=== PATIENT | male | born 1960 | race Caucasian/White ===

== ENCOUNTER 2019-06-05 07:09 | Outpatient (CLI) | payer OTHER, SELFPAY ==
--- NOTE | ~2019-06-05 | CT_ITS ---
EXAMINATION: CTA chest PE protocol DATE: 06/05/2019 21:39 MORNING NEWS ANCHOR INDICATION: Dyspnea TECHNIQUE: Computed tomographic angiography (CTA) of the chest was performed with 100 mL Omnipaque-35 0 intravenous contrast. The dose-length product was 1017.83 mGy-cm. Maximum intensity projection 3D-r econstructions of the aorta and other arteries were constructed by the technologist on a separate wor kstation. Automated exposure control and iterative reconstruction technique were employed. COMPARISON: CT dated 08/03/2016 FINDINGS: The study is technically adequate without evidence for pulmonary embolism. No significant p leural or pericardial effusion. Heart size is normal. There is mediastinal lipomatosis. No thoracic l ymphadenopathy. Right middle lobe airspace consolidation without significant change. There is atheros clerosis of the coronary arteries. There is emphysema. No pulmonary nodules. Mild thoracic spondylosis. IMPRESSION: 1. No evidence for pulmonary embolism. 2: Chronic right middle lobe airspace consolidation, most likely atelectasis/scarring. Pneumonia les s favored. 3: Emphysema. Reviewed, dictated and finalized at location A. ING NEWS ANCHOR IMPRESSION: 1. No evidence for pulmonary embolism. 2: Chronic right middle lobe airspace consolidation, most likely atelectasis/s carring. Pneumonia less favored. 3: Emphysema.
--- NOTE | ~2019-06-05 | CT_ITS ---
EXAMINATION: CT abdomen pelvis wo con DATE: 06/05/2019 20:59 INDICATION: Abdominal pain TECHNIQUE: Computed tomography (CT) of the abdomen and pelvis was performed with 100 cc Omnipaque 350 intravenous contrast. The dose-length product was 1595.25 mGy-cm. Automated exposure control and ite rative reconstruction technique were employed. COMPARISON: No prior studies for comparison. FINDINGS: There is right middle lobe airspace consolidation. No significant pleural or pericardial ef fusion. Heart size normal. Gallbladder is distended, although no secondary findings to suggest cholecystitis. The liver, spleen, pancreas, adrenal glands and left kidney are unremarkable. There is a calcification located medial t o the right kidney which may represent renal arterial calcification or ureteral stone. No hydronephro sis. Bladder is unremarkable. Nonobstructive bowel gas pattern. No abnormal pelvic masses or fluid co llections. Mild-moderate lumbar spondylosis. Oral fat-containing umbilical hernia. No evidence for di verticulitis or appendicitis. There is mild lymphadenopathy in the left periaortic in left common and external iliac chains. There is also left inguinal lymphadenopathy. IMPRESSION: 1. Possible nonobstructing right renal stone measuring 2-3 mm versus renal arterial calcification. No hydronephrosis. 2: Right middle lobe airspace consolidation, atelectasis versus pneumonia. 3: Left pelvic lymphadenopathy involving the left common and external iliac chains and left inguinal region, largest measuring 3 cm, image 167. These may be reactive, although other considerations such as lymphoma should be considered. Reviewed, dictated and finalized at location A. PUNCHER IMPRESSION: 1. Possible nonobstructing right renal stone measuring 2-3 mm versus renal michael rial calcification. No hydronephrosis. 2: Right middle lobe airspace consolidation, atelectasis versus pneumonia. 3: Left pelvic lymphadenopathy involving the left common and external iliac ch ains and left inguinal region, largest measuring 3 cm, image 167. These may be reactive, although other considerations such as lymphoma should be considered.
[2019-06-05 20:39] LABS: Blood Urea Nitrogen 17 mg/dL (8-26); Estimated Glomerular Filt Rate > 60
== END 2019-06-05 08:00 | disposition home or self-care (01) ==
LOC: ANHOUTPT 20:41 → ANHIMG 04-01 15:56
PROVIDERS: Emergency Medicine; PCP Internal Medicine
DX: R10.9 Unspecified abdominal pain (principal); J44.9 Chronic obstructive pulmonary disease, unspecified; R59.0 Localized enlarged lymph nodes; R91.8 Other nonspecific abnormal finding of lung field; R93.41 Abnormal radiologic findings on diagnostic imaging of renal pelvis, ureter, or bladder
CPT/HCPCS: 71275; 74176; Q9967

== ENCOUNTER 2020-10-08 08:46 | Outpatient (CLI) | payer OTHER, SELFPAY ==
[2020-10-08 09:17] LABS: Alveolar/Arterial O2 Gradient 121.7 mmHg; Base Excess ABG 5.5 mEq/l (+/-2.0); Carboxyhemoglobin 0.6 % THb (0-2.0); Fractional Inspired Oxygen 36 %; HCO3 ABG 32.1 mEq/l (22.0-26.0); Methemoglobin ABG 0.5 %THb (0-1.5); Oxygen Saturation ABG 93.8 % (95.0-100.0); Oxyhemoglobin 92.9 % THb (90.0-100.0); PO2 ABG 71.2 mmHg (80.0-100.0); PO2 FiO2 Ratio Arterial Blood 1.98 %; Total Hemoglobin 13.8 g/dL (12.0-18.0); pH ABG 7.384 (7.350-7.450)
[2020-10-08 09:19] LABS: Device NASAL CANNULA; Modified Allen's Test Pass; Site Drawn LEFT RADIAL
--- NOTE | 2020-10-08 09:43 | PCRCNOTE ---
PT UNABLE TO DO 6MWT DUE TO SEVERE INFLAMMATION OF SCROTUM. ABG DONE ON 4L O2, THIS IS HIS HOME SETTING. FAXED ABG RESULTS TO [facility] OFFICE STAFF. WHEELED PT DOWN TO ER ADMITTING.
== END 2020-10-08 08:47 | disposition home or self-care (01) ==
PROVIDERS: PCP Internal Medicine; Visit Provider Nurse Practitioner
DX: J44.9 Chronic obstructive pulmonary disease, unspecified (principal)
CPT/HCPCS: 36600; 82375; 82805; 83050

== ENCOUNTER 2020-10-08 09:30 | Inpatient (IN) | payer OTHER, SELFPAY ==
[2020-10-08] VITALS (30 sets, daily range): BP systolic 124–170; BP diastolic 76–102; PULSE 64–96; RESP 14–25; TEMP 36.3–37.2; O2SAT 91–100
--- NOTE | ~2020-10-08 | XR_ITS ---
XR esophogram water soluble DATE: 10/20/2020 14:53 INDICATION: Food sticking in distal esophagus TECHNIQUE: Rapid sequence spot images and overhead radiographs during oral ingestion of water soluble contrast material COMPARISON: None FINDINGS: There is normal deglutition and esophageal peristalsis. There is a small sliding hiatal hernia. There is a persistent irregular filling defect bridging the esophagogastric junction, extending from the distal esophagus into the hiatal hernia, suggesting distal esophageal malignancy invading the pro ximal stomach versus adenocarcinoma of the stomach at the hiatal hernia invading the distal esophagus . Direct visualization and biopsy via upper endoscopy is recommended. Right upper extremity PIC catheter overlies the superior vena cava. IMPRESSION: Irregular persistent filling defect bridging the esophagogastric junction, involving the distal esophagus and proximal stomach at the hiatal hernia, highly suspicious for malignancy in eithe r the distal esophagus or proximal stomach Endoscopic direct visualization and biopsy is recommended Reviewed, dictated and finalized at Location A. Reviewed, dictated and finalized at location A. IMPRESSION: Irregular persistent filling defect bridging the esophagogastric ju nction, involving the distal esophagus and proximal stomach at the hiatal herni a, highly suspicious for malignancy in either the distal esophagus or proximal stomach Endoscopic direct visualization and biopsy is recommended
--- NOTE | ~2020-10-08 | XR_ITS ---
EXAMINATION: XR chest 1V portable DATE: 10/12/2020 15:21 INDICATION: Hypoxia. TECHNIQUE: A single frontal view of the chest was obtained on 2 radiographs. COMPARISON: Chest single view 10/11/2020, CT abdomen and pelvis 10/11/2020, chest CT 06/05/2019 FINDINGS: There are airspace opacities in the mid and lower lung zones. No pleural effusion or pneumo thorax. The heart size is normal. The nasogastric tube tip is beyond the inferior margin of the radio graph, but at least to the stomach. A right upper extremity peripherally inserted central venous cath eter (PICC) is seen with tip in the superior vena cava. Mediastinal lipomatosis is noted. There are o ld left rib fractures. IMPRESSION: 1. Airspace opacities in the mid and lower lung zones with worsening on the left, consistent with ate lectasis/scarring or less likely pneumonia. Reviewed, dictated and finalized at location A. IMPRESSION: 1. Airspace opacities in the mid and lower lung zones with worsening on the lef t, consistent with atelectasis/scarring or less likely pneumonia.
--- NOTE | ~2020-10-08 | XR_ITS ---
EXAMINATION: XR abdomen/kub 1V DATE: 10/12/2020 12:08 INDICATION: Nasogastric tube placement. Stomach distention. TECHNIQUE: A supine view of the abdomen on 4 radiographs was obtained. COMPARISON: 10/11/2020 FINDINGS: Nasogastric tube tip in proximal side port in the body of the gas distended stomach. Moderate amount of gas and stool scattered throughout the colon. No dilated loops of gas-filled small bowel to sugges t obstruction. A Lieberman catheter projects over the central pelvis. Streaky bibasilar opacities which c ould represent atelectasis and/or pneumonia. IMPRESSION: 1. Nasogastric tube in the stomach. 2. Streaky bibasilar opacities which could represent atelectasis and/or pneumonia. Reviewed, dictated and finalized at location A. IMPRESSION: 1. Nasogastric tube in the stomach. 2. Streaky bibasilar opacities which could represent atelectasis and/or pneumon ia.
--- NOTE | ~2020-10-08 | XR_ITS ---
EXAMINATION: XR chest 1V portable DATE: 10/11/2020 23:03 INDICATION: Increasing oxygen requirements TECHNIQUE: frontal view of the chest was obtained. COMPARISON: Chest radiograph dated 10/10/[address] dated 06/05/2019 FINDINGS: Right upper extremity peripherally inserted central venous catheter (PICC) tip at the mid superior v donovan cava. Nasogastric tube is seen extending to at least the mid esophagus which is unable to be visu alized more distally due to underpenetration. Persistent airspace opacities in the bilateral lower lung zones. Chronic increased subpleural fat. No pleural effusion or pneumothorax. The cardiomediastinal silhouette is normal. Old left-sided rib fra ctures. IMPRESSION: 1. Persistent opacities in bilateral lower lung zones which could represent atelectasis/scarring or p neumonia. Reviewed, dictated and finalized at location A. IMPRESSION: 1. Persistent opacities in bilateral lower lung zones which could represent ate lectasis/scarring or pneumonia.
--- NOTE | ~2020-10-08 | CT_ITS ---
EXAMINATION: CT pelvis w con DATE: 10/08/2020 12:45 INDICATION: Rule out Nathanael's gangrene. Testicle swelling. TECHNIQUE: Computed tomography (CT) of the pelvis was performed with 100 cc Omnipaque 350 intravenous contrast. The dose-length product was 1940.25 mGy-cm. Automated exposure control and iterative recon struction technique were employed. COMPARISON: CT dated 06/05/2019 FINDINGS: Nonobstructive bowel gas pattern. Small fat-containing umbilical hernia. No abnormal pelvic masses or fluid collections. There is scrotal wall thickening as well as edema and fluid in the scro patrick. No scrotal gas or significant inflammatory changes of the perineum are identified to suggest Fou rnier's gangrene. There is a small amount of focal gas likely in the urethra, image [id number], possibly fr om recent instrumentation. Clinically correlate. There is mild subcutaneous fatty infiltration and sk in thickening overlying the lower abdomen, likely cellulitis. No significant lymphadenopathy. No vasc ular abnormalities are identified. Nonobstructive bowel gas pattern. IMPRESSION: 1. Small amount of gas most likely in the urethra. Correlate for recent instrumentation. 2: Scrotal wall thickening and fluid, suspicious for infection/cellulitis. No associated subcutaneou s gas to suggest Nathanael's gangrene. 3: Lower anterior abdominal wall subcutaneous fatty infiltration and skin thickening, consistent with cellulitis. Reviewed, dictated and finalized at location B. IMPRESSION: 1. Small amount of gas most likely in the urethra. Correlate for recent instrum entation. 2: Scrotal wall thickening and fluid, suspicious for infection/cellulitis. No associated subcutaneous gas to suggest Nathanael's gangrene. 3: Lower anterior abdominal wall subcutaneous fatty infiltration and skin thick ening, consistent with cellulitis.
--- NOTE | ~2020-10-08 | US_ITS ---
EXAMINATION: US venous doppler [facility] DATE: 10/19/2020 11:59 INDICATION: Chest pain TECHNIQUE: Mcclellan scale images without and with compression and Doppler images of the bilateral lower e xtremity veins were obtained. COMPARISON: None FINDINGS: The peroneal veins are not evaluated due to body habitus. The right common femoral vein, profunda femoral vein, femoral vein, popliteal vein, posterior tibial veins, and greater saphenous vein are patent. The left common femoral vein, profunda femoral vein, femoral vein, popliteal vein, posterior tibial v eins, and greater saphenous vein are patent. IMPRESSION: 1. Visualized lower extremity veins are patent. No evidence of deep venous thrombosis. Reviewed, dictated and finalized at location A. IMPRESSION: 1. Visualized lower extremity veins are patent. No evidence of deep venous thro mbosis.
--- NOTE | ~2020-10-08 | XR_ITS ---
XR chest PICC line 10/10/2020 10:22 Indication: PICC line placement Procedure: Limited AP portable view of the chest Comparison: Comparison to multiple prior studies sequentially, with oldest reviewed study dated 08/06. Findings: Right subclavian PICC line tip in the SVC. Right pleural effusion. Right basilar airspace d isease partially visualized. No pneumothorax. Impression: 1: Right basilar airspace disease partially visualized which may represent atelectasis or pneumonia. 2: PICC line tip in the SVC. Reviewed, dictated and finalized at location A. Impression: 1: Right basilar airspace disease partially visualized which may represent atel ectasis or pneumonia. 2: PICC line tip in the SVC.
--- NOTE | ~2020-10-08 | XR_ITS ---
EXAMINATION: XR chest 1V portable DATE: 10/14/2020 05:57 INDICATION: Respiratory failure TECHNIQUE: frontal view of the chest was obtained. COMPARISON: Chest radiograph dated 10/12/2020 FINDINGS: Right upper extremity peripherally inserted central venous catheter (PICC) tip at the superior vena cava. Airspace opacities in the bilateral mid and lower lung zones with interval increase in the right lowe r lung zone. No pneumothorax or pleural effusion. Heart size is within normal limits for AP technique . Mediastinal lipomatosis. IMPRESSION: 1. Opacities in the bilateral mid and lower lung zones with worsening in the left lower lung zone whi ch could represent atelectasis and/or pneumonia. Reviewed, dictated and finalized at location A. IMPRESSION: 1. Opacities in the bilateral mid and lower lung zones with worsening in the le ft lower lung zone which could represent atelectasis and/or pneumonia.
--- NOTE | ~2020-10-08 | CT_ITS ---
EXAMINATION: CTA chest PE protocol DATE: 10/18/2020 12:32 INDICATION: Chest pain with inspiration, elevated d-dimer TECHNIQUE: Computed tomography angiography (CTA) of the chest was performed with 200 mL Omnipaque-350 intravenous contrast timed to evaluate the pulmonary arteries. Coronal maximum intensity projection 3D-reconstructions were created by the technologist. The dose-length product (DLP) was 2179.75 mGy-cm . Automated exposure control and iterative reconstruction technique were employed. COMPARISON: 06/05/2019 FINDINGS: There is moderate opacification of the pulmonary arteries. No pulmonary embolism is identif ied. There are small pleural effusions. Dependent airspace opacities are present. There is mild emphy sema. A right upper extremity PICC ends with its tip in the distal superior vena cava. No pathologica lly enlarged thoracic lymph nodes are identified. The heart size is normal. Old left-sided rib fractu res are noted. There is mild thoracic spondylosis. IMPRESSION: 1. No pulmonary embolism identified. 2. Small pleural effusions. 3. Bilateral dependent airspace opacities of the lungs, likely, initial atelectasis and pneumonia. Reviewed, dictated and finalized at location A. IMPRESSION: 1. No pulmonary embolism identified. 2. Small pleural effusions. 3. Bilateral dependent airspace opacities of the lungs, likely, initial atelect asis and pneumonia.
--- NOTE | ~2020-10-08 | CT_ITS ---
EXAMINATION: CT abdomen pelvis wo con DATE: 10/11/2020 10:08 INDICATION: Vomiting. Abdominal distention. TECHNIQUE: Computed tomography (CT) of the abdomen and pelvis was performed without intravenous contr ast. The dose-length product was 2060.03 mGy-cm. Automated exposure control and iterative reconstruct ion technique were employed. COMPARISON: CT dated 10/08/2020. FINDINGS: Bibasilar airspace disease which may represent atelectasis and/or pneumonia. There is mild gastric distention, nonspecific. No obstruction identified. Nonobstructive bowel gas pattern. There i s a Lieberman catheter present in the bladder. There is soft tissue edema in the flanks, nonspecific. Mild scrotal edema partially visualized. The liver, spleen, pancreas, adrenal glands and kidneys are unremarkable. Gallbladder is present. No free air or free fluid. Mild lumbar spondylosis. IMPRESSION: 1. Bibasilar airspace disease may represent atelectasis and/or pneumonia. 2: Nonspecific gastric distention. No obstruction identified. Reviewed, dictated and finalized at location A.
--- NOTE | ~2020-10-08 | XR_ITS ---
EXAMINATION: XR abdomen NG/feed tube insert INDICATION: Nasogastric tube placement TECHNIQUE: Portable AP KUB-NG at 2209 hours COMPARISON: 10/11/2020 FINDINGS: The nasogastric tube is in the stomach. The stomach remains moderately distended. There is atelectasis of the visualized lung bases. IMPRESSION: 1. Nasogastric tube in the stomach with moderate persistent distention of the stomach. Reviewed, dictated and finalized at location B. IMPRESSION: 1. Nasogastric tube in the stomach with moderate persistent distention of the s tomach.
--- NOTE | ~2020-10-08 | XR_ITS ---
XR abdomen/kub 1V 10/11/2020 03:53 Indication: Vomiting Procedure: KUB Comparison: No prior studies for comparison. Findings: There is gastric distention, nonspecific. There is moderate gas in the right colon. No sign ificant small bowel dilation. There is a catheter overlying the pelvis possibly in the rectum. No acu te osseous abnormality. Impression: 1: Nonspecific gastric distention. Reviewed, dictated and finalized at location A. Impression: 1: Nonspecific gastric distention.
--- NOTE | ~2020-10-08 | XR_ITS ---
EXAMINATION: XR chest 1V portable 10/08/2020 11:47 INDICATION: Pulmonary edema PROCEDURE: AP portable chest COMPARISON: 08/04/2016 FINDINGS: The lungs are clear. The cardiomediastinal silhouette is within normal limits. There are no pleural effusions. There is no pneumothorax suspected. IMPRESSION: 1: NO ACUTE CARDIOPULMONARY DISEASE. Reviewed, dictated and finalized at location B.
--- NOTE | 2020-10-08 11:20 | ED.FEMALEGU ---
HPI - Female Genitourinary General Chief complaint: Urogenital-Male Stated complaint: Scrotal Swelling Time Seen by Provider: 10/08/20 11:06 Source: patient and RN notes reviewed Mode of arrival: ambulatory Limitations: no limitations History of Present Illness HPI Narrative: Patient 60 years old white male presents to the ED with his daughter from home complaining of pain and swelling of the scrotum for the last 3 days. Patient denies fever, chills, nausea, vomiting. Had similar history in the past without specific diagnosis. He denies any history of diabetes, currently on 4 L of oxygen because of COPD. Patient is morbidly obese 211 kg. Related Data Allergies Allergy/AdvReac Type Severity Reaction Status Date / Time No Known Allergies Allergy Unverified 06/07/19 13:51 Review of Systems Review of Systems: Narrative: CONSTITUTIONAL: Denies fever, chills, or sweats. EYES: Denies visual changes, redness, or discharge. ENT: Denies rhinorrhea, congestion, sore throat, or otalgia. CARDIOVASCULAR: Denies chest pain, palpitations, or edema. RESPIRATORY: Denies cough or dyspnea. GASTROINTESTINAL: Denies abdominal pain, nausea, vomiting, or diarrhea. GENITOURINARY: Denies dysuria or hematuria. SKIN: Denies rash or itching. MUSCULOSKELETAL: Denies back pain, joint pain, or myalgia. NEUROLOGIC: Denies headache, numbness, or weakness. PSYCHIATRIC: Denies anxiety or depression. PMFSH Social History Social History Gender identity (if verbalized by the patient): Male Exam Narrative: Exam Narrative: General appearance: Well-developed, well-nourished, morbidly obese, sitting on the edge of the bed, poor hygienic condition Skin: Normal color Head: Normocephalic, nontraumatic Eyes: Clear conjunctiva ENT: Oropharynx normal, ears normal, nose normal Neck: Supple, nontender Chest and respiratory: Airway patent, no respiratory distress, no accessory muscle use Heart: Regular rate/rhythm Abdomen: Soft, nontender, no organomegaly, quiet bowel sounds, genital exam showed extensive erythematous changes of the scrotum bilaterally, thick skin, no discharge large scrotum invaginated penis Vascular: Normal peripheral pulses, normal capillary refill. Musculoskeletal: Normal range of motion, nontender back Neurologic: Alert and oriented ?3, STRINGED INSTRUMENT TUNER is normal as tested, no gross motor deficit Course Course Emergency Course: Stable Consultations Consultation #1: dr méndez Date: 10/08/20 Time: 14:25 Vital Signs Vital signs: Vital Signs Temperature 37.2 C 10/08/20 09:45 Pulse Rate 64 10/08/20 09:45 Respiratory Rate 16 10/08/20 09:45 Blood Pressure 170/91 H 10/08/20 09:45 Pulse Oximetry 94 10/08/20 09:45 Temperature 37.2 C 10/08/20 09:45 Pulse Rate 88 10/08/20 13:15 Respiratory Rate 15 10/08/20 13:15 Blood Pressure 134/85 10/08/20 13:15 Pulse Oximetry 91 10/08/20 13:15 MDM - Female Genitourinary Lab Data Result diagrams: 10/08/20 11:31 10/08/20 11:31 Labs: Lab Results 10/08/20 10/08/20 10/08/20 Range/Units 11:31 11:31 11:31 WBC 11.9 H (4.5-10.0) K/mm3 RBC 4.67 (4.6-6.20) M/mm3 Hgb 13.2 L (14.0-18.0) g/dL Hct 43.8 (42.0-52.0) % MCV 93.8 (80-100) fl MCH 28.3 (26-34) pg MCHC 30.1 L (32-36) g/dl RDW 15.8 H (11.5-14.5) % Plt Count 255 (150-375) k/mm3 MPV 8.9 (7.4-10.4) fl Immature Gran % (Auto) 0.6 H (0-0.5) % Neut % (Auto) 78.6 H (45.5-73.1) % Lymph % (Auto) 10.2 L (18.3-44.2) % Dickey % (Auto) 7.8 (2.6-8.5) % Eos % (Auto) 2.5 (0-4.4) % Baso % (Auto) 0.3 (0.2-1.2) %
--- NOTE | 2020-10-08 11:30 | PC.NURSE ---
aTTEMPTED TO STRAIGHT CATH PT, PT NOTED TO HAVE RETRACTED PENIS, EDP AWARE, UNABLE TO SUCCESSFULLY CATH PT FOR URINE, EDP INFORMED, VERBAL ORDER TO NOT WORRY ABOUT IT.
[2020-10-08] MEDS: SODIUM CHLORIDE 0.9% IV 1,000 ML 999 ML IV CONT (11:45)
[2020-10-08 11:49] LABS: Basophils Percent Auto 0.3 % (0.2-1.2); Eosinophils Absolute Auto 0.3 K/mm3 (0-0.3); Eosinophils Percent Auto 2.5 % (0-4.4); Hematocrit 43.8 % (42.0-52.0); Hemoglobin 13.2 g/dL (14.0-18.0); Immature Granulocyte Absolute 0.07 K/mm3 (0.00-0.031); Immature Granulocyte Percent A 0.6 % (0-0.5); Lymphocytes Absolute Auto 1.22 K/mm3 (0.9-3.2); Lymphocytes Percent Auto 10.2 % (18.3-44.2); Mean Corpuscular HGB Conc 30.1 g/dl (32-36); Mean Corpuscular Hemoglobin 28.3 pg (26-34); Mean Corpuscular Volume 93.8 fl (80-100); Mean Platelet Volume 8.9 fl (7.4-10.4); Monocytes Absolute Auto 0.9 K/mm3 (0.1-0.6); Monocytes Percent Auto 7.8 % (2.6-8.5); Neutrophils Absolute Auto 9.4 K/mm3 (1.3-6.7); Neutrophils Percent Auto 78.6 % (45.5-73.1); Platelet Count Result 255 k/mm3 (150-375); Red Blood Count 4.67 M/mm3 (4.6-6.20); Red Cell Distribution Width 15.8 % (11.5-14.5); White Blood Count 11.9 K/mm3 (4.5-10.0)
[2020-10-08 11:59] LABS: Lactic Acid Reflex 1.7 mmol/L (0.7-2.1)
[2020-10-08 12:01] LABS: Alanine Aminotransferase 14 U/L (4-50); Albumin Level 3.9 g/dL (3.5-5.1); Alkaline Phosphatase 106 U/L (38-126); Anion Gap 6 mmol/L (8-16); Aspartate Amino Transferase 21 U/L (17-59); Bilirubin,Total 0.6 mg/dL (0.2-1.3); Blood Urea Nitrogen 17 mg/dL (9-20); CRP 6.1 mg/dL (<1.0); Calcium 8.8 mg/dL (8.4-10.2); Carbon Dioxide 32 mmol/L (22-30); Chloride 102 mmol/L (98-107); Estimated CRCL calculation 143 ml/min; Estimated Glomerular Filt Rate > 60; Glucose 119 mg/dL (75-110); Potassium 3.8 mmol/L (3.4-5.0); Sodium 140 mmol/L (137-145)
[2020-10-08 12:07] LABS: NT Pro B Type Natriuretic Pept 70 pg/mL (5-100)
--- NOTE | 2020-10-08 12:11 | PC.NURSE ---
pT C/O PAIN, ASKING FOR MED PRIOR TO LEAVING FOR CT. EDP INFORMED, VERBAL ORDER GIVEN FOR 4MG MORPHINE AND 4MG ZOFRAN IVP STAT.
[2020-10-08] MEDS: MORPHINE SULFATE (*CRX) 4 MG/ML INJ IV PUSH (12:15)
[2020-10-08] MEDS: ONDANSETRON INJ 4 MG/2 ML VIAL IV PUSH (12:15)
--- NOTE | 2020-10-08 12:19 | PC.NURSE ---
pT TO CT AT THIS TIME, TO COLLECT 2ND BLOOD CULTURE SET UPON RETURN.
--- NOTE | 2020-10-08 12:50 | PC.NURSE ---
pT BACK FROM CT AT THIS TIME.
--- NOTE | 2020-10-08 14:00 | PC.NURSE ---
UROLOGY AT BEDSIDE ATTEMPTING TO CATH PT FOR SAMPLE.
--- NOTE | 2020-10-08 14:15 | PM.IMHP ---
H&P: HPI History of Present Illness Date/Time: 10/08/20 14:15 Chief Complaint: Scrotal pain and swelling Narrative: This is a pleasant 60-year-old male with morbid obesity, chronic respiratory failure on home oxygen, obstructive sleep apnea, and COPD who presented to the emergency department earlier today via private vehicle from home for evaluation of scrotal pain and swelling. About 4 days ago he scratched his scrotal region due to pruritus and since that time he has had increasing scrotal edema with redness and pain. He has a difficult time ambulating and even sitting down due to the size of his testicles, which he estimates are ?the size of coconuts.? CT showed evidence of cellulitis in the scrotal wall and lower anterior abdominal wall without evidence of necrosis or gas and he is being admitted in this setting. A Lieberman catheter has since been inserted as he reported difficulties urinating due to the edema. He denies fever, chills, sweats, nausea, and vomiting. No dysuria, hematuria, or penile discharge. No known history of multidrug resistant organisms. Review of Systems Review of Systems: Narrative: Twelve systems were reviewed with pertinent positives and negatives as per HPI. No recent cold or flu symptoms. He denies chest pain shortness of breath. No cough. No nausea, vomiting, or diarrhea. Except as documented, all other systems were reviewed+ and are negative. [facility] Past Medical History Medical History Chronic obstructive pulmonary disease Chronic respiratory failure with hypoxia, on home oxygen therapy Morbid obesity Obesity hypoventilation syndrome Obstructive sleep apnea on CPAP Tobacco use Surgical History Surgical History (Updated 10/08/20 @ 19:29 by Chrissy Mo PA-C) History of appendectomy History of mandibular surgery Bilateral jaw surgery due to fracture. Family History Family History (Updated 10/08/20 @ 19:29 by Chrissy Mo PA-C) Other Hypertension Social History Social History (Updated 10/08/20 @ 19:30 by Chrissy Mo PA-C) Social History: Surrogate decision maker: Fernanda Yao, [id number]. Code status: Full code however he would not want to be on long-term life support. Smoking packs per day: 3 Smoking cigarettes per day: 60.0 Years smoked: 40 Smoking pack-years: 120.00 Smoking status: Former smoker Tobacco type: cigarettes Additional smoking assessment comments: Patient tells me he still smokes about 5 cigarettes a month. Alcohol intake: never Substance use type: marijuana Last use: Occasional marijuana use. Additional living arrangements comments: The patient lives with his son and [id number] in [place]. 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 Meds Home Medications and Allergies Home Medications Medication Instructions Recorded Confirmed Type albuterol mcg INHALATION 10/08/20 10/08/20 History budesonide-formoterol [Symbicort] INHALATION 10/08/20 History Allergies Allergy/AdvReac Type Severity Reaction Status Date / Time No Known Allergies Allergy Unverified 06/07/19 13:51 Vital Signs Vital Signs - 24 hr 10/08/20 09:45 10/08/20 09:49 10/08/20 09:50 Temperature 98.9 F Pulse Rate 64 94 96 Respiratory Rate 16 20 19 Blood Pressure 170/91 H 170/91 H Pulse Oximetry 94 96 96 10/08/20 10:00 10/08/20 10:51 10/08/20 11:00 Temperature Pulse Rate 87 93 90 Respiratory Rate 14 22 H 19 Blood Pressure Pulse Oximetry 10/08/20 11:15 10/08/20 11:30 10/08/20 12:56 Temperature Pulse Rate 87 88 Respiratory Rate 18 Blood Pressure Pulse Oximetry 96 93 10/08/20 13:00 10/08/20 13:15 10/08/20 13:30 Temperature Pulse Rate 88 86 Respiratory Rate 15 18 Blood Pressure 134/85 Pulse Oximetry 92 91 93 10/08/20 13:31 10/08/20 13:49 10/08/20 14:00 Temperature Pulse Rate 87 87 88 Respiratory Rate 25 H 21 H 25 H Bloo
--- NOTE | 2020-10-08 14:58 | PC.NURSE ---
COUDE PLACED BY UROLOGY, PER EDP COUDE TO STAY IN PLACE AND TOLENTINO BAG TO BE ATTATCHED, ORDERS COMPLETE.
[2020-10-08 15:04] LABS: Add Urine Microscopic? YES; Appearance Urine Clear (Clear); Bilirubin Urine Negative (Negative); Blood Urine Negative (Negative); Color Urine Yellow (Yellow); Glucose Urine UA Negative (Negative); Ketones Urine Negative (Negative); Leukocyte Esterase Ur Negative LEU/UL (Negative); Mucus Urine Few /lpf; Nitrate Urine Negative (Negative); Protein Urine 1+ mg/dL (Negative)
--- NOTE | 2020-10-08 15:53 | PC.NURSE ---
PT REPORTS INCREASING SOB, STATES HE WOULD'VE NORMALLY TAKEN HIS INHALERS BY NOW, EDP INFORMED VERBAL ORDER GIVEN FOR 2.5 MG ALBUTEROL AND 0.5 MG ATROVENT NEBULIZED. ED RESPIRATORY INFORMED.
--- NOTE | 2020-10-08 15:54 | PC.NURSE ---
MENDEZ TRUJILLO AT BEDSIDE.
[2020-10-08] MEDS: ALBUTEROL SULFATE NEB 2.5 MG/0.5 ML INH INHALATION (16:01)
[2020-10-08] MEDS: IPRATROPIUM BR 0.02% INH SOLN 0.5 MG/2.5 ML VIAL INHALATION (16:01)
--- NOTE | 2020-10-08 16:13 | WPDURCON ---
Assessment and Plan Assessment and plan (1) Cellulitis of scrotum: Code(s): N49.2 - Inflammatory disorders of scrotum Status: Acute Assessment and Plan: Admit to medicine and treat with IV antibiotics. Urine sent for culture. (2) Acute retention of urine: Code(s): R33.8 - Other retention of urine Status: Acute Assessment and Plan: Keep bowers catheter in place, will plan to do a voiding trial prior to discharge. Start Tamsulosin. 14fr coude catheter placed with difficulty, betadine swabs used prior to insertion, >400cc of dark lily urine noted on return. Urology Consult Note HPI Date Seen: 10/08/20 Requesting Physician: Sixto López MD Primary Care Provider: Vijay Bueno, Consult Narrative Narrative: Catarino Yao Sr. is a 60 year old male who presented to the ER today for painful, swollen scrotum that started one week ago. He states he hasn't urinated since last night. He denies hematuria, dysuria, frequency or urgency. He also denies fever, chills, nausea or vomiting. He states this hasn't happened before. He has BLE edema and is significantly overweight with abdominal fluid present as well. His WBC is slightly elevated at 11.9, creatinine normal at 0.[address] of the pelvis shows Scrotal wall thickening and fluid, suspicious for infection/cellulitis. No associated subcutaneous gas to suggest Nathanael's gangrene, Lower anterior abdominal wall subcutaneous fatty infiltration and skin thickening, consistent with cellulitis. The ER staff was unable to place a bowers catheter d/t his hidden penis and grossly edematous scrotum. However, with much difficulty, I was able to place a 14fr coude catheter and he did have retention noted. I was able to drain >400cc of dark lily colored, malodorous urine from his bladder. Review of Systems Cardiovascular: Cardiovascular: Denies chest pain Respiratory: Respiratory: Reports dyspnea Gastrointestinal: Gastrointestinal: Denies abdominal pain, Denies nausea and Denies vomiting Genitourinary: Genitourinary: Reports genital pain, Denies dysuria, Denies flank pain, Reports scrotal swelling, Denies urinary frequency, Reports urinary hesitancy and Denies urinary urgency [facility] Social History Social History Gender identity (if verbalized by the patient): Male Meds Home Medications and Allergies Home Medications Medication Instructions Recorded Confirmed Type albuterol mcg INHALATION 10/08/20 10/08/20 History budesonide-formoterol [Symbicort] INHALATION 10/08/20 History Allergies Allergy/AdvReac Type Severity Reaction Status Date / Time No Known Allergies Allergy Unverified 06/07/19 13:51 Vital Signs Vital Signs - 24 hr 10/08/20 09:45 10/08/20 09:49 10/08/20 09:50 Temperature 98.9 F Pulse Rate 64 94 96 Respiratory Rate 16 20 19 Blood Pressure 170/91 H 170/91 H Pulse Oximetry 94 96 96 10/08/20 10:00 10/08/20 10:51 10/08/20 11:00 Temperature Pulse Rate 87 93 90 Respiratory Rate 14 22 H 19 Blood Pressure Pulse Oximetry 10/08/20 11:15 10/08/20 11:30 10/08/20 12:56 Temperature Pulse Rate 87 88 Respiratory Rate 18 Blood Pressure Pulse Oximetry 96 93 10/08/20 13:00 10/08/20 13:15 10/08/20 13:30 Temperature Pulse Rate 88 86 Respiratory Rate 15 18 Blood Pressure 134/85 Pulse Oximetry 92 91 93 10/08/20 13:31 10/08/20 13:49 10/08/20 14:00 Temperature Pulse Rate 87 87 88 Respiratory Rate 25 H 21 H 25 H Blood Pressure 124/87 Pulse Oximetry 93 93 96 10/08/20 14:01 10/08/20 14:15 10/08/20 14:49 Temperature Pulse Rate 88 88 84 Respiratory Rate 20 19 Blood Pressure 140/102 H Pulse Oximetry 100 91 95 10/08/20 15:00 10/08/20 15:01 10/08/20 15:20 Temperature Pulse Rate 86 84 Respiratory Rate 20 20 Blood Pressure 131/84 Pulse Oximetry 92 92 92 10/08/20 15:30 10/08/20 15:31 06
--- NOTE | 2020-10-08 17:19 | ADMGEN ---
This patient, Catarino Yao Sr., was admitted to Medical Room 248-01. Patient/family oriented to hospital policies and general routines including ID bracelet, bed and alarms, visiting hours, pain management, procedures, bathroom and other care routines, personal items, smoking policy, room service/diet, and visiting hours. Information on how to activate the Rapid Response Team has been discussed. Patient/Family are encouraged to report perceived risks to care and to ask questions if they do not understand what they are told or what they should do.
[2020-10-08] MEDS: HYDROmorphone HCL INJ (*CRX) 1 MG/ML SYR 0.5 MG IV PUSH (22:11)
[2020-10-09] VITALS (19 sets, daily range): BP systolic 123–132; BP diastolic 63–76; PULSE 78–100; RESP 20–24; TEMP 36.1–36.4; O2SAT 90–96
[2020-10-09] MEDS: ALBUTEROL SULFATE NEB 2.5 MG/0.5 ML INH INHALATION ×5 (02:00→21:32)
[2020-10-09] MEDS: IPRATROPIUM BR 0.02% INH SOLN 0.5 MG/2.5 ML VIAL INHALATION ×5 (02:00→21:33)
[2020-10-09] MEDS: HYDROmorphone HCL INJ (*CRX) 1 MG/ML SYR 0.5 MG IV PUSH ×4 (02:56→21:42)
[2020-10-09 06:00] LABS: Hematocrit 45.4 % (42.0-52.0); Hemoglobin 13.3 g/dL (14.0-18.0); Mean Corpuscular HGB Conc 29.3 g/dl (32-36); Mean Corpuscular Hemoglobin 28.6 pg (26-34); Mean Corpuscular Volume 97.6 fl (80-100); Platelet Count Result 242 k/mm3 (150-375); Red Blood Count 4.65 M/mm3 (4.6-6.20); Red Cell Distribution Width 16.2 % (11.5-14.5)
[2020-10-09 06:37] LABS: Alanine Aminotransferase 14 U/L (4-50); Albumin Level 3.9 g/dL (3.5-5.1); Alkaline Phosphatase 93 U/L (38-126); Anion Gap 5 mmol/L (8-16); Aspartate Amino Transferase 22 U/L (17-59); Bilirubin,Total 0.6 mg/dL (0.2-1.3); Blood Urea Nitrogen 14 mg/dL (9-20); Calcium 8.5 mg/dL (8.4-10.2); Carbon Dioxide 37 mmol/L (22-30); Chloride 97 mmol/L (98-107); Estimated CRCL calculation 143 ml/min; Estimated Glomerular Filt Rate > 60; Glucose 101 mg/dL (75-110); Magnesium 2.2 mg/dL (1.6-2.3); Potassium 3.7 mmol/L (3.4-5.0); Sodium 139 mmol/L (137-145)
--- NOTE | 2020-10-09 06:44 | WPDUROPN2 ---
Progress Note: A&P Assessment and Plan (1) Morbid obesity: Code(s): E66.01 - Morbid (severe) obesity due to excess calories Status: Acute (2) Cellulitis of scrotum: Code(s): N49.2 - Inflammatory disorders of scrotum Status: Acute Assessment and Plan: Scrotal exam largely unchanged -> still markedly swollen and inflamed but without signs of skin necrosis. Serum WBC slightly improved. Will add moisturizing cream to scrotum at pt. request. Continue Vanc./Pip-Tazo. Subjective Subjective Date/Time Seen: 10/09/20 06:44 Pt. remains uncomfortable with marked scrotal edema Review of Systems Cardiovascular: Cardiovascular: Denies chest pain, Denies lightheadedness, Denies palpitations and Denies dyspnea Respiratory: Respiratory: Denies dyspnea Gastrointestinal: Gastrointestinal: Denies diarrhea, Denies nausea and Denies vomiting Genitourinary: Genitourinary: Denies hematuria, Reports genital pain and Denies dysuria Endocrine: Endocrine: Denies palpitations Exam Const: General: no acute distress Resp: Effort & Inspection: normal respiratory effort GI: Inspection: non-distended GI Palp: No abdominal tenderness and No Guarding due to palpation present (GI) Auscultation: normal bowel sounds : Male General Exam: Yes other (Marked scrotal swelling and erythema w/o necrosis, fluctuance or crepitus) Objective Data Vital Signs Vital Signs: Vital Signs - 24 hr 10/08/20 09:45 10/08/20 09:49 10/08/20 09:50 Temperature 98.9 F Pulse Rate 64 94 96 Respiratory Rate 16 20 19 Blood Pressure 170/91 H 170/91 H Pulse Oximetry 94 96 96 10/08/20 10:00 10/08/20 10:51 10/08/20 11:00 Temperature Pulse Rate 87 93 90 Respiratory Rate 14 22 H 19 Blood Pressure Pulse Oximetry 10/08/20 11:15 10/08/20 11:30 10/08/20 12:56 Temperature Pulse Rate 87 88 Respiratory Rate 18 Blood Pressure Pulse Oximetry 96 93 10/08/20 13:00 10/08/20 13:15 10/08/20 13:30 Temperature Pulse Rate 88 86 Respiratory Rate 15 18 Blood Pressure 134/85 Pulse Oximetry 92 91 93 10/08/20 13:31 10/08/20 13:49 10/08/20 14:00 Temperature Pulse Rate 87 87 88 Respiratory Rate 25 H 21 H 25 H Blood Pressure 124/87 Pulse Oximetry 93 93 96 10/08/20 14:01 10/08/20 14:15 10/08/20 14:49 Temperature Pulse Rate 88 88 84 Respiratory Rate 20 19 Blood Pressure 140/102 H Pulse Oximetry 100 91 95 10/08/20 15:00 10/08/20 15:01 10/08/20 15:20 Temperature Pulse Rate 86 84 Respiratory Rate 20 20 Blood Pressure 131/84 Pulse Oximetry 92 92 92 10/08/20 15:30 10/08/20 15:31 10/08/20 15:45 Temperature Pulse Rate 87 Respiratory Rate 22 H Blood Pressure 151/96 H Pulse Oximetry 93 92 91 10/08/20 16:02 10/08/20 16:11 10/08/20 16:28 Temperature Pulse Rate 95 95 90 Respiratory Rate 24 H 20 18 Blood Pressure 156/100 H Pulse Oximetry 95 10/08/20 21:40 10/08/20 22:00 10/08/20 22:20 Temperature 97.4 F L Pulse Rate 81 81 Respiratory Rate 22 H Blood Pressure 149/76 H Pulse Oximetry 92 92 92 10/09/20 02:01 10/09/20 02:12 10/09/20 03:16 Temperature Pulse Rate 88 91 88 Respiratory Rate 22 H 20 Blood Pressure Pulse Oximetry 93 10/09/20 06:00 Temperature 97.6 F Pulse Rate 80 Respiratory Rate 22 H Blood Pressure 131/76 Pulse Oximetry 96 Intake/Output Intake/Output: Intake & Output 10/06/20 10/07/20 10/08/20 10/09/20 23:59 23:59 23:59 23:59 Intake Total 1490 480 Output Total 950 Balance 1490 -470 Meds/Results Medications: Active Medications Generic Name Dose Route Start Last Admin Trade Name Freq PRN Reason Stop Dose Admin Acetaminophen 650 mg 10/08/20 19:40 Acetaminophen 325 Mg Tablet PO Q6H PRN Mild Pain (1-3) or Fever Albuterol 2 puff 10/08/20 20:16 Albuterol Sulfate (*Sp) Aerosol 1 Puff INHALATION QID PRN Wheezing Albuterol 2.5 mg 10/09/20
[2020-10-09] MEDS: ENOXAPARIN 40 MG/0.4 ML SYRINGE SUB-Q (08:30)
[2020-10-09] MEDS: TAMSULOSIN HCL 0.4 MG CAPSULE PO (08:31)
--- NOTE | 2020-10-09 13:17 | PM.IMPN ---
Progress Note: A&P Assessment and Plan (1) Cellulitis of scrotum: Code(s): N49.2 - Inflammatory disorders of scrotum Status: Acute Assessment and Plan: The patient was started on broad-spectrum antibiotics in the emergency department which will be continued. Urology evaluated the patient and recommends continuing Lieberman catheter, broad-spectrum antibiotics and monitoring of improvement Pain control p.r.n. Continue monitoring. Appreciate urology is recommendations. (2) Acute retention of urine: Code(s): R33.8 - Other retention of urine Status: Acute Assessment and Plan: Lieberman catheter placed per Urology. Continue Lieberman catheter and try voiding trial prior to discharge (3) Obstructive sleep apnea on CPAP: Code(s): G47.33 - Obstructive sleep apnea (adult) (pediatric); Z99.89 - Dependence on other enabling machines and devices Status: Acute Assessment and Plan: Patient may use machine from home. (4) Chronic obstructive pulmonary disease: Code(s): J44.9 - Chronic obstructive pulmonary disease, unspecified Status: Acute Assessment and Plan: No acute issues. Continue home respiratory regimen. (5) Tobacco use: Code(s): Z72.0 - Tobacco use Status: Acute Assessment and Plan: Patient tells me he still smokes about 5 cigarettes a month. Previously smoked up to 3 packs a day! Smoking cessation encouraged. (6) Chronic respiratory failure with hypoxia, on home oxygen therapy: Code(s): J96.11 - Chronic respiratory failure with hypoxia; Z99.81 - Dependence on supplemental oxygen Status: Acute Assessment and Plan: He is at his baseline oxygen requirement. No worsening breathing or change to his cough. Time Spent With Patient Time with patient: 25 - 35 minutes Subjective Date/time seen: 10/09/20 13:17 Interval history: 60-year-old morbidly obese male with a history of COPD, chronic respiratory failure on 4 L via nasal cannula constantly, SILVANA on CPAP, who presented to the emergency room with gradually worsening pain, redness and swelling to his scrotum which began about 4 days ago. Initial vitals showed he was afebrile, non tachycardic elevated blood pressure to 170/91, baseline oxygenation of 94% on 4 L. initial labs showed leukocytosis at 11,900, with elevated neutrophils. ABG shows normal pH, elevated pCO2 which is most likely chronic due to his morbid obesity and chronic respiratory failure, but normal oxygen saturation 93% on 4 L. CRP elevated at 6.1. Otherwise normal CMP. Urinalysis showed no acute signs of an infection with only 4-6 WBCs, uro bilirubin 4.0. Chest x-ray showed no acute cardiopulmonary disease. CT pelvis shows scrotal wall thickening and fluid, suspicious for infection/cellulitis. No associated subcutaneous gas to suggest Nathanael's gangrene. Lower anterior abdominal wall subcutaneous fatty infiltration and skin thickening, consistent with cellulitis. The patient was admitted to the hospital for cellulitis of his scrotum and lower abdomen. Started on IV vancomycin and Primaxin with a consult to Urology. Date of service 10/09/2020: Patient denies much improvement of his scrotal pain, swelling and redness today. He states his breathing and a cough or at his baseline and unchanged. He also has a pretty bad headache which is not uncommon for him. He denies any fevers, chills, nausea, vomiting, abdominal pain, chest pain, leg swelling, calf pain or any other symptoms at this time. Review of Systems Review of Systems: All systems reviewed & are unremarkable except as noted in HPI and below Exam Narrative: Exam Narrative: General: 60-year-old morbidly obese man sitting up in bed watching TV. Appears comfortable, other than some conversational dyspnea. On 4L via NC. In no acute respiratory distress. Skin: No jaundice or cyanosis. Good skin turgor. Neck: Full range of motion.
[2020-10-09] MEDS: HYDROcodone/acetaminophen (*CRX) 5-325 MG TABLET 1 TAB PO ×3 (14:46→23:42)
--- NOTE | 2020-10-09 19:35 | PC.NURSE ---
I attempted two sticks and Nursing cost control supervisor attempted to get IV access, unable attempts, call to [facility] to inquire about getting a PICC line
[2020-10-10] VITALS (20 sets, daily range): BP systolic 125–153; BP diastolic 61–86; PULSE 57–95; RESP 18–26; TEMP 36.1–36.6; O2SAT 88–100
[2020-10-10] MEDS: IPRATROPIUM BR 0.02% INH SOLN 0.5 MG/2.5 ML VIAL INHALATION ×6 (01:15→20:40)
[2020-10-10] MEDS: ALBUTEROL SULFATE NEB 2.5 MG/0.5 ML INH INHALATION ×6 (01:15→20:40)
[2020-10-10] MEDS: HYDROmorphone HCL INJ (*CRX) 1 MG/ML SYR 0.5 MG IV PUSH ×5 (04:08→23:40)
[2020-10-10 05:48] LABS: Hematocrit 47.1 % (42.0-52.0); Hemoglobin 13.9 g/dL (14.0-18.0); Mean Corpuscular HGB Conc 29.5 g/dl (32-36); Mean Corpuscular Hemoglobin 28.8 pg (26-34); Mean Corpuscular Volume 97.5 fl (80-100); Mean Platelet Volume 9.1 fl (7.4-10.4); Platelet Count Result 258 k/mm3 (150-375); Red Blood Count 4.83 M/mm3 (4.6-6.20); Red Cell Distribution Width 15.9 % (11.5-14.5); White Blood Count 10.5 K/mm3 (4.5-10.0)
[2020-10-10 05:56] LABS: Anion Gap 7 mmol/L (8-16); Blood Urea Nitrogen 11 mg/dL (9-20); CRP 5.2 mg/dL (<1.0); Calcium 8.8 mg/dL (8.4-10.2); Carbon Dioxide 35 mmol/L (22-30); Chloride 96 mmol/L (98-107); Estimated CRCL calculation 160 ml/min; Estimated Glomerular Filt Rate > 60; Glucose 141 mg/dL (75-110); Potassium 3.7 mmol/L (3.4-5.0); Sodium 138 mmol/L (137-145)
[2020-10-10] MEDS: ENOXAPARIN 40 MG/0.4 ML SYRINGE SUB-Q (07:53)
[2020-10-10] MEDS: TAMSULOSIN HCL 0.4 MG CAPSULE PO (07:53)
[2020-10-10] MEDS: HYDROcodone/acetaminophen (*CRX) 5-325 MG TABLET 1 TAB PO ×3 (10:16→21:47)
--- NOTE | 2020-10-10 11:18 | WPDUROPN2 ---
Progress Note: A&P Assessment and Plan (1) Cellulitis of scrotum: Code(s): N49.2 - Inflammatory disorders of scrotum Status: Acute Assessment and Plan: Continue broad-spectrum abx for scrotal cellulitis. No crepitus or necrosis to suggest Nathanael's gangrene. Wbc ct stable. I elevated his scrotum today; it needs to remain elevated to help with edema. Will likely need prolonged course of IV abx. Continue bowers catheter for now. Subjective Subjective Date/Time Seen: 10/10/20 11:18 Scrotum feels a little better than at time of admission. Still noting scrotal swelling and some pain. No fevers. Review of Systems Review of Systems: All systems reviewed & are unremarkable except as noted in HPI and below Exam Const: General: cooperative, comfortable and no acute distress Nutritional Appearance: obese Orientation/consciousness: patient oriented x3 GI: Inspection: normal to inspection GI Palp: No abdominal tenderness and Yes Soft to palpation : Penis: Yes other (unable to visualize penis due to body habitus) Scrotum: edematous, erythematous and other (scrotum is edematous and erythematous. There is no crepitus or necrosis) Urinary Catheter: Urinary Catheter: patent and draining and urine clear Objective Data Vital Signs Vital Signs: Vital Signs - 24 hr 10/09/20 12:06 10/09/20 12:13 10/09/20 14:00 Temperature 36.1 C L Pulse Rate 90 89 93 Respiratory Rate 21 H 20 24 H Blood Pressure 132/63 Pulse Oximetry 94 10/09/20 16:34 10/09/20 16:44 10/09/20 20:26 Temperature Pulse Rate 78 100 Respiratory Rate 22 H 20 Blood Pressure Pulse Oximetry 94 10/09/20 21:35 10/09/20 21:36 10/09/20 21:46 Temperature Pulse Rate 80 82 Respiratory Rate 20 20 Blood Pressure Pulse Oximetry 90 10/09/20 22:06 10/09/20 23:33 10/10/20 01:19 Temperature 36.4 C L Pulse Rate 78 82 87 Respiratory Rate 24 H 20 Blood Pressure 123/70 Pulse Oximetry 90 93 10/10/20 01:26 10/10/20 01:29 10/10/20 05:10 Temperature Pulse Rate 87 85 93 Respiratory Rate 20 20 Blood Pressure Pulse Oximetry 92 10/10/20 05:21 10/10/20 05:42 10/10/20 09:04 Temperature 36.1 C L Pulse Rate 89 94 90 Respiratory Rate 20 20 26 H Blood Pressure 149/86 H Pulse Oximetry 95 100 88 L 10/10/20 09:18 Temperature Pulse Rate 91 Respiratory Rate 24 H Blood Pressure Pulse Oximetry Intake/Output Intake/Output: Intake & Output 10/07/20 10/08/20 10/09/20 10/10/20 23:59 23:59 23:59 23:59 Intake Total 1490 3380 1220 Output Total 2650 1200 Balance 1490 730 20 Meds/Results Medications: Active Medications Generic Name Dose Route Start Last Admin Trade Name Freq PRN Reason Stop Dose Admin Acetaminophen 650 mg 10/08/20 19:40 Acetaminophen 325 Mg Tablet PO Q6H PRN Mild Pain (1-3) or Fever Hydrocodone Bitart/Acetaminophen 1 tab 10/09/20 13:56 10/10/20 10:16 Hydrocodone/Acetaminophen (*Crx) 5-325 Mg Tablet PO 1 tab Q4H PRN Administration Pain Rated 4-6 Albuterol 2 puff 10/08/20 20:16 Albuterol Sulfate (*Sp) Aerosol 1 Puff INHALATION QID PRN Wheezing Albuterol 2.5 mg 10/09/20 12:00 10/10/20 08:59 Albuterol Sulfate Neb 2.5 Mg/0.5 Ml Inh INHALATION 2.5 mg Q4HRT LUIS Administration Budesonide/Formoterol Fumarate 2 puff 10/09/20 09:00 10/10/20 08:02 Budesonide/Form 160-4.5 Mcg (*Sp) INHALATION 2 puff BID LUIS Administration Enoxaparin Sodium 40 mg 10/09/20 09:00 10/10/20 07:53 Enoxaparin 40 Mg/0.4 Ml Syringe SUB-Q 40 mg DAILY LUIS Administration Hydromorphone HCl 0.5 mg 10/08/20 22:00 10/10/20 08:15 Hydromorphone Hcl Inj (*Crx) 1 Mg/Ml Syr IV PUSH 0.5 mg Q4HR PRN Administration Pain Rated 7-10 Imipenem/Cilastatin Sodium 500 mg in 100 mls @ 300 mls/hr 10/09/20 06:00 10/10/20 06:05 Primaxin 500 Mg/D5w 100 Ml IVPB Infused Q6H LUIS Infusion Vancomycin HCl 2,000 mg in 5
--- NOTE | 2020-10-10 11:40 | PM.IMPN ---
Progress Note: A&P Assessment and Plan (1) Cellulitis of scrotum: Code(s): N49.2 - Inflammatory disorders of scrotum Status: Acute Assessment and Plan: The patient was started on broad-spectrum antibiotics in the emergency department 10/08/20 which will be continued. Urology evaluated the patient and recommends continuing Lieberman catheter, broad-spectrum antibiotics and monitoring of improvement and believes he may need halfway IV antibiotics. Elevate the patients scrotum to help with edema ordered by Urology. Blood cultures negative to date Pain control p.r.n. Consider infectious disease consultation for specifications antibiotics and duration of antibiotics that are recommended. Continue monitoring. Appreciate urology is recommendations. (2) Acute retention of urine: Code(s): R33.8 - Other retention of urine Status: Acute Assessment and Plan: Lieberman catheter placed per Urology. Continue Lieberman catheter and try voiding trial prior to discharge Urine culture negative for UTI. (3) Chronic respiratory failure with hypoxia, on home oxygen therapy: Code(s): J96.11 - Chronic respiratory failure with hypoxia; Z99.81 - Dependence on supplemental oxygen Status: Acute Assessment and Plan: He is at his baseline oxygen requirement. The patient has 2 hypoxic readings at 88%. The patient's nurse states that this is whenever he is talking for long periods of time. After he stops talking he is able to bring his oxygen back up above 90%. The patient denies any changes or worsening to his breathing. He still has his chronic cough in states it may be improving with the antibiotics he is currently on. He denies any fevers, chills or any other concerning symptoms at this time. He is still on his chronic 4 L of oxygen at this time. No worsening breathing or change to his cough. (4) Obstructive sleep apnea on CPAP: Code(s): G47.33 - Obstructive sleep apnea (adult) (pediatric); Z99.89 - Dependence on other enabling machines and devices Status: Acute Assessment and Plan: Patient may use machine from home. (5) Chronic obstructive pulmonary disease: Code(s): J44.9 - Chronic obstructive pulmonary disease, unspecified Status: Acute Assessment and Plan: No acute issues. Continue home respiratory regimen- Duoneb treatments Q4hrs . (6) Tobacco use: Code(s): Z72.0 - Tobacco use Status: Acute Assessment and Plan: Patient tells me he still smokes about 5 cigarettes a month. Previously smoked up to 3 packs a day! Smoking cessation encouraged. Time Spent With Patient Time with patient: 25 - 35 minutes Subjective Date/time seen: 10/10/20 11:40 Interval history: 60-year-old morbidly obese male with a history of COPD, chronic respiratory failure on 4 L via nasal cannula constantly, SILVANA on CPAP, who presented to the emergency room with gradually worsening pain, redness and swelling to his scrotum which began about 4 days ago. Initial vitals showed he was afebrile, non tachycardic elevated blood pressure to 170/91, baseline oxygenation of 94% on 4 L. initial labs showed leukocytosis at 11,900, with elevated neutrophils. ABG shows normal pH, elevated pCO2 which is most likely chronic due to his morbid obesity and chronic respiratory failure, but normal oxygen saturation 93% on 4 L. CRP elevated at 6.1. Otherwise normal CMP. Urinalysis showed no acute signs of an infection with only 4-6 WBCs, uro bilirubin 4.0. Chest x-ray showed no acute cardiopulmonary disease. CT pelvis shows scrotal wall thickening and fluid, suspicious for infection/cellulitis. No associated subcutaneous gas to suggest Nathanael's gangrene. Lower anterior abdominal wall subcutaneous fatty infiltration and skin thickening, consistent with cellulitis. The patient was admitted to the hospital for cellulitis of his scrotum and lower abdomen. Started on IV
--- NOTE | 2020-10-10 14:51 | PCPTNOTE ---
Patient refuses therapy due to severe swelling and pain at scrotal area. Plan to attempt eval tomorrow.
[2020-10-10 21:05] LABS: Vancomycin Trough 11.6 ug/mL (10.0-20.0)
[2020-10-10] MEDS: CENTRAL LINE FLUSH 10 ML IV PUSH (21:47)
[2020-10-10] MEDS: diphenhydrAMINE HCl CAP 25 MG CAPSULE PO (23:40)
[2020-10-11] VITALS (15 sets, daily range): BP systolic 134–150; BP diastolic 76–78; PULSE 84–96; RESP 18–28; TEMP 36–36.9; O2SAT 90–94
[2020-10-11] MEDS: ALBUTEROL SULFATE NEB 2.5 MG/0.5 ML INH INHALATION ×4 (01:26→16:14)
[2020-10-11] MEDS: IPRATROPIUM BR 0.02% INH SOLN 0.5 MG/2.5 ML VIAL INHALATION ×4 (01:26→16:15)
[2020-10-11] MEDS: ONDANSETRON INJ 4 MG/2 ML VIAL IV PUSH ×3 (03:07→20:08)
[2020-10-11] MEDS: ALBUTEROL SULFATE (*SP) AEROSOL 1 PUFF 2 PUFF INHALATION (03:30)
[2020-10-11] MEDS: CENTRAL LINE FLUSH 10 ML IV PUSH ×3 (05:38→20:14)
[2020-10-11] MEDS: HYDROmorphone HCL INJ (*CRX) 1 MG/ML SYR 0.5 MG IV PUSH (05:38)
[2020-10-11 06:02] LABS: Hematocrit 41.7 % (42.0-52.0); Hemoglobin 12.8 g/dL (14.0-18.0); Mean Corpuscular HGB Conc 30.7 g/dl (32-36); Mean Corpuscular Hemoglobin 28.9 pg (26-34); Mean Corpuscular Volume 94.1 fl (80-100); Mean Platelet Volume 8.9 fl (7.4-10.4); Platelet Count Result 255 k/mm3 (150-375); Red Blood Count 4.43 M/mm3 (4.6-6.20); Red Cell Distribution Width 15.6 % (11.5-14.5); White Blood Count 19.3 K/mm3 (4.5-10.0)
[2020-10-11 06:17] LABS: Anion Gap 3 mmol/L (8-16); Blood Urea Nitrogen 11 mg/dL (9-20); CRP 5.1 mg/dL (<1.0); Calcium 8.7 mg/dL (8.4-10.2); Carbon Dioxide 39 mmol/L (22-30); Chloride 96 mmol/L (98-107); Estimated CRCL calculation 160 ml/min; Estimated Glomerular Filt Rate > 60; Glucose 144 mg/dL (75-110); Sodium 138 mmol/L (137-145)
[2020-10-11] MEDS: ENOXAPARIN 40 MG/0.4 ML SYRINGE SUB-Q (08:07)
--- NOTE | 2020-10-11 09:07 | PCPTNOTE ---
Attempted PT eval this am and last pm. Patient was in too much pain yesterday and today is very nauseated and nursing working on correcting. Refused am eval-nursing aware.
--- NOTE | 2020-10-11 09:10 | WPDUROPN2 ---
Progress Note: A&P Assessment and Plan (1) Acute retention of urine: Code(s): R33.8 - Other retention of urine Status: Acute (2) Cellulitis of scrotum: Code(s): N49.2 - Inflammatory disorders of scrotum Status: Acute Assessment and Plan: His scrotal exam is improving. Erythema is better today with no necrosis or crepitus. Scrotal edema is still present. Continue to elevate. Agree with ID consult for abx management/adjustment- wbc ct rising today. Pt is also having issues with burning abdominal pain, nausea and vomiting. KUB shows gastric distention. This may be the source of the rising wbc ct considering his scrotal exam is improving. I have spoken with the hospitalist and she will further evaluate the nausea/vomiting/abdominal pain. will continue to follow. Continue bowers catheter for now. Subjective Subjective Date/Time Seen: 10/11/20 09:10 Issues with nausea and emesis overnight. Notes burning in his abdomen. KUB shows gastric distention. He states scrotum is feeling better. Review of Systems Review of Systems: All systems reviewed & are unremarkable except as noted in HPI and below Gastrointestinal: Gastrointestinal: Reports nausea and Reports vomiting Exam Const: General: acute distress (mild distress due to nausea) and poor hygiene Nutritional Appearance: obese Orientation/consciousness: patient oriented x3 Resp: Effort & Inspection: normal respiratory effort (on O2) : Penis: Yes other (unable to visualize penis due to obesity; bowers in place draining well) Scrotum: edematous and erythematous (edema is unchanged but erythema has improved; no necrosis and no crepitus) Testes: other (unable to palpate due to scrotal edema) Urinary Catheter: Urinary Catheter: patent and draining and urine clear (mildly cloudy) Objective Data Vital Signs Vital Signs: Vital Signs - 24 hr 10/10/20 09:18 10/10/20 11:50 10/10/20 12:12 Temperature Pulse Rate 91 57 L Respiratory Rate 24 H 20 20 Blood Pressure Pulse Oximetry 93 10/10/20 12:20 10/10/20 14:00 10/10/20 16:50 Temperature 36.2 C L Pulse Rate 89 93 90 Respiratory Rate 20 18 20 Blood Pressure 125/61 Pulse Oximetry 93 10/10/20 16:58 10/10/20 20:41 10/10/20 20:42 Temperature Pulse Rate 88 90 Respiratory Rate 20 20 Blood Pressure Pulse Oximetry 90 10/10/20 20:50 10/10/20 22:00 10/11/20 00:00 Temperature 36.6 C Pulse Rate 92 95 Respiratory Rate 20 18 Blood Pressure 153/75 H Pulse Oximetry 92 92 10/11/20 01:18 10/11/20 01:26 10/11/20 04:53 Temperature Pulse Rate 84 84 96 Respiratory Rate 18 20 Blood Pressure Pulse Oximetry 91 10/11/20 05:02 10/11/20 05:46 10/11/20 08:03 Temperature 36.3 C L 36.9 C Pulse Rate 92 92 Respiratory Rate 20 22 H Blood Pressure 134/76 Pulse Oximetry 93 10/11/20 08:17 10/11/20 08:24 Temperature Pulse Rate 87 88 Respiratory Rate 20 20 Blood Pressure Pulse Oximetry 94 Intake/Output Intake/Output: Intake & Output 10/08/20 10/09/20 10/10/20 10/11/20 23:59 23:59 23:59 23:59 Intake Total 1490 3380 3300 1440 Output Total 2650 3400 2950 Balance 1490 730 -100 -1510 Meds/Results Medications: Active Medications Generic Name Dose Route Start Last Admin Trade Name Freq PRN Reason Stop Dose Admin Acetaminophen 650 mg 10/08/20 19:40 Acetaminophen 325 Mg Tablet PO Q6H PRN Mild Pain (1-3) or Fever Hydrocodone Bitart/Acetaminophen 1 tab 10/09/20 13:56 10/10/20 21:47 Hydrocodone/Acetaminophen (*Crx) 5-325 Mg Tablet PO 1 tab Q4H PRN Administration Pain Rated 4-6 Albuterol 2 puff 10/08/20 20:16 10/11/20 03:30 Albuterol Sulfate (*Sp) Aerosol 1 Puff INHALATION 2 puff QID PRN Administration Wheezing Albuterol 2.5 mg 10/09/20 12:00 10/11/20 08:17 Albuterol Sulfate Neb 2.5 Mg/0.5 Ml Inh INHALATION 2.5 mg Q4HRT LUIS Administration Budesonide/Formoter
--- NOTE | 2020-10-11 09:55 | PC.NURSE ---
pt to CT via stretcher
--- NOTE | 2020-10-11 10:34 | PC.NURSE ---
pt back from CT
--- NOTE | 2020-10-11 10:54 | ECG_ITS ---
Measurements Intervals [place] Rate: 89 P: 49 WV: 171 QRS: 60 QRSD: 106 T: 35 QT: 366 QTc: 446 Interpretive Statements SINUS RHYTHM INCOMPLETE RIGHT BUNDLE BRANCH BLOCK DELAYED PRECORDIAL R/S TRANSITION BASELINE WANDER- V1, V4, V6 BORDERLINE ECG Electronically Signed On 10-11-2020 14:57:15 CDT by John Pelletier D.O.
--- NOTE | 2020-10-11 10:57 | PM.IMPN ---
Progress Note: A&P Assessment and Plan (1) Gastric distention: Code(s): K31.89 - Other diseases of stomach and duodenum Status: Acute Assessment and Plan: patient woke up this morning at 4:00 a.m. with sudden nausea and vomiting. KUB was obtained which showed nonspecific gastric distention. Ice S the patient and he was still having nausea and vomiting. Denied any abdominal pain. CT abdomen pelvis was obtained which showed nonspecific gastric distension. No obstruction identified. I evaluated the patient 2nd time and he still was not feeling well. I called the GI specialist, Dr. Perez, in told him about the patient and CT scan findings. He recommended starting IV Reglan 10 mg q.6 hours for treatment of possible ileus versus gastroparesis. I discussed the plan with the patient and if he continues to have symptoms and vomiting then we will need to put an NG tube in. at this time the patient does not want an NG tube and would like to wait to see if the medications will work. Continue monitoring. As needed antiemetics, scheduled Reglan. (2) Cellulitis of scrotum: Code(s): N49.2 - Inflammatory disorders of scrotum Status: Acute Assessment and Plan: The patient was started on broad-spectrum antibiotics in the emergency department 10/08/20 which will be continued. Urology evaluated the patient and recommends continuing Lieberman catheter, broad-spectrum antibiotics and monitoring of improvement and believes he may need long term care phlebotomist IV antibiotics. Elevate the patients scrotum to help with edema ordered by Urology. Blood cultures negative to date Pain control p.r.n. I talked to the urologist today who recommends continuing with current therapy, states his scrotum is slightly better today and does recommend Infectious Disease consultation for further recommendations of antibiotics as well as duration of therapy. Continue monitoring. Appreciate urology is recommendations. (3) Leukocytosis: Code(s): D72.829 - Elevated white blood cell count, unspecified Status: Acute Assessment and Plan: The patient had worsening leukocytosis morning at 19,300. after talking with the urologist she does not believe this is pertaining to his scrotal cellulitis. I believe his white count increased due to his nausea and vomiting this morning. CT abdomen pelvis showed no acute abnormality. At this time, the patient denies any worsening respiratory symptoms of shortness of breath or cough, states his cough is improved. We obtained a CT abdomen pelvis which did show Bibasilar airspace disease may represent atelectasis and/or pneumonia. vitals have otherwise been stable, afebrile, non tachycardic, normal respiratory rate, blood pressure and he is 94% on 5 L of oxygen via nasal cannula. Will recheck labs in the morning and continue monitoring vitals. At this time we will continue with his IV Primaxin and vancomycin for cellulitis if he develops any fevers, worsening respiratory issues then we will consider broadening his antibiotics. (4) Acute retention of urine: Code(s): R33.8 - Other retention of urine Status: Acute Assessment and Plan: Lieberman catheter placed per Urology. Continue Lieberman catheter and try voiding trial prior to discharge Urine culture negative for UTI. (5) Chronic respiratory failure with hypoxia, on home oxygen therapy: Code(s): J96.11 - Chronic respiratory failure with hypoxia; Z99.81 - Dependence on supplemental oxygen Status: Acute Assessment and Plan: The patient is usually on 4 L of oxygen at home. The patient is on 5 L of oxygen today with saturations at 94%. He continued to have some episodes where he would drop to 88-89%. will continue to wean a
[2020-10-11] MEDS: METOCLOPRAMIDE HCL INJ 10 MG/2 ML VIAL 5 MG IV PUSH ×2 (11:54→17:33)
[2020-10-11] MEDS: SODIUM CHLORIDE 0.9% IV 1,000 ML 125 ML IV CONT (15:26)
--- NOTE | 2020-10-11 17:55 | WPDCN ---
Assessment and Plan Additional Plan assessment implant 1. scrotal cellulitis with recent history of exfoliative dermatitis. On presentation patient had leukocytosis associated with increased soft tissue edema. Patient has been empirically started on vancomycin and imipenem. Blood cultures have been so far negative. White count is currently elevated at 19,000. patient is afebrile. Blood and urine cultures are pending. Continue current care for no. May consider deescalating antibiotic therapy once WBC count started to trend down. 2. Acute emesis in the past [address] scan of the abdomen and pelvis showed gastritis with no signs of obstruction. Previous CT scan of the pelvis showed scrotal edema without abscess. If nausea and vomiting does not improve may consider nasogastric tube. 3. Morbidly obese will [employer] weight loss. 4. Leukocytosis most likely secondary to ongoing scrotal cellulitis. WBC count has increased from 11,[address] scan of the abdomen and pelvis showed gastritis. No change in scrotal cellulitis. Lower lung field was also seen with bibasilar atelectasis versus infiltrate. Due to the nausea and vomiting possible aspiration syndrome in the differential diagnosis. Patient is adequately covered on current antibiotics regimen. Repeat CBC with differential in a.m.. 5. Date of service 10/11/2020 HPI Data of Consult Date/Time: 10/11/20 17:55 Requesting Physician: Natty Holden PA-C Primary Care Provider: Vijay Bueno, Consult Narrative Narrative: Catarino Yao Sr. is a 60 year old male with significant past medical history for chronic respiratory failure. Morbidly obese present to the emergency room with with 4 day history of scrotal edema which started initially with pruritus. Patient stated that he scratched the area and subsequently within a day developed induration and erythema associated with pain. Patient denied any penile discharge. No dysuria or hematuria. This is associated with chills but no documented fever. No diarrhea or dysuria. In the past 12 hours patient also started having nausea and vomiting. On admission patient required an indwelling catheter placement. I was requested to see him due to an elevated white count. Review of Systems Constitutional: Constitutional: Reports chills ( chills prior to admission) Eyes: Eyes: Reports no additional eye complaints ENT: Reports system reviewed and no additional complaints, except as documented Cardiovascular: Cardiovascular: Reports no additional cardiovascular complaints Respiratory: Respiratory: Reports no additional respiratory complaints Gastrointestinal: Gastrointestinal: Reports vomiting ( nausea and vomiting in the past 12 hours) Genitourinary: Genitourinary: Reports other ( scrotal edema associated with induration x4 days) Integumentary/Breasts: Skin/Breast: Reports system reviewed and no additional complaints, except as docu Neurologic: Reports system reviewed and no additional complaints, except as documented Psychiatric: Psychiatric: Reports no additional psychiatric complaints Endocrine: Endocrine: Reports no additional endocrine complaints Hematologic/Lymphatic: Hematologic/Lymphatic: Reports no additional hematologic/lymphatic complaints Allergic/Immunologic: Allergic/Immunologic: Reports no additional allergic/immunologic complaints [facility] Past Medical History Medical History Chronic obstructive pulmonary disease Chronic respiratory failure with hypoxia, on home oxygen therapy Morbid obesity Obesity hypoventilation syndrome Obstructive sleep apnea on CPAP Tobacco use Surgical History Surgical History (Updated 10/08/20 @ 19:29 by Chrissy Mo PA-C) History of appendectomy History of mandibular surgery Bilateral jaw surgery due to fracture. Family History Family History (Updated 10/08/20 @ 19:29 by Chrissy Mo PA-C) Other Hypertension Social History Socia
[2020-10-11 18:48] LABS: Lipase 18 U/L (23-300)
[2020-10-11 21:02] LABS: Alveolar/Arterial O2 Gradient 159.1 mmHg; Base Excess ABG 8.4 mEq/l (+/-2.0); Carboxyhemoglobin 1.3 % THb (0-2.0); Fractional Inspired Oxygen 40 %; HCO3 ABG 36.9 mEq/l (22.0-26.0); Methemoglobin ABG 0.4 %THb (0-1.5); Oxygen Content ABG 18.4 %vol (16.0-22.0); Oxyhemoglobin 82.1 % THb (90.0-100.0); PO2 FiO2 Ratio Arterial Blood 1.22 %; Reduced Hemoglobin 16.2 %THb (0-5.0); pH ABG 7.358 (7.350-7.450)
[2020-10-11 21:06] LABS: Modified Allen's Test Pass; Oxygen Saturation ABG 81.5 % (95.0-100.0); PCO2 ABG 67.2 mmHg (35.0-45.0); PO2 ABG 48.8 mmHg (80.0-100.0); Site Drawn LEFT RADIAL
[2020-10-11 21:07] LABS: Device NASAL CANNULA
--- NOTE | 2020-10-11 22:00 | PM.EVENT ---
Event Note Event Note Event Note: S: I received a call from the patient's nurse that he continues to have nausea and quite a bit of vomiting. She has also had to increase his oxygen. Noted to have gastric distension on recent CT of the abdomen and pelvis for which he was started on Reglan. Stat ABG ordered which showed hypercarbia, bit worse than what it was on admission, though compensated , as well as hypoxia though the specimen is obviously mixed venous as his ABG O2 an SpO2 do not correlate and he has a pretty significant elevated reduce hemoglobin. NG tube was inserted in yielded at least 800 cc of gastric contents. At the time my evaluation the patient is feeling somewhat better after the NG tube has been inserted and hooked to suction. He had no specific complaints and denies confusion, chest pain, shortness of breath, and abdominal pain. O: Chronically ill-appearing male in the semi-Plaza position in bed. He was asleep when I entered the room but woke easily. Patient is alert. Mildly diaphoretic. NG tube in the right naris with about 800 cc opaque brown contents in the container. Abdomen is not tender to palpation. A: Gastric distension status post NG insertion. Increasing oxygen requirements. P: Continue NG to suction. Now that the NG is in place and he is no longer nauseated or vomiting he should be able to wear his CPAP. I suspect his breathing will improve since his gastric contents have been drained. Obtain portable chest x-ray. No indication for BiPAP as he is alert and oriented. Discussed with nurse and Dr. Pelaez, will continue to monitor closely overnight.
[2020-10-11] MEDS: PANTOPRAZOLE SODIUM IV 40 MG VIAL IV PUSH (22:02)
[2020-10-12] VITALS (24 sets, daily range): BP systolic 122–136; BP diastolic 70–75; PULSE 85–101; RESP 16–26; TEMP 36.8–37.4; O2SAT 90–100
[2020-10-12] MEDS: METOCLOPRAMIDE HCL INJ 10 MG/2 ML VIAL 5 MG IV PUSH ×2 (00:05→06:08)
[2020-10-12] MEDS: SODIUM CHLORIDE 0.9% IV 1,000 ML 125 ML IV CONT ×3 (00:10→17:29)
[2020-10-12] MEDS: IPRATROPIUM BR 0.02% INH SOLN 0.5 MG/2.5 ML VIAL INHALATION ×7 (00:21→23:38)
[2020-10-12] MEDS: ALBUTEROL SULFATE NEB 2.5 MG/0.5 ML INH INHALATION ×7 (00:21→23:38)
[2020-10-12] MEDS: CENTRAL LINE FLUSH 10 ML IV PUSH ×5 (06:08→20:26)
[2020-10-12 06:29] LABS: Basophils Percent Auto 0.1 % (0.2-1.2); Eosinophils Absolute Auto 0.1 K/mm3 (0-0.3); Eosinophils Percent Auto 0.7 % (0-4.4); Hematocrit 39.3 % (42.0-52.0); Hemoglobin 12.1 g/dL (14.0-18.0); Immature Granulocyte Absolute 0.16 K/mm3 (0.00-0.031); Immature Granulocyte Percent A 0.8 % (0-0.5); Lymphocytes Absolute Auto 0.69 K/mm3 (0.9-3.2); Lymphocytes Percent Auto 3.4 % (18.3-44.2); Mean Corpuscular HGB Conc 30.8 g/dl (32-36); Mean Corpuscular Hemoglobin 29.2 pg (26-34); Mean Corpuscular Volume 94.9 fl (80-100); Mean Platelet Volume 8.8 fl (7.4-10.4); Monocytes Percent Auto 5.1 % (2.6-8.5); Neutrophils Absolute Auto 18.4 K/mm3 (1.3-6.7); Neutrophils Percent Auto 89.9 % (45.5-73.1); Platelet Count Result 232 k/mm3 (150-375); Red Blood Count 4.14 M/mm3 (4.6-6.20); Red Cell Distribution Width 15.7 % (11.5-14.5); White Blood Count 20.5 K/mm3 (4.5-10.0)
--- NOTE | 2020-10-12 06:49 | WPDUROPN2 ---
Progress Note: A&P Assessment and Plan (1) Acute retention of urine: Code(s): R33.8 - Other retention of urine Status: Acute (2) Cellulitis of scrotum: Code(s): N49.2 - Inflammatory disorders of scrotum Status: Acute Assessment and Plan: Overall examination of his scrotum shows very slight improvement. Seems to be less swollen with unchanged erythema. There continues to be no crepitus or necrotic tissue. Appreciate input from Infectious Disease service. Subjective Subjective Date/Time Seen: 10/12/20 06:49 No specific complaints, tolerating catehter Exam Const: General: cooperative, comfortable, no acute distress, acute distress (mild distress due to nausea) and poor hygiene Nutritional Appearance: obese Orientation/consciousness: patient oriented x3 Resp: Effort & Inspection: normal respiratory effort (on O2) Cardio: Rate: regular rate GI: Inspection: normal to inspection and non-distended Auscultation: normal bowel sounds : Male General Exam: Yes other (Marked scrotal swelling and erythema w/o necrosis, fluctuance or crepitus) Penis: Yes other (unable to visualize penis due to obesity; bowers in place draining well) Meatus: other (unable to visualize) Scrotum: no ecchymosis, edematous, erythematous (edema is unchanged but erythema has improved; no necrosis and no crepitus) and other (scrotum is edematous and erythematous. There is no crepitus or necrosis) Testes: other (unable to palpate due to scrotal edema) Urinary Catheter: Urinary Catheter: patent and draining and urine clear (mildly cloudy) Neuro: General: patient oriented x3 Extrem: General: edema bilateral Objective Data Vital Signs Vital Signs: Vital Signs - 24 hr 10/11/20 08:00 10/11/20 08:03 10/11/20 08:17 Temperature 98.5 F Pulse Rate 88 87 Respiratory Rate 20 20 Blood Pressure Pulse Oximetry 94 94 10/11/20 08:24 10/11/20 14:00 10/11/20 16:17 Temperature 97.9 F Pulse Rate 88 95 93 Respiratory Rate 20 28 H 20 Blood Pressure 142/78 H Pulse Oximetry 90 10/11/20 16:30 10/11/20 21:10 10/11/20 22:20 Temperature 96.8 F L Pulse Rate 90 92 92 Respiratory Rate 20 20 20 Blood Pressure 150/77 H Pulse Oximetry 94 94 10/12/20 00:24 10/12/20 00:27 10/12/20 00:33 Temperature Pulse Rate 98 87 Respiratory Rate 20 20 Blood Pressure Pulse Oximetry 90 10/12/20 04:15 10/12/20 04:24 10/12/20 05:22 Temperature 98.2 F Pulse Rate 98 101 H 95 Respiratory Rate 22 H 22 H 24 H Blood Pressure 136/70 Pulse Oximetry 96 Intake/Output Intake/Output: Intake & Output 10/09/20 10/10/20 10/11/20 10/12/20 23:59 23:59 23:59 23:59 Intake Total 3380 3300 3640 100 Output Total 2650 3400 3675 1800 Balance 608 -558 -40 -2746 Meds/Results Medications: Active Medications Generic Name Dose Route Start Last Admin Trade Name Freq PRN Reason Stop Dose Admin Acetaminophen 650 mg 10/08/20 19:40 Acetaminophen 325 Mg Tablet PO Q6H PRN Mild Pain (1-3) or Fever Hydrocodone Bitart/Acetaminophen 1 tab 10/09/20 13:56 10/10/20 21:47 Hydrocodone/Acetaminophen (*Crx) 5-325 Mg Tablet PO 1 tab Q4H PRN Administration Pain Rated 4-6 Albuterol 2 puff 10/08/20 20:16 10/11/20 03:30 Albuterol Sulfate (*Sp) Aerosol 1 Puff INHALATION 2 puff QID PRN Administration Wheezing Albuterol 2.5 mg 10/09/20 12:00 10/12/20 04:09 Albuterol Sulfate Neb 2.5 Mg/0.5 Ml Inh INHALATION 2.5 mg Q4HRT LUIS Administration Budesonide/Formoterol Fumarate 2 puff 10/09/20 09:00 10/11/20 17:32 Budesonide/Form 160-4.5 Mcg (*Sp) INHALATION Not Given BID LUIS Enoxaparin Sodium 40 mg 10/09/20 09:00 10/11/20 08:07 Enoxaparin 40 Mg/0.4 Ml Syringe SUB-Q 40 mg DAILY LUIS Administration Hydromorphone HCl 0.5 mg 10/08/20 22:00 10/11/20 05:38 Hydromorphone Hcl Inj (*Crx) 1 Mg/Ml Syr IV PUSH 0.5 mg Q4HR PRN Administration Pain Rated
[2020-10-12 06:52] LABS: Alanine Aminotransferase 12 U/L (4-50); Albumin Level 3.4 g/dL (3.5-5.1); Alkaline Phosphatase 86 U/L (38-126); Aspartate Amino Transferase 18 U/L (17-59); Bilirubin,Total 0.8 mg/dL (0.2-1.3); Blood Urea Nitrogen 11 mg/dL (9-20); Calcium 8.2 mg/dL (8.4-10.2); Carbon Dioxide > 40 mmol/L (22-30); Chloride 94 mmol/L (98-107); Estimated CRCL calculation 160 ml/min; Estimated Glomerular Filt Rate > 60; Glucose 121 mg/dL (75-110); Potassium 3.8 mmol/L (3.4-5.0); Sodium 135 mmol/L (137-145)
--- NOTE | 2020-10-12 08:16 | ECG_ITS ---
Measurements Intervals [place] Rate: 97 P: 42 PA: 146 QRS: 71 QRSD: 96 T: 37 QT: 349 QTc: 445 Interpretive Statements SINUS RHYTHM INCOMPLETE RIGHT BUNDLE BRANCH BLOCK DELAYED PRECORDIAL R/S TRANSITION BASELINE ARTIFACT- I, II, III, AVF BORDERLINE ECG Electronically Signed On 10-12-2020 9:47:26 CDT by John Pelletier D.O.
[2020-10-12] MEDS: ENOXAPARIN 40 MG/0.4 ML SYRINGE SUB-Q (08:57)
[2020-10-12] MEDS: PANTOPRAZOLE SODIUM IV 40 MG VIAL IV PUSH ×2 (09:00→20:26)
[2020-10-12] MEDS: HYDROmorphone HCL INJ (*CRX) 1 MG/ML SYR 0.5 MG IV PUSH ×2 (09:05→13:27)
[2020-10-12 09:59] LABS: Alanine Aminotransferase 12 U/L (4-50); Albumin Level 3.4 g/dL (3.5-5.1); Alkaline Phosphatase 87 U/L (38-126); Aspartate Amino Transferase 21 U/L (17-59); Bilirubin,Total 0.8 mg/dL (0.2-1.3); Blood Urea Nitrogen 12 mg/dL (9-20); CRP 7.4 mg/dL (<1.0); Calcium 8.3 mg/dL (8.4-10.2); Carbon Dioxide > 40 mmol/L (22-30); Chloride 93 mmol/L (98-107); Estimated CRCL calculation 160 ml/min; Estimated Glomerular Filt Rate > 60; Glucose 134 mg/dL (75-110); Potassium 3.9 mmol/L (3.4-5.0); Sodium 136 mmol/L (137-145)
--- NOTE | 2020-10-12 12:51 | PM.IMPN ---
Progress Note: A&P Assessment and Plan (1) Gastric distention: Code(s): K31.89 - Other diseases of stomach and duodenum Status: Acute Assessment and Plan: Patient woke up 10/11/20 at 4:00 a.m. with sudden nausea and vomiting. KUB was obtained which showed nonspecific gastric distention. Ice S the patient and he was still having nausea and vomiting. Denied any abdominal pain. CT abdomen pelvis was obtained which showed nonspecific gastric distension. No obstruction identified. I evaluated the patient 2nd time and he still was not feeling well. I called the GI specialist, Dr. Perez, in told him about the patient and CT scan findings. He recommended starting IV Reglan 10 mg q.6 hours for treatment of possible ileus versus gastroparesis. The patient continued having symptoms of nausea and vomiting overnight. He had NG tube placed at 10:00 p.m. with 800 cc removed from his stomach. He is feeling much better at this time. no more nausea or vomiting. Repeat abdominal x-ray Continue monitoring. As needed antiemetics, scheduled Reglan. (2) Cellulitis of scrotum: Code(s): N49.2 - Inflammatory disorders of scrotum Status: Acute Assessment and Plan: The patient was started on broad-spectrum antibiotics in the emergency department 10/08/20 which will be continued. 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 Elevate the patients scrotum to help with edema ordered by Urology. Blood cultures negative to date Pain control p.r.n. I talked to the urologist today who recommends continuing with current therapy, states his scrotum is slightly better today and does recommend Infectious Disease consultation for further recommendations of antibiotics as well as duration of therapy. Continue monitoring. Appreciate urology is recommendations. (3) Leukocytosis: Code(s): D72.829 - Elevated white blood cell count, unspecified Status: Acute Assessment and Plan: The patient had worsening leukocytosis morning at 19,300. after talking with the urologist she does not believe this is pertaining to his scrotal cellulitis. I believe his white count increased due to his nausea and vomiting this morning. CT abdomen pelvis showed no acute abnormality. At this time, the patient denies any worsening respiratory symptoms of shortness of breath or cough, states his cough is improved. We obtained a CT abdomen pelvis which did show Bibasilar airspace disease may represent atelectasis and/or pneumonia. vitals have otherwise been stable, afebrile, non tachycardic, normal respiratory rate, blood pressure and he is 94% on 5 L of oxygen via nasal cannula. Will recheck labs in the morning and continue monitoring vitals. At this time we will continue with his IV Primaxin and vancomycin for cellulitis if he develops any fevers, worsening respiratory issues then we will consider broadening his antibiotics. (4) Acute retention of urine: Code(s): R33.8 - Other retention of urine Status: Acute Assessment and Plan: Lieberman catheter placed per Urology. Continue Lieberman catheter and try voiding trial prior to discharge Urine culture negative for UTI. (5) Chronic respiratory failure with hypoxia, on home oxygen therapy: Code(s): J96.11 - Chronic respiratory failure with hypoxia; Z99.81 - Dependence on supplemental oxygen Status: Acute Assessment and Plan: The patient is usually on 4 L of oxygen at home. The patient is on 5 L of oxygen today with saturations at 94%. He continued to have some episodes where he would drop to 88-89%. will continue to wean
[2020-10-12] MEDS: METOCLOPRAMIDE HCL INJ 10 MG/2 ML VIAL IV PUSH ×2 (13:22→17:30)
--- NOTE | 2020-10-12 15:20 | PC.NURSE ---
Vital signs checked by BUYER LIAISON, oxygen saturation in the 60's when BUYER LIAISON called for assistance from nurse. Upon entering the room, patient oxygen saturation in the 70's on 5L NC. Increased oxygen to 6L NC with slight improvement. Patient then placed on 8L high flow NC, oxygen saturation consistently around 90%-91%. Called to hospitalistNellie, and received orders for stat ABG and stat CXR. Respiratory called and aware of orders.
[2020-10-12 15:27] LABS: Alveolar/Arterial O2 Gradient 145.7 mmHg; Base Excess ABG 9.1 mEq/l (+/-2.0); Carboxyhemoglobin 1.1 % THb (0-2.0); Fractional Inspired Oxygen 40 %; HCO3 ABG 37.7 mEq/l (22.0-26.0); Methemoglobin ABG 0.4 %THb (0-1.5); Oxygen Content ABG 16.2 %vol (16.0-22.0); Oxyhemoglobin 86.6 % THb (90.0-100.0); PO2 ABG 56.8 mmHg (80.0-100.0); PO2 FiO2 Ratio Arterial Blood 1.42 %; Reduced Hemoglobin 11.9 %THb (0-5.0); Total Hemoglobin 13.3 g/dL (12.0-18.0); pH ABG 7.337 (7.350-7.450)
[2020-10-12 15:28] LABS: Device HIGH FLOW NASAL CANN; Modified Allen's Test Pass; Oxygen Saturation ABG 86.6 % (95.0-100.0); PCO2 ABG 71.9 mmHg (35.0-45.0); Site Drawn RIGHT RADIAL
--- NOTE | 2020-10-12 16:29 | PC.NURSE ---
This patient, Catarino Gerald Yao Sr., was received from [facility] as IMU overflow on 10/12/20 at 1629. Report received from CRUZ Lorenzo. Patient oriented to unit policies and routines
[2020-10-12 17:54] LABS: Alveolar/Arterial O2 Gradient 327.8 mmHg; Base Excess ABG 9.6 mEq/l (+/-2.0); Fractional Inspired Oxygen 75 %; HCO3 ABG 37.7 mEq/l (22.0-26.0); Oxygen Content ABG 18.3 %vol (16.0-22.0); Oxygen Saturation ABG 98.5 % (95.0-100.0); Oxyhemoglobin 96.6 % THb (90.0-100.0); PCO2 ABG 68.4 mmHg (35.0-45.0); PO2 ABG 134.3 mmHg (80.0-100.0); PO2 FiO2 Ratio Arterial Blood 1.79 %; Total Hemoglobin 13.3 g/dL (12.0-18.0); pH ABG 7.359 (7.350-7.450)
[2020-10-12 17:55] LABS: Device NON-INVASIVE VENT; Modified Allen's Test Pass; Site Drawn LEFT RADIAL
[2020-10-12 17:56] LABS: Non-Invasive Expiratory Pressure 6 CMH2O; Non-Invasive Inspiratory Pressure 14 CMH2O; Non-Invasive Vent Rate 16 /MIN
[2020-10-13] VITALS (27 sets, daily range): BP systolic 101–121; BP diastolic 59–82; PULSE 77–101; RESP 17–25; TEMP 36.6–37.2; O2SAT 91–100
[2020-10-13] MEDS: SODIUM CHLORIDE 0.9% IV 1,000 ML 125 ML IV CONT ×3 (00:36→20:24)
[2020-10-13] MEDS: METOCLOPRAMIDE HCL INJ 10 MG/2 ML VIAL IV PUSH ×5 (00:39→23:48)
[2020-10-13] MEDS: ALBUTEROL SULFATE NEB 2.5 MG/0.5 ML INH INHALATION ×5 (03:23→20:08)
[2020-10-13] MEDS: IPRATROPIUM BR 0.02% INH SOLN 0.5 MG/2.5 ML VIAL INHALATION ×2 (03:23→08:02)
[2020-10-13 03:44] LABS: Alveolar/Arterial O2 Gradient 207.7 mmHg; Fractional Inspired Oxygen 50 %; HCO3 ABG 41.7 mEq/l (22.0-26.0); Oxygen Saturation ABG 90.8 % (95.0-100.0); Oxyhemoglobin 90.9 % THb (90.0-100.0); PO2 ABG 64.4 mmHg (80.0-100.0); PO2 FiO2 Ratio Arterial Blood 1.29 %; Total Hemoglobin 13.3 g/dL (12.0-18.0); pH ABG 7.363 (7.350-7.450)
[2020-10-13 03:46] LABS: Device NON-INVASIVE VENT; Modified Allen's Test Unable to perform; Non-Invasive Expiratory Pressure 6 CMH2O; Non-Invasive Inspiratory Pressure 14 CMH2O; Non-Invasive Vent Rate 16 /MIN; Site Drawn LEFT RADIAL
[2020-10-13] MEDS: CENTRAL LINE FLUSH 10 ML IV PUSH ×5 (05:35→20:21)
[2020-10-13 05:36] LABS: Basophils Percent Auto 0.2 % (0.2-1.2); Eosinophils Absolute Auto 0.4 K/mm3 (0-0.3); Eosinophils Percent Auto 2.1 % (0-4.4); Hemoglobin 11.6 g/dL (14.0-18.0); Immature Granulocyte Absolute 0.19 K/mm3 (0.00-0.031); Immature Granulocyte Percent A 1.1 % (0-0.5); Lymphocytes Absolute Auto 0.65 K/mm3 (0.9-3.2); Lymphocytes Percent Auto 3.8 % (18.3-44.2); Mean Corpuscular HGB Conc 29.7 g/dl (32-36); Mean Corpuscular Hemoglobin 28.7 pg (26-34); Mean Corpuscular Volume 96.5 fl (80-100); Monocytes Absolute Auto 1.1 K/mm3 (0.1-0.6); Monocytes Percent Auto 6.3 % (2.6-8.5); Neutrophils Absolute Auto 14.8 K/mm3 (1.3-6.7); Neutrophils Percent Auto 86.5 % (45.5-73.1); Platelet Count Result 212 k/mm3 (150-375); Red Blood Count 4.04 M/mm3 (4.6-6.20); Red Cell Distribution Width 15.9 % (11.5-14.5); White Blood Count 17.1 K/mm3 (4.5-10.0)
[2020-10-13 06:19] LABS: Blood Urea Nitrogen 11 mg/dL (9-20); Calcium 8.2 mg/dL (8.4-10.2); Carbon Dioxide > 40 mmol/L (22-30); Chloride 97 mmol/L (98-107); Estimated CRCL calculation 166 ml/min; Estimated Glomerular Filt Rate > 60; Glucose 116 mg/dL (75-110); Potassium 3.8 mmol/L (3.4-5.0); Sodium 139 mmol/L (137-145)
--- NOTE | 2020-10-13 06:50 | WPDUROPN2 ---
Progress Note: A&P Assessment and Plan (1) Cellulitis of scrotum: Code(s): N49.2 - Inflammatory disorders of scrotum Status: Acute Assessment and Plan: First time, since his admission, that I can see signs of significant improvement in scrotal swelling/erythema. No necrosis, fluctuance or crepitus. Continue current abx. and scrotal elevation. Subjective Subjective Date/Time Seen: 10/13/20 06:50 Resting, comfortable Review of Systems Review of Systems: ROS unobtainable: Yes unobtainable due to medical condition (on bipap) Exam : Male General Exam: Yes edema and Yes erythema (improving edema and erythema) Objective Data Vital Signs Vital Signs: Vital Signs - 24 hr 10/12/20 08:16 10/12/20 08:32 10/12/20 09:15 Temperature Pulse Rate 97 96 Respiratory Rate 24 H 20 Blood Pressure Pulse Oximetry 91 94 10/12/20 12:33 10/12/20 12:44 10/12/20 14:00 Temperature 98.5 F Pulse Rate 100 98 98 Respiratory Rate 20 20 18 Blood Pressure 130/73 Pulse Oximetry 92 10/12/20 16:00 10/12/20 16:30 10/12/20 16:42 Temperature 98.5 F Pulse Rate 97 97 94 Respiratory Rate 24 H 18 Blood Pressure 122/75 Pulse Oximetry 95 100 10/12/20 18:00 10/12/20 20:00 10/12/20 20:31 Temperature 99.4 F Pulse Rate 85 89 89 Respiratory Rate 26 H 23 H Blood Pressure 133/73 Pulse Oximetry 98 10/12/20 20:32 10/12/20 20:39 10/12/20 22:00 Temperature Pulse Rate 89 91 92 Respiratory Rate 18 17 Blood Pressure Pulse Oximetry 100 10/12/20 23:30 10/12/20 23:38 10/12/20 23:44 Temperature Pulse Rate 88 90 88 Respiratory Rate 23 H 16 16 Blood Pressure Pulse Oximetry 98 10/13/20 00:00 10/13/20 02:00 10/13/20 03:24 Temperature 99.0 F Pulse Rate 87 97 92 Respiratory Rate 22 H 21 H Blood Pressure 116/72 Pulse Oximetry 91 10/13/20 03:30 10/13/20 03:31 10/13/20 03:46 Temperature Pulse Rate 101 H 96 Respiratory Rate 22 H 25 H Blood Pressure Pulse Oximetry 95 93 10/13/20 04:00 10/13/20 06:00 Temperature 98.7 F Pulse Rate 95 92 Respiratory Rate 22 H Blood Pressure 121/73 Pulse Oximetry 95 Intake/Output Intake/Output: Intake & Output 10/10/20 10/11/20 10/12/20 10/13/20 23:59 23:59 23:59 23:59 Intake Total 3300 3640 2900 1200 Output Total 3400 3675 2200 2900 Balance -100 -35 700 -1700 Meds/Results Medications: Active Medications Generic Name Dose Route Start Last Admin Trade Name Freq PRN Reason Stop Dose Admin Acetaminophen 650 mg 10/08/20 19:40 Acetaminophen 325 Mg Tablet PO Q6H PRN Mild Pain (1-3) or Fever Hydrocodone Bitart/Acetaminophen 1 tab 10/09/20 13:56 10/10/20 21:47 Hydrocodone/Acetaminophen (*Crx) 5-325 Mg Tablet PO 1 tab Q4H PRN Administration Pain Rated 4-6 Albuterol 2 puff 10/08/20 20:16 10/11/20 03:30 Albuterol Sulfate (*Sp) Aerosol 1 Puff INHALATION 2 puff QID PRN Administration Wheezing Albuterol 2.5 mg 10/09/20 12:00 10/13/20 03:23 Albuterol Sulfate Neb 2.5 Mg/0.5 Ml Inh INHALATION 2.5 mg Q4HRT LUIS Administration Budesonide/Formoterol Fumarate 2 puff 10/09/20 09:00 10/12/20 20:31 Budesonide/Form 160-4.5 Mcg (*Sp) INHALATION 2 puff BID LUIS Administration Enoxaparin Sodium 40 mg 10/09/20 09:00 10/12/20 08:57 Enoxaparin 40 Mg/0.4 Ml Syringe SUB-Q 40 mg DAILY LUIS Administration Hydromorphone HCl 0.5 mg 10/08/20 22:00 10/12/20 13:27 Hydromorphone Hcl Inj (*Crx) 1 Mg/Ml Syr IV PUSH 0.5 mg Q4HR PRN Administration Pain Rated 7-10 Imipenem/Cilastatin Sodium 500 mg in 100 mls @ 300 mls/hr 10/09/20 06:00 10/13/20 05:34 Primaxin 500 Mg/D5w 100 Ml IVPB 300 mls/hr Q6H LUIS Administration Vancomycin HCl 2,000 mg in 500 mls @ 250 mls/hr 10/10/20 09:00 10/12/20 20:25 Vancomycin 2,000 Mg/D5w 500 Ml IVPB 250 mls/hr Q12H LUIS Administration Sodium Chloride 1,000 mls @ 125 mls/hr 10/11/20
[2020-10-13] MEDS: TAMSULOSIN HCL 0.4 MG CAPSULE PO (07:58)
[2020-10-13] MEDS: PANTOPRAZOLE SODIUM IV 40 MG VIAL IV PUSH ×2 (07:58→20:19)
[2020-10-13] MEDS: ENOXAPARIN 40 MG/0.4 ML SYRINGE SUB-Q (07:58)
[2020-10-13] MEDS: TOLNAFTATE 1% POWDER 45 GM BTL 1 APPLIC TOPICAL ×2 (07:59→20:18)
--- NOTE | 2020-10-13 08:03 | PM.IMPN ---
Progress Note: A&P Assessment and Plan (1) Acute respiratory failure: Code(s): J96.00 - Acute respiratory failure, unspecified whether with hypoxia or hypercapnia Status: Acute Assessment and Plan: Deepa developed respiratory failure yesterday. COPD exacerbation? Aspiration pneumonitis? ABG showing 7.34/72/57on 5L. He was moved to the IMU and continuous BiPAP started. He remained AOx4. Repeat ABG improved. This morning however, his ABG 7.36/75/64 on BiPAP. Related to poor seal? Will remove NGT. Have patietn off BiPAP for now since his pH is normal to suggest a chronic component. Serum bicarb >40. Will add diamox. Continue BiPAP at night and with naps. (2) Gastric distention: Code(s): K31.89 - Other diseases of stomach and duodenum Status: Acute Assessment and Plan: Patient woke up 10/11/20 at 4:00 a.m. with sudden nausea and vomiting. KUB was obtained which showed nonspecific gastric distention. CT abdomen pelvis was obtained which showed nonspecific gastric distension. No obstruction identified. Patient started on IV Reglan and ultimately a NGT placed. Symptoms improved. Tolerating NGT being clamped. Will remove and start diet. Advance as toelrated. Wean off Reglan if he is eating well. (3) Cellulitis of scrotum: Code(s): N49.2 - Inflammatory disorders of scrotum Status: Acute Assessment and Plan: The patient was started on broad-spectrum antibiotics in the emergency department 10/08/20 with Primaxin and Vanco. Urology evaluated the patient and recommends continuing Lieberman catheter, broad-spectrum antibiotics, scrotal elevation and monitoring of improvement and believes he may need prison IV antibiotics. Blood cultures 10/08 negative to date. Repeat BCx 10/11 pending. ID consult obtained as well. Appreciate Urology and ID input (4) Leukocytosis: Code(s): D72.829 - Elevated white blood cell count, unspecified Status: Acute Assessment and Plan: The patient has developed a leukocytosis to 20K without clear etiology. He is currently on broad spectrum abx. WBC was 12K on admission and improved initially before climbing to 20K. No fevers. Pertaining to his scrotal cellulitis? CDiff (but no diarrhea)? Fungal? Leukemoid rxn due to nausea and vomiting? Aspiration? CT abdomen pelvis 10/11 showed no acute abnormality except gastric distention and bibasilar disease felt to be atelectasis. WBC better today at 17K. Continue to follow (5) Acute retention of urine: Code(s): R33.8 - Other retention of urine Status: Acute Assessment and Plan: Lieberman catheter placed per Urology. Urine culture negative for UTI. Continue Lieberman catheter and try voiding trial prior to discharge. Stop Ditropan? (6) Chronic respiratory failure with hypoxia, on home oxygen therapy: Code(s): J96.11 - Chronic respiratory failure with hypoxia; Z99.81 - Dependence on supplemental oxygen Status: Acute Assessment and Plan: The patient usually is on 4-5 L of oxygen at home. Up to 8L now this morning. Wean O2 as toelrated. As above (7) SILVANA (obstructive sleep apnea): Code(s): G47.33 - Obstructive sleep apnea (adult) (pediatric) Status: Acute Assessment and Plan: Patient actually wears BiPAP at home. Will continue the same here as mentioned above. (8) Chronic obstructive pulmonary disease: Code(s): J44.9 - Chronic obstructive pulmonary disease, unspecified Status: Acute Assessment and Plan: No acute issues. Continue home respiratory regimen nebulizer treatments, Spiriva and Symbicort. Will hold the Atrovent since he is on Spiriva. (9) Tobacco use: Code(s): Z72.0 - Tobacco use Status: Acute Assessment and Plan: Patient states he still smokes about 5 cigarettes a month. Patient was educated about the benefits of smoking cessation (10) QT prolongation:
--- NOTE | 2020-10-13 08:38 | PCOTNOTE ---
OT re-assess attempted. Hold this date per RN due to respiratory distress. Will attempt at later date as medically appropriate.
--- NOTE | 2020-10-13 08:40 | PCPTNOTE ---
PT on hold due to respiratory distress and transfer to ICU. Will follow.
[2020-10-13] MEDS: acetaZOLAMIDE SODIUM FOR INJ 500 MG VIAL 250 MG IV PUSH (10:44)
[2020-10-13] MEDS: HYDROcodone/acetaminophen (*CRX) 5-325 MG TABLET 1 TAB PO (12:21)
--- NOTE | 2020-10-13 13:42 | WPDGICN ---
Assessment and Plan Assessment and plan (1) Nausea and vomiting in adult: Code(s): R11.2 - Nausea with vomiting, unspecified Status: Acute Assessment and Plan: could be multifactorial from ongoing infection/cellulitis of scrotum, respiratory status, etc on reglan, also iv protonix wonder if also could have gastritis, no evidence of gib given current respiratory status he is not a good candidate now to undergo endoscopy ok to advance to clear liquid diet as tolerated (2) Gastric distention: Code(s): K31.89 - Other diseases of stomach and duodenum Status: Acute Assessment and Plan: CT scan reviewed medical treatment (3) Cellulitis of scrotum: Code(s): N49.2 - Inflammatory disorders of scrotum Status: Acute Assessment and Plan: on iv antibiotics (4) Acute and chronic respiratory failure: Code(s): J96.20 - Acute and chronic respiratory failure, unspecified whether with hypoxia or hypercapnia Status: Acute Assessment and Plan: on bipap now by primary team (5) Obesity hypoventilation syndrome: Code(s): E66.2 - Morbid (severe) obesity with alveolar hypoventilation Status: Acute (6) Morbid obesity: Code(s): E66.01 - Morbid (severe) obesity due to excess calories Status: Acute (7) Abnormal findings-gastrointestinal tract: Code(s): R19.8 - Other specified symptoms and signs involving the digestive system and abdomen Status: Acute GI Consult Note Consult date/time: 10/13/20 13:42 Reason for consult: n/v, gastric distension HPI: Catarino Yao Sr. is a 60 year old male with history of morbid obesity with BMI 61, chronic respiratory failure on home oxygen, obstructive sleep apnea, and COPD who was admitted to the hospital 5 days ago with worsening scrotal pain and swelling after scratched that area associated with pruritus. CT scan reviewed and showed cellulitis in the scrotal wall and lower anterior abdominal wall without evidence of necrosis or gas, started on iv antibiotics. ID and urology service on board. 10/11 developed nausea and abdominal discomfort after eating, repeat CT scan showed nonspecific gastric distension but no obstruction, started on reglan and iv protonix. Last night also had more respiratory distress, ABG showed respiratory acidosis with hypoxia and hypercapnia, patient was moved to ICU and placed on continuous bipap. NGT was removed, no more nausea. Started on iv protonix. Never had EGD. He is passing gas. Review of Systems Constitutional: Constitutional: Denies chills Eyes: Eyes: Denies blurry vision ENT: Reports Normal hearing present Cardiovascular: Cardiovascular: Denies chest pain Respiratory: Respiratory: Reports dyspnea on exertion Gastrointestinal: Gastrointestinal: Reports nausea Genitourinary: Genitourinary: Reports dysuria Comments: cellulitis scrotom Musculoskeletal: Musculoskeletal: Denies neck pain Integumentary/Breasts: Skin/Breast: Denies dry skin Neurologic: Denies headache(s) Psychiatric: Psychiatric: Denies behavioral changes [facility] Past Medical History Medical History Abnormal findings-gastrointestinal tract Acute and chronic respiratory failure Chronic obstructive pulmonary disease Chronic respiratory failure with hypoxia, on home oxygen therapy Morbid obesity Nausea and vomiting in adult Obesity hypoventilation syndrome SILVANA (obstructive sleep apnea) Tobacco use Surgical History Surgical History (Updated 10/08/20 @ 19:29 by Chrissy Mo PA-C) History of appendectomy History of mandibular surgery Bilateral jaw surgery due to fracture. Family History Family History (Updated 10/08/20 @ 19:29 by Chrissy Mo PA-C) Other Hypertension Social History Social History (Updated 10/08/20 @ 19:30 by Chrissy Mo PA-C) Social History: Surrogate decision maker: Fernanda Yao, [id number]. Code status: Full code however he woul
[2020-10-14] VITALS (31 sets, daily range): BP systolic 117–134; BP diastolic 58–87; PULSE 76–95; RESP 14–27; TEMP 36.4–36.9; O2SAT 92–99
[2020-10-14] MEDS: ALBUTEROL SULFATE NEB 2.5 MG/0.5 ML INH INHALATION ×6 (01:05→20:33)
[2020-10-14] MEDS: METOCLOPRAMIDE HCL INJ 10 MG/2 ML VIAL IV PUSH ×4 (04:47→23:08)
[2020-10-14] MEDS: CENTRAL LINE FLUSH 10 ML IV PUSH ×4 (04:47→20:52)
[2020-10-14] MEDS: SODIUM CHLORIDE 0.9% IV 1,000 ML 125 ML IV CONT ×2 (05:07→13:07)
[2020-10-14 05:44] LABS: Basophils Percent Auto 0.3 % (0.2-1.2); Eosinophils Absolute Auto 0.3 K/mm3 (0-0.3); Eosinophils Percent Auto 2.3 % (0-4.4); Hematocrit 38.9 % (42.0-52.0); Hemoglobin 11.6 g/dL (14.0-18.0); Immature Granulocyte Absolute 0.14 K/mm3 (0.00-0.031); Immature Granulocyte Percent A 0.9 % (0-0.5); Immature Platelet Fraction Pct 3.7 % (0.9-11.2); Lymphocytes Absolute Auto 0.68 K/mm3 (0.9-3.2); Lymphocytes Percent Auto 4.6 % (18.3-44.2); Mean Corpuscular HGB Conc 29.8 g/dl (32-36); Mean Corpuscular Hemoglobin 28.6 pg (26-34); Mean Corpuscular Volume 95.8 fl (80-100); Mean Platelet Volume 10.1 fl (7.4-10.4); Neutrophils Absolute Auto 12.7 K/mm3 (1.3-6.7); Neutrophils Percent Auto 84.9 % (45.5-73.1); Platelet Count Result 174 k/mm3 (150-375); Red Blood Count 4.06 M/mm3 (4.6-6.20); Red Cell Distribution Width 15.8 % (11.5-14.5); White Blood Count 14.9 K/mm3 (4.5-10.0)
[2020-10-14 05:50] LABS: Alveolar/Arterial O2 Gradient 214.9 mmHg; Base Excess ABG 4.5 mEq/l (+/-2.0); Fractional Inspired Oxygen 50 %; HCO3 ABG 32.4 mEq/l (22.0-26.0); Oxygen Content ABG 16.5 %vol (16.0-22.0); Oxygen Saturation ABG 91.8 % (95.0-100.0); Oxyhemoglobin 91.7 % THb (90.0-100.0); PO2 ABG 68.9 mmHg (80.0-100.0); PO2 FiO2 Ratio Arterial Blood 1.38 %; Total Hemoglobin 12.8 g/dL (12.0-18.0); pH ABG 7.318 (7.350-7.450)
[2020-10-14 05:52] LABS: PCO2 ABG 64.6 mmHg (35.0-45.0)
[2020-10-14 05:53] LABS: Device NON-INVASIVE VENT; Modified Allen's Test Pass; Non-Invasive Expiratory Pressure 6 CMH2O; Non-Invasive Inspiratory Pressure 14 CMH2O; Non-Invasive Vent Rate 16 /MIN; Site Drawn LEFT RADIAL
[2020-10-14 06:07] LABS: Albumin Level 3.2 g/dL (3.5-5.1); Anion Gap 2 mmol/L (8-16); Blood Urea Nitrogen 10 mg/dL (9-20); Calcium 8.3 mg/dL (8.4-10.2); Carbon Dioxide 38 mmol/L (22-30); Chloride 100 mmol/L (98-107); Estimated CRCL calculation 148 ml/min; Estimated Glomerular Filt Rate > 60; Glucose 101 mg/dL (75-110); Magnesium 2.3 mg/dL (1.6-2.3); Phosphorus 3.8 mg/dL (2.5-4.5); Potassium 3.7 mmol/L (3.4-5.0); Sodium 140 mmol/L (137-145)
[2020-10-14] MEDS: ENOXAPARIN 40 MG/0.4 ML SYRINGE SUB-Q (07:51)
[2020-10-14] MEDS: TOLNAFTATE 1% POWDER 45 GM BTL 1 APPLIC TOPICAL ×2 (07:51→20:29)
[2020-10-14] MEDS: acetaZOLAMIDE SODIUM FOR INJ 500 MG VIAL 250 MG IV PUSH (07:52)
[2020-10-14] MEDS: PANTOPRAZOLE SODIUM IV 40 MG VIAL IV PUSH ×2 (07:52→20:30)
[2020-10-14] MEDS: TAMSULOSIN HCL 0.4 MG CAPSULE PO (07:53)
--- NOTE | 2020-10-14 08:54 | PCSTNOTE ---
Speech Pathologist checked in and conferenced with CRUZ Ray, today for this patient who reported patient has been tolerating water well but refusing more solid foods such as his oatmeal at breakfast today. Reports he has not had a bowel movement which has most likely contributed to his refusal to eat solids. Nurse states patient does randomly cough, such as seen in the Bedside Swallow Evaluation, but not while drinking supporting the thought that although patient does cough due to his other diagnoses, he most likely is not aspirating. Therapist will continue to follow.
--- NOTE | 2020-10-14 11:03 | PM.IMPN ---
Progress Note: A&P Assessment and Plan (1) Acute respiratory failure: Code(s): J96.00 - Acute respiratory failure, unspecified whether with hypoxia or hypercapnia Status: Acute Assessment and Plan: Patietn developed respiratory failure 10/12. COPD exacerbation? Aspiration pneumonitis? ABG showing 7.34/72/57on 5L. He was moved to the IMU and continuous BiPAP started. He remained AOx4. Repeat ABG improved. ABG worsened but felt related to poor BiPAP seal; NGT removed. Serum bicarb >40 and Diamox added. ABG this morning 7.32/65/69. BiPAP off during the day and continue at night and with naps. (2) Gastric distention: Code(s): K31.89 - Other diseases of stomach and duodenum Status: Acute Assessment and Plan: Patient woke up 10/11/20 at 4:00 a.m. with sudden nausea and vomiting. KUB was obtained which showed nonspecific gastric distention. CT abdomen pelvis was obtained which showed nonspecific gastric distension. No obstruction identified. GI consulted. Patient started on IV Reglan and ultimately a NGT placed. Symptoms improved. Tolerated NGT clamping and this was ultimately removed. Started on full liquid diet but speech did not recommend advancing due to food sticking sensation in the epigastric region. Will plan to wean off Reglan if he is eating well. Will advance his diet as a trial. (3) Cellulitis of scrotum: Code(s): N49.2 - Inflammatory disorders of scrotum Status: Acute Assessment and Plan: The patient was started on broad-spectrum antibiotics in the emergency department 10/08/20 with Primaxin and Vanco. Urology evaluated the patient and recommends continuing Lieberman catheter, broad-spectrum antibiotics, scrotal elevation and monitoring of improvement. He may need correction IV antibiotics. Blood cultures 10/08 negative. Repeat BCx 10/11 NGTD. ID consulted and following - appreciate their input. Appreciate Urology input. (4) Leukocytosis: Code(s): D72.829 - Elevated white blood cell count, unspecified Status: Acute Assessment and Plan: WBC was 12K on admission and improved initially before climbing to 20K without clear etiology. He is currently on broad spectrum abx. No fevers. Pertaining to his scrotal cellulitis? CDiff (but no diarrhea)? Fungal? Leukemoid rxn due to nausea and vomiting? Aspiration? CT abdomen pelvis 10/11 showed no acute abnormality except gastric distention and bibasilar disease felt to be atelectasis. WBC better today at 15K. Continue to follow (5) Acute retention of urine: Code(s): R33.8 - Other retention of urine Status: Acute Assessment and Plan: Lieberman catheter placed per Urology. Urine culture negative for UTI. Continue Lieberman catheter and try voiding trial prior to discharge depending on the edema. Stop Ditropan? (6) Chronic respiratory failure with hypoxia, on home oxygen therapy: Code(s): J96.11 - Chronic respiratory failure with hypoxia; Z99.81 - Dependence on supplemental oxygen Status: Acute Assessment and Plan: The patient usually is on 4-5 L of oxygen at home. Wean O2 as tolerated. As above (7) SILVANA (obstructive sleep apnea): Code(s): G47.33 - Obstructive sleep apnea (adult) (pediatric) Status: Acute Assessment and Plan: Patient actually wears BiPAP at home. Will continue the same here as mentioned above. (8) Chronic obstructive pulmonary disease: Code(s): J44.9 - Chronic obstructive pulmonary disease, unspecified Status: Acute Assessment and Plan: No acute issues. Continue home respiratory regimen, nebulizer treatments, Spiriva and Symbicort. Will hold the Atrovent since he is on Spiriva. (9) Tobacco use: Code(s): Z72.0 - Tobacco use Status: Acute Assessment and Plan: Patient states he still smokes about 5 cigarettes a month. Patient was educated about the benefits of smoking cess
--- NOTE | 2020-10-14 12:02 | WPDUROPN2 ---
Progress Note: A&P Assessment and Plan (1) Cellulitis of scrotum: Code(s): N49.2 - Inflammatory disorders of scrotum Status: Acute Assessment and Plan: Improving slowly, not much change in edema. No crepitus or necrotic tissue noted, tender on exam. Keep elevated, apply ice PRN for pain. (2) Acute retention of urine: Code(s): R33.8 - Other retention of urine Status: Acute Assessment and Plan: Continue Flomax, ok to do a voiding trial when bowers is no longer needed for I&O purposes. Subjective Subjective Date/Time Seen: 10/14/20 12:02 Patient is resting and comfortable, denies scrotal pain unless he is active. Review of Systems Cardiovascular: Cardiovascular: Denies chest pain Respiratory: Respiratory: Reports dyspnea Gastrointestinal: Gastrointestinal: Denies abdominal pain, Denies nausea and Denies vomiting Genitourinary: Genitourinary: Denies hematuria and Denies flank pain Exam Resp: Effort & Inspection: tachypneic Cardio: Rate: regular rate GI: GI Palp: Yes Soft to palpation and No Tenderness to palpation present (GI) : Scrotum: edematous (no crepitus or necrotic tissue present) bilateral Urinary Catheter: Urinary Catheter: patent and draining and urine clear Extrem: General: no edema Objective Data Vital Signs Vital Signs: Vital Signs - 24 hr 10/13/20 13:04 10/13/20 14:00 10/13/20 15:30 Temperature Pulse Rate 88 81 81 Respiratory Rate 17 21 H Blood Pressure Pulse Oximetry 94 98 10/13/20 15:31 10/13/20 16:00 10/13/20 18:00 Temperature 98.2 F Pulse Rate 81 78 90 Respiratory Rate 21 H 20 Blood Pressure 112/70 Pulse Oximetry 100 10/13/20 20:00 10/13/20 20:08 10/13/20 20:15 Temperature 98.1 F Pulse Rate 82 83 90 Respiratory Rate 22 H 22 H 22 H Blood Pressure 114/69 Pulse Oximetry 97 96 10/13/20 22:00 10/13/20 23:25 10/14/20 00:00 Temperature 98.4 F Pulse Rate 77 78 76 Respiratory Rate 20 20 Blood Pressure 134/65 Pulse Oximetry 97 96 10/14/20 01:05 10/14/20 02:00 10/14/20 04:00 Temperature 98.5 F Pulse Rate 81 83 81 Respiratory Rate 18 18 Blood Pressure 129/58 L Pulse Oximetry 95 96 10/14/20 05:00 10/14/20 05:29 10/14/20 05:35 Temperature Pulse Rate 88 88 85 Respiratory Rate 23 H 24 H 27 H Blood Pressure Pulse Oximetry 93 10/14/20 06:00 10/14/20 08:00 10/14/20 08:04 Temperature 97.9 F Pulse Rate 89 87 88 Respiratory Rate 18 23 H Blood Pressure 117/69 Pulse Oximetry 97 10/14/20 08:08 10/14/20 08:15 10/14/20 08:21 Temperature Pulse Rate 87 90 80 Respiratory Rate 26 H 23 H 25 H Blood Pressure Pulse Oximetry 92 95 10/14/20 10:00 10/14/20 11:12 10/14/20 11:18 Temperature Pulse Rate 86 88 85 Respiratory Rate 23 H 22 H Blood Pressure Pulse Oximetry Intake/Output Intake/Output: Intake & Output 10/11/20 10/12/20 10/13/20 10/14/20 23:59 23:59 23:59 23:59 Intake Total 3640 3400 5380 2100 Output Total 3675 2200 5975 4000 Balance -35 2732 -851 -7454 Meds/Results Medications: Active Medications Generic Name Dose Route Start Last Admin Trade Name Freq PRN Reason Stop Dose Admin Acetaminophen 650 mg 10/08/20 19:40 Acetaminophen 325 Mg Tablet PO Q6H PRN Mild Pain (1-3) or Fever Hydrocodone Bitart/Acetaminophen 1 tab 10/09/20 13:56 10/13/20 12:21 Hydrocodone/Acetaminophen (*Crx) 5-325 Mg Tablet PO 1 tab Q4H PRN Administration Pain Rated 4-6 Acetazolamide Sodium 250 mg 10/13/20 09:00 10/14/20 07:52 Acetazolamide Sodium For Inj 500 Mg Vial IV PUSH 250 mg DAILY LUIS Administration Albuterol 2 puff 10/08/20 20:16 10/11/20 03:30 Albuterol Sulfate (*Sp) Aerosol 1 Puff INHALATION 2 puff QID PRN Administration Wheezing Albuterol 2.5 mg 10/09/20 12:00 10/14/20 11:12 Albuterol Sulfate Neb 2.5 Mg/0.5 Ml Inh INHALATION 2.5 mg Q4HRT LUIS Administration Budesonide/F
--- NOTE | 2020-10-14 12:14 | PCDIET ---
Weekly nutritional screen. Patient is tolerating current diet with adequate intake. No weight loss reported. No nutritional needs at this time.
--- NOTE | 2020-10-14 14:26 | WPDGIPROGNO ---
Progress Note: A&P Assessment and Plan (1) Nausea and vomiting in adult: Code(s): R11.2 - Nausea with vomiting, unspecified Status: Acute Assessment and Plan: resolved, now he is eating more ngt removed yesterday and tolerating more diet (2) Dysphagia: Code(s): R13.10 - Dysphagia, unspecified Status: Acute Assessment and Plan: after eating solid food but ok as long as eating smaller pieces continue with ppi at some point may need egd evaluation but after more stable respiratory status, we can do it either while he is in the hospital or as outpatient (3) Acute and chronic respiratory failure: Code(s): J96.20 - Acute and chronic respiratory failure, unspecified whether with hypoxia or hypercapnia Status: Acute Assessment and Plan: on bipap, stable (4) Gastric distention: Code(s): K31.89 - Other diseases of stomach and duodenum Status: Acute (5) Cellulitis of scrotum: Code(s): N49.2 - Inflammatory disorders of scrotum Status: Acute Assessment and Plan: on iv antibiotics (6) Morbid obesity: Code(s): E66.01 - Morbid (severe) obesity due to excess calories Status: Acute Subjective Date/time seen: 10/14/20 14:26 Interval history: he is feeling better, still wearing bipap but had burger for lunch but small pieces at time otherwise will feel that food taking longer to go down in epigastric area. Review of Systems Review of Systems: All systems reviewed & are unremarkable except as noted in HPI and below Exam Const: Other: morbidly obese wearing bipap, feels better HENMT: General nose exam: Normal nares present Eyes: Sclera: sclerae normal Neck: Neck: supple Resp: Auscultation: clear to auscultation bilaterally Cardio: Rate: regular rate GI: GI Palp: Yes Soft to palpation, No Firmness to palpation present (GI) and No Tenderness to palpation present (GI) Auscultation: normal bowel sounds : Male General Exam: Yes erythema (scrotum) and Yes tenderness (scrotum) Urinary Catheter: Urinary Catheter: patent and draining Skin: Lesions: lesion noted (scrotum) Neuro: Speech: normal speech Motor exam (neuro): Normal motor muscle tone present throughout Extrem: General: pedal edema (trace) Psych: Affect: normal affect Objective Data Vital Signs Vital Signs: Vital Signs - 24 hr 10/13/20 15:30 10/13/20 15:31 10/13/20 16:00 Temperature 98.2 F Pulse Rate 81 81 78 Respiratory Rate 21 H 21 H 20 Blood Pressure 112/70 Pulse Oximetry 98 100 10/13/20 18:00 10/13/20 20:00 10/13/20 20:08 Temperature 98.1 F Pulse Rate 90 82 83 Respiratory Rate 22 H 22 H Blood Pressure 114/69 Pulse Oximetry 97 96 10/13/20 20:15 10/13/20 22:00 10/13/20 23:25 Temperature Pulse Rate 90 77 78 Respiratory Rate 22 H 20 Blood Pressure Pulse Oximetry 97 10/14/20 00:00 10/14/20 01:05 10/14/20 02:00 Temperature 98.4 F Pulse Rate 76 81 83 Respiratory Rate 20 18 Blood Pressure 134/65 Pulse Oximetry 96 95 10/14/20 04:00 10/14/20 05:00 10/14/20 05:29 Temperature 98.5 F Pulse Rate 81 88 88 Respiratory Rate 18 23 H 24 H Blood Pressure 129/58 L Pulse Oximetry 96 93 10/14/20 05:35 10/14/20 06:00 10/14/20 08:00 Temperature 97.9 F Pulse Rate 85 89 87 Respiratory Rate 27 H 18 Blood Pressure 117/69 Pulse Oximetry 97 10/14/20 08:04 10/14/20 08:08 10/14/20 08:15 Temperature Pulse Rate 88 87 90 Respiratory Rate 23 H 26 H 23 H Blood Pressure Pulse Oximetry 92 10/14/20 08:21 10/14/20 10:00 10/14/20 10:30 Temperature Pulse Rate 80 86 Respiratory Rate 25 H Blood Pressure Pulse Oximetry 95 99 10/14/20 11:12 10/14/20 11:18 10/14/20 12:00 Temperature Pulse Rate 88 85 86 Respiratory Rate 23 H 22 H 24 H Blood Pressure 121/68 Pulse Oximetry 95 10/14/20 14:00 10/14/20 14:08 Temperature Pulse Rate 83 90 Respiratory Rate 23 H Bloo
[2020-10-14 20:23] LABS: Vancomycin Trough 13.7 ug/mL (10.0-20.0)
[2020-10-15] VITALS (26 sets, daily range): BP systolic 119–147; BP diastolic 74–85; PULSE 84–94; RESP 16–28; TEMP 36.6–36.8; O2SAT 94–99
[2020-10-15] MEDS: ALBUTEROL SULFATE NEB 2.5 MG/0.5 ML INH INHALATION ×7 (00:48→23:59)
[2020-10-15] MEDS: SODIUM CHLORIDE 0.9% IV 1,000 ML 125 ML IV CONT ×2 (01:07→11:55)
[2020-10-15 03:59] LABS: Basophils Percent Auto 0.3 % (0.2-1.2); Eosinophils Absolute Auto 0.3 K/mm3 (0-0.3); Eosinophils Percent Auto 2.2 % (0-4.4); Hematocrit 39.6 % (42.0-52.0); Hemoglobin 11.7 g/dL (14.0-18.0); Immature Granulocyte Absolute 0.12 K/mm3 (0.00-0.031); Immature Granulocyte Percent A 0.8 % (0-0.5); Lymphocytes Absolute Auto 0.76 K/mm3 (0.9-3.2); Lymphocytes Percent Auto 5.2 % (18.3-44.2); Mean Corpuscular HGB Conc 29.5 g/dl (32-36); Mean Corpuscular Hemoglobin 28.8 pg (26-34); Mean Corpuscular Volume 97.5 fl (80-100); Mean Platelet Volume 9.1 fl (7.4-10.4); Monocytes Absolute Auto 1.1 K/mm3 (0.1-0.6); Monocytes Percent Auto 7.2 % (2.6-8.5); Neutrophils Absolute Auto 12.3 K/mm3 (1.3-6.7); Neutrophils Percent Auto 84.3 % (45.5-73.1); Platelet Count Result 189 k/mm3 (150-375); Red Blood Count 4.06 M/mm3 (4.6-6.20); Red Cell Distribution Width 15.9 % (11.5-14.5); White Blood Count 14.6 K/mm3 (4.5-10.0)
[2020-10-15 04:09] LABS: Alanine Aminotransferase 11 U/L (4-50); Albumin Level 3.2 g/dL (3.5-5.1); Alkaline Phosphatase 82 U/L (38-126); Anion Gap 4 mmol/L (8-16); Aspartate Amino Transferase 18 U/L (17-59); Bilirubin,Total 0.6 mg/dL (0.2-1.3); Blood Urea Nitrogen 10 mg/dL (9-20); Calcium 8.5 mg/dL (8.4-10.2); Carbon Dioxide 33 mmol/L (22-30); Chloride 103 mmol/L (98-107); Estimated CRCL calculation 148 ml/min; Estimated Glomerular Filt Rate > 60; Glucose 104 mg/dL (75-110); Potassium 3.7 mmol/L (3.4-5.0); Sodium 140 mmol/L (137-145)
[2020-10-15] MEDS: CENTRAL LINE FLUSH 10 ML IV PUSH ×4 (05:33→20:15)
[2020-10-15] MEDS: METOCLOPRAMIDE HCL INJ 10 MG/2 ML VIAL IV PUSH ×2 (05:33→11:56)
[2020-10-15] MEDS: TAMSULOSIN HCL 0.4 MG CAPSULE PO (08:03)
[2020-10-15] MEDS: ENOXAPARIN 40 MG/0.4 ML SYRINGE SUB-Q (08:07)
[2020-10-15] MEDS: acetaZOLAMIDE SODIUM FOR INJ 500 MG VIAL 250 MG IV PUSH (08:07)
[2020-10-15] MEDS: PANTOPRAZOLE SODIUM IV 40 MG VIAL IV PUSH ×2 (08:08→20:07)
[2020-10-15] MEDS: TOLNAFTATE 1% POWDER 45 GM BTL 1 APPLIC TOPICAL ×2 (08:08→20:07)
[2020-10-15] MEDS: HYDROcodone/acetaminophen (*CRX) 5-325 MG TABLET 1 TAB PO (11:55)
--- NOTE | 2020-10-15 13:59 | PM.IMPN ---
Progress Note: A&P Assessment and Plan (1) Acute respiratory failure: Code(s): J96.00 - Acute respiratory failure, unspecified whether with hypoxia or hypercapnia Status: Acute Assessment and Plan: Patietn developed respiratory failure 10/12. COPD exacerbation? Aspiration pneumonitis? ABG showing 7.34/72/57on 5L. He has been mostly compliant with BiPAP here. He was moved to the IMU and continuous BiPAP started. He remained AOx4. Repeat ABG improved. ABG worsened but felt related to poor BiPAP seal; NGT removed. Serum bicarb >40 and Diamox added. ABG yesterday morning 7.32/65/69. Serum Bicarb 33 today. BiPAP off during the day and continue at night and with naps. Continue Diamox one more day. (2) Gastric distention: Code(s): K31.89 - Other diseases of stomach and duodenum Status: Acute Assessment and Plan: Patient woke up 10/11/20 at 4:00 a.m. with sudden nausea and vomiting. KUB was obtained which showed nonspecific gastric distention. CT abdomen pelvis was obtained which showed nonspecific gastric distension. No obstruction identified. GI consulted. Patient started on IV Reglan and ultimately a NGT placed. Symptoms improved. Tolerated NGT clamping and this was ultimately removed. Started on full liquid diet but speech did not recommend advancing due to food sticking sensation in the epigastric region. He is able to tolerate soft and bite sized diet. Stop IVF now that he is eating. Will plan to wean off Reglan. GI following with plans for EGD tomorrow. (3) Cellulitis of scrotum: Code(s): N49.2 - Inflammatory disorders of scrotum Status: Acute Assessment and Plan: The patient was started on broad-spectrum antibiotics in the emergency department 10/08/20 with Primaxin and Vanco. CUrology evaluated the patient and recommended continuing Lieberman catheter, broad-spectrum antibiotics, scrotal elevation and monitoring of improvement. Clinically much improved. He may need half-way IV antibiotics. Blood cultures 10/08 negative. Repeat BCx 10/11 NGTD. ID consulted and following - appreciate their input. Appreciate Urology input. (4) Leukocytosis: Code(s): D72.829 - Elevated white blood cell count, unspecified Status: Acute Assessment and Plan: WBC was 12K on admission and improved initially before climbing to 20K without clear etiology. He is currently on broad spectrum abx. No fevers. Pertaining to his scrotal cellulitis? CDiff (but no diarrhea)? Fungal? Leukemoid rxn due to nausea and vomiting? Aspiration? CT abdomen pelvis 10/11 showed no acute abnormality except gastric distention and bibasilar disease felt to be atelectasis. WBC better today at 14.6K. Continue to follow (5) Acute retention of urine: Code(s): R33.8 - Other retention of urine Status: Acute Assessment and Plan: Lieberman catheter placed per Urology. Urine culture negative for UTI. Continue Lieberman catheter and try voiding trial prior to discharge depending on the scrotal edema. Stop Ditropan? (6) Chronic respiratory failure with hypoxia, on home oxygen therapy: Code(s): J96.11 - Chronic respiratory failure with hypoxia; Z99.81 - Dependence on supplemental oxygen Status: Acute Assessment and Plan: The patient usually is on 4-5 L of oxygen at home. Wean O2 as tolerated to keep SpO2>92%. As above (7) SILVANA (obstructive sleep apnea): Code(s): G47.33 - Obstructive sleep apnea (adult) (pediatric) Status: Acute Assessment and Plan: Patient actually wears BiPAP at home. Will continue the same here as mentioned above. (8) Chronic obstructive pulmonary disease: Code(s): J44.9 - Chronic obstructive pulmonary disease, unspecified Status: Acute Assessment and Plan: No acute issues. Continue home respiratory regimen with Albuterol nebulizer, Spiriva and Symbicort. Wean O2 as toelrated to keep SpO2
--- NOTE | 2020-10-15 16:21 | WPDGIPROGNO ---
Progress Note: A&P Assessment and Plan (1) Dysphagia: Code(s): R13.10 - Dysphagia, unspecified Status: Acute Assessment and Plan: after eating solid food but ok as long as eating smaller pieces, still similar sensation at epigastric area respiratory status better and he would rather have EGD evaluation before going home- worry that could have similar presentation with swallowing plan to do egd tomorrow to assess if esophagitis, ring, etc continue with ppi (2) Nausea and vomiting in adult: Code(s): R11.2 - Nausea with vomiting, unspecified Status: Acute Assessment and Plan: resolved, now he is eating more (3) Acute and chronic respiratory failure: Code(s): J96.20 - Acute and chronic respiratory failure, unspecified whether with hypoxia or hypercapnia Status: Acute Assessment and Plan: stable, by primary team (4) Gastric distention: Code(s): K31.89 - Other diseases of stomach and duodenum Status: Acute Assessment and Plan: resolved egd tomorrow (5) Cellulitis of scrotum: Code(s): N49.2 - Inflammatory disorders of scrotum Status: Acute Assessment and Plan: on iv antibiotics (6) Morbid obesity: Code(s): E66.01 - Morbid (severe) obesity due to excess calories Status: Acute Subjective Date/time seen: 10/15/20 16:21 Interval history: breathing better, only using bipap is taking a nap or sleeping at night. He has been eating but still dysphagia in epigastric area Review of Systems Review of Systems: All systems reviewed & are unremarkable except as noted in HPI and below Exam Const: Other: morbidly obese, feels better HENMT: General nose exam: Normal nares present Eyes: Sclera: sclerae normal Neck: Neck: supple Resp: Auscultation: clear to auscultation bilaterally Cardio: Rate: regular rate GI: GI Palp: Yes Soft to palpation, No Firmness to palpation present (GI) and No Tenderness to palpation present (GI) Auscultation: normal bowel sounds Other: obese : Male General Exam: Yes erythema (scrotum) and Yes tenderness (scrotum) Urinary Catheter: Urinary Catheter: patent and draining Skin: Lesions: lesion noted (scrotum) Neuro: Speech: normal speech Motor exam (neuro): Normal motor muscle tone present throughout Extrem: General: pedal edema (trace) Psych: Affect: normal affect Objective Data Vital Signs Vital Signs: Vital Signs - 24 hr 10/14/20 16:40 10/14/20 16:42 10/14/20 16:49 Temperature Pulse Rate 91 87 88 Respiratory Rate 22 H 17 17 Blood Pressure Pulse Oximetry 99 10/14/20 18:00 10/14/20 20:00 10/14/20 20:34 Temperature 97.6 F Pulse Rate 95 90 92 Respiratory Rate 20 23 H Blood Pressure 133/87 Pulse Oximetry 97 10/14/20 20:38 10/14/20 20:45 10/14/20 21:29 Temperature Pulse Rate 93 91 Respiratory Rate 21 H 14 Blood Pressure Pulse Oximetry 94 95 10/14/20 22:00 10/15/20 00:00 10/15/20 00:39 Temperature 98.3 F Pulse Rate 92 91 88 Respiratory Rate 17 16 Blood Pressure 141/85 H Pulse Oximetry 98 97 10/15/20 00:48 10/15/20 00:53 10/15/20 02:00 Temperature Pulse Rate 89 86 86 Respiratory Rate 25 H 20 Blood Pressure Pulse Oximetry 10/15/20 04:00 10/15/20 05:10 10/15/20 05:14 Temperature 98 F Pulse Rate 91 89 91 Respiratory Rate 25 H 17 17 Blood Pressure 147/77 H Pulse Oximetry 96 96 10/15/20 05:17 10/15/20 06:00 10/15/20 08:00 Temperature 97.9 F Pulse Rate 91 90 90 Respiratory Rate 17 23 H Blood Pressure 132/74 Pulse Oximetry 98 10/15/20 08:07 10/15/20 08:08 10/15/20 10:00 Temperature Pulse Rate 91 91 89 Respiratory Rate 16 16 Blood Pressure Pulse Oximetry 96 10/15/20 11:00 10/15/20 12:00 10/15/20 14:00 Temperature Pulse Rate 92 90 94 Respiratory Rate 16 21 H Blood Pressure 119/75 Pulse Oximetry 98 10/15/20 15:22 10/15/20 15:23 Temperature Pul
[2020-10-15] MEDS: METOCLOPRAMIDE HCL INJ 10 MG/2 ML VIAL 5 MG IV PUSH ×2 (17:08→23:54)
[2020-10-16] VITALS (34 sets, daily range): BP systolic 115–146; BP diastolic 69–85; PULSE 81–97; RESP 15–26; TEMP 36.5–36.9; O2SAT 92–100
--- NOTE | 2020-10-16 | ECHO_ITS ---
Patient Info Name: Catarino Yao Age: 60 years : 1960 Gender: Male Ht: 75 in Wt: 488 lbs BSA: 3.55 m2 HR: 85 bpm BP: 139 / 78 mmHg Heart Rhythm: Sinus Rhythm Technical Quality: Good Exam Date: 10/16/2020 9:55 AM Exam Location: [facility] Patient Status: Inpatient Admit Date: 10/08/2020 Staff Ordering Physician: Missael Randolph MD Parts Person: Vamshi Mcduffie, VISHALCS, RT Attending Provider: Missael Randolph MD Exam Type: CA echo dop color flow w con Study Info Indications I27.0 - Primary pulmonary hypertension Complete two-dimensional, color flow and Doppler transthoracic echocardiogram is performed with contrast to opacify the left ventricle and to improve the deliniation of the left ventricle endocardial borders. Summary 1. Massive obesity results an extremely difficult exam almost node helpful diagnostic imaging more data was obtained. 2. Grossly left ventricular size and contractility appears to be preserved following definity injection. 3. None of the cardiac valves could be visualized. 4. No obvious pericardial fluid. Left Ventricle Left ventricular chamber dimension is not well visualized. Right Ventricle Right ventricular chamber dimension is not well visualized. Left Atria Left atrial chamber dimension is not well visualized. Right Atria Right atrial chamber dimension is not well visualized. Aortic Valve The aortic valve is not well visualized. Pulmonic Valve The pulmonic valve is not well visualized. Mitral Valve The mitral valve has not well visualized. Tricuspid Valve The tricuspid valve leaflets are not well visualized. Pericardium/Pleural The pericardium appears not well visualized. Aorta The aortic root size at the sinus of Valsalva is not well visualized. Left Ventricular Outflow Tract Name Value Normal LVOT 2D LVOT Diameter 2.09 cm Tricuspid Valve Name Value Normal TV Regurgitation Doppler TR Peak Velocity 283.98 cm/s TR Peak Gradient 32 mmHg Estimated PAP/RSVP RA Pressure 10 mmHg <=5 PA Systolic Pressure 42 mmHg <36 RV Systolic Pressure 42 mmHg <36 Aortic Valve Name Value Normal AV Doppler AV Peak Velocity 153.23 cm/s AV Peak Gradient 9 mmHg AV Mean Gradient 4 mmHg AV VTI 28.29 cm AV Regurgitation 2D LVOT Area 3.42 c
[2020-10-16] MEDS: HYDROcodone/acetaminophen (*CRX) 5-325 MG TABLET 1 TAB PO ×4 (00:22→20:36)
--- NOTE | 2020-10-16 00:40 | PC.NURSE ---
Significant period of apnea noted. Patient was on the BiPAP and not assisting the BiPAP for one full minute. Patient saturations dropped to 50% during apneic episode. Dr. Cleary notified and BiPAP settings increased to 16/8 45% FiO2 with backup rate of 16. Patient tolerating well and saturations maintaining in the high 90's. Will titrate FiO2 down as tolerated.
[2020-10-16 04:26] LABS: Hematocrit 39.9 % (42.0-52.0); Hemoglobin 11.9 g/dL (14.0-18.0); Mean Corpuscular HGB Conc 29.8 g/dl (32-36); Mean Corpuscular Hemoglobin 29.1 pg (26-34); Mean Corpuscular Volume 97.6 fl (80-100); Mean Platelet Volume 9.4 fl (7.4-10.4); Platelet Count Result 209 k/mm3 (150-375); Red Blood Count 4.09 M/mm3 (4.6-6.20); Red Cell Distribution Width 15.9 % (11.5-14.5); White Blood Count 13.6 K/mm3 (4.5-10.0)
[2020-10-16] MEDS: ALBUTEROL SULFATE NEB 2.5 MG/0.5 ML INH INHALATION ×6 (04:31→23:08)
[2020-10-16 04:37] LABS: Anion Gap 3 mmol/L (8-16); Blood Urea Nitrogen 10 mg/dL (9-20); Calcium 8.8 mg/dL (8.4-10.2); Carbon Dioxide 35 mmol/L (22-30); Chloride 102 mmol/L (98-107); Estimated CRCL calculation 148 ml/min; Estimated Glomerular Filt Rate > 60; Glucose 98 mg/dL (75-110); Potassium 3.6 mmol/L (3.4-5.0); Sodium 140 mmol/L (137-145)
[2020-10-16] MEDS: CENTRAL LINE FLUSH 10 ML IV PUSH ×6 (05:11→20:39)
[2020-10-16] MEDS: METOCLOPRAMIDE HCL INJ 10 MG/2 ML VIAL 5 MG IV PUSH ×4 (05:12→23:41)
--- NOTE | 2020-10-16 07:34 | P.PNIM_ITS ---
Progress Note: A&P Assessment and Plan (1) Acute respiratory failure: Qualifiers: Respiratory failure complication: hypoxia and hypercapnia Qualified Code(s): J96.01 - Acute respiratory failure with hypoxia; J96.02 - Acute respiratory failure with hypercapnia Code(s): J96.00 - Acute respiratory failure, unspecified whether with hypoxia or hypercapnia Status: Acute Assessment and Plan: Patient developed respiratory failure 10/12. COPD exacerbation? Aspiration pneumonitis? ABG showing 7.34/72/57on 5L. He has been mostly compliant with BiPAP here. He was moved to the IMU and continuous BiPAP started. He remained AOx4. RABG worsened but felt related to poor BiPAP seal; NGT removed. Serum bicarb >40 and Diamox added. PCO2 better at 65. Serum Bicarb 35 today. BiPAP off during the day and continue at night and with naps with changes as mentioned below. Continue Diamox one more day. ABG showing 7.34/62/54 on 5L. Back up to 8L now. Spoke with Respiratory: patient has an [employer] machine but he no longer uses [employer] and they have been trying to retrieve the machine from him. He is not yet set up with another company to get a new BiPAP. Thus no way to have his old machine's settings reset. (2) Gastric distention: Code(s): K31.89 - Other diseases of stomach and duodenum Status: Acute Assessment and Plan: Patient woke up 10/11/20 at 4:00 a.m. with sudden nausea and vomiting. KUB was obtained which showed nonspecific gastric distention. CT abdomen pelvis was obtained which showed nonspecific gastric distension. No obvious obstruction identified. GI consulted. Patient started on IV Reglan and ultimately a NGT placed. Symptoms improved. Tolerated NGT clamping and this was ultimately removed. Started on full liquid diet but speech did not recommend advancing due to food sticking sensation in the epigastric region. He was able to tolerate soft and bite sized diet. IVF stopped and he is diuresing well. Reglan dose decreased and appears to be tolerating this. GI following with plans for EGD today. Stop Reglan if continues to eat well without symptoms. EGD postponed for now. Continue current treatment plan otherwise (3) Cellulitis of scrotum: Code(s): N49.2 - Inflammatory disorders of scrotum Status: Acute Assessment and Plan: The patient was started on broad-spectrum antibiotics in the emergency department 10/08/20 with Primaxin and Vanco (Day 9). Urology evaluated the patient and recommended continuing Lieberman catheter, broad-spectrum antibiotics, scrotal elevation and monitoring of improvement. Clinically much improved. Blood cultures 10/08 negative. Repeat BCx 10/11 NGTD. ID consulted and following - appreciate their input. Appreciate Urology input. (4) Leukocytosis: Code(s): D72.829 - Elevated white blood cell count, unspecified Status: Acute Assessment and Plan: WBC was 12K on admission and improved initially before climbing to 20K without clear etiology. He is currently on broad spectrum abx. No fevers. CT abdomen pelvis 10/11 showed no acute abnormality except gastric distention and bibasilar disease felt to be atelectasis. Pertaining to his scrotal cellulitis? Leukemoid rxn due to nausea and vomiting? Aspiration? WBC better today at 13.6K. Continue to follow. Continue abx. (5) Acute retention of urine: Code(s): R33.8 - Other retention of urine Status: Acute Assessment and Plan: Lieberman catheter placed per Urology. Urine culture negative for UTI. Continue Lieberman catheter and try voiding trial prior to discharge depending on the s
[2020-10-16] MEDS: ENOXAPARIN 40 MG/0.4 ML SYRINGE SUB-Q (08:55)
[2020-10-16] MEDS: TAMSULOSIN HCL 0.4 MG CAPSULE PO (08:56)
[2020-10-16] MEDS: PANTOPRAZOLE SODIUM IV 40 MG VIAL IV PUSH ×2 (08:58→20:37)
[2020-10-16] MEDS: TOLNAFTATE 1% POWDER 45 GM BTL 1 APPLIC TOPICAL ×2 (08:59→20:28)
[2020-10-16] MEDS: acetaZOLAMIDE SODIUM FOR INJ 500 MG VIAL 250 MG IV PUSH (08:59)
[2020-10-16] MEDS: WATER, STERILE FOR INJECTION 10 ML VIAL XX (09:03)
[2020-10-16 09:41] LABS: Alveolar/Arterial O2 Gradient 159.9 mmHg; Base Excess ABG 4.8 mEq/l (+/-2.0); Fractional Inspired Oxygen 40 %; HCO3 ABG 32.4 mEq/l (22.0-26.0); Oxygen Content ABG 16.2 %vol (16.0-22.0); Oxyhemoglobin 86.6 % THb (90.0-100.0); PO2 FiO2 Ratio Arterial Blood 1.35 %; Total Hemoglobin 13.3 g/dL (12.0-18.0); pH ABG 7.336 (7.350-7.450)
[2020-10-16 09:42] LABS: Device NASAL CANNULA; Modified Allen's Test Fail; Site Drawn RIGHT RADIAL
[2020-10-16 09:43] LABS: Oxygen Saturation ABG 85.1 % (95.0-100.0)
[2020-10-16] MEDS: PERFLUTREN LIPID MICROSPHERES 1.5 ML VIAL DILUTED TO 10 ML TOTAL VOLUME IV PUSH (10:40)
[2020-10-16] MEDS: LACTATED RINGERS 1,000 ML 150 ML IV CONT (10:53)
--- NOTE | 2020-10-16 11:24 | WPDGIPROGNO ---
Progress Note: A&P Assessment and Plan (1) Dysphagia: Code(s): R13.10 - Dysphagia, unspecified Status: Acute Assessment and Plan: dysphagia after eating solid food but ok as long as eating smaller pieces, still similar sensation at epigastric area Noted that he was still tachypneic and did not even tolerate to get in his left side. He did not receive any anesthesia and after discussing case with patient and anesthesia team, decided to cancel procedure given respiratory status and massive obesity. He will be extremely high risk for complications if he goes under anesthesia even if we do it later as outpatient continue with ppi, small portions after eating and medical care (2) Nausea and vomiting in adult: Code(s): R11.2 - Nausea with vomiting, unspecified Status: Acute Assessment and Plan: resolved, now he is eating more (3) Acute and chronic respiratory failure: Code(s): J96.20 - Acute and chronic respiratory failure, unspecified whether with hypoxia or hypercapnia Status: Acute Assessment and Plan: will put patient back on bipap, continue with oxygen and transfer back to medical floor, by primary team (4) Gastric distention: Code(s): K31.89 - Other diseases of stomach and duodenum Status: Acute Assessment and Plan: resolved we can not do EGD because he is high risk (5) Cellulitis of scrotum: Code(s): N49.2 - Inflammatory disorders of scrotum Status: Acute Assessment and Plan: on iv antibiotics (6) Morbid obesity: Code(s): E66.01 - Morbid (severe) obesity due to excess calories Status: Acute Subjective Date/time seen: 10/16/20 11:24 Interval history: we were going to do EGD but decided to cancel as his breathing was labored when he came down to the GI lab and became short of breath just after turning on his left side. We did not even give him anesthesia. Review of Systems Review of Systems: All systems reviewed & are unremarkable except as noted in HPI and below Exam Const: Other: morbidly obese, wearing oxygen mask HENMT: General nose exam: Normal nares present Eyes: Sclera: sclerae normal Neck: Neck: supple Resp: Auscultation: diminished lung sounds Other: tachypneic after changing position Cardio: Rate: regular rate GI: GI Palp: Yes Soft to palpation, No Firmness to palpation present (GI) and No Tenderness to palpation present (GI) Auscultation: normal bowel sounds Other: obese : Male General Exam: Yes erythema (scrotum) and Yes tenderness (scrotum) Urinary Catheter: Urinary Catheter: patent and draining Skin: Lesions: lesion noted (scrotum) Neuro: Speech: normal speech Motor exam (neuro): Normal motor muscle tone present throughout Extrem: General: pedal edema (trace) Psych: Affect: normal affect Objective Data Vital Signs Vital Signs: Vital Signs - 24 hr 10/15/20 12:00 10/15/20 14:00 10/15/20 15:22 Temperature Pulse Rate 90 94 84 Respiratory Rate 21 H 18 Blood Pressure 119/75 Pulse Oximetry 98 10/15/20 15:23 10/15/20 16:00 10/15/20 18:00 Temperature Pulse Rate 85 88 87 Respiratory Rate 20 24 H Blood Pressure 121/74 Pulse Oximetry 99 98 10/15/20 20:00 10/15/20 20:28 10/15/20 20:33 Temperature 98.2 F Pulse Rate 92 89 86 Respiratory Rate 28 H 25 H 23 H Blood Pressure 141/77 H Pulse Oximetry 94 94 10/15/20 20:36 10/15/20 22:00 10/16/20 00:00 Temperature 98.4 F Pulse Rate 88 91 81 Respiratory Rate 24 H 20 Blood Pressure 127/85 Pulse Oximetry 97 10/16/20 00:04 10/16/20 00:07 10/16/20 02:00 Temperature Pulse Rate 82 83 81 Respiratory Rate 21 H 20 Blood Pressure Pulse Oximetry 97 10/16/20 02:29 10/16/20 04:00 10/16/20 04:31 Temperature 98.3 F Pulse Rate 88 82 92 Respiratory Rate 16 15 20 Blood Pressure 139/78 Pulse Oximetry 96 97 10/16/20 04:40 10/16/20 04:49 10/16/20 04:50 Temperature Pu
--- NOTE | 2020-10-16 11:28 | SUR.PHASEII ---
Pt to recovery area. Procedure canceled. Pt placed on Bipap (see charting for settings). Tolerating well. RT called. Will see pt before returning back to ICU.
--- NOTE | 2020-10-16 11:40 | SUR.PHASEII ---
RT at bedside. Pt placed on NC
--- NOTE | 2020-10-16 12:43 | SUR.PHASEII ---
1141 Pt d/c from recovery to ICU per anesthesia order.
--- NOTE | 2020-10-16 13:43 | SUR.OPER ---
Procedure was canceled by anesthesia due to respiratory difficulties.
--- NOTE | 2020-10-16 14:48 | PM.DS ---
DS: Admitting Diagnosis Admitting Diagnosis Admitting Diagnosis: Gross hematuria DS: Discharge Diagnosis Discharge Diagnosis (1) Gross hematuria: Code(s): R31.0 - Gross hematuria Status: Acute DS: Summary Hospital Course Hospital Course: Patient was recently referred from an outside facility with gross hematuria. An outside urologist done cystoscopy that showed a probable urothelial neoplasm. At the time our operative procedure it appeared to be a sessile, probable pro poorly differentiated urothelial carcinoma. Frozen section suggest urothelial cancer. After resection opted against instillation of intravesical chemotherapy because of the extent of the resection. He was kept overnight for CBI. The following morning his urine was cleared his catheter was removed. After demonstrating him void effectively with discharge. Follow-up arrangements will be made based on the pathology report. Time Spent with Patient Time attestation: Total time spent providing and/or coordinating discharge services: 15min Exam Const: General: no acute distress Resp: Effort & Inspection: normal respiratory effort GI: Inspection: non-distended GI Palp: No abdominal tenderness and No Guarding due to palpation present (GI) Auscultation: normal bowel sounds DS: Data Data Completed and Pending Labs on day of discharge: Labs from last 24 hours 10/16/20 10/16/20 10/16/20 09:34 04:09 04:09 WBC 13.6 H RBC 4.09 L Hgb 11.9 L Hct 39.9 L MCV 97.6 MCH 29.1 MCHC 29.8 L RDW 15.9 H Plt Count 209 MPV 9.4 Puncture Site Right radial ABG pH 7.336 L ABG pCO2 62.0 H* ABG pO2 54.0 L ABG PO2/FiO2 Ratio 1.35 ABG HCO3 32.4 H ABG O2 Saturation 85.1 L* ABG O2 Content 16.2 ABG Base Excess 4.8 A-a Gradient 159.9 Oxyhemoglobin 86.6 L Total Hemoglobin 13.3 O2 Delivery Device Nasal cannula O2 Liters/Min 5.0 FiO2 40 Sodium 140 Potassium 3.6 Chloride 102 Carbon Dioxide 35 H Anion Gap 3 L BUN 10 Creatinine 0.90 Estim Creat Clear Calc 148 Estimated GFR > 60 Glucose 98 Calcium 8.8 Preliminary micro results at discharge 10/11/20 18:26 Blood Culture - Preliminary Blood 10/11/20 18:26 Blood Culture - Preliminary Blood Discharge Plan Discharge Attending physician on discharge: Isaiah Schwarz Consulting providers: Isaiah Schwarz ; Donald Downey ; Michi Lui Discharging Clinician: Isaiah Schwarz Patient Disposition: Home, Self-Care Activity: no straining Diet: as tolerated Discharge Instructions: 1) Activity: No driving or important decisions [id number]. No lifting/straining >15 lbs. [id number]. 2) Diet: Resume normal pre-admission diet. 3) Follow-up: I will contact with pathology report and follow-up instructions. Patient Instructions: Antibiotic Form, How to Stop Smoking (DC) Stand Alone Forms: General Discharge Information Follow-up/Referrals: Isaiah Schwarz MD [Physician] - (I'll contact him with f/u instructions when I get final pathology report ) Discharge Medications: New hydrocodone-acetaminophen 5-325 mg tablet 1 - 2 tablet PO Q6H PRN (Reason: pain) Qty: 20 RF: 0 cephalexin 500 mg capsule 500 mg PO Q8H Qty: 9 RF: 0 Continued ipratropium-albuterol 0.5 mg-3 mg(2.5 mg base)/3 mL solution for nebulization 3 ml INHALATION Q8H RF: 0 albuterol sulfate 90 mcg/actuation HFA aerosol inhaler 2 puff INHALATION QID PRN (Reason: Wheezing) RF: 0 Spiriva with HandiHaler 18 mcg capsule, w/inhalation device 1 cap INHALATION DAILY RF: 0 budesonide-formoterol [Symbicort] 160-4.5 mcg/actuation HFA aerosol inhaler 2 puff INHALATION BID RF: 0 Date of admission: 10/08/20 14:27 Primary Care Provider: Alana,Vijay Rosario Admitting Provider: Sixto López Attending physician on admission: Missael Randolph Condition: S
--- NOTE | 2020-10-16 15:48 | WPDUROPN2 ---
Progress Note: A&P Assessment and Plan (1) Cellulitis of scrotum: Code(s): N49.2 - Inflammatory disorders of scrotum Status: Acute Additional Plan Painfully slow resolution of scrotal cellulitis. Stop Oxybutynin in preoperation for voiding trial someday [id number]. Subjective Subjective Date/Time Seen: 10/16/20 15:48 no complaints, continues to tolerate catheter well Review of Systems Cardiovascular: Cardiovascular: Denies chest pain, Denies lightheadedness, Denies palpitations and Denies dyspnea Respiratory: Respiratory: Denies dyspnea Gastrointestinal: Gastrointestinal: Denies diarrhea, Denies nausea and Denies vomiting Genitourinary: Genitourinary: Denies hematuria and Denies dysuria Endocrine: Endocrine: Denies palpitations Exam Const: General: cooperative, comfortable, no acute distress, acute distress (mild distress due to nausea) and poor hygiene Nutritional Appearance: obese Orientation/consciousness: patient oriented x3 Resp: Effort & Inspection: normal respiratory effort and tachypneic Cardio: Rate: regular rate GI: Inspection: normal to inspection and non-distended GI Palp: No abdominal tenderness and No Guarding due to palpation present (GI) Auscultation: normal bowel sounds : Male General Exam: Yes edema, Yes erythema (improving edema and erythema) and Yes other (Marked scrotal swelling and erythema w/o necrosis, fluctuance or crepitus) Penis: Yes erythematous and Yes other (unable to visualize penis due to obesity; bowers in place draining well) Meatus: other (unable to visualize) Scrotum: no ecchymosis, edematous (no crepitus or necrotic tissue present) bilateral, erythematous (edema is unchanged but erythema has improved; no necrosis and no crepitus) and other (scrotum is edematous and erythematous. There is no crepitus or necrosis) Testes: other (unable to palpate due to scrotal edema) Urinary Catheter: Urinary Catheter: patent and draining and urine clear Neuro: General: patient oriented x3 Extrem: General: no edema Objective Data Vital Signs Vital Signs: Vital Signs - 24 hr 10/15/20 16:00 10/15/20 18:00 10/15/20 20:00 Temperature 98.2 F Pulse Rate 88 87 92 Respiratory Rate 24 H 28 H Blood Pressure 121/74 141/77 H Pulse Oximetry 98 94 10/15/20 20:28 10/15/20 20:33 10/15/20 20:36 Temperature Pulse Rate 89 86 88 Respiratory Rate 25 H 23 H 24 H Blood Pressure Pulse Oximetry 94 10/15/20 22:00 10/16/20 00:00 10/16/20 00:04 Temperature 98.4 F Pulse Rate 91 81 82 Respiratory Rate 20 21 H Blood Pressure 127/85 Pulse Oximetry 97 97 10/16/20 00:07 10/16/20 02:00 10/16/20 02:29 Temperature Pulse Rate 83 81 88 Respiratory Rate 20 16 Blood Pressure Pulse Oximetry 96 10/16/20 04:00 10/16/20 04:31 10/16/20 04:40 Temperature 98.3 F Pulse Rate 82 92 85 Respiratory Rate 15 20 23 H Blood Pressure 139/78 Pulse Oximetry 97 10/16/20 04:49 10/16/20 04:50 10/16/20 06:00 Temperature Pulse Rate 83 93 85 Respiratory Rate 17 18 Blood Pressure Pulse Oximetry 97 95 10/16/20 07:52 10/16/20 08:00 10/16/20 08:03 Temperature Pulse Rate 87 88 81 Respiratory Rate 19 18 Blood Pressure Pulse Oximetry 100 92 10/16/20 10:00 10/16/20 10:49 10/16/20 11:24 Temperature 97.7 F Pulse Rate 87 93 85 Respiratory Rate 22 H 22 H Blood Pressure 115/85 146/84 H Pulse Oximetry 92 97 10/16/20 11:34 10/16/20 12:00 10/16/20 12:09 Temperature Pulse Rate 86 82 94 Respiratory Rate 23 H 26 H 24 H Blood Pressure 116/79 Pulse Oximetry 92 96 96 Intake/Output Intake/Output: Intake & Output 10/13/20 10/14/20 10/15/20 10/16/20 23:59 23:59 23:59 23:59 Intake Total 5380 4290 3710 1000 Output Total 6263 3335 7476 3231 [facility] -595 -1410 -1190 -8335 Meds/Results Medications: Active Medications Generic Name Dose Route Start Last Admin Trade Name Freq PRN Reason Stop Dose Admin Aceta
[2020-10-16] MEDS: HYDROmorphone HCL INJ (*CRX) 1 MG/ML SYR 0.5 MG IV PUSH (17:29)
[2020-10-17] VITALS (26 sets, daily range): BP systolic 106–136; BP diastolic 68–86; PULSE 80–93; RESP 15–29; TEMP 36.3–36.9; O2SAT 91–99
[2020-10-17] MEDS: ALBUTEROL SULFATE NEB 2.5 MG/0.5 ML INH INHALATION ×5 (04:52→21:45)
[2020-10-17] MEDS: METOCLOPRAMIDE HCL INJ 10 MG/2 ML VIAL 5 MG IV PUSH ×4 (05:20→23:52)
[2020-10-17] MEDS: CENTRAL LINE FLUSH 10 ML IV PUSH ×6 (05:20→21:03)
[2020-10-17 05:30] LABS: Basophils Percent Auto 0.3 % (0.2-1.2); Eosinophils Absolute Auto 0.3 K/mm3 (0-0.3); Eosinophils Percent Auto 2.7 % (0-4.4); Hematocrit 40.1 % (42.0-52.0); Hemoglobin 12.2 g/dL (14.0-18.0); Immature Granulocyte Absolute 0.11 K/mm3 (0.00-0.031); Immature Granulocyte Percent A 0.9 % (0-0.5); Lymphocytes Absolute Auto 0.88 K/mm3 (0.9-3.2); Lymphocytes Percent Auto 7.2 % (18.3-44.2); Mean Corpuscular HGB Conc 30.4 g/dl (32-36); Mean Corpuscular Hemoglobin 29.3 pg (26-34); Mean Corpuscular Volume 96.2 fl (80-100); Mean Platelet Volume 9.2 fl (7.4-10.4); Monocytes Absolute Auto 0.9 K/mm3 (0.1-0.6); Monocytes Percent Auto 7.2 % (2.6-8.5); Neutrophils Percent Auto 81.7 % (45.5-73.1); Platelet Count Result 218 k/mm3 (150-375); Red Blood Count 4.17 M/mm3 (4.6-6.20); Red Cell Distribution Width 15.7 % (11.5-14.5); White Blood Count 12.3 K/mm3 (4.5-10.0)
[2020-10-17 05:50] LABS: Albumin Level 3.3 g/dL (3.5-5.1); Anion Gap 3 mmol/L (8-16); Blood Urea Nitrogen 10 mg/dL (9-20); Calcium 8.7 mg/dL (8.4-10.2); Carbon Dioxide 37 mmol/L (22-30); Chloride 102 mmol/L (98-107); Estimated CRCL calculation 146 ml/min; Estimated Glomerular Filt Rate > 60; Glucose 107 mg/dL (75-110); Magnesium 2.2 mg/dL (1.6-2.3); Potassium 3.4 mmol/L (3.4-5.0); Sodium 142 mmol/L (137-145)
[2020-10-17] MEDS: PANTOPRAZOLE SODIUM IV 40 MG VIAL IV PUSH ×2 (09:29→20:59)
[2020-10-17] MEDS: ENOXAPARIN 40 MG/0.4 ML SYRINGE SUB-Q (09:30)
[2020-10-17] MEDS: TAMSULOSIN HCL 0.4 MG CAPSULE PO (09:30)
[2020-10-17] MEDS: acetaZOLAMIDE SODIUM FOR INJ 500 MG VIAL 250 MG IV PUSH (09:30)
[2020-10-17] MEDS: TOLNAFTATE 1% POWDER 45 GM BTL 1 APPLIC TOPICAL ×2 (09:31→20:59)
[2020-10-17] MEDS: WATER, STERILE FOR INJECTION 10 ML VIAL XX (12:49)
--- NOTE | 2020-10-17 16:25 | ECG_ITS ---
Measurements Intervals Morse Rate: 87 P: 56 UT: 186 QRS: 62 QRSD: 97 T: 38 QT: 355 QTc: 427 Interpretive Statements SINUS RHYTHM DELAYED PRECORDIAL R/S TRANSITION BASELINE ARTIFACT- I, II, III, AVR, AVL, AVF, V1 BORDERLINE ECG Electronically Signed On 10-17-2020 20:57:07 CDT by John Pelletier D.O.
[2020-10-17] MEDS: HYDROmorphone HCL INJ (*CRX) 1 MG/ML SYR 0.5 MG IV PUSH (16:47)
--- NOTE | 2020-10-17 17:51 | PM.IMPN ---
Progress Note: A&P Assessment and Plan (1) Acute respiratory failure: Qualifiers: Respiratory failure complication: hypoxia and hypercapnia Qualified Code(s): J96.01 - Acute respiratory failure with hypoxia; J96.02 - Acute respiratory failure with hypercapnia Code(s): J96.00 - Acute respiratory failure, unspecified whether with hypoxia or hypercapnia Status: Acute Assessment and Plan: Patient developed respiratory failure 10/12. COPD exacerbation? Aspiration pneumonitis? ABG showing 7.34/72/57on 5L. He has been mostly compliant with BiPAP here. He was moved to the IMU and continuous BiPAP started. He remained AOx4. RABG worsened but felt related to poor BiPAP seal; NGT removed. Serum bicarb >40 and Diamox added. PCO2 better at 65. Serum Bicarb 35 today. BiPAP off during the day and continue at night and with naps with changes as mentioned below. Continue Diamox ABG showing 7.34/62/54 on 5L. Back up to 8L now. Spoke with Respiratory: patient has an [employer] machine but he no longer uses [employer] and they have been trying to retrieve the machine from him. He is not yet set up with another company to get a new BiPAP. Thus no way to have his old machine's settings reset. (2) Gastric distention: Code(s): K31.89 - Other diseases of stomach and duodenum Status: Acute Assessment and Plan: Patient woke up 10/11/20 at 4:00 a.m. with sudden nausea and vomiting. KUB was obtained which showed nonspecific gastric distention. CT abdomen pelvis was obtained which showed nonspecific gastric distension. No obvious obstruction identified. GI consulted. Patient started on IV Reglan and ultimately a NGT placed. Symptoms improved. Tolerated NGT clamping and this was ultimately removed. Started on full liquid diet but speech did not recommend advancing due to food sticking sensation in the epigastric region. He was able to tolerate soft and bite sized diet. IVF stopped and he is diuresing well. Reglan dose decreased and appears to be tolerating this. GI following with plans for EGD today. Stop Reglan if continues to eat well without symptoms. EGD postponed for now. Continue current treatment plan otherwise (3) Cellulitis of scrotum: Code(s): N49.2 - Inflammatory disorders of scrotum Status: Acute Assessment and Plan: The patient was started on broad-spectrum antibiotics in the emergency department 10/08/20 with Primaxin and Vanco (Day 9). Urology evaluated the patient and recommended continuing Lieberman catheter, broad-spectrum antibiotics, scrotal elevation and monitoring of improvement. Clinically much improved. Blood cultures 10/08 negative. Repeat BCx 10/11 NGTD. ID consulted and following - appreciate their input. Appreciate Urology input. (4) Leukocytosis: Code(s): D72.829 - Elevated white blood cell count, unspecified Status: Acute Assessment and Plan: WBC was 12K on admission and improved initially before climbing to 20K without clear etiology. He is currently on broad spectrum abx. No fevers. CT abdomen pelvis 10/11 showed no acute abnormality except gastric distention and bibasilar disease felt to be atelectasis. Pertaining to his scrotal cellulitis? Leukemoid rxn due to nausea and vomiting? Aspiration? WBC better today at 13.6K. Continue to follow. Continue abx. (5) Acute retention of urine: Code(s): R33.8 - Other retention of urine Status: Acute Assessment and Plan: Lieberman catheter placed per Urology. Urine culture negative for UTI. Continue Lieberamn catheter and try voiding trial prior to discharge depending on the scrotal edema. Appreciate urology input. Discussed with urology who agreed that the ditropan should be stopped. This was discontinued (6) SILVANA (obstructive sleep apnea): Code(s): G47.33 - Obstructive sleep apnea (adult) (pediatric) Status: Acute Assessment and Plan: Aleida
--- NOTE | 2020-10-17 18:09 | WPDINFPN2 ---
Progress Note: A&P Assessment and Plan (1) Cellulitis of scrotum: Code(s): N49.2 - Inflammatory disorders of scrotum Status: Acute Assessment and Plan: 1. Scrotal celluliutis, WBC slowly improving. No + micro 2. Obesity REC Continue present Imipenem and Vanc until WBC normalizes, then Augmentin for 7 additional days. Call if other Qs concerns Subjective Date/time seen: 10/17/20 18:09 Interval history: no diarrhea, no fever nor chills, pain under control, Lieberman remains Exam Narrative: Exam Narrative: afebrile Const: General: no acute distress Other: morbid obese Eyes: General: appearance normal, both eyes and all related structures Resp: Effort & Inspection: normal respiratory effort Auscultation: clear to auscultation bilaterally Cardio: Rate: regular rate Rhythm: regular rhythm Heart sounds: no murmurs GI: Inspection: non-distended GI Palp: Yes Soft to palpation and No Tenderness to palpation present (GI) : General: Yes bladder normal to palpation Other: carheter clear yellow. Scrotum edema and erythema, no skin breakdown below epidermis Objective Data Vital Signs Vital Signs: Vital Signs - 24 hr 10/16/20 20:00 10/16/20 20:59 10/16/20 21:06 Temperature 36.7 C Pulse Rate 94 91 Respiratory Rate 20 17 Blood Pressure 125/74 Pulse Oximetry 96 93 10/16/20 21:12 10/16/20 21:52 10/16/20 22:00 Temperature Pulse Rate 88 88 90 Respiratory Rate 24 H 20 Blood Pressure Pulse Oximetry 95 10/16/20 23:09 10/16/20 23:19 10/16/20 23:48 Temperature 36.9 C Pulse Rate 97 85 88 Respiratory Rate 21 H 21 H 20 Blood Pressure 116/69 Pulse Oximetry 93 92 10/17/20 00:00 10/17/20 02:00 10/17/20 02:38 Temperature Pulse Rate 81 80 84 Respiratory Rate 18 Blood Pressure Pulse Oximetry 92 96 10/17/20 04:00 10/17/20 04:52 10/17/20 06:00 Temperature 36.3 C L Pulse Rate 80 81 92 Respiratory Rate 21 H 17 Blood Pressure 136/79 Pulse Oximetry 99 97 10/17/20 08:00 10/17/20 08:12 10/17/20 08:13 Temperature 36.9 C Pulse Rate 89 90 Respiratory Rate 25 H 20 Blood Pressure 106/68 Pulse Oximetry 94 91 10/17/20 08:25 10/17/20 10:00 10/17/20 12:00 Temperature Pulse Rate 90 82 88 Respiratory Rate 18 15 Blood Pressure 121/71 Pulse Oximetry 97 10/17/20 12:31 10/17/20 12:32 10/17/20 13:44 Temperature Pulse Rate 86 86 92 Respiratory Rate 17 17 18 Blood Pressure Pulse Oximetry 95 93 10/17/20 14:00 10/17/20 16:33 10/17/20 16:42 Temperature Pulse Rate 93 86 90 Respiratory Rate 24 H 29 H Blood Pressure Pulse Oximetry Intake/Output Intake/Output: Intake & Output 10/14/20 10/15/20 10/16/20 10/17/20 23:59 23:59 23:59 23:59 Intake Total 5590 3710 2780 1710 Output Total 7000 4900 4950 4050 Balance -1410 -1190 -2170 -0130 Meds/Results Medications: Active Medications Generic Name Dose Route Start Last Admin Trade Name Freq PRN Reason Stop Dose Admin Acetaminophen 650 mg 10/08/20 19:40 Acetaminophen 325 Mg Tablet PO Q6H PRN Mild Pain (1-3) or Fever Hydrocodone Bitart/Acetaminophen 1 tab 10/09/20 13:56 10/16/20 20:36 Hydrocodone/Acetaminophen (*Crx) 5-325 Mg Tablet PO 1 tab Q4H PRN Administration Pain Rated 4-6 Acetazolamide Sodium 250 mg 10/13/20 09:00 10/17/20 09:30 Acetazolamide Sodium For Inj 500 Mg Vial IV PUSH 250 mg DAILY LUIS Administration Albuterol 2 puff 10/08/20 20:16 10/11/20 03:30 Albuterol Sulfate (*Sp) Aerosol 1 Puff INHALATION 2 puff QID PRN Administration Wheezing Albuterol 2.5 mg 10/09/20 12:00 10/17/20 16:31 Albuterol Sulfate Neb 2.5 Mg/0.5 Ml Inh INHALATION 2.5 mg Q4HRT LUIS Administration Budesonide/Formoterol Fumarate 2 puff 10/09/20 09:00 10/17/20 08:09 Budesonide/Form 160-4.5 Mcg (*Sp) INHALATION 2 puff BID LUIS Administration Enoxaparin Sodium 40 mg 10/09/20 09:00 10/17/20 09:30 Enox
[2020-10-17] MEDS: HYDROcodone/acetaminophen (*CRX) 5-325 MG TABLET 1 TAB PO (20:58)
[2020-10-18] VITALS (29 sets, daily range): BP systolic 122–137; BP diastolic 62–78; PULSE 76–92; RESP 17–32; TEMP 36–36.6; O2SAT 92–100
[2020-10-18] MEDS: ALBUTEROL SULFATE NEB 2.5 MG/0.5 ML INH INHALATION ×7 (01:01→23:35)
[2020-10-18] MEDS: HYDROmorphone HCL INJ (*CRX) 1 MG/ML SYR 0.5 MG IV PUSH (03:12)
[2020-10-18 04:51] LABS: Basophils Absolute Auto 0.1 K/mm3 (0.0-0.1); Basophils Percent Auto 0.4 % (0.2-1.2); Eosinophils Absolute Auto 0.4 K/mm3 (0-0.3); Eosinophils Percent Auto 3.3 % (0-4.4); Hematocrit 39.2 % (42.0-52.0); Immature Granulocyte Absolute 0.07 K/mm3 (0.00-0.031); Immature Granulocyte Percent A 0.6 % (0-0.5); Lymphocytes Absolute Auto 1.03 K/mm3 (0.9-3.2); Lymphocytes Percent Auto 8.4 % (18.3-44.2); Mean Corpuscular HGB Conc 30.6 g/dl (32-36); Mean Corpuscular Hemoglobin 29.1 pg (26-34); Mean Corpuscular Volume 95.1 fl (80-100); Mean Platelet Volume 9.3 fl (7.4-10.4); Monocytes Absolute Auto 0.9 K/mm3 (0.1-0.6); Monocytes Percent Auto 7.4 % (2.6-8.5); Neutrophils Absolute Auto 9.8 K/mm3 (1.3-6.7); Neutrophils Percent Auto 79.9 % (45.5-73.1); Platelet Count Result 240 k/mm3 (150-375); Red Blood Count 4.12 M/mm3 (4.6-6.20); Red Cell Distribution Width 15.5 % (11.5-14.5); White Blood Count 12.2 K/mm3 (4.5-10.0)
[2020-10-18 05:04] LABS: Anion Gap 6 mmol/L (8-16); Blood Urea Nitrogen 11 mg/dL (9-20); Calcium 8.5 mg/dL (8.4-10.2); Carbon Dioxide 36 mmol/L (22-30); Chloride 99 mmol/L (98-107); Estimated CRCL calculation 132 ml/min; Estimated Glomerular Filt Rate > 60; Glucose 100 mg/dL (75-110); Potassium 3.3 mmol/L (3.4-5.0); Sodium 141 mmol/L (137-145)
[2020-10-18] MEDS: METOCLOPRAMIDE HCL INJ 10 MG/2 ML VIAL 5 MG IV PUSH ×3 (06:39→23:54)
[2020-10-18] MEDS: CENTRAL LINE FLUSH 10 ML IV PUSH ×5 (06:39→22:09)
[2020-10-18] MEDS: acetaZOLAMIDE SODIUM FOR INJ 500 MG VIAL 250 MG IV PUSH (09:24)
[2020-10-18] MEDS: TAMSULOSIN HCL 0.4 MG CAPSULE PO (09:33)
[2020-10-18] MEDS: ENOXAPARIN 40 MG/0.4 ML SYRINGE SUB-Q (09:33)
[2020-10-18] MEDS: PANTOPRAZOLE SODIUM IV 40 MG VIAL IV PUSH ×2 (09:33→21:42)
[2020-10-18] MEDS: TOLNAFTATE 1% POWDER 45 GM BTL 1 APPLIC TOPICAL ×2 (09:34→21:42)
[2020-10-18 11:36] LABS: D Dimer 1.56 ug/mL (<0.48)
[2020-10-18 11:42] LABS: Troponin I < 0.012 ng/mL (0.000-0.034)
[2020-10-18] MEDS: HYDROcodone/acetaminophen (*CRX) 5-325 MG TABLET 1 TAB PO ×2 (14:03→20:03)
[2020-10-18] MEDS: POTASSIUM CHLORIDE 20 MEQ PACKET (FOR LIQUID) PO (14:04)
[2020-10-18] MEDS: ALBUTEROL SULFATE NEB 2.5 MG/0.5 ML INH (16:57)
--- NOTE | 2020-10-18 18:29 | PC.NURSE ---
This patient, Catarino Yao Sr., was transferred to [facility] on 10/18/20 at 1829. Personal belongings sent with patient. Report given to CRUZ Garces. Appropriate documentation sent with patient.
[2020-10-18] MEDS: ALTEPLASE 2 MG VIAL (CATHFLO) IV PUSH ×2 (19:31→19:32)
[2020-10-18 21:32] LABS: Vancomycin Trough 18.3 ug/mL (10.0-20.0)
[2020-10-19] VITALS (20 sets, daily range): BP systolic 116–119; BP diastolic 57–66; PULSE 70–97; RESP 16–30; TEMP 35.6–36.6; O2SAT 88–97
[2020-10-19] MEDS: HYDROcodone/acetaminophen (*CRX) 5-325 MG TABLET 1 TAB PO ×4 (02:37→20:20)
[2020-10-19] MEDS: ALBUTEROL SULFATE NEB 2.5 MG/0.5 ML INH INHALATION ×5 (03:41→20:40)
[2020-10-19] MEDS: METOCLOPRAMIDE HCL INJ 10 MG/2 ML VIAL 5 MG IV PUSH ×2 (06:07→11:30)
[2020-10-19] MEDS: CENTRAL LINE FLUSH 10 ML IV PUSH ×6 (06:08→20:22)
[2020-10-19 07:39] LABS: Hematocrit 41.2 % (42.0-52.0); Hemoglobin 12.6 g/dL (14.0-18.0); Mean Corpuscular HGB Conc 30.6 g/dl (32-36); Mean Corpuscular Hemoglobin 28.9 pg (26-34); Mean Corpuscular Volume 94.5 fl (80-100); Platelet Count Result 250 k/mm3 (150-375); Red Blood Count 4.36 M/mm3 (4.6-6.20); Red Cell Distribution Width 15.5 % (11.5-14.5); White Blood Count 11.7 K/mm3 (4.5-10.0)
[2020-10-19 07:51] LABS: Anion Gap 7 mmol/L (8-16); Blood Urea Nitrogen 13 mg/dL (9-20); Calcium 8.8 mg/dL (8.4-10.2); Carbon Dioxide 35 mmol/L (22-30); Chloride 97 mmol/L (98-107); Estimated CRCL calculation 132 ml/min; Estimated Glomerular Filt Rate > 60; Glucose 110 mg/dL (75-110); Potassium 3.6 mmol/L (3.4-5.0); Sodium 139 mmol/L (137-145)
[2020-10-19] MEDS: TAMSULOSIN HCL 0.4 MG CAPSULE PO (08:30)
[2020-10-19] MEDS: ENOXAPARIN 40 MG/0.4 ML SYRINGE SUB-Q (08:31)
[2020-10-19] MEDS: PANTOPRAZOLE SODIUM IV 40 MG VIAL IV PUSH (08:32)
[2020-10-19] MEDS: acetaZOLAMIDE SODIUM FOR INJ 500 MG VIAL 250 MG IV PUSH (08:32)
[2020-10-19] MEDS: TOLNAFTATE 1% POWDER 45 GM BTL 1 APPLIC TOPICAL ×2 (08:32→20:21)
--- NOTE | 2020-10-19 08:51 | PCPTNOTE ---
Attempted to see patient for PT, patient declined due to patient wanting to take a nap at this time.
--- NOTE | 2020-10-19 13:25 | PM.IMPN ---
Progress Note: A&P Assessment and Plan (1) Acute respiratory failure: Qualifiers: Respiratory failure complication: hypoxia and hypercapnia Qualified Code(s): J96.01 - Acute respiratory failure with hypoxia; J96.02 - Acute respiratory failure with hypercapnia Code(s): J96.00 - Acute respiratory failure, unspecified whether with hypoxia or hypercapnia Status: Acute Assessment and Plan: Patient developed respiratory failure 10/12. COPD exacerbation? Aspiration pneumonitis? He has been mostly compliant with BiPAP here. He was moved to the IMU and continuous BiPAP started. He remained AOx4. ABG worsened but felt related to poor BiPAP seal; NGT removed. Serum bicarb >40 and Diamox added. Last ABG showing 7.34/62/54 on 5L on 10/16/20. Serum Bicarb 35 today. BiPAP off during the day and continue at night and with naps. Stop Diamox . (2) Gastric distention: Code(s): K31.89 - Other diseases of stomach and duodenum Status: Acute Assessment and Plan: Patient woke up 10/11/20 at 4:00 a.m. with sudden nausea and vomiting. Concern he may have aspirated. KUB was obtained which showed nonspecific gastric distention. CT abdomen pelvis was obtained which showed nonspecific gastric distension. No obvious obstruction identified. GI consulted. Patient started on IV Reglan and ultimately a NGT placed. Symptoms improved. Tolerated NGT clamping and this was ultimately removed. Started on full liquid diet but speech did not recommend advancing due to food sticking sensation in the epigastric region. He was able to tolerate soft and bite sized diet. IVF stopped and he is diuresing well. Reglan dose decreased and tolerated. EGD was placed on hold. Will stop Reglan since he is eating better. Have ST evaluate due to the coughing episode. Consider UGI if MBS not recommended. (3) Cellulitis of scrotum: Code(s): N49.2 - Inflammatory disorders of scrotum Status: Acute Assessment and Plan: The patient was started on broad-spectrum antibiotics in the emergency department 10/08/20 with Primaxin and Vanco. Urology evaluated the patient and recommended continuing Lieberman catheter, broad-spectrum antibiotics, scrotal elevation and monitoring of improvement. Clinically much improved. Blood cultures 10/08 negative. Repeat BCx 10/11 Negative. ID consulted and following - appreciate their input. Appreciate Urology input. Change to oral abx once WBC normalizes. (4) Leukocytosis: Code(s): D72.829 - Elevated white blood cell count, unspecified Status: Acute Assessment and Plan: WBC was 12K on admission and improved initially before climbing to 20K without clear etiology. He is currently on broad spectrum abx. No fevers. CT abdomen pelvis 10/11 showed no acute abnormality except gastric distention and bibasilar disease felt to be atelectasis. WBC slowly improving to 11.7K. Continue to follow. Continue abx. (5) Acute retention of urine: Code(s): R33.8 - Other retention of urine Status: Acute Assessment and Plan: Lieberman catheter placed per Urology. Urine culture negative for UTI. Continue Lieberman catheter and try voiding trial prior to discharge depending on the scrotal edema. Appreciate urology input. Ditropan stopped. (6) SILVANA (obstructive sleep apnea): Code(s): G47.33 - Obstructive sleep apnea (adult) (pediatric) Status: Acute Assessment and Plan: Patient actually wears BiPAP at home. Echo results extremely limited due to massive obesity with grossly normal LV size and contractility. None of the cardiac valves could be visualized. No obvious pericardial fluid. Continue BiPAP at current settings. Spoke with Respiratory: patient has an [employer] machine but he no longer uses [employer] and they have been trying to retrieve the machine from him. He is not yet set up with another company to get a new BiPAP. Thus no way to have his old machine
[2020-10-19] MEDS: PHARMACIST COMMUNICATION ORDER 1 EACH XX (15:31)
[2020-10-19] MEDS: PANTOPRAZOLE 40 MG TABLET PO (20:20)
[2020-10-20] VITALS (24 sets, daily range): BP systolic 109–113; BP diastolic 52–79; PULSE 71–98; RESP 18–24; TEMP 35.8–36.6; O2SAT 85–99
[2020-10-20] MEDS: ALBUTEROL SULFATE NEB 2.5 MG/0.5 ML INH INHALATION ×6 (00:35→20:35)
[2020-10-20] MEDS: CENTRAL LINE FLUSH 10 ML IV PUSH ×6 (05:23→21:02)
[2020-10-20 05:43] LABS: Hematocrit 38.9 % (42.0-52.0); Hemoglobin 11.8 g/dL (14.0-18.0); Mean Corpuscular HGB Conc 30.3 g/dl (32-36); Mean Corpuscular Hemoglobin 29.3 pg (26-34); Mean Corpuscular Volume 96.5 fl (80-100); Mean Platelet Volume 9.6 fl (7.4-10.4); Platelet Count Result 222 k/mm3 (150-375); Red Blood Count 4.03 M/mm3 (4.6-6.20); Red Cell Distribution Width 15.5 % (11.5-14.5); White Blood Count 10.2 K/mm3 (4.5-10.0)
[2020-10-20 05:51] LABS: Albumin Level 3.3 g/dL (3.5-5.1); Anion Gap 5 mmol/L (8-16); Blood Urea Nitrogen 11 mg/dL (9-20); Calcium 8.4 mg/dL (8.4-10.2); Carbon Dioxide 34 mmol/L (22-30); Chloride 100 mmol/L (98-107); Estimated CRCL calculation 145 ml/min; Estimated Glomerular Filt Rate > 60; Glucose 108 mg/dL (75-110); Magnesium 2.2 mg/dL (1.6-2.3); Phosphorus 3.8 mg/dL (2.5-4.5); Potassium 3.2 mmol/L (3.4-5.0); Sodium 139 mmol/L (137-145)
[2020-10-20] MEDS: POTASSIUM CHLORIDE 20 MEQ TABLET 40 MEQ PO (07:54)
[2020-10-20] MEDS: ENOXAPARIN 40 MG/0.4 ML SYRINGE SUB-Q (08:22)
[2020-10-20] MEDS: TAMSULOSIN HCL 0.4 MG CAPSULE PO (08:22)
[2020-10-20] MEDS: PANTOPRAZOLE 40 MG TABLET PO ×2 (08:22→21:01)
[2020-10-20] MEDS: TOLNAFTATE 1% POWDER 45 GM BTL 1 APPLIC TOPICAL ×2 (08:24→21:02)
--- NOTE | 2020-10-20 11:46 | PCSTNOTE ---
Please refer to the Bedside Swallow Evaluation in the EMR. Please note, silent aspiration cannot be ruled out at bedside.
--- NOTE | 2020-10-20 13:51 | PM.IMPN ---
Progress Note: A&P Assessment and Plan (1) Acute respiratory failure: Qualifiers: Respiratory failure complication: hypoxia and hypercapnia Qualified Code(s): J96.01 - Acute respiratory failure with hypoxia; J96.02 - Acute respiratory failure with hypercapnia Code(s): J96.00 - Acute respiratory failure, unspecified whether with hypoxia or hypercapnia Status: Acute Assessment and Plan: Patient developed respiratory failure 10/12. COPD exacerbation? Aspiration pneumonitis? He has been mostly compliant with BiPAP here. He was moved to the IMU and continuous BiPAP started. He remained AOx4. ABG worsened but felt related to poor BiPAP seal; NGT removed. Serum bicarb >40 and Diamox added. Last ABG showing 7.34/62/54 on 5L on 10/16/20. Serum Bicarb improved so Diamox stopped. BiPAP off during the day and continue at night and with naps. (2) Gastric distention: Code(s): K31.89 - Other diseases of stomach and duodenum Status: Acute Assessment and Plan: Patient woke up 10/11/20 at 4:00 a.m. with sudden nausea and vomiting. Concern he may have aspirated. KUB was obtained which showed nonspecific gastric distention. CT abdomen pelvis was obtained which showed nonspecific gastric distension. No obvious obstruction identified. GI consulted. Patient started on IV Reglan and ultimately a NGT placed. Symptoms improved. Tolerated NGT clamping and this was ultimately removed. Started on full liquid diet but speech did not recommend advancing due to food sticking sensation in the epigastric region. He was able to be advanced to a soft and bite sized diet. IVF stopped and he is diuresing well. Reglan dose decreased and ultimately stopped. EGD was placed on hold. ST evaluated the patient and felt he could continue current diet. Discussed with GI today. Plan for UGI since patient too high of risk for EGD unless there is an overwhelming compelling reason UGI results noted. Discussed with GI. NPO after midnight with evaluation in the morning for possible EGD if felt safe to do so. (3) Cellulitis of scrotum: Code(s): N49.2 - Inflammatory disorders of scrotum Status: Acute Assessment and Plan: The patient was started on broad-spectrum antibiotics in the emergency department 10/08/20 with Primaxin and Vanco. Urology evaluated the patient and recommended continuing Lieberman catheter, broad-spectrum antibiotics, scrotal elevation and monitoring of improvement. Clinically much improved. Blood cultures 10/08 negative. Repeat BCx 10/11 Negative. ID consulted and following - appreciate their input. Appreciate Urology input. Change to oral abx once WBC normalizes. (4) Leukocytosis: Code(s): D72.829 - Elevated white blood cell count, unspecified Status: Acute Assessment and Plan: WBC was 12K on admission and improved initially before climbing to 20K without clear etiology (aspiration?). He is currently on broad spectrum abx. No fevers. CT abdomen pelvis 10/11 showed no acute abnormality except gastric distention and bibasilar disease felt to be atelectasis. WBC slowly improving to 10.2K. Continue to follow. Continue IV abx. (5) Acute retention of urine: Code(s): R33.8 - Other retention of urine Status: Acute Assessment and Plan: Lieberman catheter placed per Urology. Urine culture negative for UTI. Continue Lieberman catheter and try voiding trial prior to discharge depending on the scrotal edema. Appreciate urology input. Ditropan stopped. (6) SILVANA (obstructive sleep apnea): Code(s): G47.33 - Obstructive sleep apnea (adult) (pediatric) Status: Acute Assessment and Plan: Patient actually wears BiPAP at home. Echo results extremely limited due to massive obesity but showing grossly normal LV size and contractility. None of the cardiac valves could be visualized. No obvious pericardial fluid. Continue BiPAP at current setting
[2020-10-20 14:40] LABS: Vancomycin Trough 10.4 ug/mL (10.0-20.0)
--- NOTE | 2020-10-20 15:30 | HOMEO2EVAL ---
Evaluation was performed at [facility] Home Oxygen Evaluation RC: Home Oxygen (O2) Evaluation Start: 10/20/20 13:57 Freq: ONCE Status: Active Protocol: RPE Activity Type Activity Date Activity User E-Sign Co-Sign Detail Recorded Client Recorded Date Recorded By Document 10/20/20 15:19 [email or web address] [email or web address] 10/20/20 15:30 KRM Document 10/20/20 15:19 [email or web address] [email or web address] 10/20/20 15:30 KRM Document 10/20/20 15:20 [email or web address] [email or web address] 10/20/20 15:30 KRM Document 10/20/20 15:21 [email or web address] [email or web address] 10/20/20 15:30 KRM Document 10/20/20 15:22 [email or web address] [email or web address] 10/20/20 15:30 KRM Document 10/20/20 15:24 [email or web address] [email or web address] 10/20/20 15:30 KRM 10/20/20 10/20/20 10/20/20 15:19 15:19 15:20 Home O2 Evaluation Test Phase Resting Resting Resting Oxygen Delivery Room Air Nasal Cannula Nasal Cannula Oxygen Flow Rate (L/min) 1 2 Pulse Oximetry (90-100 %) 87 L 85 L 87 L Pulse Rate (60-100 beats/min) 85 97 98 Home Oxygen Evaluation Comments Treatment Charges O2 Evaluation - Inpatient 10/20/20 10/20/20 10/20/20 15:21 15:22 15:24 Home O2 Evaluation Test Phase Resting Resting Resting Oxygen Delivery Nasal Cannula Nasal Cannula Nasal Cannula Oxygen Flow Rate (L/min) 3 4 5 Pulse Oximetry (90-100 %) 87 L 89 L 90 Pulse Rate (60-100 beats/min) 91 84 84 Home Oxygen Evaluation Comments PT. IS UNABLE TO AMBULATE AT THIS TIME. Treatment Charges
--- NOTE | 2020-10-20 15:41 | PCRCNOTE ---
Home oxygen evaluation completed. Patient's home need of 5 liters per minute remains unchanged. New oxygen equipment and Astral non-invasive ventilator being arranged through [facility] ([phone]).
[2020-10-20] MEDS: HYDROcodone/acetaminophen (*CRX) 5-325 MG TABLET 1 TAB PO (21:04)
[2020-10-21] VITALS (25 sets, daily range): BP systolic 108–140; BP diastolic 54–82; PULSE 66–93; RESP 18–24; TEMP 36.4–36.9; O2SAT 91–99
[2020-10-21] MEDS: ALBUTEROL SULFATE NEB 2.5 MG/0.5 ML INH INHALATION ×5 (00:38→19:54)
[2020-10-21] MEDS: CENTRAL LINE FLUSH 10 ML IV PUSH ×6 (05:45→21:48)
[2020-10-21 06:07] LABS: Hematocrit 38.5 % (42.0-52.0); Hemoglobin 11.4 g/dL (14.0-18.0); Mean Corpuscular HGB Conc 29.6 g/dl (32-36); Mean Corpuscular Hemoglobin 28.8 pg (26-34); Mean Corpuscular Volume 97.2 fl (80-100); Mean Platelet Volume 9.6 fl (7.4-10.4); Platelet Count Result 223 k/mm3 (150-375); Red Blood Count 3.96 M/mm3 (4.6-6.20); Red Cell Distribution Width 15.5 % (11.5-14.5); White Blood Count 10.3 K/mm3 (4.5-10.0)
[2020-10-21 06:27] LABS: Anion Gap 4 mmol/L (8-16); Blood Urea Nitrogen 13 mg/dL (9-20); Calcium 8.5 mg/dL (8.4-10.2); Carbon Dioxide 36 mmol/L (22-30); Chloride 101 mmol/L (98-107); Estimated CRCL calculation 144 ml/min; Estimated Glomerular Filt Rate > 60; Glucose 108 mg/dL (75-110); Potassium 3.4 mmol/L (3.4-5.0); Sodium 141 mmol/L (137-145)
[2020-10-21] MEDS: TOLNAFTATE 1% POWDER 45 GM BTL 1 APPLIC TOPICAL ×2 (08:19→21:45)
[2020-10-21] MEDS: PANTOPRAZOLE 40 MG TABLET PO ×2 (08:25→21:45)
--- NOTE | 2020-10-21 09:10 | PC.NURSE ---
Report called to [facility].
--- NOTE | 2020-10-21 10:35 | PCPTNOTE ---
Patient working with OT this A.M. and awaiting test. Patient declines out of bed activity at this time. PT will follow up this afternoon.
--- NOTE | 2020-10-21 10:42 | PCNWS ---
Weekly nutritional screen. Patient is tolerating current diet with adequate intake. Weight loss of 9 pounds reported since admission. No nutritional needs at this time.
--- NOTE | 2020-10-21 10:50 | PC.NURSE ---
To GI Lab via [employer].
--- NOTE | 2020-10-21 11:05 | PCNSR ---
On 10/21/20, the student,Frances Prater, provided care and completed [facility] documentation on this patient. I have reviewed the student's documentation and agree with the findings.
[2020-10-21] MEDS: LACTATED RINGERS 1,000 ML 150 ML IV CONT (11:11)
--- NOTE | 2020-10-21 11:18 | WPDANESEPPF ---
Anes - Initial Pre Proc Eval Procedure: Operation Date: 10/16/20 14:15 Proposed Procedures p Esophagogastroduodenoscopy - Michi Lui MD Operation Date: 10/21/20 12:00 Proposed Procedures p Esophagogastroduodenoscopy - Ernesto Alva MD Date/Time: 10/21/20 11:18 Surgeon: Gureo Randolph MD Pre Op Diagnosis: scrotal cellulitis,urinary retention,morbid obesit Patient Data Age: 60 Gender: M Height: 1.91 m Weight: 214.5 kg Last Vital Signs Temp 97.9 F 10/21/20 11:03 Pulse 78 10/21/20 11:03 Resp 22 H 10/21/20 11:03 BP 140/82 10/21/20 11:03 Pulse Ox 95 10/21/20 11:05 Allergies Allergy/AdvReac Type Severity Reaction Status Date / Time No Known Allergies Allergy Verified 10/21/20 10:53 Home Medications Medication Instructions Recorded Confirmed Type albuterol sulfate 2 puff INHALATION QID PRN 10/08/20 10/08/20 History budesonide-formoterol [Symbicort] 2 puff INHALATION BID 10/08/20 10/08/20 History ipratropium-albuterol 3 ml INHALATION Q8H 10/08/20 10/08/20 History tiotropium bromide [Spiriva with 1 cap INHALATION DAILY 10/08/20 10/08/20 History HandiHaler] hydrocodone-acetaminophen 1 - 2 tablet PO Q6H PRN #20 tablet 10/16/20 Rx Laboratory Tests 10/20/20 10/21/20 10/21/20 13:38 05:36 05:36 WBC 10.3 K/mm3 H K/mm3 (4.5-10.0) RBC 3.96 M/mm3 L M/mm3 (4.6-6.20) Hgb 11.4 g/dL L g/dL (14.0-18.0) Hct 38.5 % L % (42.0-52.0) MCV 97.2 fl fl (80-100) MCH 28.8 pg pg (26-34) MCHC 29.6 g/dl L g/dl (32-36) RDW 15.5 % H % (11.5-14.5) Plt Count 223 k/mm3 k/mm3 (150-375) MPV 9.6 fl fl (7.4-10.4) Sodium 141 mmol/L mmol/L (137-145) Potassium 3.4 mmol/L mmol/L (3.4-5.0) Chloride 101 mmol/L mmol/L (98-107) Carbon Dioxide 36 mmol/L H mmol/L (22-30) Anion Gap 4 mmol/L L mmol/L (8-16) BUN 13 mg/dL mg/dL (9-20) Creatinine 0.90 mg/dL mg/dL (0.7-1.3) Estim Creat Clear Calc 144 ml/min ml/min Estimated GFR > 60 (59 - ) Glucose 108 mg/dL mg/dL (75-110) Calcium 8.5 mg/dL mg/dL (8.4-10.2) Vancomycin Trough 10.4 ug/mL ug/mL (10.0-20.0) Patient hx anesthesia problems: none Family hx anesthesia problems: none [facility] Past Medical History Medical History Abnormal findings-gastrointestinal tract Acute and chronic respiratory failure Chronic obstructive pulmonary disease Chronic respiratory failure with hypoxia, on home oxygen therapy Dysphagia Morbid obesity Nausea and vomiting in adult Obesity hypoventilation syndrome SILVANA (obstructive sleep apnea) Tobacco use Surgical History Surgical History (Updated 10/08/20 @ 19:29 by Chrissy Mo PA-C) History of appendectomy History of mandibular surgery Bilateral jaw surgery due to fracture. Family History Family History (Updated 10/08/20 @ 19:29 by Chrissy Mo PA-C) Other Hypertension Social History Social History (Updated 10/08/20 @ 19:30 by Chrissy Mo PA-C) Social History: Surrogate decision maker: Fernanda Yao, [id number]. Code status: Full code however he would not want to be on long-term life support. Smoking packs per day: 3 Smoking cigarettes per day: 60.0 Years smoked: 40 Smoking pack-years: 120.00 Smoking status: Former smoker Tobacco type: cigarettes Additional smoking assessment comments: Patient tells me he still smokes about 5 cigarettes a month. Alcohol intake: never Substance use type: marijuana Last use: Occasional marijuana use. Additional living arrangements comments: The patient lives with his son and [id number] in [place]. 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 Anes - Evreid Final PreProcedure Day of Procedure 10/21/20 11:18
--- NOTE | 2020-10-21 12:45 | PC.NURSE ---
Returned from GI Lab via stretcher.
[2020-10-21] MEDS: TAMSULOSIN HCL 0.4 MG CAPSULE PO (12:50)
[2020-10-21] MEDS: ENOXAPARIN 40 MG/0.4 ML SYRINGE SUB-Q (12:50)
[2020-10-21] MEDS: ALBUTEROL SULFATE (*SP) AEROSOL 1 PUFF 2 PUFF INHALATION (14:39)
--- NOTE | 2020-10-21 16:28 | PM.IMPN ---
Progress Note: A&P Assessment and Plan (1) Acute respiratory failure: Qualifiers: Respiratory failure complication: hypoxia and hypercapnia Qualified Code(s): J96.01 - Acute respiratory failure with hypoxia; J96.02 - Acute respiratory failure with hypercapnia Code(s): J96.00 - Acute respiratory failure, unspecified whether with hypoxia or hypercapnia Status: Acute Assessment and Plan: Patient developed respiratory failure 10/12. COPD exacerbation? Aspiration pneumonitis? He was moved to the IMU and continuous BiPAP started. He remained AOx4. ABG worsened but felt related to poor BiPAP seal; NGT removed. He has been mostly compliant with BiPAP here. Serum bicarb >40 and Diamox added. Last ABG showing 7.34/62/54 on 5L on 10/16/20. Serum Bicarb improved so Diamox stopped. Continue BiPAP with sleep. (2) Gastric distention: Code(s): K31.89 - Other diseases of stomach and duodenum Status: Acute Assessment and Plan: Patient woke up 10/11/20 at 4:00 a.m. with sudden nausea and vomiting. Concern he may have aspirated. KUB was obtained which showed nonspecific gastric distention. CT abdomen pelvis was obtained which showed nonspecific gastric distension. No obvious obstruction identified. GI consulted. Patient started on IV Reglan and ultimately a NGT placed. Symptoms improved. Tolerated NGT clamping and this was ultimately removed. Started on full liquid diet but speech did not recommend advancing due to food sticking sensation in the epigastric region. He was able to be advanced to a soft and bite sized diet. IVF stopped and he is diuresing well. Reglan dose decreased and ultimately stopped. UGI showing possible mass. EGD was performed today showing severe esophageal eroisions. Continue Protonix. Appreciate GI input (3) Cellulitis of scrotum: Code(s): N49.2 - Inflammatory disorders of scrotum Status: Acute Assessment and Plan: The patient was started on broad-spectrum antibiotics in the emergency department 10/08/20 with Primaxin and Vanco. Urology evaluated the patient and recommended continuing Lieberman catheter, broad-spectrum antibiotics, scrotal elevation and monitoring of improvement. Clinically much improved. Blood cultures 10/08 negative. Repeat BCx 10/11 Negative. ID consulted and following - appreciate their input. Appreciate Urology input. Change to oral abx once WBC normalizes. (4) Leukocytosis: Code(s): D72.829 - Elevated white blood cell count, unspecified Status: Acute Assessment and Plan: WBC was 12K on admission and improved initially before climbing to 20K without clear etiology (aspiration?). He is currently on broad spectrum abx. No fevers. CT abdomen pelvis 10/11 showed no acute abnormality except gastric distention and bibasilar disease felt to be atelectasis. WBC unchanged at 10.3K today. Change to oral abx tomorrow. (5) Acute retention of urine: Code(s): R33.8 - Other retention of urine Status: Acute Assessment and Plan: Lieberman catheter placed per Urology. Urine culture negative for UTI. Continue Lieberman catheter and try voiding trial prior to discharge but will defer to urology; appreciate their input. Ditropan stopped. (6) SILVANA (obstructive sleep apnea): Code(s): G47.33 - Obstructive sleep apnea (adult) (pediatric) Status: Acute Assessment and Plan: Patient actually wears BiPAP at home. Echo results extremely limited due to massive obesity but showing grossly normal LV size and contractility. None of the cardiac valves could be visualized. No obvious pericardial fluid. Continue BiPAP at current settings. Spoke with Respiratory: patient has an [employer] machine but he no longer uses [employer] and they have been trying to retrieve the machine from him. He is not yet set up with another company to get a new BiPAP. Respiratory is setting up a new DME company fpor the patient after dis
[2020-10-21] MEDS: HYDROcodone/acetaminophen (*CRX) 5-325 MG TABLET 1 TAB PO (21:43)
[2020-10-22] VITALS (11 sets, daily range): BP systolic 109–137; BP diastolic 57–66; PULSE 65–86; RESP 16–22; TEMP 36.1–36.3; O2SAT 92–97
[2020-10-22] MEDS: ALBUTEROL SULFATE NEB 2.5 MG/0.5 ML INH INHALATION ×4 (01:30→16:23)
[2020-10-22] MEDS: CENTRAL LINE FLUSH 10 ML IV PUSH ×4 (05:42→12:51)
[2020-10-22 05:57] LABS: Hematocrit 36.7 % (42.0-52.0); Hemoglobin 11.2 g/dL (14.0-18.0); Mean Corpuscular HGB Conc 30.5 g/dl (32-36); Mean Corpuscular Hemoglobin 28.6 pg (26-34); Mean Corpuscular Volume 93.9 fl (80-100); Mean Platelet Volume 9.5 fl (7.4-10.4); Platelet Count Result 231 k/mm3 (150-375); Red Blood Count 3.91 M/mm3 (4.6-6.20); Red Cell Distribution Width 15.6 % (11.5-14.5); White Blood Count 9.6 K/mm3 (4.5-10.0)
[2020-10-22 06:12] LABS: Estimated CRCL calculation 145 ml/min; Estimated Glomerular Filt Rate > 60
[2020-10-22] MEDS: TAMSULOSIN HCL 0.4 MG CAPSULE PO (08:25)
[2020-10-22] MEDS: PANTOPRAZOLE 40 MG TABLET PO (08:25)
[2020-10-22] MEDS: TOLNAFTATE 1% POWDER 45 GM BTL 1 APPLIC TOPICAL (08:25)
[2020-10-22] MEDS: ENOXAPARIN 40 MG/0.4 ML SYRINGE SUB-Q (08:25)
--- NOTE | 2020-10-22 09:37 | WPDANESPN ---
Anes - Prog Note Post-Op Date/Time: 10/22/20 09:37 Cardiovascular status: normal Respiratory status: other (on 5L NC) Airway patency: baseline Mental status: baseline Post-Op hydration status: normal Vital Signs: Last Vital Signs Temp 36.3 C L 10/22/20 05:50 Pulse 75 10/22/20 08:04 Resp 20 10/22/20 08:04 BP 110/63 10/22/20 05:50 Pulse Ox 92 10/22/20 08:05 Pain Score (VAS): 0 I/O: Intake & Output 10/21/20 10/22/20 10/22/20 23:59 07:59 15:59 Intake Total 440 970 Output Total 450 1600 Balance -10 -630 Laboratory Tests 10/22/20 05:30 10/22/20 05:30 10/22/20 10/22/20 05:30 05:30 WBC 9.6 RBC 3.91 L Hgb 11.2 L Hct 36.7 L MCV 93.9 MCH 28.6 MCHC 30.5 L RDW 15.6 H Plt Count 231 MPV 9.5 Creatinine 0.90 Estim Creat Clear Calc 145 Estimated GFR > 60 Post-procedural complaints: none Patient Feedback: Patient satisfied with anesthetic care.
[2020-10-22] MEDS: AMOXICILLIN/CLAVULANATE K 500-125 MG TAB 1 TABLET PO (12:50)
--- NOTE | 2020-10-22 13:57 | PM.DS ---
DS: Admitting Diagnosis Admitting Diagnosis Admitting Diagnosis: Pain and swelling of the scrotum DS: Discharge Diagnosis Discharge Diagnosis (1) Acute respiratory failure: Qualifiers: Respiratory failure complication: hypoxia and hypercapnia Qualified Code(s): J96.01 - Acute respiratory failure with hypoxia; J96.02 - Acute respiratory failure with hypercapnia Code(s): J96.00 - Acute respiratory failure, unspecified whether with hypoxia or hypercapnia Status: Acute Assessment and Plan: Patient developed respiratory failure 10/12 after admission. He was moved to the IMU and continuous BiPAP started. He remained AOx4. ABG worsened but felt related to poor BiPAP seal so NGT removed. He did well with improvement. He was weaned to using BiPAP with slepe and has been mostly compliant with BiPAP here. Serum bicarb >40 and Diamox added. Last ABG showing 7.34/62/54 on 5L. Serum Bicarb improved so Diamox stopped. Continue BiPAP with sleep. Home O2 evaluation was done and he remains on 5L which is what he takes at home. (2) Gastric distention: Code(s): K31.89 - Other diseases of stomach and duodenum Status: Acute Assessment and Plan: Patient woke up 10/11/20 at 4:00 a.m. with sudden nausea and vomiting. Concern he may have aspirated causing the above mentioned respiratory distress. KUB was obtained which showed nonspecific gastric distention. CT abdomen pelvis was obtained which showed nonspecific gastric distension. No obvious obstruction identified. GI consulted. Patient started on IV Reglan and ultimately a NGT placed. Symptoms improved. Tolerated NGT clamping and this was ultimately removed. Started on full liquid diet but speech did not recommend advancing due to food sticking sensation in the epigastric region. He was able to be advanced to a soft and bite sized diet. IVF stopped and he is diuresing well. Reglan dose decreased and ultimately stopped. UGI showing possible mass. EGD was performed showing severe esophageal erosions. We continued the Protonix. Follow up with GI (3) Cellulitis of scrotum: Code(s): N49.2 - Inflammatory disorders of scrotum Status: Acute Assessment and Plan: The patient was started on broad-spectrum antibiotics in the emergency department 10/08/20 with Primaxin and Vanco. Urology evaluated the patient and recommended continuing Lieberman catheter, broad-spectrum antibiotics, scrotal elevation and monitoring of improvement. Clinically much improved. Blood cultures 10/08 negative. Repeat BCx 10/11 Negative. ID consulted and recommended Augmentin x 7 days at discharge. (4) Leukocytosis: Code(s): D72.829 - Elevated white blood cell count, unspecified Status: Acute Assessment and Plan: WBC was 12K on admission and improved initially before climbing to 20K without clear etiology (aspiration?). He was treated with broad spectrum abx. No fevers. CT abdomen pelvis 10/11 showed no acute abnormality except gastric distention and bibasilar disease felt to be atelectasis. WBC normallized. (5) Acute retention of urine: Code(s): R33.8 - Other retention of urine Status: Acute Assessment and Plan: Lieberman catheter placed per Urology. On Flomax. Urine culture negative for UTI. Lieberman catheter removed. Follow up with urology after discharge. (6) SILVANA (obstructive sleep apnea): Code(s): G47.33 - Obstructive sleep apnea (adult) (pediatric) Status: Acute Assessment and Plan: Patient actually wears BiPAP at home. Echo results extremely limited due to massive obesity but showing grossly normal LV size and contractility. None of the cardiac valves could be visualized. No obvious pericardial fluid. As above but we continued BiPAP at current settings. Spoke with Respiratory: patient has an [employer] machine but he no longer uses [employer]. Respiratory is setting up a new [employer] company for the russ
== END 2020-10-22 19:16 | disposition home health service (06) | DRG 501 ==
LOC: ANHED 14:22 → ANH2MED 20:51 → ANHICU 10-15 13:40 → ANH2MED 10-20 11:42 → ANHICU 10-23 12:18 → ANHIMU 10-23 12:18
PROVIDERS: Internal Medicine; Internal Medicine Gastroenterology; Internal Medicine Infectious Disease; Physician Assistant; Admitting Provider Emergency Medicine; Emergency Provider Emergency Medicine; PCP Internal Medicine; Visit Provider Internal Medicine
PROC: 0DJ08ZZ Inspection of Upper Intestinal Tract, Via Natural or Artificial Opening Endoscopic (ICD-10-PCS; CPT 43235; principal; 2020-10-16 14:15)
DX: N49.2 Inflammatory disorders of scrotum (principal); J96.02 Acute respiratory failure with hypercapnia; J96.21 Acute and chronic respiratory failure with hypoxia; R33.8 Other retention of urine; J43.9 Emphysema, unspecified; K21.00 Gastro-esophageal reflux disease with esophagitis, without bleeding; K22.10 Ulcer of esophagus without bleeding; R93.3 Abnormal findings on diagnostic imaging of other parts of digestive tract; R13.19 Other dysphagia; K31.89 Other diseases of stomach and duodenum; R19.8 Other specified symptoms and signs involving the digestive system and abdomen; R94.31 Abnormal electrocardiogram [ECG] [EKG]; R07.89 Other chest pain; D72.829 Elevated white blood cell count, unspecified; F17.210 Nicotine dependence, cigarettes, uncomplicated; E66.2 Morbid (severe) obesity with alveolar hypoventilation; Z68.43 Body mass index [BMI] 50.0-59.9, adult; Z99.81 Dependence on supplemental oxygen; Z99.89 Dependence on other enabling machines and devices
CPT/HCPCS: 36415; 36569; 36600; 51702; 71045; 71275; 72193; 74018; 74176; 74220; 80048; 80053; 80069; 80202; 81001; 82375; 82565; 82805; 83050; 83605; 83690; 83735; 83880; 84484; 85025; 85027; 85055; 85380; 86140; 87040; 87086; 92526; 92610; 93005; 93306; 93970; 94002; 94003; 94618; 94640; 94667; 94668; 96361; 96374; 96375; 97110; 97161; 97166; 97530; 97535; 99285; A9270; C1751; C8929; C9113; J0131; J0743; J1120; J1170; J1650; J2250; J2270; J2405; J2543; J2765; J2997; J3370; J7030; J7120; Q9957; Q9967

== ENCOUNTER 2021-03-09 20:35 | Inpatient (IN) | payer OTHER, SELFPAY ==
--- NOTE | ~2021-03-09 | XR_ITS ---
EXAMINATION: XR chest 1V portable INDICATION: Shortness of breath TECHNIQUE: Portable AP chest at 1338 hours COMPARISON: 03/10/2021 FINDINGS: There are minimal airspace opacities of the lung bases. No pleural effusion or pneumothorax is identified. The cardiomediastinal silhouette is normal. IMPRESSION: 1. Minimal bibasilar airspace opacity, consistent with atelectasis versus pneumonia. Reviewed, dictated and finalized at location A. D CARE EDUCATION COORDINATOR IMPRESSION: 1. Minimal bibasilar airspace opacity, consistent with atelectasis versus pneum onia.
--- NOTE | ~2021-03-09 | US_ITS ---
EXAMINATION: US venous doppler [facility] DATE: 03/10/2021 10:04 INDICATION: Bilateral lower limb swelling and pain and left-sided erythema. TECHNIQUE: Grayscale ultrasound images without and with compression and Doppler ultrasound images of the bilateral lower extremity veins were obtained. COMPARISON: 10/19/2020 FINDINGS: The visualized portions of right common femoral vein, profunda (deep) femoral vein, femoral vein, pop liteal vein, posterior tibial veins, peroneal veins, gastrocnemius vein and greater saphenous vein ou tflow are patent. The visualized portions of left common femoral vein, profunda femoral vein, femoral vein, popliteal v ein, posterior tibial veins, gastrocnemius vein and greater saphenous vein outflow are patent. Left p eroneal veins were unable to be visualized. IMPRESSION: 1. No evident deep venous thrombosis in either lower limb. Reviewed, dictated and finalized at location A. DIABETES EDUCATOR
--- NOTE | ~2021-03-09 | CT_ITS ---
EXAMINATION: CTA chest PE protocol DATE: 03/10/2021 00:25 INDICATION: Dyspnea. TECHNIQUE: Computed tomography angiography (CTA) of the chest was performed with 100 mL Omnipaque-350 intravenous contrast timed to evaluate the pulmonary arteries. Coronal maximum intensity projection 3D-reconstructions were created by the technologist. Automated exposure control and iterative reconst ruction technique were employed. The dose-length product was 1191.00 mGy-cm. COMPARISON: Chest CT 10/18/2020 FINDINGS: There is mild emphysema. The lungs demonstrate mild atelectasis bilaterally. No pleural eff usion. The heart size is normal. No pericardial effusion. There is no pulmonary embolus. There is mil d thoracic spondylosis. IMPRESSION: 1. No pulmonary embolus. Sensitivity is moderately decreased by motion artifact. 2. Mild emphysema. Reviewed, dictated and finalized at location B. IGERATION SYSTEM INSTALLER IMPRESSION: 1. No pulmonary embolus. Sensitivity is moderately decreased by motion artifact . 2. Mild emphysema.
--- NOTE | ~2021-03-09 | XR_ITS ---
XR chest 2V 03/09/2021 21:53 Indication: Lower extremity edema. COPD. Asthma. Procedure: AP and lateral views of the chest Comparison: Comparison to multiple prior studies sequentially, with oldest reviewed study dated 10/10 Findings: cardiomegaly. There is pulmonary vascular congestion. There is prominent right paratracheal soft tissue. There is nodular density right lower thorax.. No significant pleural effusion or pneumo thorax. No acute osseous abnormality. The lungs are hyperinflated which is consistent with, but not d iagnostic of chronic obstructive pulmonary disease. Impression: 1: Focal nodular density right lower thorax which may represent focal airspace disease secondary to a telectasis or pneumonia, although parenchymal nodule not excluded. 2: Prominent right paratracheal soft tissue which may relate to mediastinal lipomatosis, vascular ect april and/or focal airspace consolidation. Reviewed, dictated and finalized at location A. MY CARE NURSE Impression: 1: Focal nodular density right lower thorax which may represent focal airspace disease secondary to atelectasis or pneumonia, although parenchymal nodule not excluded. 2: Prominent right paratracheal soft tissue which may relate to mediastinal lip omatosis, vascular ectasia and/or focal airspace consolidation.
[2021-03-09 20:38] VITALS: BP 127/77; PULSE 87; RESP 24; TEMP 36.8; O2SAT 100
[2021-03-09 20:44] VITALS: PULSE 86; RESP 22; O2SAT 100
--- NOTE | 2021-03-09 21:01 | ECG_ITS ---
Measurements Intervals [place] Rate: 38 P: NH: 0 QRS: 63 QRSD: 86 T: 48 QT: 361 QTc: 289 Interpretive Statements SINUS RHYTHM INCOMPLETE RIGHT BUNDLE BRANCH BLOCK LOW QRS VOLTAGE IN PRECORDIAL LEADS BASELINE ARTIFACT- I, II, III, AVR, AVL, AVF, V1, V4-V6 BORDERLINE ECG Electronically Signed On 03-10-2021 6:42:56 [employer] by John Pelletier D.O.
--- NOTE | 2021-03-09 21:01 | ED.EXTPRO ---
HPI - Extremity Problem General Chief complaint: Extremity Problem,Nontraumatic Stated complaint: sob, leg swelling Time Seen by Provider: 03/09/21 21:00 Source: patient History of Present Illness HPI Narrative: The patient is a 60 yo male with a past medical history of morbid obesity, COPD, chronic respiratory failure on 4 L, SILVANA on BiPAP, presenting to the emergency department for evaluation of bilateral lower extremity swelling and associated worsening shortness of breath. Patient states he was recently hospitalized at [facility], states he was diagnosed with congestive heart failure. To his knowledge he is not taking any diuretic therapy. Patient states that he has had increased leg swelling in the bilateral lower extremities and accompanied leg pain. He denies any redness, wounds. States that his legs are very sore. States he has minimally ambulatory at home secondary to his body habitus but does get help from his son and [id number] with his ADLs. Denies recent fall or injury. Denies any chest pain or pleuritic pain. States that he has been able to use his typical 4 L of oxygen and does utilize CPAP at night. Patient denies fever, chills, rhinorrhea, sore throat, loss of sense of taste or smell, cough. No history of coagulopathy. Denies being on any anticoagulation. He denies any history of Covid. Patient is not vaccinated. Related Data Home Medications Medication Instructions Recorded Confirmed Spiriva with HandiHaler 1 cap INHALATION DAILY 10/08/20 10/08/20 albuterol sulfate 2 puff INHALATION QID PRN 10/08/20 10/08/20 budesonide-formoterol [Symbicort] 2 puff INHALATION BID 10/08/20 10/08/20 ipratropium-albuterol 3 ml INHALATION Q8H 10/08/20 10/08/20 Allergies Allergy/AdvReac Type Severity Reaction Status Date / Time No Known Allergies Allergy Verified 10/21/20 10:53 Review of Systems Review of Systems: CONSTITUTIONAL: Denies fever, chills, or sweats. EYES: Denies visual changes, redness, or discharge. ENT: Denies rhinorrhea, congestion, sore throat, or otalgia. CARDIOVASCULAR: Denies chest pain, palpitations, reports bilateral lower extremity edema RESPIRATORY: Denies cough, reports chronic shortness of breath, mildly worsened from baseline GASTROINTESTINAL: Denies abdominal pain, nausea, vomiting, or diarrhea. GENITOURINARY: Denies dysuria or hematuria. SKIN: Abrasion with associated erythema, induration to right axillary area MUSCULOSKELETAL: Denies back pain, joint pain, or myalgia. NEUROLOGIC: Denies headache, numbness, or weakness. [facility] Past Medical History Medical History Abnormal findings-gastrointestinal tract Acute and chronic respiratory failure Chronic obstructive pulmonary disease Chronic respiratory failure with hypoxia, on home oxygen therapy Dysphagia Morbid obesity Nausea and vomiting in adult Obesity hypoventilation syndrome SILVANA (obstructive sleep apnea) Tobacco use Surgical History Surgical History History of appendectomy History of mandibular surgery Bilateral jaw surgery due to fracture. Family History Family History Other Hypertension Social History Social History Social History: Surrogate decision maker: Fernanda Yao, [id number]. Code status: Full code however he would not want to be on long-term life support. Smoking packs per day: 3 Smoking cigarettes per day: 60.0 Years smoked: 40 Smoking pack-years: 120.00 Smoking status: Former smoker Tobacco type: cigarettes Additional smoking assessment comments: Patient tells me he still smokes about 5 cigarettes a month. Alcohol intake: never Substance use type: marijuana Last use: Occasional marijuana use. Additional living arrangements comments: The patient lives with his son and [id number] in [place]. Addit
[2021-03-09 21:34] LABS: Basophils Percent Auto 0.3 % (0.2-1.2); Eosinophils Absolute Auto 0.4 K/mm3 (0-0.3); Eosinophils Percent Auto 3.1 % (0-4.4); Hematocrit 37.7 % (42.0-52.0); Hemoglobin 11.5 g/dL (14.0-18.0); Immature Granulocyte Absolute 0.33 K/mm3 (0.00-0.031); Immature Granulocyte Percent A 2.6 % (0-0.5); Lymphocytes Absolute Auto 1.23 K/mm3 (0.9-3.2); Lymphocytes Percent Auto 9.6 % (18.3-44.2); Mean Corpuscular HGB Conc 30.5 g/dl (32-36); Mean Corpuscular Hemoglobin 30.3 pg (26-34); Mean Corpuscular Volume 99.2 fl (80-100); Mean Platelet Volume 9.2 fl (7.4-10.4); Monocytes Absolute Auto 0.8 K/mm3 (0.1-0.6); Neutrophils Percent Auto 78.4 % (45.5-73.1); Platelet Count Result 283 k/mm3 (150-375); Red Cell Distribution Width 15.6 % (11.5-14.5); White Blood Count 12.8 K/mm3 (4.5-10.0)
[2021-03-09 21:46] LABS: Alanine Aminotransferase 15 U/L (4-50); Albumin Level 3.9 g/dL (3.5-5.1); Alkaline Phosphatase 99 U/L (38-126); Anion Gap 4 mmol/L (8-16); Aspartate Amino Transferase 20 U/L (17-59); Bilirubin,Total 0.4 mg/dL (0.2-1.3); Blood Urea Nitrogen 15 mg/dL (9-20); Calcium 9.2 mg/dL (8.4-10.2); Carbon Dioxide 36 mmol/L (22-30); Chloride 100 mmol/L (98-107); Estimated CRCL calculation 117 ml/min; Estimated Glomerular Filt Rate > 60; Glucose 144 mg/dL (65-110); Potassium 4.2 mmol/L (3.4-5.0); Sodium 140 mmol/L (137-145)
[2021-03-09 21:47] LABS: INR 0.9; Prothrombin Time 12.4 Seconds (11.1-14.7)
[2021-03-09 21:48] LABS: Partial Thromboplastin Time 29.2 SECONDS (22.3-36.8)
[2021-03-09 21:50] LABS: D Dimer 1.17 ug/mL (<0.48)
[2021-03-09 21:58] LABS: NT Pro B Type Natriuretic Pept 118 pg/mL (5-100); Troponin I < 0.012 ng/mL (0.000-0.034)
[2021-03-09 22:00] VITALS: BP 115/84; PULSE 80; RESP 19; O2SAT 95
[2021-03-09 23:28] VITALS: PULSE 98; RESP 20
[2021-03-09] MEDS: IPRATROPIUM BR 0.02% INH SOLN 0.5 MG/2.5 ML VIAL INHALATION (23:28)
[2021-03-09] MEDS: ALBUTEROL SULFATE NEB 2.5 MG/0.5 ML INH 5 MG INHALATION (23:28)
[2021-03-09 23:36] VITALS: PULSE 85; RESP 20
[2021-03-10] VITALS (15 sets, daily range): BP systolic 122–150; BP diastolic 69–91; PULSE 79–94; RESP 18–24; TEMP 35.5–37.1; O2SAT 92–100; BMI 57.9
--- NOTE | 2021-03-10 | ECHO_ITS ---
Patient Info Name: Catarino Yao Age: 60 years : 1960 Gender: Male Ht: 75 in Wt: 462 lbs BSA: 3.44 m2 HR: 85 bpm BP: 122 / 91 mmHg Heart Rhythm: Sinus Rhythm Technical Quality: Poor Exam Date: 03/10/2021 11:38 AM Exam Location: [facility] Patient Status: Inpatient Admit Date: 03/10/2021 Staff Ordering Physician: Lety Porter MD Transmitter Operator: Misty Murrell CT Attending Provider: Yoly Pelaez MD Exam Type: CA echo doppler color flow Study Info Indications I50.9 - Heart failure, unspecified Complete two-dimensional, color flow and Doppler transthoracic echocardiogram is performed with contrast to opacify the left ventricle and to improve the deliniation of the left ventricle endocardial borders. Contrast/Agitated Saline Contrast/Ag. Saline: Definity Amount: 2.00 ml Summary 1. Very technically difficult study with limited views. This study is nearly uninterpretable. 2. LV poorly visualized. Unable to assess regional wall motion abnormalities due to poor endomyocardial border definition. Partial view of the left ventricle in the apical 4 chamber suggest LV function may be preserved but unable to assess. Repeat study with definity echo contrast enhancement. 3. Right ventricular chamber dimension is not well visualized. 4. Right ventricular systolic function is probably normal. 5. Unable to assess valve pathology due to poor visualization of all valves. Left Ventricle Very technically difficult study with limited views. This study is nearly uninterpretable. LV poorly visualized. Unable to assess regional wall motion abnormalities due to poor endomyocardial border definition. Partial view of the left ventricle in the apical 4 chamber suggest LV function may be preserved but unable to assess. Repeat study with definity echo contrast enhancement. Right Ventricle Right ventricular chamber dimension is not well visualized. Right ventricular systolic function is probably normal. Left Atria Left atrial chamber dimension is not well visualized. Right Atria Right atrial chamber dimension is not well visualized. Aortic Valve The aortic valve is not well visualized. Pulmonic Valve The pulmonic valve is not well visualized. Mitral Valve The mitral valve has not well visualized. Tricuspid Valve The tricuspid valve leaflets are not well visualized. Pericardium/Pleural The pericardium appears not well visualized. There is trivial pericardial effusion. Aorta The aortic root size at the sinus of Valsalva is normal. There is mild aortic atherosclerosis. Left Ventricular Outflow Tract Name Value Normal LVOT 2D LVOT Diameter 2.1 cm Aortic Valve Name Value Normal AV Regurgitation 2D LVOT Area 3.4 cm2 Ventricles Name Value Normal
[2021-03-10] MEDS: IBUPROFEN 400 MG TABLET PO (04:30)
[2021-03-10] MEDS: ALBUTEROL SULFATE NEB 2.5 MG/3 ML INH 1.25 MG INHALATION (05:44)
[2021-03-10] MEDS: IPRATROPIUM BR 0.02% INH SOLN 0.5 MG/2.5 ML VIAL INHALATION ×2 (05:44→20:42)
--- NOTE | 2021-03-10 09:05 | PM.IMHP ---
H&P: HPI History of Present Illness Date/Time: 03/10/21 09:05 cc: bilateral lower extremity swelling and associated worsening shortness of breath. The patient is a 60 yo male with a past medical history of morbid obesity, COPD, SILVANA, chronic respiratory failure on 4 L, SILVANA on BiPAP, presenting to the emergency department for evaluation of bilateral lower extremity swelling and associated worsening shortness of breath. At the time of my evaluation, the patient is very short of breath and barely able to complete sentences. The history and physical is mainly gathered from the ED chart. Per ED records, the patient stated that he was recently hospitalized at [facility], where he was diagnosed with congestive heart failure. He reports being previously on a water pill that was not refilled.. Patient states that he has had increased leg swelling in the bilateral lower extremities and accompanied leg pain. He denies any redness, wounds. Patient reports bilateral knee pain. Most recently the patient has been minimally ambulatory at home secondary to his body habitus; he does get help from his son and [id number] with his ADLs. He denies recent fall or injury. Denies any chest pain or pleuritic pain. States that he has been able to use his typical 4 L of oxygen and does utilize CPAP at night. Patient denies fever, chills, rhinorrhea, sore throat, loss of sense of taste or smell, cough. No history of coagulopathy. Denies being on any anticoagulation. He denies any history of Covid. Patient is not vaccinated. In the emergency department the patient is stable and afebrile with the following vital signs. Temperature 36.8?, pulse rate 87, respiration 24, blood pressure 127/77, pulse oximetry 100%. Basic labs were drawn. His initial CBC reveals a WBC of 12.8, with 78.4 neutrophil, hemoglobin 11.5, hematocrit 37.7, platelet count 283. His chemistry shows a sodium of 140, potassium 4.2, chloride 100, bicarbonate 36, BUN 15 and creatinine of 1.1. Blood glucose is 144. Venous Doppler study shows no evident deep venous thrombosis in either lower limb. CT of the chest reveals no pulmonary embolus and mild emphysema. Chest x-ray was reviewed. Focal nodular density right lower thorax which may represent focal airspace disease secondary to atelectasis or pneumonia, although parenchymal nodule not excluded. Prominent right paratracheal soft tissue which may relate to mediastinal lipomatosis, vascular ectasia and/or focal airspace consolidation. Hospital medicine service was consulted and patient was admitted for further management. Chief Complaint: Worsening shortness of breath and lower extremity edemas. Review of Systems Review of Systems: All systems reviewed & are unremarkable except as noted in HPI and below Constitutional: Constitutional: Reports as per HPI, Reports body ache(s), Reports difficulty sleeping, Reports fatigue and Reports weakness Eyes: Eyes: Reports as per HPI and Denies blurry vision ENT: Reports as per HPI, Reports Normal hearing present, Denies dysphagia and Denies epistaxis Cardiovascular: Cardiovascular: Reports as per HPI, Denies chest pain, Denies diaphoresis, Reports pedal edema, Reports leg edema, Denies lightheadedness and Denies palpitations Respiratory: Respiratory: Reports as per HPI, Reports no additional respiratory complaints, Denies chest congestion, Denies cough, Reports dyspnea and Denies wheezing Gastrointestinal: Gastrointestinal: Reports as per HPI, Reports abdominal pain, Reports diarrhea, Reports nausea and Reports vomiting Genitourinary: Genitourinary: Reports as per HPI, Denies hematuria and Denies dysuria Musculoskeletal: Musculoskeletal: Reports as per HPI and Reports arthralgias Neurologic: Reports as per HPI, Denies Abnormal speech present, Denies confusion and Denies headache(s) Psychiatric: Psychiatric: Denies no additional psychiatric complaints, Reports as per HPI, Reports anxiety and Denies depressi
[2021-03-10 11:05] LABS: Alveolar/Arterial O2 Gradient 147.3 mmHg; Base Excess ABG 4.5 mEq/l (+/-2.0); Fractional Inspired Oxygen 40 %; HCO3 ABG 31.7 mEq/l (22.0-26.0); Oxygen Content ABG 15.9 %vol (16.0-22.0); Oxygen Saturation ABG 92.6 % (95.0-100.0); PCO2 ABG 59.6 mmHg (35.0-45.0); PO2 ABG 69.4 mmHg (80.0-100.0); PO2 FiO2 Ratio Arterial Blood 1.74 %; Total Hemoglobin 12.3 g/dL (12.0-18.0); pH ABG 7.343 (7.350-7.450)
[2021-03-10 11:06] LABS: Device NASAL CANNULA; Modified Allen's Test Pass; Site Drawn RIGHT RADIAL
[2021-03-10] MEDS: FUROSEMIDE INJ 100 MG/10 ML VIAL 80 MG IV PUSH ×2 (11:06→18:55)
[2021-03-10] MEDS: CEPHALEXIN 500 MG CAPSULE PO ×2 (11:13→21:08)
[2021-03-10] MEDS: PERFLUTREN LIPID MICROSPHERES 1.5 ML VIAL DILUTED TO 10 ML TOTAL VOLUME IV PUSH (12:04)
--- NOTE | 2021-03-10 13:23 | PCPTNOTE ---
Attempted PT evaluation this date however pt declined due to being short of breath. He stated I can't breath and I ain't doing nothing until I get my breathing treatment. Will attempt again at a later date/time.
[2021-03-10] MEDS: HYDROcodone/acetaminophen (*CRX) 7.5-325 MG TABLET 1 TAB PO (17:57)
[2021-03-10] MEDS: ALBUTEROL SULFATE NEB 2.5 MG/0.5 ML INH 5 MG INHALATION (20:43)
[2021-03-10] MEDS: FLUTICASONE/SALMETEROL 115-21 MCG INHALER 1 PUFF 2 PUFF INHALATION (20:43)
[2021-03-10] MEDS: ENOXAPARIN 40 MG/0.4 ML SYRINGE SUB-Q (21:11)
[2021-03-10] MEDS: TOLNAFTATE 1% POWDER 45 GM BTL 1 APPLIC TOPICAL (21:11)
[2021-03-11] VITALS (15 sets, daily range): BP systolic 120–135; BP diastolic 61–74; PULSE 87–100; RESP 18–22; TEMP 36.1–36.5; O2SAT 93–100
[2021-03-11] MEDS: HYDROcodone/acetaminophen (*CRX) 7.5-325 MG TABLET 1 TAB PO ×4 (00:24→18:36)
[2021-03-11] MEDS: IPRATROPIUM BR 0.02% INH SOLN 0.5 MG/2.5 ML VIAL INHALATION ×4 (02:26→20:31)
[2021-03-11] MEDS: ALBUTEROL SULFATE NEB 2.5 MG/0.5 ML INH 5 MG INHALATION ×4 (02:26→20:31)
[2021-03-11 07:08] LABS: Basophils Absolute Auto 0.1 K/mm3 (0.0-0.1); Basophils Percent Auto 0.5 % (0.2-1.2); Eosinophils Absolute Auto 0.4 K/mm3 (0-0.3); Eosinophils Percent Auto 2.5 % (0-4.4); Hematocrit 37.6 % (42.0-52.0); Hemoglobin 11.8 g/dL (14.0-18.0); Immature Granulocyte Absolute 0.39 K/mm3 (0.00-0.031); Immature Granulocyte Percent A 2.8 % (0-0.5); Lymphocytes Absolute Auto 1.14 K/mm3 (0.9-3.2); Lymphocytes Percent Auto 8.1 % (18.3-44.2); Mean Corpuscular HGB Conc 31.4 g/dl (32-36); Mean Corpuscular Hemoglobin 30.1 pg (26-34); Mean Corpuscular Volume 95.9 fl (80-100); Mean Platelet Volume 9.2 fl (7.4-10.4); Monocytes Absolute Auto 0.9 K/mm3 (0.1-0.6); Monocytes Percent Auto 6.5 % (2.6-8.5); Neutrophils Absolute Auto 11.2 K/mm3 (1.3-6.7); Neutrophils Percent Auto 79.6 % (45.5-73.1); Platelet Count Result 272 k/mm3 (150-375); Red Blood Count 3.92 M/mm3 (4.6-6.20); Red Cell Distribution Width 15.7 % (11.5-14.5); White Blood Count 14.1 K/mm3 (4.5-10.0)
[2021-03-11 07:35] LABS: Blood Urea Nitrogen 16 mg/dL (9-20); Calcium 9.1 mg/dL (8.4-10.2); Carbon Dioxide > 40 mmol/L (22-30); Chloride 94 mmol/L (98-107); Estimated CRCL calculation 108 ml/min; Estimated Glomerular Filt Rate > 60; Glucose 118 mg/dL (65-110); Potassium 3.4 mmol/L (3.4-5.0); Sodium 140 mmol/L (137-145)
[2021-03-11] MEDS: FUROSEMIDE INJ 100 MG/10 ML VIAL 80 MG IV PUSH ×2 (08:16→16:16)
[2021-03-11] MEDS: LIDOCAINE 5% PATCH 2 PATCH TRANSDERM (08:17)
[2021-03-11] MEDS: FLUTICASONE/SALMETEROL 115-21 MCG INHALER 1 PUFF 2 PUFF INHALATION ×2 (08:17→20:31)
[2021-03-11] MEDS: CEPHALEXIN 500 MG CAPSULE PO (08:18)
[2021-03-11] MEDS: TOLNAFTATE 1% POWDER 45 GM BTL 1 APPLIC TOPICAL (08:19)
[2021-03-11] MEDS: ENOXAPARIN 40 MG/0.4 ML SYRINGE SUB-Q (08:24)
--- NOTE | 2021-03-11 10:12 | PM.IMPN ---
Progress Note: A&P Assessment and Plan (1) Acute and chronic respiratory failure: Code(s): J96.20 - Acute and chronic respiratory failure, unspecified whether with hypoxia or hypercapnia Status: Acute Assessment and Plan: Patient was admitted with acute exacerbation of his baseline chronic respiratory failure. He reports a recent admission with heart failure exacerbation, but had not been on diuretic management in the outpatient setting. On examination patient is grossly fluid overloaded and was started on high-dose diuretic with Lasix 80 mg IV q.12 hours, with a very good diuretic response producing almost 4 L during the 1st few hours of admission. However he remained very distressed and very tachypneic; likely there was a strong element of anxiety and he was started on Ativan p.r.n.. In addition noninvasive ventilatory support was started with BiPAP. Had a conversation at the bedside with regarding the goals of care. Patient wants to be full code and we will abide by his wishes. Echocardiogram was ordered; however given his body habitus interpretation has been very challenging. We will opt for symptomatic management guided by the patient's symptoms. (2) Chronic respiratory failure with hypoxia, on home oxygen therapy: Code(s): J96.11 - Chronic respiratory failure with hypoxia; Z99.81 - Dependence on supplemental oxygen Status: Acute Assessment and Plan: Likely is multifactorial in the setting of supermorbid obesity, COPD, heart failure, obstructive sleep apnea. Patient is on chronic oxygen supplementation at 4 L at home. His current decompensation is likely related to acute fluid retention in the setting of heart failure, dietary indiscretion and non management of fluid overload. (3) Chronic obstructive pulmonary disease: Qualifiers: COPD type: emphysema Emphysema type: unspecified Qualified Code(s): J43.9 - Emphysema, unspecified Code(s): J44.9 - Chronic obstructive pulmonary disease, unspecified Status: Acute Assessment and Plan: Patient will be started on scheduled albuterol and IV ipratropium. Currently there is no wheezing, cough or sputum production. There is no evidence of pneumonia on chest CT. There is no indication for antibiotics or steroids. (4) Morbid obesity: Code(s): E66.01 - Morbid (severe) obesity due to excess calories Status: Acute Assessment and Plan: Patient was thoroughly educated about the emergent need for calorie restriction, increase physical activity and weight loss. At this juncture he would benefit from admission to a specialized bariatric surgical unit. However given is many comorbidities, he is unlikely to be a candidate for any surgical intervention. We will refer him to a bariatric medicine unit upon discharge. (5) SILVANA (obstructive sleep apnea): Code(s): G47.33 - Obstructive sleep apnea (adult) (pediatric) Status: Acute Assessment and Plan: Continue BiPAP at home per his home parameters. (6) Cellulitis of leg: Code(s): L03.119 - Cellulitis of unspecified part of limb Status: Acute Assessment and Plan: Improving left lower extremity cellulitis. Will continue cephalexin. (7) Heart failure: Code(s): I50.9 - Heart failure, unspecified Status: Acute Assessment and Plan: Her echocardiogram interpretation was challenging. Clearly patient is very symptomatic with lower extremity edema an difficulty breathing and has improved after high dose Lasix. BNP is only 118; however the clinical significance of BNP in obesity is uncertain. (8) Smoking: Code(s): F17.200 - Nicotine dependence, unspecified, uncomplicated Status: Acute Assessment and Plan: Nicotine patch PRN. Subjective Date/time seen: 03/11/21 10:12 S: Patient is examined at the bedside. He is diuresing will with high-dose Lasix. He had difficulty to sleep last night, but tolerated
--- NOTE | 2021-03-11 12:44 | PM.CNPUL ---
Assessment and Plan Assessment and plan (1) Acute and chronic respiratory failure: Qualifiers: Respiratory failure complication: hypoxia and hypercapnia Qualified Code(s): J96.21 - Acute and chronic respiratory failure with hypoxia; J96.22 - Acute and chronic respiratory failure with hypercapnia Code(s): J96.20 - Acute and chronic respiratory failure, unspecified whether with hypoxia or hypercapnia Status: Acute Assessment and Plan: 60-year-old man morbidly obese with history of obesity hypoventilation on noninvasive ventilatory support at home presented with increasing lower extremity edema and shortness of breath. Diagnostic studies showed clear lungs and no pleural effusions, and arterial blood gases probably at baseline. There is no evidence of DVT on venous studies. He is receiving treatment with diuretic, and bronchodilators for COPD. The patient seems to be tolerating BiPAP support with no issues. No sleep study is available. I would continue with current regimen. Would change BiPAP settings to 14/10 and continue with same FiO2. Encourage patient out of bed to chair. he will need to be evaluated on an outpatient basis for his sleep disordered breathing, including effectiveness of noninvasive ventilatory support he is on, and possibly with a repeat sleep study. He has COPD by radiographical criteria with no evidence of exacerbation during this admission. Continue with current regimen for DVT prophylaxis. (2) Bilateral edema of lower extremity: Code(s): R60.0 - Localized edema Status: Acute (3) SILVANA (obstructive sleep apnea): Code(s): G47.33 - Obstructive sleep apnea (adult) (pediatric) Status: Acute (4) Chronic respiratory failure with hypoxia, on home oxygen therapy: Code(s): J96.11 - Chronic respiratory failure with hypoxia; Z99.81 - Dependence on supplemental oxygen Status: Acute (5) Chronic obstructive pulmonary disease: Qualifiers: COPD type: emphysema Emphysema type: unspecified Qualified Code(s): J43.9 - Emphysema, unspecified Code(s): J44.9 - Chronic obstructive pulmonary disease, unspecified Status: Acute (6) Obesity hypoventilation syndrome: Code(s): E66.2 - Morbid (severe) obesity with alveolar hypoventilation Status: Acute (7) Morbid obesity: Code(s): E66.01 - Morbid (severe) obesity due to excess calories Status: Acute History of Present Illness History of Present Illness Consult date: 03/11/21 Chief complaint: Lower Extremity Edema,Leg Pain,Arm Cellulitis Narrative: this 60-year-old man presented with 2 week history of worsening lower extremity edema and also shortness of breath. The patient has history of hypercapnic hypoxemic respiratory failure related to obesity hypoventilation and COPD. Patient was in his usual state of health until approximately couple weeks ago when noticed lower extremity edema. Of note the patient has been hospitalized over the last month at another facility for shortness of breath and lower extremity edema. He has got history of hypercapnic respiratory failure with frequent hospitalizations. Patient reportedly using noninvasive ventilatory support at home for sleep disordered breathing, possibly using [facility] as reported in previous pulmonary note several years ago. No sleep study reports is available. The patient stated that he had a sleep study several years ago but could not remember where. He has been using his CPAP machine along with oxygen every night. He has no excessive daytime sleep sleepiness. He reports no recent weight changes or recent respiratory disease. He has history of COPD and has been on short-acting bronchodilators, Symbicort and Spiriva. He uses oxygen 4 liters/minute at rest and 6 liters/minute with activities. No previous pulmonary function testing is available. By chest CT he has mild centrilobular emphysema. On admission his arterial
[2021-03-11] MEDS: POTASSIUM CHLORIDE 20 MEQ PACKET (FOR LIQUID) PO (16:11)
[2021-03-12] VITALS (14 sets, daily range): BP systolic 109–136; BP diastolic 62–90; PULSE 84–96; RESP 19–21; TEMP 35.6–36.7; O2SAT 92–100
[2021-03-12] MEDS: HYDROcodone/acetaminophen (*CRX) 7.5-325 MG TABLET 1 TAB PO ×2 (00:45→06:11)
[2021-03-12] MEDS: CEPHALEXIN 500 MG CAPSULE PO ×3 (00:49→21:04)
[2021-03-12] MEDS: ENOXAPARIN 40 MG/0.4 ML SYRINGE SUB-Q ×3 (00:49→21:04)
[2021-03-12] MEDS: TOLNAFTATE 1% POWDER 45 GM BTL 1 APPLIC TOPICAL ×2 (00:51→08:17)
[2021-03-12] MEDS: ALBUTEROL SULFATE NEB 2.5 MG/0.5 ML INH 5 MG INHALATION ×4 (02:40→21:09)
[2021-03-12] MEDS: IPRATROPIUM BR 0.02% INH SOLN 0.5 MG/2.5 ML VIAL INHALATION ×4 (02:40→21:09)
--- NOTE | 2021-03-12 07:24 | PM.IMPN ---
Progress Note: A&P Assessment and Plan (1) Acute and chronic respiratory failure: Qualifiers: Respiratory failure complication: hypoxia and hypercapnia Qualified Code(s): J96.21 - Acute and chronic respiratory failure with hypoxia; J96.22 - Acute and chronic respiratory failure with hypercapnia Code(s): J96.20 - Acute and chronic respiratory failure, unspecified whether with hypoxia or hypercapnia Status: Acute Assessment and Plan: Patient was initially started on high-dose diuretic with Lasix 80 mg IV q.12 hours, with a very good diuretic response producing almost 4 L during the 1st few hours of admission. decrease Lasix to 80 mg p.o. daily. Continue close monitoring of electrolytes. Hypokalemia at 3.2 was supplemented. (2) Chronic respiratory failure with hypoxia, on home oxygen therapy: Code(s): J96.11 - Chronic respiratory failure with hypoxia; Z99.81 - Dependence on supplemental oxygen Status: Acute Assessment and Plan: Likely is multifactorial in the setting of supermorbid obesity, COPD, heart failure, obstructive sleep apnea. Patient is on chronic oxygen supplementation at 4 L at home. His current decompensation is likely related to acute fluid retention in the setting of heart failure, dietary indiscretion and non management of fluid overload. Patient was evaluated by Pulmonary. His vent setting were going in increased to 14/10. (3) Chronic obstructive pulmonary disease: Qualifiers: COPD type: emphysema Emphysema type: unspecified Qualified Code(s): J43.9 - Emphysema, unspecified Code(s): J44.9 - Chronic obstructive pulmonary disease, unspecified Status: Acute Assessment and Plan: Patient will be started on scheduled albuterol and IV ipratropium. Currently there is no wheezing, cough or sputum production. There is no evidence of pneumonia on chest CT. There is no indication for antibiotics or steroids. (4) Morbid obesity: Code(s): E66.01 - Morbid (severe) obesity due to excess calories Status: Acute Assessment and Plan: Patient was thoroughly educated about the emergent need for calorie restriction, increase physical activity and weight loss. At this juncture he would benefit from admission to a specialized bariatric surgical unit. However given is many comorbidities, he is unlikely to be a candidate for any surgical intervention. We will refer him to a bariatric medicine unit upon discharge. (5) SILVANA (obstructive sleep apnea): Code(s): G47.33 - Obstructive sleep apnea (adult) (pediatric) Status: Acute Assessment and Plan: Continue BiPAP at home per his home parameters. (6) Cellulitis of leg: Code(s): L03.119 - Cellulitis of unspecified part of limb Status: Acute Assessment and Plan: Improving left lower extremity cellulitis. Will continue cephalexin. (7) Heart failure: Code(s): I50.9 - Heart failure, unspecified Status: Acute Assessment and Plan: Her echocardiogram interpretation was challenging. Clearly patient is very symptomatic with lower extremity edema an difficulty breathing and has improved after high dose Lasix. BNP is only 118; however the clinical significance of BNP in obesity is uncertain. Subjective Date/time seen: 03/12/21 07:24 S: Patient is examined at the bedside. His sleep was fair overnight. He has a very good response to diuretic. Appetite is preserved. He complained of bilateral knee pain, not improved despite prescribed narcotic. Review of Systems Review of Systems: All systems reviewed & are unremarkable except as noted in HPI and below Constitutional: Constitutional: Reports as per HPI, Reports body ache(s), Reports difficulty sleeping, Reports fatigue, Denies headache(s) and Reports weakness Eyes: Eyes: Reports as per HPI, Denies blurry vision and Denies itchy eyes ENT: Reports as per HPI, Reports Normal hearing present, Denie
[2021-03-12] MEDS: FUROSEMIDE INJ 100 MG/10 ML VIAL 80 MG IV PUSH (08:15)
[2021-03-12] MEDS: LIDOCAINE 5% PATCH 3 PATCH TRANSDERM (08:16)
[2021-03-12] MEDS: UMECLIDINIUM BROMIDE 62.5 MCG ELLIPTA 1 PUFF INHALATION (08:24)
[2021-03-12] MEDS: FLUTICASONE/SALMETEROL 115-21 MCG INHALER 1 PUFF 2 PUFF INHALATION ×2 (08:24→21:17)
--- NOTE | 2021-03-12 10:01 | PM.PNPUL ---
Progress Note: A&P Assessment and Plan (1) SILVANA (obstructive sleep apnea): Code(s): G47.33 - Obstructive sleep apnea (adult) (pediatric) Status: Acute (2) Chronic respiratory failure with hypoxia, on home oxygen therapy: Code(s): J96.11 - Chronic respiratory failure with hypoxia; Z99.81 - Dependence on supplemental oxygen Status: Acute Assessment and Plan: respiratory status stable over the last 24 hours, patient using BiPAP support at night. Has been on treatment for lower extremity edema and also for possible cellulitis. Will continue with current BiPAP treatment. I would suggest to change BiPAP settings to 14/10. Out of bed to chair. (3) Chronic obstructive pulmonary disease: Qualifiers: COPD type: emphysema Emphysema type: unspecified Qualified Code(s): J43.9 - Emphysema, unspecified Code(s): J44.9 - Chronic obstructive pulmonary disease, unspecified Status: Acute (4) Obesity hypoventilation syndrome: Code(s): E66.2 - Morbid (severe) obesity with alveolar hypoventilation Status: Acute (5) Morbid obesity: Code(s): E66.01 - Morbid (severe) obesity due to excess calories Status: Acute (6) Bilateral edema of lower extremity: Code(s): R60.0 - Localized edema Status: Acute Subjective Date/time seen: 03/12/21 10:01 patient without any new respiratory symptoms. Using BiPAP support at night, sleeps well. Continues to have lower extremity edema and pain. Review of Systems Review of Systems: All systems reviewed & are unremarkable except as noted in HPI and below (H and P and below.) Exam Narrative: GENERAL APPEARANCE: Well developed, well nourished, morbidly obese, alert and cooperative, who appears to be in no acute distress while on supplemental oxygen SKIN: Inspection of the skin reveals no rashes, ulcerations or petechiae. HEENT: Sclerae anicteric and conjunctivae pink and moist. Extraocular movements were intact and pupils were equal, round, and reactive to light. The oral mucosa, hard and soft palate, tongue and posterior pharynx were normal. edentulous. NECK: Supple. There was no thyroid enlargement, and no tenderness, or masses were felt. LUNGS: Auscultation of the lungs revealed normal breath sounds without any other adventitious sounds or rubs. CARDIAC: There was a regular rate and rhythm without any murmurs, gallops, rubs. ABDOMEN: obese soft nontender, soft and nontender. LYMPH NODES: No lymphadenopathy was appreciated in the neck. EXTREMITIES: No cyanosis, clubbing; 2+ lower extremity edema. NEUROLOGIC: Alert and oriented x 3. Normal affect. Objective Data Vital Signs Vital Signs: Vital Signs - 24 hr 03/11/21 13:31 03/11/21 13:42 03/11/21 14:00 Temperature 36.4 C Pulse Rate 94 94 89 Respiratory Rate 20 21 H 22 H Blood Pressure 135/74 Pulse Oximetry 96 100 03/11/21 20:32 03/11/21 20:34 03/11/21 20:35 Temperature 36.5 C Pulse Rate 100 87 96 Respiratory Rate 20 18 20 Blood Pressure 120/64 Pulse Oximetry 100 95 03/11/21 20:46 03/11/21 20:47 03/11/21 22:22 Temperature Pulse Rate 100 96 91 Respiratory Rate 20 21 H Blood Pressure Pulse Oximetry 95 99 03/12/21 02:40 03/12/21 02:41 03/12/21 02:50 Temperature Pulse Rate 84 89 91 Respiratory Rate 19 20 20 Blood Pressure Pulse Oximetry 97 03/12/21 06:00 03/12/21 08:27 03/12/21 08:35 Temperature 36.5 C Pulse Rate 87 90 88 Respiratory Rate 20 20 20 Blood Pressure 136/90 Pulse Oximetry 100 93 Intake/Output Intake/Output: Intake & Output 03/09/21 03/10/21 03/11/21 03/12/21 23:59 23:59 23:59 23:59 Intake Total 2220 2440 Output Total 3800 3925 400 Balance -1580 -1485 -400 Meds/Results Medications: Active Medications Generic Name Dose Route Start Last Admin Trade Name Freq PRN Reason Stop Dose Admin Acetaminophen 650 mg 03/10/21 02:22 Acetaminophen 325 Mg Tablet PO Q4H
--- NOTE | 2021-03-12 10:15 | PCPTNOTE ---
Pt stated that he didn't want to do any treatment this morning. He said he hadn't slept well and would like to just rest. Will check back with pt later this afternoon.
[2021-03-12 12:52] LABS: Blood Urea Nitrogen 17 mg/dL (9-20); Calcium 8.9 mg/dL (8.4-10.2); Carbon Dioxide > 40 mmol/L (22-30); Chloride 86 mmol/L (98-107); Estimated CRCL calculation 118 ml/min; Estimated Glomerular Filt Rate > 60; Glucose 141 mg/dL (65-110); Potassium 3.2 mmol/L (3.4-5.0); Sodium 134 mmol/L (137-145)
--- NOTE | 2021-03-12 17:00 | PM.CNNEP ---
Assessment and Plan Assessment and plan (1) Hyponatremia: Code(s): E87.1 - Hypo-osmolality and hyponatremia Status: Acute (2) Acute and chronic respiratory failure: Qualifiers: Respiratory failure complication: hypoxia and hypercapnia Qualified Code(s): J96.21 - Acute and chronic respiratory failure with hypoxia; J96.22 - Acute and chronic respiratory failure with hypercapnia Code(s): J96.20 - Acute and chronic respiratory failure, unspecified whether with hypoxia or hypercapnia Status: Acute History of Present Illness Reason for Consult Consult date: 03/12/21 Reason for consult: hyponatremia Chief Complaint Chief complaint: Lower Extremity Edema,Leg Pain,Arm Cellulitis Review of Systems Review of Systems: As per HPI. [facility] Past Medical History Medical History Abnormal findings-gastrointestinal tract Acute and chronic respiratory failure Chronic obstructive pulmonary disease Chronic respiratory failure with hypoxia, on home oxygen therapy Dysphagia Morbid obesity Nausea and vomiting in adult Obesity hypoventilation syndrome SILVANA (obstructive sleep apnea) Tobacco use Surgical History Surgical History History of appendectomy History of mandibular surgery Bilateral jaw surgery due to fracture. Family History Family History Other Hypertension Social History Social History Social History: Surrogate decision maker: Fernanda Yao, [id number]. Code status: Full code however he would not want to be on long-term life support. Smoking packs per day: 3 Smoking cigarettes per day: 60.0 Years smoked: 40 Smoking pack-years: 120.00 Smoking status: Former smoker Tobacco type: cigarettes Additional smoking assessment comments: Patient tells me he still smokes about 5 cigarettes a month. Alcohol intake: former Substance use: current Substance use type: marijuana Last use: Occasional marijuana use. Additional living arrangements comments: The patient lives with his son and [id number] in [place]. 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 Spiritual care concerns: No Meds Home Medications and Allergies Home Medications Medication Instructions Recorded Confirmed Type Spiriva with HandiHaler 1 cap INHALATION DAILY 10/08/20 03/10/21 History albuterol sulfate 2 puff INHALATION QID PRN 10/08/20 03/10/21 History budesonide-formoterol [Symbicort] 2 puff INHALATION BID 10/08/20 03/10/21 History ipratropium-albuterol 3 ml INHALATION Q8H 10/08/20 03/10/21 History hydrocodone-acetaminophen 1 - 2 tablet PO Q6H PRN #20 tablet 10/16/20 03/10/21 Rx Allergies Allergy/AdvReac Type Severity Reaction Status Date / Time No Known Allergies Allergy Verified 10/21/20 10:53 Vital Signs Vital Signs Temp Pulse Resp BP Pulse Ox 03/12/21 08:35 88 20 03/12/21 08:27 90 20 93 03/12/21 08:00 91 20 93 03/12/21 06:00 36.5 C 87 20 136/90 100 03/12/21 02:50 91 20 03/12/21 02:41 89 20 03/12/21 02:40 84 19 97 03/11/21 22:22 91 21 H 99 03/11/21 20:47 96 20 03/11/21 20:46 100 95 03/11/21 20:35 96 20 95 03/11/21 20:34 36.5 C 87 18 120/64 100 03/11/21 20:32 100 20 Exam Narrative: GENERAL APPEARANCE: well developed well nourished male in no acute distress HEENT: normocephalic, atraumatic, normal conjunctiva and sclera, nares patient NECK: no lymphadenopathy, thyromegaly, or JVD MOUTH: normal lips, teeth, and gums CARDIOVASCULAR: RRR, normal S1 and S2, no rub detected RESPIRATORY: clear to auscultation bilaterally ABDOMEN: soft, nontender, nondistended, positive bowel sounds present EXTREMITIES: no evidence of cyanosis, clubbing; 2+ edema NEUROLOGICAL: alert and oriented x 3;
[2021-03-12] MEDS: HYDROcodone/acetaminophen (*CRX) 7.5-325 MG TABLET 2 TAB PO (17:51)
[2021-03-12 21:03] LABS: Creatinine Urine 309.3 mg/dL; Urea Random Urine 994 MG/DL
[2021-03-12 21:12] LABS: Sodium Urine Random 30 meq/L
[2021-03-12 21:13] LABS: Total Protein Urine Random < 5 mg/dL; Ur Ttl Prot Creatinine Ratio < 0.02 mg/mg (0-0.20)
[2021-03-13] VITALS (16 sets, daily range): BP systolic 108–145; BP diastolic 52–79; PULSE 86–104; RESP 14–25; TEMP 36.5–36.8; O2SAT 91–100
[2021-03-13] MEDS: HYDROcodone/acetaminophen (*CRX) 7.5-325 MG TABLET 2 TAB PO ×3 (00:09→14:33)
[2021-03-13] MEDS: IPRATROPIUM BR 0.02% INH SOLN 0.5 MG/2.5 ML VIAL INHALATION ×4 (03:26→20:51)
[2021-03-13] MEDS: ALBUTEROL SULFATE NEB 2.5 MG/0.5 ML INH 5 MG INHALATION ×4 (03:26→20:51)
[2021-03-13] MEDS: TOLNAFTATE 1% POWDER 45 GM BTL 1 APPLIC TOPICAL ×3 (03:54→21:00)
[2021-03-13] MEDS: FUROSEMIDE INJ 100 MG/10 ML VIAL 80 MG IV PUSH ×2 (08:36→17:27)
[2021-03-13] MEDS: ENOXAPARIN 40 MG/0.4 ML SYRINGE SUB-Q ×2 (08:36→20:54)
[2021-03-13] MEDS: CEPHALEXIN 500 MG CAPSULE PO ×2 (08:37→20:53)
[2021-03-13] MEDS: FLUTICASONE/SALMETEROL 115-21 MCG INHALER 1 PUFF 2 PUFF INHALATION ×2 (09:19→21:03)
[2021-03-13 09:21] LABS: Albumin Level 4.1 g/dL (3.5-5.1); Blood Urea Nitrogen 15 mg/dL (9-20); Carbon Dioxide > 40 mmol/L (22-30); Chloride 87 mmol/L (98-107); Estimated CRCL calculation 129 ml/min; Estimated Glomerular Filt Rate > 60; Glucose 134 mg/dL (65-110); Phosphorus 3.3 mg/dL (2.5-4.5); Potassium 3.2 mmol/L (3.4-5.0); Sodium 133 mmol/L (137-145)
[2021-03-13 09:29] LABS: Hemoglobin 11.2 g/dL (14.0-18.0); Mean Corpuscular HGB Conc 31.1 g/dl (32-36); Mean Corpuscular Hemoglobin 29.9 pg (26-34); Mean Corpuscular Volume 96.3 fl (80-100); Mean Platelet Volume 9.6 fl (7.4-10.4); Platelet Count Result 269 k/mm3 (150-375); Red Blood Count 3.74 M/mm3 (4.6-6.20); Red Cell Distribution Width 15.5 % (11.5-14.5); White Blood Count 12.5 K/mm3 (4.5-10.0)
--- NOTE | 2021-03-13 10:50 | PM.PNPUL ---
Progress Note: A&P Assessment and Plan (1) SILVANA (obstructive sleep apnea): Code(s): G47.33 - Obstructive sleep apnea (adult) (pediatric) Status: Acute (2) Chronic respiratory failure with hypoxia, on home oxygen therapy: Code(s): J96.11 - Chronic respiratory failure with hypoxia; Z99.81 - Dependence on supplemental oxygen Status: Acute Assessment and Plan: respiratory status stable over the last 24 hours, patient using BiPAP support at night. have changed BiPAP settings to 14/10.Has been on treatment for lower extremity edema and also for possible cellulitis. Will continue with current BiPAP treatment. Out of bed to chair. (3) Chronic obstructive pulmonary disease: Qualifiers: COPD type: emphysema Emphysema type: unspecified Qualified Code(s): J43.9 - Emphysema, unspecified Code(s): J44.9 - Chronic obstructive pulmonary disease, unspecified Status: Acute (4) Obesity hypoventilation syndrome: Code(s): E66.2 - Morbid (severe) obesity with alveolar hypoventilation Status: Acute (5) Morbid obesity: Code(s): E66.01 - Morbid (severe) obesity due to excess calories Status: Acute (6) Bilateral edema of lower extremity: Code(s): R60.0 - Localized edema Status: Acute Subjective Date/time seen: 03/13/21 10:50 No new respiratory symptoms. Did not sleep well last night. Was complaining of left hand pain related to IV ? KCL. Lower extremity edema less than before. Review of Systems Review of Systems: All systems reviewed & are unremarkable except as noted in HPI and below (H and P and below.) Exam Narrative: GENERAL APPEARANCE: Well developed, well nourished, morbidly obese, alert and cooperative, who appears to be in no acute distress while on supplemental oxygen SKIN: Inspection of the skin reveals no rashes, ulcerations or petechiae. HEENT: Sclerae anicteric and conjunctivae pink and moist. Extraocular movements were intact and pupils were equal, round, and reactive to light. The oral mucosa, hard and soft palate, tongue and posterior pharynx were normal. edentulous. NECK: Supple. There was no thyroid enlargement, and no tenderness, or masses were felt. LUNGS: Auscultation of the lungs revealed normal breath sounds without any other adventitious sounds or rubs. CARDIAC: There was a regular rate and rhythm without any murmurs, gallops, rubs. ABDOMEN: obese soft nontender, soft and nontender. LYMPH NODES: No lymphadenopathy was appreciated in the neck. EXTREMITIES: No cyanosis, clubbing; 2+ lower extremity edema. NEUROLOGIC: Alert and oriented x 3. Normal affect. Objective Data Vital Signs Vital Signs: Vital Signs - 24 hr 03/12/21 13:54 03/12/21 14:00 03/12/21 20:15 Temperature 35.6 C L Pulse Rate 92 96 88 Respiratory Rate 20 21 H 21 H Blood Pressure 120/68 Pulse Oximetry 100 98 03/12/21 21:09 03/12/21 21:21 03/12/21 21:49 Temperature 36.7 C Pulse Rate 88 89 88 Respiratory Rate 20 20 20 Blood Pressure 109/62 Pulse Oximetry 92 92 03/12/21 23:24 03/13/21 03:30 03/13/21 03:32 Temperature Pulse Rate 88 87 86 Respiratory Rate 21 H 20 22 H Blood Pressure Pulse Oximetry 98 96 03/13/21 03:34 03/13/21 05:56 03/13/21 09:21 Temperature 36.7 C Pulse Rate 88 92 92 Respiratory Rate 20 20 18 Blood Pressure 108/52 L Pulse Oximetry 98 91 03/13/21 09:33 Temperature Pulse Rate 93 Respiratory Rate 18 Blood Pressure Pulse Oximetry Intake/Output Intake/Output: Intake & Output 03/10/21 03/11/21 03/12/21 03/13/21 23:59 23:59 23:59 23:59 Intake Total 2220 2440 1146 910 Output Total 3800 3925 400 700 Balance -1580 -1485 746 210 Meds/Results Medications: Active Medications Generic Name Dose Route Start Last Admin Trade Name Freq PRN Reason Stop Dose Admin Acetaminophen 650 mg 03/10/21 02:22 Acetaminophen 325 Mg Tablet PO Q4H PRN Mild Pain (1-3) or Fev
--- NOTE | 2021-03-13 13:12 | PM.IMPN ---
Progress Note: A&P Assessment and Plan (1) Acute and chronic respiratory failure: Qualifiers: Respiratory failure complication: hypoxia and hypercapnia Qualified Code(s): J96.21 - Acute and chronic respiratory failure with hypoxia; J96.22 - Acute and chronic respiratory failure with hypercapnia Code(s): J96.20 - Acute and chronic respiratory failure, unspecified whether with hypoxia or hypercapnia Status: Acute Assessment and Plan: Patient was initially started on high-dose diuretic with Lasix 80 mg IV q.12 hours, with a very good diuretic response producing almost 4 L during the 1st few hours of admission. It was reduced decrease Lasix to 80 mg IV daily, with a very modest diuretic response. per cardiology recommendation will increase IV Lasix to 80 mg twice daily. Continue close monitoring of electrolytes. Hypokalemia was again low at 3.2 and was supplemented. Follow-up repeat potassium in 2 [facility] labs. (2) Chronic respiratory failure with hypoxia, on home oxygen therapy: Code(s): J96.11 - Chronic respiratory failure with hypoxia; Z99.81 - Dependence on supplemental oxygen Status: Acute Assessment and Plan: Likely is multifactorial in the setting of supermorbid obesity, COPD, heart failure, obstructive sleep apnea. Patient is on chronic oxygen supplementation at 4 L at home. His current decompensation is likely related to acute fluid retention in the setting of heart failure, dietary indiscretion and non management of fluid overload. Patient was evaluated by Pulmonary. His vent setting were increased to 14/10, with improvement of sleep and respiratory function.. (3) Chronic obstructive pulmonary disease: Qualifiers: COPD type: emphysema Emphysema type: unspecified Qualified Code(s): J43.9 - Emphysema, unspecified Code(s): J44.9 - Chronic obstructive pulmonary disease, unspecified Status: Acute Assessment and Plan: Patient will be started on scheduled albuterol and ipratropium. Currently there is no wheezing, cough or sputum production. There is no evidence of pneumonia on chest CT. There is no indication for antibiotics or steroids. (4) Morbid obesity: Code(s): E66.01 - Morbid (severe) obesity due to excess calories Status: Acute Assessment and Plan: Patient was thoroughly educated about the emergent need for calorie restriction, increase physical activity and weight loss. At this juncture he would benefit from admission to a specialized bariatric surgical unit. However given is many comorbidities, he is unlikely to be a candidate for any surgical intervention. We will refer him to a bariatric medicine unit upon discharge. (5) SILVANA (obstructive sleep apnea): Code(s): G47.33 - Obstructive sleep apnea (adult) (pediatric) Status: Acute Assessment and Plan: Continue BiPAP at home per new parameters(28/01). (6) Cellulitis of leg: Code(s): L03.119 - Cellulitis of unspecified part of limb Status: Acute Assessment and Plan: Improving left lower extremity cellulitis. Will continue cephalexin. (7) Heart failure: Code(s): I50.9 - Heart failure, unspecified Status: Acute Assessment and Plan: Her echocardiogram interpretation was challenging. Clearly patient is very symptomatic with lower extremity edema an difficulty breathing and has improved after high dose Lasix. BNP is only 118; however the clinical significance of BNP in obesity is uncertain. Subjective Date/time seen: 03/13/21 11:00 S: Patient was examined at the bedside. His breathing is improving with BiPAP support at night. Urinary output : diuresis has been suboptimal over the last 24 hours. Review of Systems Review of Systems: All systems reviewed & are unremarkable except as noted in HPI and below Constitutional: Constitutional: Reports as per HPI, Reports body ache(s), Reports difficulty sleeping, Reports fatigue,
[2021-03-13 14:32] LABS: Free T4 Free Thyroxine Reflex 1.23 ng/dL (0.78-2.19)
--- NOTE | 2021-03-13 15:42 | PM.CNCAR ---
Assessment and Plan Additional Plan Acute on chronic diastolic heart failure, morbid obesity, SOB is likely multifactorial including morbid obesity, plan cont lasix IV 80 mg IV BID, f/u renal function History of Present Illness History of Present Illness Consult date/time: 03/13/21 15:42 Consult reason: shortness of breath Reason For Visit: Lower Extremity Edema,Leg Pain,Arm Cellulitis Narrative: Patient presented to hospital with progressive SOB with mild activity and at rest, associated with bilateral LE edema. He was started on Lasix since admission and feels better. He was recently admitted to OSH with new diagnosis of CHF. he has morbid obesity with limited physical activity because of knee pain. Review of Systems Review of Systems: All systems reviewed & are unremarkable except as noted in HPI and below PMFSH Past Medical History Medical History Abnormal findings-gastrointestinal tract Acute and chronic respiratory failure Chronic obstructive pulmonary disease Chronic respiratory failure with hypoxia, on home oxygen therapy Dysphagia Morbid obesity Nausea and vomiting in adult Obesity hypoventilation syndrome SILVANA (obstructive sleep apnea) Tobacco use Surgical History Surgical History History of appendectomy History of mandibular surgery Bilateral jaw surgery due to fracture. Family History Family History Other Hypertension Social History Social History Social History: Surrogate decision maker: Fernanda Yao, [id number]. Code status: Full code however he would not want to be on long-term life support. Smoking packs per day: 3 Smoking cigarettes per day: 60.0 Years smoked: 40 Smoking pack-years: 120.00 Smoking status: Former smoker Tobacco type: cigarettes Additional smoking assessment comments: Patient tells me he still smokes about 5 cigarettes a month. Alcohol intake: former Substance use: current Substance use type: marijuana Last use: Occasional marijuana use. Additional living arrangements comments: The patient lives with his son and [id number] in [place]. 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 Spiritual care concerns: No Meds Home Medications and Allergies Home Medications Medication Instructions Recorded Confirmed Type Spiriva with HandiHaler 1 cap INHALATION DAILY 10/08/20 03/10/21 History albuterol sulfate 2 puff INHALATION QID PRN 10/08/20 03/10/21 History budesonide-formoterol [Symbicort] 2 puff INHALATION BID 10/08/20 03/10/21 History ipratropium-albuterol 3 ml INHALATION Q8H 10/08/20 03/10/21 History hydrocodone-acetaminophen 1 - 2 tablet PO Q6H PRN #20 tablet 10/16/20 03/10/21 Rx Allergies Allergy/AdvReac Type Severity Reaction Status Date / Time No Known Allergies Allergy Verified 10/21/20 10:53 Vital Signs Vital Signs - 24 hr 03/12/21 20:15 03/12/21 21:09 03/12/21 21:21 Temperature Pulse Rate 88 88 89 Respiratory Rate 21 H 20 20 Blood Pressure Pulse Oximetry 98 92 03/12/21 21:49 03/12/21 23:24 03/13/21 03:30 Temperature 36.7 C Pulse Rate 88 88 87 Respiratory Rate 20 21 H 20 Blood Pressure 109/62 Pulse Oximetry 92 98 03/13/21 03:32 03/13/21 03:34 03/13/21 05:56 Temperature 36.7 C Pulse Rate 86 88 92 Respiratory Rate 22 H 20 20 Blood Pressure 108/52 L Pulse Oximetry 96 98 03/13/21 08:00 03/13/21 09:21 03/13/21 09:33 Temperature Pulse Rate 92 93 Respiratory Rate 18 18 Blood Pressure Pulse Oximetry 91 91 03/13/21 14:38 03/13/21 15:09 03/13/21 15:18 Temperature 36.8 C Pulse Rate 97 97 104 H Respiratory Rate 14 18 18 Blood Pressure 110/68 Pulse Oximetry 92 Exam Const: General: comfortable Nutritional Appearance: obese and edematous Other: Able to l
[2021-03-13] MEDS: POTASSIUM CHLORIDE 20 MEQ TABLET 40 MEQ PO (20:54)
[2021-03-14] VITALS (15 sets, daily range): BP systolic 125–135; BP diastolic 73–97; PULSE 84–94; RESP 16–22; TEMP 35.9–37.1; O2SAT 92–97
[2021-03-14] MEDS: IPRATROPIUM BR 0.02% INH SOLN 0.5 MG/2.5 ML VIAL INHALATION ×4 (02:42→20:54)
[2021-03-14] MEDS: ALBUTEROL SULFATE NEB 2.5 MG/0.5 ML INH 5 MG INHALATION ×4 (02:42→20:54)
[2021-03-14] MEDS: HYDROcodone/acetaminophen (*CRX) 7.5-325 MG TABLET 2 TAB PO ×3 (04:55→20:38)
[2021-03-14 06:48] LABS: Hematocrit 35.5 % (42.0-52.0); Hemoglobin 11.3 g/dL (14.0-18.0); Mean Corpuscular HGB Conc 31.8 g/dl (32-36); Mean Corpuscular Hemoglobin 29.8 pg (26-34); Mean Corpuscular Volume 93.7 fl (80-100); Mean Platelet Volume 9.7 fl (7.4-10.4); Platelet Count Result 275 k/mm3 (150-375); Red Blood Count 3.79 M/mm3 (4.6-6.20); White Blood Count 13.3 K/mm3 (4.5-10.0)
[2021-03-14 07:10] LABS: Albumin Level 3.9 g/dL (3.5-5.1); Blood Urea Nitrogen 14 mg/dL (9-20); Calcium 8.9 mg/dL (8.4-10.2); Carbon Dioxide > 40 mmol/L (22-30); Chloride 88 mmol/L (98-107); Estimated CRCL calculation 118 ml/min; Estimated Glomerular Filt Rate > 60; Glucose 136 mg/dL (65-110); Magnesium 2.1 mg/dL (1.6-2.3); Phosphorus 3.2 mg/dL (2.5-4.5); Potassium 3.2 mmol/L (3.4-5.0); Sodium 135 mmol/L (137-145)
[2021-03-14] MEDS: LIDOCAINE 5% PATCH 3 PATCH TRANSDERM (09:02)
[2021-03-14] MEDS: TOLNAFTATE 1% POWDER 45 GM BTL 1 APPLIC TOPICAL ×2 (09:05→20:44)
[2021-03-14] MEDS: ENOXAPARIN 40 MG/0.4 ML SYRINGE SUB-Q ×2 (09:05→20:40)
[2021-03-14] MEDS: FUROSEMIDE INJ 100 MG/10 ML VIAL 80 MG IV PUSH (09:06)
[2021-03-14] MEDS: CEPHALEXIN 500 MG CAPSULE PO ×2 (09:06→20:38)
[2021-03-14] MEDS: FLUTICASONE/SALMETEROL 115-21 MCG INHALER 1 PUFF 2 PUFF INHALATION (09:21)
--- NOTE | 2021-03-14 09:21 | PM.IMPN ---
Progress Note: A&P Assessment and Plan (1) Acute and chronic respiratory failure: Qualifiers: Respiratory failure complication: hypoxia and hypercapnia Qualified Code(s): J96.21 - Acute and chronic respiratory failure with hypoxia; J96.22 - Acute and chronic respiratory failure with hypercapnia Code(s): J96.20 - Acute and chronic respiratory failure, unspecified whether with hypoxia or hypercapnia Status: Acute Assessment and Plan: Patient was initially started on high-dose diuretic with Lasix 80 mg IV q.12 hours, with a very good diuretic response producing almost 4 L during the 1st few hours of admission. It was reduced decrease Lasix to 80 mg IV daily, with a very modest diuretic response. per cardiology recommendation will increase IV Lasix to 80 mg twice daily. Continue close monitoring of electrolytes. Hypokalemia was again low at 3.2 and was supplemented. Follow-up repeat potassium in 2 [facility] labs. 03/14/2021 Patient is tolerating CPAP, will continue with supportive ventilation. Patient potassium is still slightly low will continue to replace and monitor. Repeat labs in the morning. (2) Chronic respiratory failure with hypoxia, on home oxygen therapy: Code(s): J96.11 - Chronic respiratory failure with hypoxia; Z99.81 - Dependence on supplemental oxygen Status: Acute Assessment and Plan: Likely is multifactorial in the setting of supermorbid obesity, COPD, heart failure, obstructive sleep apnea. Patient is on chronic oxygen supplementation at 4 L at home. His current decompensation is likely related to acute fluid retention in the setting of heart failure, dietary indiscretion and non management of fluid overload. Patient was evaluated by Pulmonary. His vent setting were increased to 14/10, with improvement of sleep and respiratory function.. 03/06/2021 Patient is tolerating CPAP quite comfortably, will continue current treatment. (3) Chronic obstructive pulmonary disease: Qualifiers: COPD type: emphysema Emphysema type: unspecified Qualified Code(s): J43.9 - Emphysema, unspecified Code(s): J44.9 - Chronic obstructive pulmonary disease, unspecified Status: Acute Assessment and Plan: Patient will be started on scheduled albuterol and ipratropium. Currently there is no wheezing, cough or sputum production. There is no evidence of pneumonia on chest CT. There is no indication for antibiotics or steroids. (4) Morbid obesity: Code(s): E66.01 - Morbid (severe) obesity due to excess calories Status: Acute Assessment and Plan: Patient was thoroughly educated about the emergent need for calorie restriction, increase physical activity and weight loss. At this juncture he would benefit from admission to a specialized bariatric surgical unit. However given is many comorbidities, he is unlikely to be a candidate for any surgical intervention. We will refer him to a bariatric medicine unit upon discharge. (5) SILVANA (obstructive sleep apnea): Code(s): G47.33 - Obstructive sleep apnea (adult) (pediatric) Status: Acute Assessment and Plan: Continue BiPAP at home per new parameters(28/01). (6) Cellulitis of leg: Code(s): L03.119 - Cellulitis of unspecified part of limb Status: Acute Assessment and Plan: Improving left lower extremity cellulitis. Will continue cephalexin. (7) Heart failure: Code(s): I50.9 - Heart failure, unspecified Status: Acute Assessment and Plan: Her echocardiogram interpretation was challenging. Clearly patient is very symptomatic with lower extremity edema an difficulty breathing and has improved after high dose Lasix. BNP is only 118; however the clinical significance of BNP in obesity is uncertain. Additional Plan 03/14/2021 Patient has difficulty tolerating IV potassium, will switch to p.o. potassium increase to 2 twice a day 40 mEq. Patient breathing is better o
--- NOTE | 2021-03-14 11:12 | PM.PNCARD ---
Progress Note: A&P Additional Plan Acute on chronic diastolic heart failure, morbid obesity, SOB is likely multifactorial including morbid obesity, plan cont lasix IV 80 mg IV BID, f/u renal function Subjective Date/time seen: 03/14/21 11:12 Interval history: no acute events sleepy and on CPAP Review of Systems Review of Systems: All systems reviewed & are unremarkable except as noted in HPI and below Exam Const: General: comfortable and no acute distress Neck: Neck: other (can't aasess neck vein) Resp: Auscultation: rales and diminished lung sounds Cardio: Rate: regular rate Rhythm: regular rhythm Heart sounds: no murmurs Skin: General skin exam: erythema and other (edema) Objective Data Vital Signs Vital Signs: Vital Signs - 24 hr 03/13/21 14:38 03/13/21 15:09 03/13/21 15:18 Temperature 36.8 C Pulse Rate 97 97 104 H Respiratory Rate 14 18 18 Blood Pressure 110/68 Pulse Oximetry 92 03/13/21 20:00 03/13/21 21:06 03/13/21 21:08 Temperature Pulse Rate 93 99 Respiratory Rate 20 25 H Blood Pressure Pulse Oximetry 100 97 03/13/21 21:10 03/13/21 21:12 03/13/21 21:40 Temperature 36.5 C Pulse Rate 99 100 93 Respiratory Rate 22 H 25 H 20 Blood Pressure 145/79 H Pulse Oximetry 97 100 03/14/21 02:45 03/14/21 02:46 03/14/21 05:27 Temperature 37.1 C Pulse Rate 93 93 84 Respiratory Rate 16 16 20 Blood Pressure 126/73 Pulse Oximetry 97 97 03/14/21 09:22 03/14/21 09:23 03/14/21 09:29 Temperature Pulse Rate 91 Respiratory Rate 18 Blood Pressure Pulse Oximetry 92 93 03/14/21 09:32 Temperature Pulse Rate 88 Respiratory Rate 18 Blood Pressure Pulse Oximetry Intake/Output Intake/Output: Intake & Output 03/11/21 03/12/21 03/13/21 03/14/21 23:59 23:59 23:59 23:59 Intake Total 2440 1146 1966.1 360 Output Total 3925 400 3250 Balance -1485 746 1283.9 360 Meds/Results Medications: Active Medications Generic Name Dose Route Start Last Admin Trade Name Freq PRN Reason Stop Dose Admin Acetaminophen 650 mg 03/10/21 02:22 Acetaminophen 325 Mg Tablet PO Q4H PRN Mild Pain (1-3) or Fever Hydrocodone Bitart/Acetaminophen 2 tab 03/12/21 13:13 03/14/21 04:55 Hydrocodone/Acetaminophen (*Crx) 7.5-325 Mg Tablet PO 2 tab Q6H PRN Administration Pain Rated 7-10 Acetazolamide 125 mg 03/12/21 18:05 03/14/21 09:06 Acetazolamide Tab 125 Mg Tablet PO 125 mg QAM LUIS Administration Albuterol 5 mg 03/10/21 14:00 03/14/21 09:20 Albuterol Sulfate Neb 2.5 Mg/0.5 Ml Inh INHALATION 5 mg Q6HRT LUIS Administration Cephalexin HCl 500 mg 03/10/21 09:00 03/14/21 09:06 Cephalexin 500 Mg Capsule PO 500 mg Q12HR LUIS Administration Enoxaparin Sodium 40 mg 03/10/21 21:00 03/14/21 09:05 Enoxaparin 40 Mg/0.4 Ml Syringe SUB-Q 40 mg Q12HR LUIS Administration Furosemide 80 mg 03/13/21 17:00 03/14/21 09:06 Furosemide Inj 100 Mg/10 Ml Vial IV PUSH 80 mg BID LUIS Administration Ipratropium [place] 0.5 mg 03/10/21 14:00 03/14/21 09:20 Ipratropium Br 0.02% Inh Soln 0.5 Mg/2.5 Ml Vial INHALATION 0.5 mg Q6HRT LUIS Administration Lidocaine 3 patch 03/12/21 09:00 03/14/21 09:02 Lidocaine 5% Patch TRANSDERM 3 patch DAILY LUIS Administration Lorazepam 1 mg 03/10/21 12:52 Lorazepam (*Crx) 1 Mg Tablet PO Q4H PRN Anxiety Magnesium Oxide 400 mg 03/14/21 10:00 Magnesium Oxide 400 Mg Tablet PO DAILY [facility] Potassium Chloride 40 meq 03/14/21 10:00 Potassium Chloride 20 Meq Packet (For Liquid) PO BID [facility] Fluticasone/Salmeterol 2 puff 03/10/21 20:00 03/14/21 09:21 Fluticasone/Salmeterol 115-21 Mcg Inhaler 1 Puff INHALATION 2 puff Q12HRT [facility] Administration Tolnaftate 1 applic 03/10/21 21:00 03/14/21 09:05 Tolnaftate 1% Powder 45 Gm Btl TOPICAL 1 applic Q12HR LUIS Administration Umeclidinium [place] 1 puff 03/11/21 09:0
[2021-03-14] MEDS: MAGNESIUM OXIDE 400 MG TABLET PO (11:25)
[2021-03-14] MEDS: POTASSIUM CHLORIDE 20 MEQ PACKET (FOR LIQUID) 40 MEQ PO ×2 (11:28→17:08)
--- NOTE | 2021-03-14 13:01 | PM.PNPUL ---
Progress Note: A&P Assessment and Plan (1) SILVANA (obstructive sleep apnea): Code(s): G47.33 - Obstructive sleep apnea (adult) (pediatric) Status: Acute (2) Chronic respiratory failure with hypoxia, on home oxygen therapy: Code(s): J96.11 - Chronic respiratory failure with hypoxia; Z99.81 - Dependence on supplemental oxygen Status: Acute Assessment and Plan: respiratory status stable over the last 24 hours, patient using BiPAP support at night and p.r.n. during the day. .Has been on treatment for lower extremity edema and also for possible cellulitis. Will continue with current BiPAP treatment. Out of bed to chair. (3) Chronic obstructive pulmonary disease: Qualifiers: COPD type: emphysema Emphysema type: unspecified Qualified Code(s): J43.9 - Emphysema, unspecified Code(s): J44.9 - Chronic obstructive pulmonary disease, unspecified Status: Acute (4) Obesity hypoventilation syndrome: Code(s): E66.2 - Morbid (severe) obesity with alveolar hypoventilation Status: Acute (5) Morbid obesity: Code(s): E66.01 - Morbid (severe) obesity due to excess calories Status: Acute (6) Bilateral edema of lower extremity: Code(s): R60.0 - Localized edema Status: Acute Subjective Date/time seen: 03/14/21 13:01 patient without any new respiratory symptoms. Using BiPAP at night and also p.r.n. during the day. On treatment for lower extremity edema. Review of Systems Review of Systems: All systems reviewed & are unremarkable except as noted in HPI and below Exam Narrative: GENERAL APPEARANCE: Well developed, well nourished, morbidly obese, alert and cooperative, who appears to be in no acute distress while on supplemental oxygen SKIN: Inspection of the skin reveals no rashes, ulcerations or petechiae. HEENT: Sclerae anicteric and conjunctivae pink and moist. Extraocular movements were intact and pupils were equal, round, and reactive to light. The oral mucosa, hard and soft palate, tongue and posterior pharynx were normal. edentulous. NECK: Supple. There was no thyroid enlargement, and no tenderness, or masses were felt. LUNGS: Auscultation of the lungs revealed normal breath sounds without any other adventitious sounds or rubs. CARDIAC: There was a regular rate and rhythm without any murmurs, gallops, rubs. ABDOMEN: obese soft nontender, soft and nontender. LYMPH NODES: No lymphadenopathy was appreciated in the neck. EXTREMITIES: No cyanosis, clubbing; 2+ lower extremity edema. NEUROLOGIC: Alert and oriented x 3. Normal affect. Objective Data Vital Signs Vital Signs: Vital Signs - 24 hr 03/13/21 14:38 03/13/21 15:09 03/13/21 15:18 Temperature 36.8 C Pulse Rate 97 97 104 H Respiratory Rate 14 18 18 Blood Pressure 110/68 Pulse Oximetry 92 03/13/21 20:00 03/13/21 21:06 03/13/21 21:08 Temperature Pulse Rate 93 99 Respiratory Rate 20 25 H Blood Pressure Pulse Oximetry 100 97 03/13/21 21:10 03/13/21 21:12 03/13/21 21:40 Temperature 36.5 C Pulse Rate 99 100 93 Respiratory Rate 22 H 25 H 20 Blood Pressure 145/79 H Pulse Oximetry 97 100 03/14/21 02:45 03/14/21 02:46 03/14/21 05:27 Temperature 37.1 C Pulse Rate 93 93 84 Respiratory Rate 16 16 20 Blood Pressure 126/73 Pulse Oximetry 97 97 03/14/21 09:22 03/14/21 09:23 03/14/21 09:29 Temperature Pulse Rate 91 Respiratory Rate 18 Blood Pressure Pulse Oximetry 92 93 03/14/21 09:32 Temperature Pulse Rate 88 Respiratory Rate 18 Blood Pressure Pulse Oximetry Intake/Output Intake/Output: Intake & Output 03/11/21 03/12/21 03/13/21 03/14/21 23:59 23:59 23:59 23:59 Intake Total 2440 1146 1966.1 360 Output Total 3925 400 3250 Balance -1485 746 -1283.9 360 Meds/Results Medications: Active Medications Generic Name Dose Route Start Last Admin Trade Name Freq PRN Reason Stop Dose Admin Acetaminophen 65
[2021-03-14] MEDS: FUROSEMIDE 80 MG TABLET PO (17:08)
[2021-03-15] VITALS (14 sets, daily range): BP systolic 94–153; BP diastolic 36–94; PULSE 77–93; RESP 18–24; TEMP 36.1–36.6; O2SAT 91–97
--- NOTE | 2021-03-15 02:35 | PCRCNOTE ---
therapist set up pt home unit in room. when asked if he would like to be placed on it, he said yes, but I need my machine to match the settings on the hospital machine. when the therapist told him that we can not change home unit settings, he was very upset. when asked if he wanted to wear the hospital unit instead, he stated that he may want to later in the evening.
[2021-03-15] MEDS: IPRATROPIUM BR 0.02% INH SOLN 0.5 MG/2.5 ML VIAL INHALATION ×3 (02:39→20:46)
[2021-03-15] MEDS: ALBUTEROL SULFATE NEB 2.5 MG/0.5 ML INH 5 MG INHALATION ×3 (02:39→20:46)
[2021-03-15] MEDS: HYDROcodone/acetaminophen (*CRX) 7.5-325 MG TABLET 2 TAB PO ×2 (05:22→15:27)
[2021-03-15 07:30] LABS: Hematocrit 34.7 % (42.0-52.0); Hemoglobin 10.9 g/dL (14.0-18.0); Mean Corpuscular HGB Conc 31.4 g/dl (32-36); Mean Corpuscular Hemoglobin 30.4 pg (26-34); Mean Corpuscular Volume 96.7 fl (80-100); Mean Platelet Volume 9.4 fl (7.4-10.4); Platelet Count Result 254 k/mm3 (150-375); Red Blood Count 3.59 M/mm3 (4.6-6.20); Red Cell Distribution Width 15.6 % (11.5-14.5)
[2021-03-15 07:36] LABS: Albumin Level 3.9 g/dL (3.5-5.1); Blood Urea Nitrogen 14 mg/dL (9-20); Calcium 8.8 mg/dL (8.4-10.2); Carbon Dioxide > 40 mmol/L (22-30); Chloride 88 mmol/L (98-107); Estimated CRCL calculation 118 ml/min; Estimated Glomerular Filt Rate > 60; Glucose 134 mg/dL (65-110); Magnesium 2.2 mg/dL (1.6-2.3); Sodium 134 mmol/L (137-145)
[2021-03-15] MEDS: CEPHALEXIN 500 MG CAPSULE PO ×2 (08:47→21:52)
[2021-03-15] MEDS: ENOXAPARIN 40 MG/0.4 ML SYRINGE SUB-Q ×2 (08:47→21:53)
[2021-03-15] MEDS: MAGNESIUM OXIDE 400 MG TABLET PO (08:47)
[2021-03-15] MEDS: LIDOCAINE 5% PATCH 3 PATCH TRANSDERM (08:47)
[2021-03-15] MEDS: FUROSEMIDE 80 MG TABLET PO ×2 (08:47→16:21)
[2021-03-15] MEDS: POTASSIUM CHLORIDE 20 MEQ PACKET (FOR LIQUID) 40 MEQ PO ×2 (08:47→16:21)
[2021-03-15] MEDS: TOLNAFTATE 1% POWDER 45 GM BTL 1 APPLIC TOPICAL ×2 (08:48→21:53)
[2021-03-15] MEDS: UMECLIDINIUM BROMIDE 62.5 MCG ELLIPTA 1 PUFF INHALATION (08:57)
[2021-03-15] MEDS: FLUTICASONE/SALMETEROL 115-21 MCG INHALER 1 PUFF 2 PUFF INHALATION ×2 (08:57→20:46)
--- NOTE | 2021-03-15 10:16 | PM.PNCARD ---
Progress Note: A&P Assessment and Plan (1) Heart failure: Code(s): I50.9 - Heart failure, unspecified Status: Acute Assessment and Plan: Acute on chronic diastolic HF. CXR on admission showed pulmonary vascular congestion. significant BLE edema but his cellulitis is contributing to this as well Diuresis with furosemide 80mg IV b.i.d. Renal function stable today. Continue with IV furosemide. (2) Cellulitis of leg: Code(s): L03.119 - Cellulitis of unspecified part of limb Status: Acute Assessment and Plan: On abx. Management per primary service. (3) Bilateral edema of lower extremity: Code(s): R60.0 - Localized edema Status: Acute Assessment and Plan: Secondary to cellulitis and CHF exacerbation. Diuresis and treatment of cellulitis with abx (4) Acute respiratory failure: Qualifiers: Respiratory failure complication: hypoxia and hypercapnia Qualified Code(s): J96.01 - Acute respiratory failure with hypoxia; J96.02 - Acute respiratory failure with hypercapnia Code(s): J96.00 - Acute respiratory failure, unspecified whether with hypoxia or hypercapnia Status: Acute Assessment and Plan: Probably multifactorial secondary to morbid obesity, CHF. Subjective Date/time seen: 03/15/21 10:16 Interval history: Cardiology follow up for CHF Date of service 03/15/2021: Complaining of pain in his knees and being tired because he did not sleep well last night. Denies chest pain, shortness of breath. Review of Systems Review of Systems: All systems reviewed & are unremarkable except as noted in HPI and below Exam Const: General: comfortable, no acute distress and tired appearing Nutritional Appearance: obese and edematous HENMT: Head: normal to inspection Ears: hearing grossly normal bilaterally General nose exam: Normal nares present and no epistaxis Mouth: Yes moist mucous membranes Eyes: Sclera: sclerae normal Pupils: Equal, round and reactive pupils present Neck: Neck: supple Carotids: no bruits Other: JVD impossible to assess due to body habitus Resp: Auscultation: clear to auscultation bilaterally, rales and diminished lung sounds Cardio: Rate: regular rate Rhythm: regular rhythm Heart sounds: no gallops, no murmurs and no rubs GI: Auscultation: normal bowel sounds Skin: General skin exam: normal color, rashes and/or lesions noted and erythema Neuro: General: patient oriented x3 Cranial nerves: Yes Equal, round and reactive pupils present Speech: normal speech Extrem: General: edema Other: Edema and erythema on BLE extending from ankles to knees Objective Data Vital Signs Vital Signs: Vital Signs - 24 hr 03/14/21 14:00 03/14/21 14:39 03/14/21 14:49 Temperature 36.7 C Pulse Rate 92 86 89 Respiratory Rate 20 20 20 Blood Pressure 125/82 Pulse Oximetry 95 03/14/21 20:00 03/14/21 20:55 03/14/21 20:59 Temperature Pulse Rate 89 92 Respiratory Rate 22 H 18 Blood Pressure Pulse Oximetry 97 93 03/14/21 21:05 03/14/21 22:00 03/15/21 02:44 Temperature 35.9 C L Pulse Rate 94 89 90 Respiratory Rate 18 22 H Blood Pressure 135/97 H Pulse Oximetry 97 91 03/15/21 02:45 03/15/21 02:54 03/15/21 06:00 Temperature 36.6 C Pulse Rate 90 92 88 Respiratory Rate 18 18 18 Blood Pressure 94/36 L Pulse Oximetry 93 03/15/21 06:44 03/15/21 08:58 03/15/21 09:10 Temperature Pulse Rate 85 88 Respiratory Rate 18 18 Blood Pressure 96/42 L Pulse Oximetry 95 Intake/Output Intake/Output: Intake & Output 03/12/21 03/13/21 03/14/21 03/15/21 23:59 23:59 23:59 23:59 Intake Total 1146 1966.1 1760 900 Output Total 400 3250 900 Balance 746 -1283.9 1760 0 Meds/Results Medications: Active Medications Generic Name Dose Route Start Last Admin Trade Name Freq PRN Reason Stop Dose Admin Acetaminophen 650 mg 03/10/21 02:22 Acetaminophen 325 Mg Tablet PO
--- NOTE | 2021-03-15 11:27 | PM.PNPUL ---
Progress Note: A&P Assessment and Plan (1) SILVANA (obstructive sleep apnea): Code(s): G47.33 - Obstructive sleep apnea (adult) (pediatric) Status: Acute (2) Chronic respiratory failure with hypoxia, on home oxygen therapy: Code(s): J96.11 - Chronic respiratory failure with hypoxia; Z99.81 - Dependence on supplemental oxygen Status: Acute Assessment and Plan: respiratory status stable over the last 24 hours, Patient will continue with his own home ventilator at night. Ventilator is set at target ventilation 8 liters/minute, minimum EPAP 5 cm of water pressure, maximum EPAP 10 cm water, minimal pressure support 8 and maximum pressure support 20, target patient rate 14 and with auto EPAP on. will measure overnight oximetry to exclude oxyhemoglobin desaturation. (3) Chronic obstructive pulmonary disease: Qualifiers: COPD type: emphysema Emphysema type: unspecified Qualified Code(s): J43.9 - Emphysema, unspecified Code(s): J44.9 - Chronic obstructive pulmonary disease, unspecified Status: Acute (4) Obesity hypoventilation syndrome: Code(s): E66.2 - Morbid (severe) obesity with alveolar hypoventilation Status: Acute (5) Morbid obesity: Code(s): E66.01 - Morbid (severe) obesity due to excess calories Status: Acute (6) Bilateral edema of lower extremity: Code(s): R60.0 - Localized edema Status: Acute Subjective Date/time seen: 03/15/21 11:27 Patient use his own home ventilator last night. Stated that he slept better on his own home ventilator which Astral with iVaps/AutoEPAP. still with lower extremity edema but less than before. No other new respiratory complaints. Review of Systems Review of Systems: All systems reviewed & are unremarkable except as noted in HPI and below Exam Narrative: GENERAL APPEARANCE: Well developed, well nourished, morbidly obese, alert and cooperative, who appears to be in no acute distress while on supplemental oxygen SKIN: Inspection of the skin reveals no rashes, ulcerations or petechiae. HEENT: Sclerae anicteric and conjunctivae pink and moist. Extraocular movements were intact and pupils were equal, round, and reactive to light. The oral mucosa, hard and soft palate, tongue and posterior pharynx were normal. edentulous. NECK: Supple. There was no thyroid enlargement, and no tenderness, or masses were felt. LUNGS: Auscultation of the lungs revealed normal breath sounds without any other adventitious sounds or rubs. CARDIAC: There was a regular rate and rhythm without any murmurs, gallops, rubs. ABDOMEN: obese soft nontender, soft and nontender. LYMPH NODES: No lymphadenopathy was appreciated in the neck. EXTREMITIES: No cyanosis, clubbing; 2+ lower extremity edema. NEUROLOGIC: Alert and oriented x 3. Normal affect. Objective Data Vital Signs Vital Signs: Vital Signs - 24 hr 03/14/21 14:00 03/14/21 14:39 03/14/21 14:49 Temperature 36.7 C Pulse Rate 92 86 89 Respiratory Rate 20 20 20 Blood Pressure 125/82 Pulse Oximetry 95 03/14/21 20:00 03/14/21 20:55 03/14/21 20:59 Temperature Pulse Rate 89 92 Respiratory Rate 22 H 18 Blood Pressure Pulse Oximetry 97 93 03/14/21 21:05 03/14/21 22:00 03/15/21 02:44 Temperature 35.9 C L Pulse Rate 94 89 90 Respiratory Rate 18 22 H Blood Pressure 135/97 H Pulse Oximetry 97 91 03/15/21 02:45 03/15/21 02:54 03/15/21 06:00 Temperature 36.6 C Pulse Rate 90 92 88 Respiratory Rate 18 18 18 Blood Pressure 94/36 L Pulse Oximetry 93 03/15/21 06:44 03/15/21 08:00 03/15/21 08:58 Temperature Pulse Rate 88 85 Respiratory Rate 18 18 Blood Pressure 96/42 L Pulse Oximetry 95 95 03/15/21 09:10 Temperature Pulse Rate 88 Respiratory Rate 18 Blood Pressure Pulse Oximetry Intake/Output Intake/Output: Intake & Output 03/12/21 03/13/21 03/14/21 03/15/21 23:59 23:59 23:59 23:59 Intake Total 1146 19
--- NOTE | 2021-03-15 11:31 | PCOTNOTE ---
Attempted to see patient this AM. Pt. asleep upon entrance per RN okay to wake up. Pt. refused occupational therapy this Am stating Gosh, I just got up. Can you please come back after lunch.
--- NOTE | 2021-03-15 15:28 | PM.IMPN ---
Progress Note: A&P Assessment and Plan (1) Acute and chronic respiratory failure: Qualifiers: Respiratory failure complication: hypoxia and hypercapnia Qualified Code(s): J96.21 - Acute and chronic respiratory failure with hypoxia; J96.22 - Acute and chronic respiratory failure with hypercapnia Code(s): J96.20 - Acute and chronic respiratory failure, unspecified whether with hypoxia or hypercapnia Status: Acute Assessment and Plan: S/p high-dose diuretic with Lasix 80 mg IV q.12 hours, with a very good diuretic response, producing almost 4 L during the 1st few hours of admission. Reduced decrease Lasix to 80 mg IV daily, per cardiology recommendation increased IV Lasix to 80 mg twice daily Patient is tolerating CPAP, will continue with supportive ventilation Patient potassium is still slightly low will continue to replace and monitor BMP in the morning (2) Chronic respiratory failure with hypoxia, on home oxygen therapy: Code(s): J96.11 - Chronic respiratory failure with hypoxia; Z99.81 - Dependence on supplemental oxygen Status: Acute Assessment and Plan: Likely is multifactorial in the setting of supermorbid obesity, COPD, heart failure, obstructive sleep apnea Chronic oxygen supplementation at 4 L at home Pulmonary following, recommendations appreciated, vent settings 28/01 Patient is tolerating CPAP quite comfortably Plan for overnight oximetry (3) Chronic obstructive pulmonary disease: Qualifiers: COPD type: emphysema Emphysema type: unspecified Qualified Code(s): J43.9 - Emphysema, unspecified Code(s): J44.9 - Chronic obstructive pulmonary disease, unspecified Status: Acute Assessment and Plan: Continue scheduled albuterol and ipratropium. No wheezing, cough or sputum production No evidence of pneumonia on chest CT; no indication for antibiotics or steroids (4) Morbid obesity: Code(s): E66.01 - Morbid (severe) obesity due to excess calories Status: Acute Assessment and Plan: Patient was thoroughly educated about the emergent need for calorie restriction, increase physical activity and weight loss At this juncture he would benefit from admission to a specialized bariatric surgical unit, however given is many comorbidities, he is unlikely to be a candidate for any surgical intervention We will refer him to a bariatric medicine unit upon discharge (5) SILVANA (obstructive sleep apnea): Code(s): G47.33 - Obstructive sleep apnea (adult) (pediatric) Status: Acute Assessment and Plan: Continue BiPAP at home per new parameters (28/01) (6) Cellulitis of leg: Code(s): L03.119 - Cellulitis of unspecified part of limb Status: Acute Assessment and Plan: Improving left lower extremity cellulitis Continue cephalexin (7) Heart failure: Code(s): I50.9 - Heart failure, unspecified Status: Acute Assessment and Plan: Echocardiogram-->Very technically difficult study with limited views. This study is nearly uninterruptible. Very symptomatic with lower extremity edema an difficulty breathing and has improved after high dose Lasix BNP is only 118; however the clinical significance of BNP in obesity is uncertain Continue diuresing per cardiology I/O Monitor Additional Plan Code status: FULL Subjective Date/time seen: 03/15/21 15:28 Interval history: 03/14 Patient has difficulty tolerating IV potassium, will switch to p.o. potassium increase to 2 twice a day 40 mEq. Patient breathing is better on CPAP will continue current treatment. Plan is to continue with supportive care, continue CPAP, continue with antibiotic for cellulitis. Replace and monitor electrolytes. 03/15 Pt seen this a.m.; labs, vs, diagnostic reports, consult notes reviewed; pt complains of BLE pain Review of Systems Review of Systems: All systems reviewed & are unremarkable except as noted in HPI and below Exam
[2021-03-16] VITALS (14 sets, daily range): BP systolic 98–133; BP diastolic 67–77; PULSE 75–91; RESP 16–20; TEMP 35.8–36.7; O2SAT 93–100
[2021-03-16 03:05] LABS: Osmolality, Urine 669 mOsm/kg (50-1200)
[2021-03-16 06:46] LABS: Hematocrit 35.4 % (42.0-52.0); Hemoglobin 11.3 g/dL (14.0-18.0); Mean Corpuscular HGB Conc 31.9 g/dl (32-36); Mean Corpuscular Hemoglobin 30.4 pg (26-34); Mean Corpuscular Volume 95.2 fl (80-100); Mean Platelet Volume 9.5 fl (7.4-10.4); Platelet Count Result 250 k/mm3 (150-375); Red Blood Count 3.72 M/mm3 (4.6-6.20); Red Cell Distribution Width 15.6 % (11.5-14.5)
[2021-03-16 07:07] LABS: Albumin Level 3.8 g/dL (3.5-5.1); Blood Urea Nitrogen 13 mg/dL (9-20); Calcium 8.8 mg/dL (8.4-10.2); Carbon Dioxide > 40 mmol/L (22-30); Chloride 89 mmol/L (98-107); Estimated CRCL calculation 129 ml/min; Estimated Glomerular Filt Rate > 60; Glucose 129 mg/dL (65-110); Magnesium 2.3 mg/dL (1.6-2.3); Phosphorus 3.1 mg/dL (2.5-4.5); Sodium 135 mmol/L (137-145)
[2021-03-16 07:23] LABS: Kappa\\Lambda Light Chains 1.27 (0.26-1.65); Lambda Light Chain 42.7 mg/L (5.7-26.3)
[2021-03-16] MEDS: CEPHALEXIN 500 MG CAPSULE PO ×2 (08:05→21:35)
[2021-03-16] MEDS: MAGNESIUM OXIDE 400 MG TABLET PO (08:05)
[2021-03-16] MEDS: FUROSEMIDE 80 MG TABLET PO ×2 (08:05→17:20)
[2021-03-16] MEDS: POTASSIUM CHLORIDE 20 MEQ PACKET (FOR LIQUID) 40 MEQ PO ×2 (08:05→17:20)
[2021-03-16] MEDS: ENOXAPARIN 40 MG/0.4 ML SYRINGE SUB-Q ×2 (08:05→21:34)
[2021-03-16] MEDS: LIDOCAINE 5% PATCH 3 PATCH TRANSDERM (08:05)
[2021-03-16] MEDS: TOLNAFTATE 1% POWDER 45 GM BTL 1 APPLIC TOPICAL ×2 (08:06→21:36)
[2021-03-16] MEDS: HYDROcodone/acetaminophen (*CRX) 7.5-325 MG TABLET 2 TAB PO ×3 (08:14→21:47)
[2021-03-16] MEDS: IPRATROPIUM BR 0.02% INH SOLN 0.5 MG/2.5 ML VIAL INHALATION ×3 (08:41→20:32)
[2021-03-16] MEDS: UMECLIDINIUM BROMIDE 62.5 MCG ELLIPTA 1 PUFF INHALATION (08:41)
[2021-03-16] MEDS: ALBUTEROL SULFATE NEB 2.5 MG/0.5 ML INH 5 MG INHALATION ×3 (08:41→20:32)
[2021-03-16] MEDS: FLUTICASONE/SALMETEROL 115-21 MCG INHALER 1 PUFF 2 PUFF INHALATION ×2 (08:41→20:32)
--- NOTE | 2021-03-16 09:15 | PM.PNCARD ---
Progress Note: A&P Assessment and Plan (1) Heart failure: Code(s): I50.9 - Heart failure, unspecified Status: Acute Assessment and Plan: Acute on chronic diastolic HF. CXR on admission showed pulmonary vascular congestion. Significant BLE edema but his cellulitis is contributing to this as well. Diuresis with furosemide 80mg p.o. b.i.d. He is on Diamox as well. Renal function remains stable. K+ 3.0 this a.m. despite scheduled KCL b.i.d. Will give an additional 20 mEq p.o. (2) Cellulitis of leg: Code(s): L03.119 - Cellulitis of unspecified part of limb Status: Acute Assessment and Plan: On abx. Improving. Management per primary service. (3) Bilateral edema of lower extremity: Code(s): R60.0 - Localized edema Status: Acute Assessment and Plan: Secondary to cellulitis and CHF exacerbation. Diuresis and treatment of cellulitis with abx (4) Acute respiratory failure: Qualifiers: Respiratory failure complication: hypoxia and hypercapnia Qualified Code(s): J96.01 - Acute respiratory failure with hypoxia; J96.02 - Acute respiratory failure with hypercapnia Code(s): J96.00 - Acute respiratory failure, unspecified whether with hypoxia or hypercapnia Status: Acute Assessment and Plan: Probably multifactorial secondary to morbid obesity, CHF. Subjective Date/time seen: 03/16/21 09:15 Interval history: Cardiology follow up for CHF Date of service 03/15/2021: Complaining of pain in his knees and being tired because he did not sleep well last night. Denies chest pain, shortness of breath. Date of service 03/16/2021: Feeling much better today. His swelling and erythema to lower legs has improved. Feels less short of breath today. Review of Systems Review of Systems: All systems reviewed & are unremarkable except as noted in HPI and below Exam Const: General: comfortable, no acute distress and tired appearing Nutritional Appearance: obese and edematous Orientation/consciousness: patient oriented x3 Other: Morbidly obese causasian gentleman sitting up in the chair. HENMT: Head: normal to inspection Ears: hearing grossly normal bilaterally General nose exam: Normal nares present and no epistaxis Mouth: Yes moist mucous membranes Eyes: Sclera: sclerae normal Pupils: Equal, round and reactive pupils present Neck: Neck: supple Carotids: no bruits Other: JVD impossible to assess due to body habitus Resp: Auscultation: clear to auscultation bilaterally, rales and diminished lung sounds Cardio: Rate: regular rate Rhythm: regular rhythm Heart sounds: no gallops, no murmurs and no rubs GI: Auscultation: normal bowel sounds Skin: General skin exam: normal color, rashes and/or lesions noted and erythema Neuro: General: patient oriented x3 Cranial nerves: Yes Equal, round and reactive pupils present Speech: normal speech Extrem: General: edema Other: Edema and erythema on BLE left worse than right. Improving. Objective Data Vital Signs Vital Signs: Vital Signs - 24 hr 03/15/21 14:00 03/15/21 16:04 03/15/21 16:11 Temperature 36.2 C L Pulse Rate 93 77 80 Respiratory Rate 24 H 18 18 Blood Pressure 103/45 L Pulse Oximetry 96 03/15/21 20:00 03/15/21 20:49 03/15/21 20:58 Temperature 36.1 C L Pulse Rate 90 78 82 Respiratory Rate 18 18 18 Blood Pressure 153/94 H Pulse Oximetry 94 94 03/16/21 00:00 03/16/21 01:53 03/16/21 04:00 Temperature 36.1 C L 35.8 C L Pulse Rate 90 80 Respiratory Rate 18 18 Blood Pressure 131/67 121/75 Pulse Oximetry 94 95 95 03/16/21 08:00 03/16/21 08:42 03/16/21 08:50 Temperature 36.1 C L Pulse Rate 80 82 88 Respiratory Rate 20 18 18 Blood Pressure 133/77 Pulse Oximetry 100 95 Intake/Output Intake/Output: Intake & Output 03/13/21 03/14/21 03/15/21 03/16/21 23:59 23:59 23:59 23:59 Intake Total 1966.1 1760 1814 868 Output Total 3250 2250 35
[2021-03-16] MEDS: POTASSIUM CHLORIDE 20 MEQ TABLET PO (11:49)
--- NOTE | 2021-03-16 12:32 | PM.PNPUL ---
Progress Note: A&P Assessment and Plan (1) SILVANA (obstructive sleep apnea): Code(s): G47.33 - Obstructive sleep apnea (adult) (pediatric) Status: Acute (2) Chronic respiratory failure with hypoxia, on home oxygen therapy: Code(s): J96.11 - Chronic respiratory failure with hypoxia; Z99.81 - Dependence on supplemental oxygen Status: Acute Assessment and Plan: respiratory status stable over the last 24 hours. Apnea link report showed that the average saturation was 94% and the low saturation 67%. He had approximately 71 desaturations with the saturation less than 85% lasting approximately 9 minutes or 3%. Furthermore the AHI was 20.2 These measurements were made while the patient was on his home ventilator Astra. Patient could not remember when and where he had the last sleep study and who ordered the noninvasive home ventilator. 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 The patient will need adjustment of his ventilator settings probably changing the auto EPAP pressure (current 5-10). I instructed the patient to go back to his auto air conditioning installer for further management and possibly a new sleep study. We will sign off. (3) Chronic obstructive pulmonary disease: Qualifiers: COPD type: emphysema Emphysema type: unspecified Qualified Code(s): J43.9 - Emphysema, unspecified Code(s): J44.9 - Chronic obstructive pulmonary disease, unspecified Status: Acute (4) Obesity hypoventilation syndrome: Code(s): E66.2 - Morbid (severe) obesity with alveolar hypoventilation Status: Acute (5) Morbid obesity: Code(s): E66.01 - Morbid (severe) obesity due to excess calories Status: Acute (6) Bilateral edema of lower extremity: Code(s): R60.0 - Localized edema Status: Acute Subjective Date/time seen: 03/16/21 12:32 Patient stated he feels better. Slept well last night on his home ventilator. Underwent nocturnal oximetry last night. Review of Systems Review of Systems: All systems reviewed & are unremarkable except as noted in HPI and below Exam Narrative: GENERAL APPEARANCE: Well developed, well nourished, morbidly obese, alert and cooperative, who appears to be in no acute distress while on supplemental oxygen SKIN: Inspection of the skin reveals no rashes, ulcerations or petechiae. HEENT: Sclerae anicteric and conjunctivae pink and moist. Extraocular movements were intact and pupils were equal, round, and reactive to light. The oral mucosa, hard and soft palate, tongue and posterior pharynx were normal. edentulous. NECK: Supple. There was no thyroid enlargement, and no tenderness, or masses were felt. LUNGS: Auscultation of the lungs revealed normal breath sounds without any other adventitious sounds or rubs. CARDIAC: There was a regular rate and rhythm without any murmurs, gallops, rubs. ABDOMEN: obese soft nontender, soft and nontender. LYMPH NODES: No lymphadenopathy was appreciated in the neck. EXTREMITIES: No cyanosis, clubbing; 2+ lower extremity edema. NEUROLOGIC: Alert and oriented x 3. Normal affect. Objective Data Vital Signs Vital Signs: Vital Signs - 24 hr 03/15/21 14:00 03/15/21 16:04 03/15/21 16:11 Temperature 36.2 C L Pulse Rate 93 77 80 Respiratory Rate 24 H 18 18 Blood Pressure 103/45 L Pulse Oximetry 96 03/15/21 20:00 03/15/21 20:49 03/15/21 20:58 Temperature 36.1 C L Pulse Rate 90 78 82 Respiratory Rate 18 18 18 Blood Pressure 153/94 H Pulse Oximetry 94 94 03/16/21 00:00 03/16/21 01:53 03/16/21 04:00 Temperature 36.1 C L 35.8 C L Pulse Rate 90 80 Respiratory Rate 18 18 Blood Pressure 131/67 121/75 Pulse Oximetry 94 95 95 03/16/21 08:00 03/16/21 08:42 03/16/21 08:50 Temperature 36.1 C L Pulse Rate 80 82 88 Respiratory Rate 20 18 18 Blood Pressure 133/77 Pulse Oximetry 100 95 03/16/21 12:00 Temperature 36.7 C Pulse Rate 75 Respiratory Rate 16 Blood Pressure 98/72 L Pulse Oxim
[2021-03-16 15:13] LABS: Albumin 3.5 g/dL (3.8-4.8); Alpha 1 Globulin 0.5 g/dL (0.2-0.3); Alpha 2 Globulin 0.9 g/dL (0.5-0.9); Beta 1 Globulin 0.6 g/dL (0.4-0.6); Gamma Globulin 0.9 g/dL (0.8-1.7); Protein, Total 6.9 g/dL (6.1-8.1)
--- NOTE | 2021-03-16 16:04 | PM.IMPN ---
Progress Note: A&P Assessment and Plan (1) Acute and chronic respiratory failure: Qualifiers: Respiratory failure complication: hypoxia and hypercapnia Qualified Code(s): J96.21 - Acute and chronic respiratory failure with hypoxia; J96.22 - Acute and chronic respiratory failure with hypercapnia Code(s): J96.20 - Acute and chronic respiratory failure, unspecified whether with hypoxia or hypercapnia Status: Acute Assessment and Plan: S/p high-dose diuretic with Lasix 80 mg IV q.12 hours, with a very good diuretic response, producing almost 4 L during the 1st few hours of admission. Continue Lasix to 80 mg IV BID and Diamox Cardiology recommendations appreciated Patient is tolerating CPAP, will continue with supportive ventilation Patient potassium is still slightly low will continue to replace and monitor Cardiology following, recommendations appreciated BMP in the morning (2) Chronic respiratory failure with hypoxia, on home oxygen therapy: Code(s): J96.11 - Chronic respiratory failure with hypoxia; Z99.81 - Dependence on supplemental oxygen Status: Acute Assessment and Plan: Likely is multifactorial in the setting of supermorbid obesity, COPD, heart failure, obstructive sleep apnea Chronic oxygen supplementation at 4 L at home, on 5L here up to chair Pulmonary following, recommendations appreciated, vent settings 14/10 AHI 20.2; recommends changing auto EPAP pressure, 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 for possible new sleep study (3) Chronic obstructive pulmonary disease: Qualifiers: COPD type: emphysema Emphysema type: unspecified Qualified Code(s): J43.9 - Emphysema, unspecified Code(s): J44.9 - Chronic obstructive pulmonary disease, unspecified Status: Acute Assessment and Plan: Continue scheduled albuterol and ipratropium No wheezing, cough or sputum production No evidence of pneumonia on chest CT; no indication for antibiotics or steroids (4) Morbid obesity: Code(s): E66.01 - Morbid (severe) obesity due to excess calories Status: Acute Assessment and Plan: Patient was thoroughly educated about the emergent need for calorie restriction, increase physical activity and weight loss At this juncture he would benefit from admission to a specialized bariatric surgical unit, however given is many comorbidities, he is unlikely to be a candidate for any surgical intervention We will refer him to a bariatric medicine unit upon discharge (5) SILVANA (obstructive sleep apnea): Code(s): G47.33 - Obstructive sleep apnea (adult) (pediatric) Status: Acute Assessment and Plan: Continue BiPAP at home per new parameters (28/01) (6) Cellulitis of leg: Code(s): L03.119 - Cellulitis of unspecified part of limb Status: Acute Assessment and Plan: Improving left lower extremity cellulitis Continue cephalexin (7) Heart failure: Code(s): I50.9 - Heart failure, unspecified Status: Acute Assessment and Plan: Echocardiogram-->Very technically difficult study with limited views. This study is nearly uninterruptible. Very symptomatic with lower extremity edema an difficulty breathing and has improved after high dose Lasix BNP is only 118; however the clinical significance of BNP in obesity is uncertain Continue diuresing per cardiology I/O Monitor Additional Plan Code status: FULL Subjective Date/time seen: 03/16/21 16:04 Interval history: 03/14 Patient has difficulty tolerating IV potassium, will switch to p.o. potassium increase to 2 twice a day 40 mEq. Patient breathing is better on CPAP will continue current treatment. Plan is to continue with supportive care, continue CPAP, continue with antibiotic for cellulitis. Replace and monitor electrolytes. 03/15 Pt seen this a.m.; labs, vs, diagnostic reports, consult notes reviewed; pt complains of BLE pain 03/16 Pt seen today; up to c
[2021-03-16] MEDS: polyethylene glycoL 3350 17 GM POWD.PACK PO (18:49)
[2021-03-16 21:01] LABS: Creatinine, Random Urine 247 mg/dL (20-320); Total Protein/Creatinine Ratio 65 mg/g creat (22-128)
[2021-03-17] VITALS (15 sets, daily range): BP systolic 118–144; BP diastolic 65–89; PULSE 81–95; RESP 18–22; TEMP 35.5–36.5; O2SAT 90–97
[2021-03-17] MEDS: IPRATROPIUM BR 0.02% INH SOLN 0.5 MG/2.5 ML VIAL INHALATION ×3 (02:11→23:18)
[2021-03-17] MEDS: ALBUTEROL SULFATE NEB 2.5 MG/0.5 ML INH 5 MG INHALATION ×3 (02:11→23:18)
[2021-03-17] MEDS: HYDROcodone/acetaminophen (*CRX) 7.5-325 MG TABLET 2 TAB PO ×4 (05:31→23:39)
[2021-03-17 06:40] LABS: Hematocrit 37.3 % (42.0-52.0); Hemoglobin 11.5 g/dL (14.0-18.0); Mean Corpuscular HGB Conc 30.8 g/dl (32-36); Mean Corpuscular Hemoglobin 30.2 pg (26-34); Mean Corpuscular Volume 97.9 fl (80-100); Mean Platelet Volume 9.8 fl (7.4-10.4); Platelet Count Result 257 k/mm3 (150-375); Red Blood Count 3.81 M/mm3 (4.6-6.20); White Blood Count 12.6 K/mm3 (4.5-10.0)
[2021-03-17 07:16] LABS: Anion Gap 8 mmol/L (8-16); Blood Urea Nitrogen 14 mg/dL (9-20); Calcium 8.8 mg/dL (8.4-10.2); Carbon Dioxide 39 mmol/L (22-30); Chloride 89 mmol/L (98-107); Estimated CRCL calculation 118 ml/min; Estimated Glomerular Filt Rate > 60; Glucose 138 mg/dL (65-110); Magnesium 2.4 mg/dL (1.6-2.3); Potassium 2.8 mmol/L (3.4-5.0); Sodium 136 mmol/L (137-145)
[2021-03-17] MEDS: MAGNESIUM OXIDE 400 MG TABLET PO (08:34)
[2021-03-17] MEDS: POTASSIUM CHLORIDE 20 MEQ PACKET (FOR LIQUID) 40 MEQ PO ×2 (08:34→16:40)
[2021-03-17] MEDS: POTASSIUM CHLORIDE 20 MEQ PACKET (FOR LIQUID) PO (08:34)
[2021-03-17] MEDS: FUROSEMIDE 80 MG TABLET PO ×2 (08:36→16:40)
[2021-03-17] MEDS: LIDOCAINE 5% PATCH 3 PATCH TRANSDERM (08:36)
[2021-03-17] MEDS: CEPHALEXIN 500 MG CAPSULE PO ×2 (08:36→23:35)
[2021-03-17] MEDS: ENOXAPARIN 40 MG/0.4 ML SYRINGE SUB-Q ×2 (08:37→23:34)
[2021-03-17] MEDS: FLUTICASONE/SALMETEROL 115-21 MCG INHALER 1 PUFF 2 PUFF INHALATION ×2 (11:18→23:18)
[2021-03-17] MEDS: TOLNAFTATE 1% POWDER 45 GM BTL 1 APPLIC TOPICAL ×2 (11:32→23:36)
--- NOTE | 2021-03-17 13:36 | PM.IMPN ---
Progress Note: A&P Assessment and Plan (1) Acute and chronic respiratory failure: Qualifiers: Respiratory failure complication: hypoxia and hypercapnia Qualified Code(s): J96.21 - Acute and chronic respiratory failure with hypoxia; J96.22 - Acute and chronic respiratory failure with hypercapnia Code(s): J96.20 - Acute and chronic respiratory failure, unspecified whether with hypoxia or hypercapnia Status: Acute Assessment and Plan: S/p high-dose diuretic with Lasix 80 mg IV q.12 hours, with a very good diuretic response, producing almost 4 L during the 1st few hours of admission. Continue Lasix to 80 mg IV BID and Diamox Cardiology recommendations appreciated Patient is tolerating CPAP, will continue with supportive ventilation Patient potassium 2.8 today, will continue to replace and monitor Cardiology following, recommendations appreciated BMP in the morning (2) Chronic respiratory failure with hypoxia, on home oxygen therapy: Code(s): J96.11 - Chronic respiratory failure with hypoxia; Z99.81 - Dependence on supplemental oxygen Status: Acute Assessment and Plan: Likely is multifactorial in the setting of supermorbid obesity, COPD, heart failure, obstructive sleep apnea Chronic oxygen supplementation at 4 L at home, on 5L here up to chair Pulmonary following, recommendations appreciated, vent settings 14/10 AHI 20.2; recommends changing auto EPAP pressure, 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 with 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 for possible new sleep study (3) Chronic obstructive pulmonary disease: Qualifiers: COPD type: emphysema Emphysema type: unspecified Qualified Code(s): J43.9 - Emphysema, unspecified Code(s): J44.9 - Chronic obstructive pulmonary disease, unspecified Status: Acute Assessment and Plan: Continue scheduled albuterol and ipratropium No wheezing, cough or sputum production No evidence of pneumonia on chest CT; no indication for antibiotics or steroids (4) Morbid obesity: Code(s): E66.01 - Morbid (severe) obesity due to excess calories Status: Acute Assessment and Plan: Patient was thoroughly educated about the emergent need for calorie restriction, increase physical activity and weight loss At this juncture he would benefit from admission to a specialized bariatric surgical unit, however given is many comorbidities, he is unlikely to be a candidate for any surgical intervention We will refer him to a bariatric medicine unit upon discharge (5) SILVANA (obstructive sleep apnea): Code(s): G47.33 - Obstructive sleep apnea (adult) (pediatric) Status: Acute Assessment and Plan: Continue BiPAP at home per new parameters (28/01) (6) Cellulitis of leg: Code(s): L03.119 - Cellulitis of unspecified part of limb Status: Acute Assessment and Plan: Improving left lower extremity cellulitis Continue cephalexin (7) Heart failure: Code(s): I50.9 - Heart failure, unspecified Status: Acute Assessment and Plan: Echocardiogram-->Very technically difficult study with limited views. This study is nearly uninterruptible. Very symptomatic with lower extremity edema an difficulty breathing and has improved after high dose Lasix BNP only 118; however the clinical significance of BNP in obesity is uncertain Continue diuresing per cardiology I/O Monitor (8) Hypokalemia: Code(s): E87.6 - Hypokalemia Status: Acute Assessment and Plan: K+ 2.8, today form around 3 x3 days Continue KCL 40 meq BID; will add 20 meq KCL Monitor closely Additional Plan Code status: FULL Subjective Date/time seen: 03/17/21 13:36 Interval history: 03/14 Patient has difficulty tolerating IV potassium, will switch to p.o. potassium increase to 2 twice a day 40 mEq. Patient breathing is better on CPAP will continue current treatment. Plan is to continue with supportive care, continue CPAP, continue with antibiotic
[2021-03-17] MEDS: polyethylene glycoL 3350 17 GM POWD.PACK PO (17:31)
[2021-03-17] MEDS: EUCERIN CREAM 120 GM JAR 1 APPLIC TOPICAL (17:31)
--- NOTE | 2021-03-17 18:09 | PM.PNCARD ---
Progress Note: A&P Assessment and Plan (1) Heart failure: Code(s): I50.9 - Heart failure, unspecified Status: Acute Assessment and Plan: Acute on chronic diastolic HF. CXR on admission showed pulmonary vascular congestion. Significant BLE edema but his cellulitis is contributing to this as well. Diuresis with furosemide 80mg p.o. b.i.d. He is on Diamox as well. Renal function remains stable. Getting close to discharge. (2) Cellulitis of leg: Code(s): L03.119 - Cellulitis of unspecified part of limb Status: Acute Assessment and Plan: On abx. Improving. Management per primary service. (3) Bilateral edema of lower extremity: Code(s): R60.0 - Localized edema Status: Acute Assessment and Plan: Secondary to cellulitis and CHF exacerbation/SILVANA/morbid obesity.. Diuresis and treatment of cellulitis with abx (4) Acute respiratory failure: Qualifiers: Respiratory failure complication: hypoxia and hypercapnia Qualified Code(s): J96.01 - Acute respiratory failure with hypoxia; J96.02 - Acute respiratory failure with hypercapnia Code(s): J96.00 - Acute respiratory failure, unspecified whether with hypoxia or hypercapnia Status: Acute Assessment and Plan: Probably multifactorial secondary to morbid obesity, CHF. (5) Hypokalemia: Code(s): E87.6 - Hypokalemia Status: Acute Assessment and Plan: Persistent problem with this diuresis. Add spironolactone 50 mg daily. Subjective Date/time seen: 03/17/21 18:09 Interval history: Cardiology follow up for CHF Date of service 03/15/2021: Complaining of pain in his knees and being tired because he did not sleep well last night. Denies chest pain, shortness of breath. Date of service 03/16/2021: Feeling much better today. His swelling and erythema to lower legs has improved. Feels less short of breath today. Date of service 03/17/2021: Breathing is improving, edema is improving. Unable to obtain IV access and now on p.o. furosemide. And happy about having to take oral potassium and having multiple needle sticks. Wishes we had placed a PICC line. I's and O's yesterday: 1900/4900. Potassium was 2.8 this morning and supplemented. Review of Systems Constitutional: Constitutional: Reports weakness Eyes: Eyes: Reports no additional eye complaints ENT: Denies epistaxis Cardiovascular: Cardiovascular: Denies chest pain, Reports pedal edema and Reports leg edema Respiratory: Respiratory: Reports cough, Denies dyspnea and Reports dyspnea on exertion Gastrointestinal: Gastrointestinal: Denies abdominal pain Genitourinary: Genitourinary: Denies hematuria Musculoskeletal: Musculoskeletal: Reports arthralgias Integumentary/Breasts: Skin/Breast: Reports erythema (Lower extremity cellulitis) Neurologic: Reports system reviewed and no additional complaints, except as documented Psychiatric: Psychiatric: Reports no additional psychiatric complaints Exam Const: General: comfortable, no acute distress and tired appearing Nutritional Appearance: obese and edematous Orientation/consciousness: patient oriented x3 Other: Morbidly obese causasian gentleman sitting up in the chair. HENMT: Head: normal to inspection Ears: hearing grossly normal bilaterally General nose exam: no epistaxis Mouth: Yes moist mucous membranes Eyes: EOM: EOMs intact bilaterally Neck: Neck: supple Other: JVD impossible to assess due to body habitus Resp: Auscultation: clear to auscultation bilaterally and diminished lung sounds Cardio: Rate: regular rate Rhythm: regular rhythm Other: Heart sounds are nearly inaudible. GI: GI Palp: Yes Soft to palpation and No Tenderness to palpation present (GI) Skin: General skin exam: erythema (Lower extremity cellulitis improving) Neuro: General: patient oriented x3 Cranial nerves: Yes Equal, round and reactive pupils present Speech
[2021-03-17] MEDS: LORazepam (*CRX) 1 MG TABLET PO (23:40)
[2021-03-17] MEDS: SPIRONOLACTONE 50 MG TABLET PO (23:44)
[2021-03-18] VITALS (12 sets, daily range): BP systolic 107–131; BP diastolic 58–73; PULSE 80–92; RESP 16–20; TEMP 36–36.9; O2SAT 94–95
--- NOTE | 2021-03-18 04:48 | PCRCNOTE ---
Window of time for administration has passed. See next scheduled administration.
[2021-03-18 07:27] LABS: Hematocrit 35.4 % (42.0-52.0); Hemoglobin 11.1 g/dL (14.0-18.0); Mean Corpuscular HGB Conc 31.4 g/dl (32-36); Mean Corpuscular Hemoglobin 30.7 pg (26-34); Mean Corpuscular Volume 97.8 fl (80-100); Mean Platelet Volume 9.7 fl (7.4-10.4); Platelet Count Result 238 k/mm3 (150-375); Red Blood Count 3.62 M/mm3 (4.6-6.20); Red Cell Distribution Width 16.1 % (11.5-14.5); White Blood Count 11.9 K/mm3 (4.5-10.0)
[2021-03-18 07:57] LABS: Anion Gap 7 mmol/L (8-16); Blood Urea Nitrogen 15 mg/dL (9-20); Calcium 8.7 mg/dL (8.4-10.2); Carbon Dioxide 38 mmol/L (22-30); Chloride 91 mmol/L (98-107); Estimated CRCL calculation 120 ml/min; Estimated Glomerular Filt Rate > 60; Glucose 128 mg/dL (65-110); Magnesium 2.4 mg/dL (1.6-2.3); Potassium 3.3 mmol/L (3.4-5.0); Sodium 136 mmol/L (137-145)
--- NOTE | 2021-03-18 08:07 | PCNWS ---
Weekly nutritional screen. Patient is tolerating current diet with adequate intake. No weight loss reported. No nutritional needs at this time.
[2021-03-18] MEDS: HYDROcodone/acetaminophen (*CRX) 7.5-325 MG TABLET 2 TAB PO ×2 (08:14→17:52)
[2021-03-18] MEDS: POTASSIUM CHLORIDE 20 MEQ PACKET (FOR LIQUID) 40 MEQ PO ×2 (09:21→17:48)
[2021-03-18] MEDS: LIDOCAINE 5% PATCH 3 PATCH TRANSDERM (09:21)
[2021-03-18] MEDS: SPIRONOLACTONE 50 MG TABLET PO (09:22)
[2021-03-18] MEDS: CEPHALEXIN 500 MG CAPSULE PO ×2 (09:22→20:31)
[2021-03-18] MEDS: FUROSEMIDE 80 MG TABLET PO ×2 (09:22→17:48)
[2021-03-18] MEDS: MAGNESIUM OXIDE 400 MG TABLET PO (09:22)
[2021-03-18] MEDS: EUCERIN CREAM 120 GM JAR 1 APPLIC TOPICAL (09:22)
[2021-03-18] MEDS: ENOXAPARIN 40 MG/0.4 ML SYRINGE SUB-Q ×2 (09:22→20:31)
[2021-03-18] MEDS: TOLNAFTATE 1% POWDER 45 GM BTL 1 APPLIC TOPICAL ×2 (09:22→20:32)
--- NOTE | 2021-03-18 12:01 | PCPTNOTE ---
Attempted to see patient for therapy this A.M., however patient requested PT return later today since he is feeling SOB and would like to receive a breathing treatment before therapy. PT will attempt to follow up this afternoon.
[2021-03-18] MEDS: FLUTICASONE/SALMETEROL 115-21 MCG INHALER 1 PUFF 2 PUFF INHALATION ×2 (12:03→22:04)
[2021-03-18] MEDS: UMECLIDINIUM BROMIDE 62.5 MCG ELLIPTA 1 PUFF INHALATION (12:03)
[2021-03-18] MEDS: IPRATROPIUM BR 0.02% INH SOLN 0.5 MG/2.5 ML VIAL INHALATION ×3 (12:03→22:04)
[2021-03-18] MEDS: ALBUTEROL SULFATE NEB 2.5 MG/0.5 ML INH 5 MG INHALATION ×3 (12:03→22:04)
--- NOTE | 2021-03-18 15:39 | PM.IMPN ---
Progress Note: A&P Assessment and Plan (1) Acute and chronic respiratory failure: Qualifiers: Respiratory failure complication: hypoxia and hypercapnia Qualified Code(s): J96.21 - Acute and chronic respiratory failure with hypoxia; J96.22 - Acute and chronic respiratory failure with hypercapnia Code(s): J96.20 - Acute and chronic respiratory failure, unspecified whether with hypoxia or hypercapnia Status: Acute Assessment and Plan: S/p high-dose diuretic with Lasix 80 mg IV q.12 hours, with a very good diuretic response, producing almost 4 L during the 1st few hours of admission. Continue Lasix to 80 mg IV BID and Diamox Cardiology recommendations appreciated Patient is tolerating CPAP, will continue with supportive ventilation Patient potassium 2.8 today, will continue to replace and monitor Cardiology following, recommendations appreciated BMP in the morning (2) Chronic respiratory failure with hypoxia, on home oxygen therapy: Code(s): J96.11 - Chronic respiratory failure with hypoxia; Z99.81 - Dependence on supplemental oxygen Status: Acute Assessment and Plan: Likely is multifactorial in the setting of supermorbid obesity, COPD, heart failure, obstructive sleep apnea Chronic oxygen supplementation at 4 L at home, on 5L here up to chair Pulmonary following, recommendations appreciated, vent settings 14/10 AHI 20.2; recommends changing auto EPAP pressure, follow up with 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 silk screen painter outpatient for possible new sleep study (3) Chronic obstructive pulmonary disease: Qualifiers: COPD type: emphysema Emphysema type: unspecified Qualified Code(s): J43.9 - Emphysema, unspecified Code(s): J44.9 - Chronic obstructive pulmonary disease, unspecified Status: Acute Assessment and Plan: Continue scheduled albuterol and ipratropium No wheezing, cough or sputum production No evidence of pneumonia on chest CT; no indication for antibiotics or steroids (4) Morbid obesity: Code(s): E66.01 - Morbid (severe) obesity due to excess calories Status: Acute Assessment and Plan: Patient was thoroughly educated about the emergent need for calorie restriction, increase physical activity and weight loss At this juncture he would benefit from admission to a specialized bariatric surgical unit, however given is many comorbidities, he is unlikely to be a candidate for any surgical intervention We will refer him to a bariatric medicine unit upon discharge (5) SILVANA (obstructive sleep apnea): Code(s): G47.33 - Obstructive sleep apnea (adult) (pediatric) Status: Acute Assessment and Plan: Continue BiPAP at home per new parameters (28/01) (6) Cellulitis of leg: Code(s): L03.119 - Cellulitis of unspecified part of limb Status: Acute Assessment and Plan: Improving left lower extremity cellulitis Continue cephalexin (7) Heart failure: Code(s): I50.9 - Heart failure, unspecified Status: Acute Assessment and Plan: Echocardiogram-->Very technically difficult study with limited views. This study is nearly uninterruptible. Very symptomatic with lower extremity edema an difficulty breathing and has improved after high dose Lasix BNP only 118; however the clinical significance of BNP in obesity is uncertain Continue diuresing per cardiology I/O Monitor (8) Hypokalemia: Code(s): E87.6 - Hypokalemia Status: Acute Assessment and Plan: K+ 2.8-->3.3 Continue KCL 40 meq BID; will add 20 meq KCL Monitor closely Additional Plan Code status: FULL Disposition: Home with [facility] when medically stable Subjective Date/time seen: 03/18/21 15:39 Interval history: 03/14 Patient has difficulty tolerating IV potassium, will switch to p.o. potassium increase to 2 twice a day 40 mEq. Patient breathing is better on CPAP will continue current treatment. Plan is to continue with supportive care, continue CPAP,
[2021-03-18] MEDS: LORazepam (*CRX) 1 MG TABLET PO (20:33)
[2021-03-19] VITALS (8 sets, daily range): BP systolic 102–124; BP diastolic 50–74; PULSE 79–90; RESP 20–24; TEMP 36.2–36.9; O2SAT 90–100
[2021-03-19] MEDS: ALBUTEROL SULFATE NEB 2.5 MG/0.5 ML INH 5 MG INHALATION ×2 (03:00→22:51)
[2021-03-19] MEDS: IPRATROPIUM BR 0.02% INH SOLN 0.5 MG/2.5 ML VIAL INHALATION ×2 (03:01→22:51)
[2021-03-19 06:53] LABS: Hemoglobin 11.4 g/dL (14.0-18.0); Mean Corpuscular HGB Conc 31.7 g/dl (32-36); Mean Corpuscular Hemoglobin 30.2 pg (26-34); Mean Corpuscular Volume 95.2 fl (80-100); Mean Platelet Volume 9.8 fl (7.4-10.4); Platelet Count Result 267 k/mm3 (150-375); Red Blood Count 3.78 M/mm3 (4.6-6.20); Red Cell Distribution Width 16.3 % (11.5-14.5)
[2021-03-19 07:08] LABS: Anion Gap 8 mmol/L (8-16); Blood Urea Nitrogen 14 mg/dL (9-20); Calcium 9.1 mg/dL (8.4-10.2); Carbon Dioxide 37 mmol/L (22-30); Chloride 93 mmol/L (98-107); Estimated CRCL calculation 110 ml/min; Estimated Glomerular Filt Rate > 60; Glucose 139 mg/dL (65-110); Magnesium 2.7 mg/dL (1.6-2.3); Potassium 3.2 mmol/L (3.4-5.0); Sodium 138 mmol/L (137-145)
[2021-03-19] MEDS: TOLNAFTATE 1% POWDER 45 GM BTL 1 APPLIC TOPICAL ×2 (09:17→20:59)
[2021-03-19] MEDS: CEPHALEXIN 500 MG CAPSULE PO ×2 (09:18→20:59)
[2021-03-19] MEDS: MAGNESIUM OXIDE 400 MG TABLET PO (09:18)
[2021-03-19] MEDS: SPIRONOLACTONE 50 MG TABLET PO (09:18)
[2021-03-19] MEDS: FUROSEMIDE 80 MG TABLET PO ×2 (09:18→16:38)
[2021-03-19] MEDS: POTASSIUM CHLORIDE 20 MEQ PACKET (FOR LIQUID) 40 MEQ PO ×3 (09:18→16:38)
[2021-03-19] MEDS: LIDOCAINE 5% PATCH 3 PATCH TRANSDERM (09:18)
[2021-03-19] MEDS: ENOXAPARIN 40 MG/0.4 ML SYRINGE SUB-Q ×2 (09:18→20:59)
[2021-03-19] MEDS: EUCERIN CREAM 120 GM JAR 1 APPLIC TOPICAL (09:19)
[2021-03-19] MEDS: HYDROcodone/acetaminophen (*CRX) 7.5-325 MG TABLET 2 TAB PO ×3 (09:26→22:30)
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
--- NOTE | 2021-03-19 14:35 | PM.IMPN ---
Progress Note: A&P Assessment and Plan (1) Acute and chronic respiratory failure: Qualifiers: Respiratory failure complication: hypoxia and hypercapnia Qualified Code(s): J96.21 - Acute and chronic respiratory failure with hypoxia; J96.22 - Acute and chronic respiratory failure with hypercapnia Code(s): J96.20 - Acute and chronic respiratory failure, unspecified whether with hypoxia or hypercapnia Status: Acute Assessment and Plan: S/p high-dose diuretic with Lasix 80 mg IV q.12 hours initially now pt has transitioned to oral Continue Lasix to 80mgpo bid orally Patient is tolerating CPAP, will continue with supportive ventilation Patient potassium 3.2 continue to replace and monitor Cardiology following, recommendations appreciated BMP in the morning, home on Monday/Monday (2) Chronic respiratory failure with hypoxia, on home oxygen therapy: Code(s): J96.11 - Chronic respiratory failure with hypoxia; Z99.81 - Dependence on supplemental oxygen Status: Acute Assessment and Plan: Likely is multifactorial in the setting of supermorbid obesity, COPD, heart failure, obstructive sleep apnea Chronic oxygen supplementation at 4 L at home, on 5L here up to chair Pulmonary following. (3) Chronic obstructive pulmonary disease: Qualifiers: COPD type: emphysema Emphysema type: unspecified Qualified Code(s): J43.9 - Emphysema, unspecified Code(s): J44.9 - Chronic obstructive pulmonary disease, unspecified Status: Acute Assessment and Plan: Continue scheduled albuterol and ipratropium (4) Morbid obesity: Code(s): E66.01 - Morbid (severe) obesity due to excess calories Status: Acute Assessment and Plan: Patient was thoroughly educated about the emergent need for calorie restriction, increase physical activity and weight loss We will refer him to a bariatric medicine unit upon discharge BMI is 58 (5) SILVANA (obstructive sleep apnea): Code(s): G47.33 - Obstructive sleep apnea (adult) (pediatric) Status: Acute Assessment and Plan: Continue BiPAP at home per new parameters (28/01) (6) Cellulitis of leg: Code(s): L03.119 - Cellulitis of unspecified part of limb Status: Acute Assessment and Plan: Improving left lower extremity cellulitis Continue cephalexin (7) Heart failure: Code(s): I50.9 - Heart failure, unspecified Status: Acute Assessment and Plan: Echocardiogram-->Very technically difficult study with limited views. (8) Hypokalemia: Code(s): E87.6 - Hypokalemia Status: Acute Assessment and Plan: Potassium supplementation Monitor closely Subjective Date/time seen: 03/19/21 14:35 Interval history: 03/14 Patient has difficulty tolerating IV potassium, will switch to p.o. potassium increase to 2 twice a day 40 mEq. Patient breathing is better on CPAP will continue current treatment. Plan is to continue with supportive care, continue CPAP, continue with antibiotic for cellulitis. Replace and monitor electrolytes. 03/15 Pt seen this a.m.; labs, vs, diagnostic reports, consult notes reviewed; pt complains of BLE pain 03/16 Pt seen today; up to chair 03/17 Pt seen this a.m; up to side of the bed, receiving breathing treatment; continues with BLE pain; no new complaints; K+ 2.8 this morning 03/18 Overall the pt is progressing well; K+ 3.3 today; up to chair; now increased SOB 03/19 Potassium is low at 3.2, pt on 5 liters of oxygen baseline is 4 liters, pt is improving gradually, leg is less red Review of Systems Review of Systems: All systems reviewed & are unremarkable except as noted in HPI and below Exam Narrative: GENERAL APPEARANCE: well developed well nourished morbidly male in no acute distress. CARDIOVASCULAR: RRR, normal S1 and S2 RESPIRATORY: clear to auscultation bilaterally ABDOMEN: Abdominal central obesity. soft, nontender, nondi
[2021-03-19] MEDS: LORazepam (*CRX) 1 MG TABLET PO (20:59)
[2021-03-19] MEDS: FLUTICASONE/SALMETEROL 115-21 MCG INHALER 1 PUFF 2 PUFF INHALATION (22:51)
[2021-03-20] VITALS (16 sets, daily range): BP systolic 104–135; BP diastolic 44–73; PULSE 74–94; RESP 18–20; TEMP 36.3–36.5; O2SAT 92–100
[2021-03-20] MEDS: ALBUTEROL SULFATE NEB 2.5 MG/0.5 ML INH 5 MG INHALATION ×4 (03:33→21:00)
[2021-03-20] MEDS: IPRATROPIUM BR 0.02% INH SOLN 0.5 MG/2.5 ML VIAL INHALATION ×4 (03:33→21:00)
[2021-03-20] MEDS: POTASSIUM CHLORIDE 20 MEQ PACKET (FOR LIQUID) 40 MEQ PO ×2 (07:52→16:06)
[2021-03-20] MEDS: MAGNESIUM OXIDE 400 MG TABLET PO (07:53)
[2021-03-20] MEDS: ENOXAPARIN 40 MG/0.4 ML SYRINGE SUB-Q ×2 (07:53→20:52)
[2021-03-20] MEDS: LIDOCAINE 5% PATCH 3 PATCH TRANSDERM (07:53)
[2021-03-20] MEDS: FUROSEMIDE 80 MG TABLET PO ×2 (07:53→16:06)
[2021-03-20] MEDS: SPIRONOLACTONE 50 MG TABLET PO (07:53)
[2021-03-20] MEDS: EUCERIN CREAM 120 GM JAR 1 APPLIC TOPICAL (07:54)
[2021-03-20] MEDS: TOLNAFTATE 1% POWDER 45 GM BTL 1 APPLIC TOPICAL ×2 (07:54→20:52)
[2021-03-20] MEDS: HYDROcodone/acetaminophen (*CRX) 7.5-325 MG TABLET 2 TAB PO ×3 (07:55→20:52)
[2021-03-20] MEDS: polyethylene glycoL 3350 17 GM POWD.PACK PO (07:55)
[2021-03-20 08:01] LABS: Hematocrit 35.5 % (42.0-52.0); Hemoglobin 11.1 g/dL (14.0-18.0); Mean Corpuscular HGB Conc 31.3 g/dl (32-36); Mean Corpuscular Hemoglobin 30.2 pg (26-34); Mean Corpuscular Volume 96.5 fl (80-100); Mean Platelet Volume 9.8 fl (7.4-10.4); Platelet Count Result 244 k/mm3 (150-375); Red Blood Count 3.68 M/mm3 (4.6-6.20); Red Cell Distribution Width 16.4 % (11.5-14.5); White Blood Count 12.3 K/mm3 (4.5-10.0)
[2021-03-20 08:18] LABS: Anion Gap 7 mmol/L (8-16); Blood Urea Nitrogen 14 mg/dL (9-20); Calcium 8.9 mg/dL (8.4-10.2); Carbon Dioxide 34 mmol/L (22-30); Chloride 94 mmol/L (98-107); Estimated CRCL calculation 110 ml/min; Estimated Glomerular Filt Rate > 60; Glucose 127 mg/dL (65-110); Magnesium 2.6 mg/dL (1.6-2.3); Potassium 3.2 mmol/L (3.4-5.0); Sodium 135 mmol/L (137-145)
[2021-03-20] MEDS: UMECLIDINIUM BROMIDE 62.5 MCG ELLIPTA 1 PUFF INHALATION (08:56)
[2021-03-20] MEDS: FLUTICASONE/SALMETEROL 115-21 MCG INHALER 1 PUFF 2 PUFF INHALATION ×2 (08:57→21:00)
--- NOTE | 2021-03-20 09:42 | PM.IMPN ---
Progress Note: A&P Assessment and Plan (1) Acute and chronic respiratory failure: Qualifiers: Respiratory failure complication: hypoxia and hypercapnia Qualified Code(s): J96.21 - Acute and chronic respiratory failure with hypoxia; J96.22 - Acute and chronic respiratory failure with hypercapnia Code(s): J96.20 - Acute and chronic respiratory failure, unspecified whether with hypoxia or hypercapnia Status: Acute Assessment and Plan: S/p high-dose diuretic with Lasix 80 mg IV q.12 hours initially now pt has transitioned to oral Continue Lasix to 80mgpo bid orally Patient is tolerating CPAP, will continue with supportive ventilation Patient potassium 3.2 continue to replace and monitor Cardiology following, recommendations appreciated BMP in the morning, home on Monday/Monday (2) Chronic respiratory failure with hypoxia, on home oxygen therapy: Code(s): J96.11 - Chronic respiratory failure with hypoxia; Z99.81 - Dependence on supplemental oxygen Status: Acute Assessment and Plan: Likely is multifactorial in the setting of supermorbid obesity, COPD, heart failure, obstructive sleep apnea Chronic oxygen supplementation at 4 L at home, on 5L here up to chair Pulmonary following. (3) Chronic obstructive pulmonary disease: Qualifiers: COPD type: emphysema Emphysema type: unspecified Qualified Code(s): J43.9 - Emphysema, unspecified Code(s): J44.9 - Chronic obstructive pulmonary disease, unspecified Status: Acute Assessment and Plan: Continue scheduled albuterol and ipratropium (4) Morbid obesity: Code(s): E66.01 - Morbid (severe) obesity due to excess calories Status: Acute Assessment and Plan: Patient was thoroughly educated about the emergent need for calorie restriction, increase physical activity and weight loss We will refer him to a bariatric medicine unit upon discharge BMI is 58 (5) SILVANA (obstructive sleep apnea): Code(s): G47.33 - Obstructive sleep apnea (adult) (pediatric) Status: Acute Assessment and Plan: Continue BiPAP at home per new parameters (28/01) (6) Cellulitis of leg: Code(s): L03.119 - Cellulitis of unspecified part of limb Status: Acute Assessment and Plan: Improving left lower extremity cellulitis Continue cephalexin (7) Heart failure: Code(s): I50.9 - Heart failure, unspecified Status: Acute Assessment and Plan: Echocardiogram-->Very technically difficult study with limited views. (8) Hypokalemia: Code(s): E87.6 - Hypokalemia Status: Acute Assessment and Plan: Potassium supplementation Monitor closely Additional Plan Code status: FULL Disposition: Home with [facility] when medically stable Subjective Date/time seen: 03/20/21 09:42 Interval history: 03/14 Patient has difficulty tolerating IV potassium, will switch to p.o. potassium increase to 2 twice a day 40 mEq. Patient breathing is better on CPAP will continue current treatment. Plan is to continue with supportive care, continue CPAP, continue with antibiotic for cellulitis. Replace and monitor electrolytes. 03/15 Pt seen this a.m.; labs, vs, diagnostic reports, consult notes reviewed; pt complains of BLE pain 03/16 Pt seen today; up to chair 03/17 Pt seen this a.m; up to side of the bed, receiving breathing treatment; continues with BLE pain; no new complaints; K+ 2.8 this morning 03/18 Overall the pt is progressing well; K+ 3.3 today; up to chair; now increased SOB 03/19 Potassium is low at 3.2, pt on 5 liters of oxygen baseline is 4 liters, pt is improving gradually, leg is less red 03/20 Potassium is 3.2, pt was 213kg on admission awaiting todays weight. PT is on 5 liters of oxygen. leg is better Review of Systems Review of Systems: All systems reviewed & are unremarkable except as noted in HPI and below Exam Narrative: GENERAL APPEARANCE: well
[2021-03-21] VITALS (18 sets, daily range): BP systolic 101–126; BP diastolic 41–74; PULSE 74–98; RESP 18–24; TEMP 35.9–36.6; O2SAT 92–100
[2021-03-21] MEDS: ALBUTEROL SULFATE NEB 2.5 MG/0.5 ML INH 5 MG INHALATION ×4 (03:05→20:03)
[2021-03-21] MEDS: IPRATROPIUM BR 0.02% INH SOLN 0.5 MG/2.5 ML VIAL INHALATION ×4 (03:05→20:03)
[2021-03-21 07:27] LABS: Anion Gap 6 mmol/L (8-16); Blood Urea Nitrogen 15 mg/dL (9-20); Calcium 8.9 mg/dL (8.4-10.2); Carbon Dioxide 35 mmol/L (22-30); Chloride 95 mmol/L (98-107); Estimated CRCL calculation 109 ml/min; Estimated Glomerular Filt Rate > 60; Glucose 129 mg/dL (65-110); Magnesium 2.6 mg/dL (1.6-2.3); Potassium 3.5 mmol/L (3.4-5.0); Sodium 136 mmol/L (137-145)
[2021-03-21 07:52] LABS: Hematocrit 37.8 % (42.0-52.0); Hemoglobin 11.8 g/dL (14.0-18.0); Mean Corpuscular HGB Conc 31.2 g/dl (32-36); Mean Corpuscular Hemoglobin 30.5 pg (26-34); Mean Corpuscular Volume 97.7 fl (80-100); Mean Platelet Volume 9.8 fl (7.4-10.4); Platelet Count Result 242 k/mm3 (150-375); Red Blood Count 3.87 M/mm3 (4.6-6.20); Red Cell Distribution Width 16.9 % (11.5-14.5); White Blood Count 11.7 K/mm3 (4.5-10.0)
[2021-03-21] MEDS: FLUTICASONE/SALMETEROL 115-21 MCG INHALER 1 PUFF 2 PUFF INHALATION ×2 (08:16→20:06)
[2021-03-21] MEDS: HYDROcodone/acetaminophen (*CRX) 7.5-325 MG TABLET 2 TAB PO ×3 (08:34→22:15)
[2021-03-21] MEDS: POTASSIUM CHLORIDE 20 MEQ PACKET (FOR LIQUID) 40 MEQ PO ×2 (08:35→16:18)
[2021-03-21] MEDS: ENOXAPARIN 40 MG/0.4 ML SYRINGE SUB-Q ×2 (08:35→22:14)
[2021-03-21] MEDS: TOLNAFTATE 1% POWDER 45 GM BTL 1 APPLIC TOPICAL ×2 (08:36→22:15)
[2021-03-21] MEDS: SPIRONOLACTONE 50 MG TABLET PO (08:36)
[2021-03-21] MEDS: FUROSEMIDE 80 MG TABLET PO ×2 (08:36→16:18)
[2021-03-21] MEDS: MAGNESIUM OXIDE 400 MG TABLET PO (08:36)
[2021-03-21] MEDS: EUCERIN CREAM 120 GM JAR 1 APPLIC TOPICAL (08:38)
--- NOTE | 2021-03-21 12:02 | PM.IMPN ---
Progress Note: A&P Assessment and Plan (1) Acute and chronic respiratory failure: Qualifiers: Respiratory failure complication: hypoxia and hypercapnia Qualified Code(s): J96.21 - Acute and chronic respiratory failure with hypoxia; J96.22 - Acute and chronic respiratory failure with hypercapnia Code(s): J96.20 - Acute and chronic respiratory failure, unspecified whether with hypoxia or hypercapnia Status: Acute Assessment and Plan: S/p high-dose diuretic with Lasix 80 mg IV q.12 hours initially now pt has transitioned to oral Continue Lasix to 80mgpo bid orally Patient is tolerating CPAP, will continue with supportive ventilation Patient potassium 3.2 continue to replace and monitor Cardiology following, recommendations appreciated BMP in the morning, home on Monday (2) Chronic respiratory failure with hypoxia, on home oxygen therapy: Code(s): J96.11 - Chronic respiratory failure with hypoxia; Z99.81 - Dependence on supplemental oxygen Status: Acute Assessment and Plan: Likely is multifactorial in the setting of supermorbid obesity, COPD, heart failure, obstructive sleep apnea Chronic oxygen supplementation at 4 L at home, on 5L here up to chair Pulmonary following. Pt to dc on home oxyen already has oxygen at home. (3) Chronic obstructive pulmonary disease: Qualifiers: COPD type: emphysema Emphysema type: unspecified Qualified Code(s): J43.9 - Emphysema, unspecified Code(s): J44.9 - Chronic obstructive pulmonary disease, unspecified Status: Acute Assessment and Plan: Continue scheduled albuterol and ipratropium (4) Morbid obesity: Code(s): E66.01 - Morbid (severe) obesity due to excess calories Status: Acute Assessment and Plan: Patient was thoroughly educated about the emergent need for calorie restriction, increase physical activity and weight loss We will refer him to a bariatric medicine unit upon discharge BMI is 58 (5) SILVANA (obstructive sleep apnea): Code(s): G47.33 - Obstructive sleep apnea (adult) (pediatric) Status: Acute Assessment and Plan: Continue BiPAP at home per new parameters (28/01) (6) Cellulitis of leg: Code(s): L03.119 - Cellulitis of unspecified part of limb Status: Acute Assessment and Plan: Improving left lower extremity cellulitis Continue cephalexin transition to keflex (7) Heart failure: Code(s): I50.9 - Heart failure, unspecified Status: Acute Assessment and Plan: Echocardiogram-->Very technically difficult study with limited views. (8) Hypokalemia: Code(s): E87.6 - Hypokalemia Status: Acute Assessment and Plan: Potassium supplementation Monitor closely Additional Plan Code status: FULL Disposition: Home with [facility] when medically stable Subjective Date/time seen: 03/21/21 12:02 Interval history: 03/14 Patient has difficulty tolerating IV potassium, will switch to p.o. potassium increase to 2 twice a day 40 mEq. Patient breathing is better on CPAP will continue current treatment. Plan is to continue with supportive care, continue CPAP, continue with antibiotic for cellulitis. Replace and monitor electrolytes. 03/15 Pt seen this a.m.; labs, vs, diagnostic reports, consult notes reviewed; pt complains of BLE pain 03/16 Pt seen today; up to chair 03/17 Pt seen this a.m; up to side of the bed, receiving breathing treatment; continues with BLE pain; no new complaints; K+ 2.8 this morning 03/18 Overall the pt is progressing well; K+ 3.3 today; up to chair; now increased SOB 03/19 Potassium is low at 3.2, pt on 5 liters of oxygen baseline is 4 liters, pt is improving gradually, leg is less red 03/20 Potassium is 3.2, pt was 213kg on admission awaiting todays weight. PT is on 5 liters of oxygen. leg is better / Pt is on 5 liters, leg is better pt is on oral medications hopeful dc tomorrow. Review
--- NOTE | 2021-03-21 14:04 | PCPTNOTE ---
Attempted to see patient for PT treatment. Patient stated he just laid down and requested for therapy to come back in an hour. Will attempt at a later time.
[2021-03-21] MEDS: CEPHALEXIN 500 MG CAPSULE PO (22:14)
[2021-03-22] VITALS (17 sets, daily range): BP systolic 112–125; BP diastolic 46–79; PULSE 82–92; RESP 18–22; TEMP 35.8–36.3; O2SAT 94–100
[2021-03-22] MEDS: IPRATROPIUM BR 0.02% INH SOLN 0.5 MG/2.5 ML VIAL INHALATION ×4 (03:43→19:54)
[2021-03-22] MEDS: ALBUTEROL SULFATE NEB 2.5 MG/0.5 ML INH 5 MG INHALATION ×4 (03:43→19:53)
[2021-03-22 07:13] LABS: Hemoglobin 11.5 g/dL (14.0-18.0); Mean Corpuscular HGB Conc 31.9 g/dl (32-36); Mean Corpuscular Hemoglobin 30.3 pg (26-34); Mean Platelet Volume 9.8 fl (7.4-10.4); Platelet Count Result 240 k/mm3 (150-375); Red Blood Count 3.79 M/mm3 (4.6-6.20); Red Cell Distribution Width 16.5 % (11.5-14.5); White Blood Count 10.1 K/mm3 (4.5-10.0)
[2021-03-22 07:20] LABS: Anion Gap 7 mmol/L (8-16); Blood Urea Nitrogen 15 mg/dL (9-20); Calcium 8.8 mg/dL (8.4-10.2); Carbon Dioxide 34 mmol/L (22-30); Chloride 96 mmol/L (98-107); Estimated CRCL calculation 109 ml/min; Estimated Glomerular Filt Rate > 60; Glucose 131 mg/dL (65-110); Potassium 3.7 mmol/L (3.4-5.0); Sodium 137 mmol/L (137-145)
[2021-03-22] MEDS: HYDROcodone/acetaminophen (*CRX) 7.5-325 MG TABLET 2 TAB PO ×3 (08:26→20:40)
[2021-03-22] MEDS: SPIRONOLACTONE 50 MG TABLET PO (08:27)
[2021-03-22] MEDS: FUROSEMIDE 80 MG TABLET PO ×2 (08:27→17:17)
[2021-03-22] MEDS: UMECLIDINIUM BROMIDE 62.5 MCG ELLIPTA 1 PUFF INHALATION (08:27)
[2021-03-22] MEDS: ENOXAPARIN 40 MG/0.4 ML SYRINGE SUB-Q ×2 (08:27→20:40)
[2021-03-22] MEDS: POTASSIUM CHLORIDE 20 MEQ PACKET (FOR LIQUID) 40 MEQ PO ×2 (08:27→17:17)
[2021-03-22] MEDS: FLUTICASONE/SALMETEROL 115-21 MCG INHALER 1 PUFF 2 PUFF INHALATION ×2 (08:27→19:54)
[2021-03-22] MEDS: LIDOCAINE 5% PATCH 3 PATCH TRANSDERM (08:27)
[2021-03-22] MEDS: MAGNESIUM OXIDE 400 MG TABLET PO (08:27)
[2021-03-22] MEDS: TOLNAFTATE 1% POWDER 45 GM BTL 1 APPLIC TOPICAL ×2 (08:28→20:41)
[2021-03-22] MEDS: CEPHALEXIN 500 MG CAPSULE PO ×2 (08:28→20:40)
[2021-03-22] MEDS: EUCERIN CREAM 120 GM JAR 1 APPLIC TOPICAL (08:28)
--- NOTE | 2021-03-22 12:25 | PM.IMPN ---
Progress Note: A&P Assessment and Plan (1) Acute and chronic respiratory failure: Qualifiers: Respiratory failure complication: hypoxia and hypercapnia Qualified Code(s): J96.21 - Acute and chronic respiratory failure with hypoxia; J96.22 - Acute and chronic respiratory failure with hypercapnia Code(s): J96.20 - Acute and chronic respiratory failure, unspecified whether with hypoxia or hypercapnia Status: Acute Assessment and Plan: -S/p high-dose diuretic with Lasix 80 mg IV q.12 hours initially now pt has transitioned to oral -Continue Lasix to 80mgpo bid orally -Patient is tolerating CPAP, will continue with supportive ventilation -Patient potassium low continue to replace and monitor -Cardiology following, recommendations appreciated -Pt c/o increased sob today, Repeat CXR and BNP, also wheezing still immediately after breathing tx, increase nebs to q4hrs (2) Chronic respiratory failure with hypoxia, on home oxygen therapy: Code(s): J96.11 - Chronic respiratory failure with hypoxia; Z99.81 - Dependence on supplemental oxygen Status: Acute Assessment and Plan: -Likely is multifactorial in the setting of supermorbid obesity, COPD, heart failure, obstructive sleep apnea -Chronic oxygen supplementation at 4 L at home, on 5L here -Pulmonary following. Pt to dc on home oxygen already has oxygen at home. -See above (3) Chronic obstructive pulmonary disease: Qualifiers: COPD type: emphysema Emphysema type: unspecified Qualified Code(s): J43.9 - Emphysema, unspecified Code(s): J44.9 - Chronic obstructive pulmonary disease, unspecified Status: Acute Assessment and Plan: -Continue scheduled albuterol and ipratropium -See above (4) Morbid obesity: Code(s): E66.01 - Morbid (severe) obesity due to excess calories Status: Acute Assessment and Plan: -Patient was thoroughly educated about the emergent need for calorie restriction, increase physical activity and weight loss -We will refer him to a bariatric medicine unit upon discharge -BMI is 58 (5) SILVANA (obstructive sleep apnea): Code(s): G47.33 - Obstructive sleep apnea (adult) (pediatric) Status: Acute Assessment and Plan: -Continue BiPAP at home per new parameters (28/01) (6) Cellulitis of leg: Code(s): L03.119 - Cellulitis of unspecified part of limb Status: Acute Assessment and Plan: -Improving left lower extremity cellulitis -Continue cephalexin transition to keflex -still complaining of severe pain BLE, gave him ice packs, has norco ordered prn already (7) Heart failure: Code(s): I50.9 - Heart failure, unspecified Status: Acute Assessment and Plan: -Echocardiogram-->Very technically difficult study with limited views. -Per cardiology pt to be on Lasix 80 mg po bid and Diamox. Spironolactone was also added. (8) Hypokalemia: Code(s): E87.6 - Hypokalemia Status: Acute Assessment and Plan: -Potassium supplementation -persistent problem with diuresis now on 3 diuretics, spironolactone added -Monitor closely (9) Constipation: Code(s): K59.00 - Constipation, unspecified Status: Acute Assessment and Plan: -No BM since admitted on 03/09 -Will try Miralax and Colace -If no relief then suppository in AM Additional Plan Code status: FULL Disposition: Home with [facility] when medically stable Subjective Date/time seen: 03/22/21 12:25 Interval history: 60 yo male with a past medical history of morbid obesity, COPD, SILVANA, chronic respiratory failure on 4 L, SILVANA on BiPAP, admitted for acute on chronic respiratory failure. Today he is on 5L, just finished breathing tx, complaining of increased sob. C/o continued tightness and severe pain to his BLE. Says he has not had a bowel movement since he was admitted 13 days ago. Review
[2021-03-22 13:05] LABS: NT Pro B Type Natriuretic Pept 48 pg/mL (5-100)
[2021-03-22] MEDS: DOCUSATE SODIUM 100 MG CAPSULE PO (20:40)
[2021-03-23] VITALS (19 sets, daily range): BP systolic 117–143; BP diastolic 51–88; PULSE 82–96; RESP 18–24; TEMP 35.9–36.6; O2SAT 93–100
[2021-03-23] MEDS: ALBUTEROL SULFATE NEB 2.5 MG/0.5 ML INH 5 MG INHALATION ×6 (00:26→20:20)
[2021-03-23] MEDS: IPRATROPIUM BR 0.02% INH SOLN 0.5 MG/2.5 ML VIAL INHALATION ×6 (00:26→20:20)
[2021-03-23] MEDS: HYDROcodone/acetaminophen (*CRX) 7.5-325 MG TABLET 2 TAB PO ×3 (02:42→22:20)
[2021-03-23 07:14] LABS: Hematocrit 36.6 % (42.0-52.0); Hemoglobin 11.5 g/dL (14.0-18.0); Mean Corpuscular HGB Conc 31.4 g/dl (32-36); Mean Corpuscular Hemoglobin 30.1 pg (26-34); Mean Corpuscular Volume 95.8 fl (80-100); Mean Platelet Volume 10.1 fl (7.4-10.4); Platelet Count Result 227 k/mm3 (150-375); Red Blood Count 3.82 M/mm3 (4.6-6.20); Red Cell Distribution Width 16.9 % (11.5-14.5); White Blood Count 10.5 K/mm3 (4.5-10.0)
[2021-03-23 07:40] LABS: Anion Gap 9 mmol/L (8-16); Blood Urea Nitrogen 16 mg/dL (9-20); Calcium 8.9 mg/dL (8.4-10.2); Carbon Dioxide 30 mmol/L (22-30); Chloride 95 mmol/L (98-107); Estimated CRCL calculation 109 ml/min; Estimated Glomerular Filt Rate > 60; Glucose 128 mg/dL (65-110); Potassium 3.8 mmol/L (3.4-5.0); Sodium 134 mmol/L (137-145)
[2021-03-23] MEDS: FLUTICASONE/SALMETEROL 115-21 MCG INHALER 1 PUFF 2 PUFF INHALATION ×2 (09:29→20:25)
[2021-03-23] MEDS: MAGNESIUM OXIDE 400 MG TABLET PO (10:49)
[2021-03-23] MEDS: FUROSEMIDE 80 MG TABLET PO ×2 (10:49→17:57)
[2021-03-23] MEDS: ENOXAPARIN 40 MG/0.4 ML SYRINGE SUB-Q ×2 (10:49→22:18)
[2021-03-23] MEDS: DOCUSATE SODIUM 100 MG CAPSULE PO ×2 (10:49→22:18)
[2021-03-23] MEDS: polyethylene glycoL 3350 17 GM POWD.PACK PO (10:50)
[2021-03-23] MEDS: SPIRONOLACTONE 50 MG TABLET PO (10:50)
[2021-03-23] MEDS: POTASSIUM CHLORIDE 20 MEQ PACKET (FOR LIQUID) 40 MEQ PO ×2 (10:50→17:57)
[2021-03-23] MEDS: CEPHALEXIN 500 MG CAPSULE PO ×2 (10:50→22:17)
[2021-03-23] MEDS: EUCERIN CREAM 120 GM JAR 1 APPLIC TOPICAL (10:51)
[2021-03-23] MEDS: TOLNAFTATE 1% POWDER 45 GM BTL 1 APPLIC TOPICAL (10:51)
[2021-03-23] MEDS: BISACODYL 10 MG SUPPOSITORY RECTAL (10:52)
--- NOTE | 2021-03-23 13:44 | PM.IMPN ---
Progress Note: A&P Assessment and Plan (1) Acute and chronic respiratory failure: Qualifiers: Respiratory failure complication: hypoxia and hypercapnia Qualified Code(s): J96.21 - Acute and chronic respiratory failure with hypoxia; J96.22 - Acute and chronic respiratory failure with hypercapnia Code(s): J96.20 - Acute and chronic respiratory failure, unspecified whether with hypoxia or hypercapnia Status: Acute Assessment and Plan: S/p high-dose diuretic with Lasix 80 mg IV q.12 hours, with a very good diuretic response, producing almost 4 L during the 1st few hours of admission. Continue Lasix to 80 mg po BID, Diamox 125 mg daily,, spironolactone 50 daily Cardiology recommendations appreciated Patient is tolerating CPAP, will continue with supportive ventilation Patient potassium stable, 3.8 today, will continue to replace and monitor Cardiology following, recommendations appreciated Pt with increased SOB yesterday Repeat CXR-->Minimal bibasilar airspace opacity, consistent with atelectasis versus pneumonia, pt afebrile, WBC trending down Repeat BNP unremarkable Continue duonebs scheduled (2) Chronic respiratory failure with hypoxia, on home oxygen therapy: Code(s): J96.11 - Chronic respiratory failure with hypoxia; Z99.81 - Dependence on supplemental oxygen Status: Acute Assessment and Plan: Likely is multifactorial in the setting of supermorbid obesity, COPD, heart failure, obstructive sleep apnea Chronic oxygen supplementation at 4 L at home, back to [facility] Pulmonary following, recommendations appreciated, vent settings 14/10 AHI 20.2; recommends changing auto EPAP pressure, follow up with his tailor's aide outpatient for possible new sleep study (3) Chronic obstructive pulmonary disease: Qualifiers: COPD type: emphysema Emphysema type: unspecified Qualified Code(s): J43.9 - Emphysema, unspecified Code(s): J44.9 - Chronic obstructive pulmonary disease, unspecified Status: Acute Assessment and Plan: Continue scheduled albuterol and ipratropium No wheezing, cough or sputum production No evidence of pneumonia on chest CT; no indication for antibiotics or steroids Repeat CXR noted above (4) Morbid obesity: Code(s): E66.01 - Morbid (severe) obesity due to excess calories Status: Acute Assessment and Plan: Patient was thoroughly educated about the emergent need for calorie restriction, increase physical activity and weight loss At this juncture he would benefit from admission to a specialized bariatric surgical unit, however given is many comorbidities, he is unlikely to be a candidate for any surgical intervention We will refer him to a bariatric medicine unit upon discharge (5) SILVANA (obstructive sleep apnea): Code(s): G47.33 - Obstructive sleep apnea (adult) (pediatric) Status: Acute Assessment and Plan: Continue BiPAP at home per new parameters (28/01) (6) Cellulitis of leg: Code(s): L03.119 - Cellulitis of unspecified part of limb Status: Acute Assessment and Plan: Improving left lower extremity cellulitis Continue cephalexin (7) Heart failure: Code(s): I50.9 - Heart failure, unspecified Status: Acute Assessment and Plan: Echocardiogram-->Very technically difficult study with limited views. This study is nearly uninterruptible. Very symptomatic with lower extremity edema an difficulty breathing and has improved after high dose Lasix BNP only 118; however the clinical significance of BNP in obesity is uncertain Continue Lasix to 80 mg po BID, Diamox 125 mg daily,, spironolactone 50 daily Cardiology following I/O Monitor (8) Hypokalemia: Code(s): E87.6 - Hypokalemia Status: Acute Assessment and Plan: K+ 3.8 today Continue KCL 40 meq BID Monitor closely Additional Plan Code status: FULL Disposition: Home with [facility] when medically stable; possibel
--- NOTE | 2021-03-23 14:51 | PCPTNOTE ---
Patient refused treatment this session. Patient states that he has not had a bowel movement for several days and feels uncomfortable. Patient states he wants to rest. PT will continue to follow per plan of care.
[2021-03-23] MEDS: polyethylene glycoL 3350 238 GM BOTTLE PO (15:44)
[2021-03-24] VITALS (11 sets, daily range): BP systolic 115–117; BP diastolic 50; PULSE 24–88; RESP 18–82; TEMP 36.1–36.7; O2SAT 98–100
[2021-03-24] MEDS: IPRATROPIUM BR 0.02% INH SOLN 0.5 MG/2.5 ML VIAL INHALATION ×4 (00:35→12:07)
[2021-03-24] MEDS: ALBUTEROL SULFATE NEB 2.5 MG/0.5 ML INH 5 MG INHALATION ×4 (00:35→12:07)
[2021-03-24] MEDS: HYDROcodone/acetaminophen (*CRX) 7.5-325 MG TABLET 2 TAB PO (06:02)
[2021-03-24] MEDS: DOCUSATE SODIUM 100 MG CAPSULE PO (08:27)
[2021-03-24] MEDS: MAGNESIUM OXIDE 400 MG TABLET PO (08:27)
[2021-03-24] MEDS: CEPHALEXIN 500 MG CAPSULE PO (08:27)
[2021-03-24] MEDS: FUROSEMIDE 80 MG TABLET PO (08:28)
[2021-03-24] MEDS: ENOXAPARIN 40 MG/0.4 ML SYRINGE SUB-Q (08:28)
[2021-03-24] MEDS: EUCERIN CREAM 120 GM JAR 1 APPLIC TOPICAL (08:29)
[2021-03-24] MEDS: POTASSIUM CHLORIDE 20 MEQ PACKET (FOR LIQUID) 40 MEQ PO (08:29)
[2021-03-24] MEDS: SPIRONOLACTONE 50 MG TABLET PO (08:29)
[2021-03-24] MEDS: TOLNAFTATE 1% POWDER 45 GM BTL 1 APPLIC TOPICAL (08:29)
[2021-03-24] MEDS: FLUTICASONE/SALMETEROL 115-21 MCG INHALER 1 PUFF 2 PUFF INHALATION (09:24)
[2021-03-24 09:44] LABS: Anion Gap 9 mmol/L (8-16); Blood Urea Nitrogen 14 mg/dL (9-20); Calcium 9.1 mg/dL (8.4-10.2); Carbon Dioxide 31 mmol/L (22-30); Chloride 95 mmol/L (98-107); Estimated CRCL calculation 108 ml/min; Estimated Glomerular Filt Rate > 60; Glucose 120 mg/dL (65-110); Potassium 3.7 mmol/L (3.4-5.0); Sodium 135 mmol/L (137-145)
--- NOTE | 2021-03-24 13:21 | PCOTNOTE ---
Patient declined therapy this date. Stated I'm going home, I don't want no therapy, I just got back into bed. Attempted to educate and encourage to participate, patient continued to decline.
--- NOTE | 2021-03-24 13:31 | PM.DS ---
DS: Admitting Diagnosis Discharge Date 03/24/2021 Admitting Diagnosis Acute and chronic respiratory failure DS: Discharge Diagnosis Discharge Diagnosis (1) Acute and chronic respiratory failure: Qualifiers: Respiratory failure complication: hypoxia and hypercapnia Qualified Code(s): J96.21 - Acute and chronic respiratory failure with hypoxia; J96.22 - Acute and chronic respiratory failure with hypercapnia Code(s): J96.20 - Acute and chronic respiratory failure, unspecified whether with hypoxia or hypercapnia Status: Acute Assessment and Plan: S/p high-dose diuretic with Lasix 80 mg IV q.12 hours, with a very good diuretic response, producing almost 4 L during the 1st few hours of admission. Continue Lasix to 80 mg po BID, Diamox 125 mg daily,, spironolactone 50 daily Cardiology recommendations appreciated Patient is tolerating CPAP, will continue with supportive ventilation Patient potassium stable, 3.8 today, will continue to replace and monitor Cardiology following, recommendations appreciated Pt with increased SOB yesterday Repeat CXR-->Minimal bibasilar airspace opacity, consistent with atelectasis versus pneumonia, pt afebrile, WBC trending down Repeat BNP unremarkable S/p duonebs (2) Chronic respiratory failure with hypoxia, on home oxygen therapy: Code(s): J96.11 - Chronic respiratory failure with hypoxia; Z99.81 - Dependence on supplemental oxygen Status: Acute Assessment and Plan: Likely is multifactorial in the setting of supermorbid obesity, COPD, heart failure, obstructive sleep apnea Chronic oxygen supplementation at 4 L at home, back to [facility] Pulmonary following, recommendations appreciated, vent settings 14/10 AHI 20.2; recommends changing auto EPAP pressure, follow up with 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 operations director outpatient for possible new sleep study (3) Chronic obstructive pulmonary disease: Qualifiers: COPD type: emphysema Emphysema type: unspecified Qualified Code(s): J43.9 - Emphysema, unspecified Code(s): J44.9 - Chronic obstructive pulmonary disease, unspecified Status: Acute Assessment and Plan: Continue scheduled albuterol and ipratropium No wheezing, cough or sputum production No evidence of pneumonia on chest CT; no indication for antibiotics or steroids Repeat CXR noted above (4) Morbid obesity: Code(s): E66.01 - Morbid (severe) obesity due to excess calories Status: Acute Assessment and Plan: Patient was thoroughly educated about the emergent need for calorie restriction, increase physical activity and weight loss At this juncture he would benefit from admission to a specialized bariatric surgical unit, however given is many comorbidities, he is unlikely to be a candidate for any surgical intervention We will refer him to a bariatric medicine unit upon discharge (5) SILVANA (obstructive sleep apnea): Code(s): G47.33 - Obstructive sleep apnea (adult) (pediatric) Status: Acute Assessment and Plan: Continue BiPAP at home per new parameters (28/01) (6) Cellulitis of leg: Code(s): L03.119 - Cellulitis of unspecified part of limb Status: Acute Assessment and Plan: Improving left lower extremity cellulitis S/p cephalexin x14 days (7) Heart failure: Code(s): I50.9 - Heart failure, unspecified Status: Acute Assessment and Plan: Echocardiogram-->Very technically difficult study with limited views. This study is nearly uninterruptible. Very symptomatic with lower extremity edema an difficulty breathing and has improved after high dose Lasix BNP only 118; however the clinical significance of BNP in obesity is uncertain Continue Lasix to 80 mg po BID, Diamox 125 mg daily,, spironolactone 50 daily Cardiology following I/O Monitor (8) Hypokalemia: Code(s): E87.6 - Hypokalemia Status: Acute Assessment and Plan: Stable K+ 3.8-->3.7 today Continue KCL 4
== END 2021-03-24 15:40 | disposition home health service (06) | DRG 194 ==
LOC: ANHED 03-10 02:22 → ANH3MEDSUR 03-10 03:12
PROVIDERS: Internal Medicine; Internal Medicine Nephrology; Physician Assistant; Admitting Provider Internal Medicine; Emergency Provider Emergency Medicine; PCP Internal Medicine; Visit Provider Family Medicine
DX: I50.33 Acute on chronic diastolic (congestive) heart failure (principal); J96.21 Acute and chronic respiratory failure with hypoxia; J96.22 Acute and chronic respiratory failure with hypercapnia; J43.9 Emphysema, unspecified; E66.2 Morbid (severe) obesity with alveolar hypoventilation; Z68.43 Body mass index [BMI] 50.0-59.9, adult; L03.116 Cellulitis of left lower limb; K59.00 Constipation, unspecified; E87.6 Hypokalemia; Z99.81 Dependence on supplemental oxygen; Z87.891 Personal history of nicotine dependence; Z90.49 Acquired absence of other specified parts of digestive tract
CPT/HCPCS: 36415; 36600; 71045; 71046; 71275; 80048; 80053; 80069; 81050; 82533; 82570; 82805; 83735; 83880; 83883; 83930; 83935; 84155; 84156; 84165; 84166; 84300; 84439; 84443; 84480; 84484; 84540; 85025; 85027; 85380; 85610; 85730; 93005; 93306; 93970; 94003; 94640; 94762; 96374; 96375; 96376; 97110; 97116; 97161; 97166; 97530; 97535; 99285; A9270; G0378; G0379; J1650; J1940; J3480; Q9957; Q9967

== ENCOUNTER 2023-12-25 19:38 | Inpatient (IN) | payer MEDICARE, MEDICAID, SELFPAY ==
--- NOTE | ~2023-12-25 | CT_ITS ---
Clinical Indication: Shortness of breath CT Scan of the Chest with Contrast: Technique: Contiguous sections were acquired throughout the chest after intravenous administration of 200 cc of Omnipaque 350. Dose reduction technique was used on this scan by utilizing automated expos ure control and iterative reconstruction technique. The dose-length product (DLP) was 3111.11 mGy-cm. COMPARISON: 03/10/2021 Findings: There is no evidence of any significant mediastinal, hilar or axillary lymphadenopathy. No large cent ral pulmonary embolus seen. Evaluation for smaller, more peripheral pulmonary emboli suboptimal due t o timing of the contrast bolus.. There is no evidence of aortic dissection or aneurysm. There is no evidence of pleural or pericardial effusion. There is probable moderate emphysema. There is probable chronic atelectasis/scarring of the right mid dle lobe with right middle lobe volume loss. There is minimal probable chronic atelectasis at the moe gula. Images through the upper abdomen reveal no abnormalities. Impression: No large central pulmonary embolus seen. Evaluation for smaller, more peripheral pulmonary emboli is suboptimal due to timing of the contrast bolus. Moderate emphysema and probable chronic atelectasis of the right middle lobe, and minimally in the li ngula. Reviewed, dictated and finalized at location M. Impression: No large central pulmonary embolus seen. Evaluation for smaller, more periphera l pulmonary emboli is suboptimal due to timing of the contrast bolus. Moderate emphysema and probable chronic atelectasis of the right middle lobe, a nd minimally in the lingula.
--- NOTE | ~2023-12-25 | CT_ITS ---
EXAMINATION: CT abdomen pelvis wo con DATE: 01/02/2024 10:55 INDICATION: Right flank pain. TECHNIQUE: Computed tomography (CT) of the abdomen and pelvis was performed without intravenous contr ast. Automated exposure control and iterative reconstruction technique were employed. The dose-length product was 1591.55 mGy-cm. COMPARISON: None. FINDINGS: The visualized portions of the lung bases demonstrate mild atelectasis. No pleural effusion . The heart size is normal. There are coronary artery calcifications. No pericardial effusion. The li miller, spleen, gallbladder, pancreas, adrenal glands, and kidneys are normal. There is diverticulosis o f the colon without evidence of diverticulitis. There are changes of appendectomy. There are no dilat ed loops of bowel. There are no pathologically enlarged lymph nodes. There is no free intraperitoneal fluid. There is moderate lumbar spondylosis. IMPRESSION: 1. No etiology for the patient's symptoms. Reviewed, dictated and finalized at location A.
--- NOTE | ~2023-12-25 | XR_ITS ---
EXAMINATION: XR chest 2V Exam Date/Time: 12/25/2023 21:31 CDT HISTORY: sob Comparison: 03/22/2021. RESULT: Lines, tubes, and devices: None. Lungs and pleura: Emphysematous change. Bibasilar atelectasis/scarring. Lateral view limited by resp iratory motion and body habitus. No definite focal consolidation, large pleural effusion or pneumotho rax. Cardiomediastinal silhouette: Stable. Other: No acute osseous or upper abdominal finding. IMPRESSION: No acute cardiopulmonary process. Reviewed, dictated and finalized at location K.
[2023-12-25 19:42] VITALS: BP 142/102; PULSE 92; RESP 24; TEMP 36.9; O2SAT 97
--- NOTE | 2023-12-25 19:45 | ECG_ITS ---
Test Date: 2023-12-25 19:54:33 Measurements Intervals [place] Rate: 86 P: 21 CO: 159 QRS: 78 QRSD: 93 T: 60 QT: 356 QTc: 428 Interpretive Statements SINUS RHYTHM LOW QRS VOLTAGE IN PRECORDIAL LEADS INCOMPLETE RIGHT BUNDLE BRANCH BLOCK BASELINE ARTIFACT- I, III, AVR, AVL, AVF BORDERLINE ECG No previous ECG available for comparison Electronically Signed On 12-25-2023 20:15:40 CDT by John Pelletier D.O.
[2023-12-25 20:10] LABS: Basophils Absolute Auto 0.1 K/mm3 (0.0-0.1); Basophils Percent Auto 0.4 % (0.2-1.2); Eosinophils Absolute Auto 0.4 K/mm3 (0-0.3); Eosinophils Percent Auto 2.6 % (0-4.4); Hematocrit 42.4 % (42.0-52.0); Hemoglobin 13.2 g/dL (14.0-18.0); Immature Granulocyte Absolute 0.06 K/mm3 (0.00-0.031); Immature Granulocyte Percent A 0.4 % (0-0.5); Lymphocytes Absolute Auto 1.19 K/mm3 (0.9-3.2); Lymphocytes Percent Auto 8.8 % (18.3-44.2); Mean Corpuscular HGB Conc 31.1 g/dl (32-36); Mean Corpuscular Hemoglobin 30.6 pg (26-34); Mean Corpuscular Volume 98.1 fl (80-100); Mean Platelet Volume 9.7 fl (7.4-10.4); Monocytes Absolute Auto 0.9 K/mm3 (0.1-0.6); Monocytes Percent Auto 6.6 % (2.6-8.5); Neutrophils Percent Auto 81.2 % (45.5-73.1); Platelet Count Result 241 k/mm3 (150-375); Red Blood Count 4.32 M/mm3 (4.6-6.20); Red Cell Distribution Width 15.6 % (11.5-14.5); White Blood Count 13.5 K/mm3 (4.5-10.0)
[2023-12-25 20:27] LABS: Alanine Aminotransferase 14 U/L (6-50); Albumin Level 3.7 g/dL (3.5-5.1); Alkaline Phosphatase 91 U/L (38-126); Anion Gap 6 mmol/L (4-12); Aspartate Amino Transferase 19 U/L (17-59); Bilirubin,Total 0.5 mg/dL (0.2-1.3); Blood Urea Nitrogen 14 mg/dL (9-20); Calcium 8.2 mg/dL (8.4-10.2); Carbon Dioxide 33 mmol/L (22-30); Chloride 102 mmol/L (98-107); Estimated CRCL calculation 143 ml/min; Estimated Glomerular Filt Rate > 60; Glucose 129 mg/dL (65-110); Potassium 3.7 mmol/L (3.4-5.0); Sodium 141 mmol/L (137-145)
[2023-12-25 20:46] LABS: Influenza A QL RT-PCR Negative (Negative); Influenza B QL RT-PCR Negative (Negative); RSV RNA, RT-PCR Negative (Negative); SARS-CoV-2 RNA PCR Negative (Negative)
--- NOTE | 2023-12-25 23:00 | ED.SOB ---
HPI - SOB/Dyspnea General Chief Complaint: Shortness of Breath/Dyspnea <Yolanda Stuart APRN - Last Filed: 12/26/23 02:46> Stated Complaint: SHORT OF BREATH <Yolanda Stuart APRN - Last Filed: 12/26/23 02:46> Time Seen by Provider: 12/25/23 22:37 <Yolanda Stuart APRN - Last Filed: 12/26/23 02:46> History of Present Illness HPI Narrative: Pt is a 60 yo male with a past medical history of morbid obesity, COPD, SILVANA, chronic respiratory failure on 4 L, SILVANA on CPAP, presenting to the emergency department with worsening shortness of breath. He reports previously being on a water pill but reports that was short term and no one told me I needed to stay on a water pill. Denies any chest pain or pleuritic pain, but reports I'm dying because I can't breathe. States that he has been using his typical 4 L of oxygen NC and does utilize CPAP at night. Patient denies fever, chills, rhinorrhea, sore throat, loss of sense of taste or smell. He reports his [id number] has bronchitis and she used his nebulizer machine, so he thinks he got what she has. He denies history of diabetes. <Yolanda Stuart APRN - Last Filed: 12/26/23 02:46> MD elicited complaint: shortness of breath <Yolanda Stuart APRN - Last Filed: 12/26/23 02:46> Pertinent past history: congestive heart failure <Yolanda Stuart APRN - Last Filed: 12/26/23 02:46> Related Data Home Medications: Home Medications Medication Instructions Recorded Confirmed albuterol sulfate 90 mcg/actuation 2 puff inhalation QID PRN Wheezing 10/08/20 12/26/23 aerosol inhaler budesonide-formoterol HFA 160 2 puff inhalation BID 10/08/20 12/26/23 mcg-4.5 mcg/actuation aerosol inhaler (Symbicort) ipratropium 0.5 mg-albuterol 3 mg 3 ml inhalation Q8H 10/08/20 12/26/23 (2.5 mg base)/3 mL nebulization soln tiotropium bromide 18 mcg capsule 1 cap inhalation DAILY 10/08/20 12/26/23 with inhalation device (Spiriva with HandiHaler) fluticasone furoate 100 1 inh inhalation DAILY 12/26/23 12/26/23 mcg-vilanterol 25 mcg/dose inhalation powder (Breo Ellipta) <Yolanda Stuart APRN - Last Filed: 12/26/23 02:46> Allergies/Adverse Reactions: Allergies Allergy/AdvReac Type Severity Reaction Status Date / Time No Known Allergies Allergy Verified 12/26/23 02:11 <Yolanda Stuart APRN - Last Filed: 12/26/23 02:46> Review of Systems Review of Systems: All systems reviewed & are unremarkable except as noted in HPI and below <Yolanda Stuart APRN - Last Filed: 12/26/23 02:46> [facility] Past Medical History Medical History: Medical History Abnormal findings-gastrointestinal tract Acute and chronic respiratory failure Chronic obstructive pulmonary disease Chronic respiratory failure with hypoxia, on home oxygen therapy Dysphagia Morbid obesity Nausea and vomiting in adult Obesity hypoventilation syndrome SILVANA (obstructive sleep apnea) Tobacco use <Yolanda Stuart APRN - Last Filed: 12/26/23 02:46> Surgical History Surgical History: Surgical History History of appendectomy History of mandibular surgery Bilateral jaw surgery due to fracture. <Yolanda Stuart APRN - Last Filed: 12/26/23 02:46> Family History Family History: Family History Other Hypertension <Yolanda Stuart APRN - Last Filed: 12/26/23 02:46> Social History Social History: Social History Social History: Surrogate decision maker: Fernanda Yao, [id number]. Code status: Full code however he would not want to be on long-term life support. Smoking packs per day: 2 Smoking cigarettes per day: 40.0 Years smoked: 40 Smoking pack-years: 80.00 Smoking status: Current every day smoker Tobacco type: cigarettes Additional smoking assessment comments: pt is down to 4-5 cigarettes every few days Alcohol intake: never Substance use: current Substance use type: marijuana Other substance usage details: someday use of marijuana Last use: Occasional marijuana use. Do You Feel Safe in your Home?: Yes Lack of Transportation: YES Lack of Food: Never True Current Housing: I Have Housing Concerned About Future Housing: No Difficulty Paying Gas/Electric Bills: YES Difficulty Paying for Meds: No Currently Unemployed: No Education: High School Diploma/GED Difficulty w/ Childcare or Family Care: No Additional living arrangements comments: The patient lives with his son and [id number] in [place]. 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 Spiritual care concerns: No <Yolanda Stuart APRN - Last Filed: 12/26/23 02:46> Exam Narrative: GENERAL: Ill- appearing, obese, non-toxic, in mild respiratory distress. HEAD: Normocephalic, atraumatic. NECK: Supple. No adenopathy, no masses. RESPIRATORY: Airway patent, respirations labored. Positive for wheezing in all four quadrants. Tachypneic. CARDIOVASCULAR: Regular rate and rhythm without murmurs, rubs, or gallops. Peripheral pulses diminished in bilateral lower extremities. ABDOMINAL: Soft, nontender, nondistended, no hepatosplenomegaly. Normoactive BS. MUSCULOSKELETAL: Moves all extremities. Strength/ROM intact without gross deformities. SKIN: Warm, dry, darkened lower extremities d/t poor circulation. NEURO: A&O X3. Speech clear. Cranial nerves II-XII grossly intact. No ataxic movements. PSYCHIATRIC: Appropriate mood and affect. Normal interaction. 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 I was available for consultation, but was not directly involved with patient's care nor did I evaluate the patient. <Terrance Clement MD - Last Filed: 12/26/23 06:50> Vital Signs Vital signs: Vital Signs Temperature 36.9 C 12/25/23 19:42 Pulse Rate 92 12/25/23 19:42 Respiratory Rate 24 H 12/25/23 19:42 Blood Pressure 142/102 H 12/25/23 19:42 Pulse Oximetry 97 12/25/23 19:42 Oxygen Delivery Nasal Cannula 12/25/23 19:42 Oxygen Flow Rate 4 12/25/23 19:42 Temperature 36.7 C 12/26/23 03:16 Pulse Rate 83 12/26/23 04:00 Respiratory Rate 18 12/26/23 03:16 Blood Pressure 144/74 H 12/26/23 03:16 Pulse Oximetry 96 12/26/23 03:37 Oxygen Delivery Nasal Cannula 12/26/23 03:45 Oxygen Flow Rate 6 12/26/23 03:37 <Yolanda Stuart APRN - Last Filed: 12/26/23 02:46> Vital Signs Temperature 36.9 C 12/25/23 19:42 Pulse Rate 92 12/25/23 19:42 Respiratory Rate 24 H 12/25/23 19:42 Blood Pressure 142/102 H 12/25/23 19:42 Pulse Oximetry 97 12/25/23 19:42 Oxygen Delivery Nasal Cannula 12/25/23 19:42 Oxygen Flow Rate 4 12/25/23 19:42 Temperature 36.7 C 12/26/23 03:16 Pulse Rate 83 12/26/23 04:00 Respiratory Rate 18 12/26/23 03:16 Blood Pressure 144/74 H 12/26/23 03:16 Pulse Oximetry 96 12/26/23 03:37 Oxygen Delivery Nasal Cannula 12/26/23 03:45 Oxygen Flow Rate 6 12/26/23 03:37 <Terrance Clement MD - Last Filed: 12/26/23 06:50> MDM - SOB/Dyspnea MDM Narrative Medical decision making narrative: Pt is a 60 yo male with a past medical history of morbid obesity, COPD, SILVANA, chronic respiratory failure on 4 L, SILVANA on BiPAP, presenting to the emergency department for evaluation of bilateral lower extremity swelling and associated worsening shortness of breath. He reports being previously on a water pill but reports that was short term and no one told me I needed to stay on a water pill. Denies any chest pain or pleuritic pain, but reports I'm dying because I can't breathe. States that he has been able to use his typical 4 L of oxygen and does utilize CPAP at night. Patient denies fever, chills, rhinorrhea, sore throat, loss of sense of taste or smell. He reports his [id number] has bronchitis and she used his nebulizer machine, so he thinks he got what she has. In the emergency department the patient is stable and afebrile with the following vital signs. Temperature 36.9?, pulse rate 94, respiration 20, blood pressure 146/82, pulse oximetry 99% on 4L NC. Basic labs were drawn. His initial CBC reveals a WBC of 13.5 and hgb 13.2. Pt's blood work results, although abnormal, are consistent with his results during previous hospitalizations. His chemistry shows a carbon dioxide level of 33 and a glucose of 132. Pt's ABG shows a pC02 of 50.7 and an HC03 of 31.1. Chest x-ray was reviewed and showed no acute cardiopulmonary process. Still awaiting CT scan results as of 199. Hospital medicine service was consulted and patient was admitted for further management. 0245-Pt's CT PE scan showed no pulmonary embolism. <Yolanda Stuart APRN - Last Filed: 12/26/23 02:46> Differential Diagnosis Differential diagnosis: Likely acute exacerbation of chronic obstructive airways disease, congestive heart failure, community acquired pneumonia, asthma with exacerbation and pulmonary embolism <Yolanda Stuart APRN - Last Filed: 12/26/23 02:46> Lab Data Attestation: I reviewed the patient's lab results. <Yolanda Stuart APRN - Last Filed: 12/26/23 02:46> Result diagrams: 12/25/23 19:54 12/25/23 19:54 <Yolanda Stuart APRN - Last Filed: 12/26/23 02:46> Labs: Lab Results 12/25/23 12/25/23 12/25/23 Range/Units 19:54 23:46 23:49 WBC 13.5 H (4.5-10.0) K/mm3 RBC 4.32 L (4.6-6.20) M/mm3 Hgb 13.2 L (14.0-18.0) g/dL Hct 42.4 (42.0-52.0) % MCV 98.1 (80-100) fl MCH 30.6 (26-34) pg MCHC 31.1 L (32-36) g/dl RDW 15.6 H (11.5-14.5) % Plt Count 241 (150-375) k/mm3 MPV 9.7 (7.4-10.4) fl Immature Gran % (Auto) 0.4 (0-0.5) % Neut % (Auto) 81.2 H (45.5-73.1) % Lymph % (Auto) 8.8 L (18.3-44.2) % [place] % (Auto) 6.6 (2.6-8.5) % Eos % (Auto) 2.6 (0-4.4) % Baso % (Auto) 0.4 (0.2-1.2) % Lymph # (Auto) 1.19 (0.9-3.2) K/mm3 [place] # (Auto) 0.9 H (0.1-0.6) K/mm3 Eos # (Auto) 0.4 H (0-0.3) K/mm3 Baso # (Auto) 0.1 (0.0-0.1) K/mm3 Abs Immat Gran (auto) 0.06 H (0.00-0.031) K/mm3 Absolute Neuts (auto) 11.0 H (1.3-6.7) K/mm3 Absolute Nucleated RBC 0.000 (0.0-0.012) K/mm3 Nucleated RBC % 0.0 (0.0-0.2) % PT 13.8 (11.1-14.7) Seconds INR 1.0 APTT 29.3 (22.3-36.8) Seconds Sodium 141 (137-145) mmol/L Potassium 3.7 (3.4-5.0) mmol/L Chloride 102 (98-107) mmol/L Carbon Dioxide 33 H (22-30) mmol/L Anion Gap 6 (4-12) mmol/L BUN 14 (9-20) mg/dL Creatinine 0.80 (0.7-1.3) mg/dL Estim Creat Clear Calc 143 ml/min Estimated GFR > 60 (59 - ) Glucose 129 H (65-110) mg/dL Lactic Acid 1.1 (0.7-2.0) mmol/L Calcium 8.2 L (8.4-10.2) mg/dL Magnesium 2.4 H (1.6-2.3) mg/dL Total Bilirubin 0.5 (0.2-1.3) mg/dL AST 19 (17-59) U/L ALT 14 (6-50) U/L Alkaline Phosphatase 91 (38-126) U/L Troponin I < 0.012 (0.000-0.034) ng/mL NT-Pro-B Natriuret Pep 218 H (19.9-100) pg/mL Total Protein 7.0 (6.3-8.2) g/dL Albumin 3.7 (3.5-5.1) g/dL Urine Color (Yellow) Urine Appearance (Clear) Urine pH (5.0-9.0) Ur Specific [place] (1.001-1.035) Urine Protein (Negative) mg/dL Urine Glucose (UA) (Negative) mg/dL Urine Ketones (Negative) mg/dL Ur Blood (Man) (Negative) Urine Nitrate (Negative) Urine Bilirubin (Negative) Urine Urobilinogen (<2.0) mg/dL Leukocyte Esterase Rfl (Negative) MUMTAZ/UL Influenza A (RT-PCR) Negative (Negative) Influenza B (RT-PCR) Negative (Negative) RSV (RT-PCR) Negative (Negative) SARS-CoV-2 RNA (RT-PCR) Negative (Negative) 12/26/23 Range/Units 00:47 WBC (4.5-10.0) K/mm3 RBC (4.6-6.20) M/mm3 Hgb (14.0-18.0) g/dL Hct (42.0-52.0) % MCV (80-100) fl MCH (26-34) pg MCHC (32-36) g/dl RDW (11.5-14.5) % Plt Count (150-375) k/mm3 MPV (7.4-10.4) fl Immature Gran % (Auto) (0-0.5) % Neut % (Auto) (45.5-73.1) % Lymph % (Auto) (18.3-44.2) % [place] % (Auto) (2.6-8.5) % Eos % (Auto) (0-4.4) % Baso % (Auto) (0.2-1.2) % Lymph # (Auto) (0.9-3.2) K/mm3 [place] # (Auto) (0.1-0.6) K/mm3 Eos # (Auto) (0-0.3) K/mm3 Baso # (Auto) (0.0-0.1) K/mm3 Abs Immat Gran (auto) (0.00-0.031) K/mm3 Absolute Neuts (auto) (1.3-6.7) K/mm3 Absolute Nucleated RBC (0.0-0.012) K/mm3 Nucleated RBC % (0.0-0.2) % PT (11.1-14.7) Seconds INR APTT (22.3-36.8) Seconds Sodium (137-145) mmol/L Potassium (3.4-5.0) mmol/L Chloride (98-107) mmol/L Carbon Dioxide (22-30) mmol/L Anion Gap (4-12) mmol/L BUN (9-20) mg/dL Creatinine (0.7-1.3) mg/dL Estim Creat Clear Calc ml/min Estimated GFR (59 - ) Glucose (65-110) mg/dL Lactic Acid (0.7-2.0) mmol/L Calcium (8.4-10.2) mg/dL Magnesium (1.6-2.3) mg/dL Total Bilirubin (0.2-1.3) mg/dL AST (17-59) U/L ALT (6-50) U/L Alkaline Phosphatase (38-126) U/L Troponin I (0.000-0.034) ng/mL NT-Pro-B Natriuret Pep (19.9-100) pg/mL Total Protein (6.3-8.2) g/dL Albumin (3.5-5.1) g/dL Urine Color Yellow (Yellow) Urine Appearance Clear (Clear) Urine pH 6.0 (5.0-9.0) Ur Specific [place] 1.018 (1.001-1.035) Urine Protein Negative (Negative) mg/dL Urine Glucose (UA) Negative (Negative) mg/dL Urine Ketones Negative (Negative) mg/dL Ur Blood (Man) Negative (Negative) Urine Nitrate Negative (Negative) Urine Bilirubin Negative (Negative) Urine Urobilinogen 1.0 (<2.0) mg/dL Leukocyte Esterase Rfl Negative (Negative) MUMTAZ/UL Influenza A (RT-PCR) (Negative) Influenza B (RT-PCR) (Negative) RSV (RT-PCR) (Negative) SARS-CoV-2 RNA (RT-PCR) (Negative) <Yolanda Heather Stuart, PARANORMAL INVESTIGATOR - Last Filed: 12/26/23 02:46> Lab Results 12/25/23 12/25/23 12/25/23 Range/Units 19:54 23:46 23:49 WBC 13.5 H (4.5-10.0) K/mm3 RBC 4.32 L (4.6-6.20) M/mm3 Hgb 13.2 L (14.0-18.0) g/dL Hct 42.4 (42.0-52.0) % MCV 98.1 (80-100) fl MCH 30.6 (26-34) pg MCHC 31.1 L (32-36) g/dl RDW 15.6 H (11.5-14.5) % Plt Count 241 (150-375) k/mm3 MPV 9.7 (7.4-10.4) fl Immature Gran % (Auto) 0.4 (0-0.5) % Neut % (Auto) 81.2 H (45.5-73.1) % Lymph % (Auto) 8.8 L (18.3-44.2) % [place] % (Auto) 6.6 (2.6-8.5) % Eos % (Auto) 2.6 (0-4.4) % Baso % (Auto) 0.4 (0.2-1.2) % Lymph # (Auto) 1.19 (0.9-3.2) K/mm3 [place] # (Auto) 0.9 H (0.1-0.6) K/mm3 Eos # (Auto) 0.4 H (0-0.3) K/mm3 Baso # (Auto) 0.1 (0.0-0.1) K/mm3 Abs Immat Gran (auto) 0.06 H (0.00-0.031) K/mm3 Absolute Neuts (auto) 11.0 H (1.3-6.7) K/mm3 Absolute Nucleated RBC 0.000 (0.0-0.012) K/mm3 Nucleated RBC % 0.0 (0.0-0.2) % PT 13.8 (11.1-14.7) Seconds INR 1.0 APTT 29.3 (22.3-36.8) Seconds Sodium 141 (137-145) mmol/L Potassium 3.7 (3.4-5.0) mmol/L Chloride 102 (98-107) mmol/L Carbon Dioxide 33 H (22-30) mmol/L Anion Gap 6 (4-12) mmol/L BUN 14 (9-20) mg/dL Creatinine 0.80 (0.7-1.3) mg/dL Estim Creat Clear Calc 143 ml/min Estimated GFR > 60 (59 - ) Glucose 129 H (65-110) mg/dL Lactic Acid 1.1 (0.7-2.0) mmol/L Calcium 8.2 L (8.4-10.2) mg/dL Magnesium 2.4 H (1.6-2.3) mg/dL Total Bilirubin 0.5 (0.2-1.3) mg/dL AST 19 (17-59) U/L ALT 14 (6-50) U/L Alkaline Phosphatase 91 (38-126) U/L Troponin I < 0.012 (0.000-0.034) ng/mL NT-Pro-B Natriuret Pep 218 H (19.9-100) pg/mL Total Protein 7.0 (6.3-8.2) g/dL Albumin 3.7 (3.5-5.1) g/dL Urine Color (Yellow) Urine Appearance (Clear) Urine pH (5.0-9.0) Ur Specific [place] (1.001-1.035) Urine Protein (Negative) mg/dL Urine Glucose (UA) (Negative) mg/dL Urine Ketones (Negative) mg/dL Ur Blood (Man) (Negative) Urine Nitrate (Negative) Urine Bilirubin (Negative) Urine Urobilinogen (<2.0) mg/dL Leukocyte Esterase Rfl (Negative) MUMTAZ/UL Influenza A (RT-PCR) Negative (Negative) Influenza B (RT-PCR) Negative (Negative) RSV (RT-PCR) Negative (Negative) SARS-CoV-2 RNA (RT-PCR) Negative (Negative) 12/26/23 Range/Units 00:47 WBC (4.5-10.0) K/mm3 RBC (4.6-6.20) M/mm3 Hgb (14.0-18.0) g/dL Hct (42.0-52.0) % MCV (80-100) fl MCH (26-34) pg MCHC (32-36) g/dl RDW (11.5-14.5) % Plt Count (150-375) k/mm3 MPV (7.4-10.4) fl Immature Gran % (Auto) (0-0.5) % Neut % (Auto) (45.5-73.1) % Lymph % (Auto) (18.3-44.2) % [place] % (Auto) (2.6-8.5) % Eos % (Auto) (0-4.4) % Baso % (Auto) (0.2-1.2) % Lymph # (Auto) (0.9-3.2) K/mm3 [place] # (Auto) (0.1-0.6) K/mm3 Eos # (Auto) (0-0.3) K/mm3 Baso # (Auto) (0.0-0.1) K/mm3 Abs Immat Gran (auto) (0.00-0.031) K/mm3 Absolute Neuts (auto) (1.3-6.7) K/mm3 Absolute Nucleated RBC (0.0-0.012) K/mm3 Nucleated RBC % (0.0-0.2) % PT (11.1-14.7) Seconds INR APTT (22.3-36.8) Seconds Sodium (137-145) mmol/L Potassium (3.4-5.0) mmol/L Chloride (98-107) mmol/L Carbon Dioxide (22-30) mmol/L Anion Gap (4-12) mmol/L BUN (9-20) mg/dL Creatinine (0.7-1.3) mg/dL Estim Creat Clear Calc ml/min Estimated GFR (59 - ) Glucose (65-110) mg/dL Lactic Acid (0.7-2.0) mmol/L Calcium (8.4-10.2) mg/dL Magnesium (1.6-2.3) mg/dL Total Bilirubin (0.2-1.3) mg/dL AST (17-59) U/L ALT (6-50) U/L Alkaline Phosphatase (38-126) U/L Troponin I (0.000-0.034) ng/mL NT-Pro-B Natriuret Pep (19.9-100) pg/mL Total Protein (6.3-8.2) g/dL Albumin (3.5-5.1) g/dL Urine Color Yellow (Yellow) Urine Appearance Clear (Clear) Urine pH 6.0 (5.0-9.0) Ur Specific [place] 1.018 (1.001-1.035) Urine Protein Negative (Negative) mg/dL Urine Glucose (UA) Negative (Negative) mg/dL Urine Ketones Negative (Negative) mg/dL Ur Blood (Man) Negative (Negative) Urine Nitrate Negative (Negative) Urine Bilirubin Negative (Negative) Urine Urobilinogen 1.0 (<2.0) mg/dL Leukocyte Esterase Rfl Negative (Negative) MUMTAZ/UL Influenza A (RT-PCR) (Negative) Influenza B (RT-PCR) (Negative) RSV (RT-PCR) (Negative) SARS-CoV-2 RNA (RT-PCR) (Negative) <Terrance Clement MD - Last Filed: 12/26/23 06:50> ABG Data ABG results: 12/25/23 23:49 Puncture Site Right radial ABG pH 7.405 ABG pCO2 50.7 H ABG pO2 80.6 ABG PO2/FiO2 Ratio 1.83 ABG HCO3 31.1 H ABG O2 Saturation 95.8 ABG O2 Content 19.5 ABG Base Excess 5.1 A-a Gradient 175.3 Oxyhemoglobin 95.0 Total Hemoglobin 14.6 O2 Delivery Device Nasal cannula O2 Liters/Min 6.0 FiO2 44 <Yolanda Stuart APRN - Last Filed: 12/26/23 02:46> 12/25/23 23:49 Puncture Site Right radial ABG pH 7.405 ABG pCO2 50.7 H ABG pO2 80.6 ABG PO2/FiO2 Ratio 1.83 ABG HCO3 31.1 H ABG O2 Saturation 95.8 ABG O2 Content 19.5 ABG Base Excess 5.1 A-a Gradient 175.3 Oxyhemoglobin 95.0 Total Hemoglobin 14.6 O2 Delivery Device Nasal cannula O2 Liters/Min 6.0 FiO2 44 <Terrance Clement MD - Last Filed: 12/26/23 06:50> Imaging Data Attestation: I personally reviewed and interpreted this imaging study as follows: <Yolanda Stuart APRN - Last Filed: 12/26/23 02:46> Radiologist's impression: Impressions Chest X-Ray 12/25/23 21:50 IMPRESSION: No acute cardiopulmonary process. <Yolanda Stuart APRN - Last Filed: 12/26/23 02:46> ECG Data EKG #1: Attestation: I personally reviewed and interpreted this ECG as follows: <Yolanda Stuart APRN - Last Filed: 12/26/23 02:46> ECG completion date: 12/25/23 <Yolanda Stuart APRN - Last Filed: 12/26/23 02:46> ECG completion time: 19:54 <Yolanda Stuart APRN - Last Filed: 12/26/23 02:46> Prior ECG tracings: available for review <Yolanda Stuart APRN - Last Filed: 12/26/23 02:46> Interpretation: SINUS RHYTHM, regular rate RIGHT BUNDLE BRANCH BLOCK No ST elevation <Yolanda Stuart APRN - Last Filed: 12/26/23 02:46> EKG Interpretation: RBBB <Yolanda Stuart APRN - Last Filed: 12/26/23 02:46> Discharge Plan Discharge Clinical Impression: COPD exacerbation, Chronic respiratory failure with hypoxia, on home oxygen therapy <Yolanda Stuart APRN - Last Filed: 12/26/23 02:46> Patient Disposition: Still a Patient <Yolanda Stuart APRN - Last Filed: 12/26/23 02:46> Condition: Stable <Yolanda Stuart APRN - Last Filed: 12/26/23 02:46>
[2023-12-25] MEDS: methylPREDNISolone SOD SUCC 125 MG VIAL IV PUSH (23:37)
[2023-12-25] MEDS: FUROSEMIDE INJ 40 MG/4 ML VIAL IV PUSH (23:38)
[2023-12-25] MEDS: IPRATROPIUM BR 0.02% INH SOLN 0.5 MG/2.5 ML VIAL INHALATION ×3 (23:44→23:45)
[2023-12-25] MEDS: ALBUTEROL SULFATE NEB 2.5 MG/3 ML INH 5 MG INHALATION ×3 (23:44→23:45)
[2023-12-25 23:45] VITALS: PULSE 79; RESP 18
[2023-12-25 23:55] LABS: Alveolar/Arterial O2 Gradient 175.3 mmHg; Base Excess ABG 5.1 mEq/l (+/-2.0); Fractional Inspired Oxygen 44 %; HCO3 ABG 31.1 mEq/l (22.0-26.0); Oxygen Content ABG 19.5 %vol (16.0-22.0); Oxygen Saturation ABG 95.8 % (95.0-100.0); PCO2 ABG 50.7 mmHg (35.0-45.0); PO2 ABG 80.6 mmHg (80.0-100.0); PO2 FiO2 Ratio Arterial Blood 1.83 %; Total Hemoglobin 14.6 g/dL (12.0-18.0); pH ABG 7.405 (7.350-7.450)
[2023-12-25 23:57] LABS: Device NASAL CANNULA; Modified Allen's Test Pass; Site Drawn RIGHT RADIAL
[2023-12-25 23:58] VITALS: PULSE 72; RESP 16
[2023-12-26] VITALS (24 sets, daily range): BP systolic 117–148; BP diastolic 67–94; PULSE 78–94; RESP 16–24; TEMP 36.3–36.7; O2SAT 94–99; BMI 53.4
[2023-12-26 00:11] LABS: Prothrombin Time 13.8 Seconds (11.1-14.7)
[2023-12-26 00:12] LABS: Partial Thromboplastin Time 29.3 Seconds (22.3-36.8)
[2023-12-26 00:18] LABS: Lactic Acid Reflex 1.1 mmol/L (0.7-2.0)
[2023-12-26 00:23] LABS: Magnesium 2.4 mg/dL (1.6-2.3)
[2023-12-26 00:53] LABS: Add Urine Microscopic? NO; Appearance Urine Clear (Clear); Bilirubin Urine Negative (Negative); Blood Urine Negative (Negative); Color Urine Yellow (Yellow); Glucose Urine UA Negative (Negative); Ketones Urine Negative (Negative); Leukocyte Esterase Ur Negative LEU/UL (Negative); Nitrate Urine Negative (Negative); Protein Urine Negative (Negative); Specific Grav Ur 1.018 (1.001-1.035)
[2023-12-26 01:47] LABS: Troponin I < 0.012 ng/mL (0.000-0.034)
--- NOTE | 2023-12-26 01:48 | P.HP_ITS ---
H&P: HPI History of Present Illness Date/Time: 12/26/23 01:48 Chief Complaint: shortness of breath Narrative: This is a 63-year-old male with past medical history significant for morbid obesity, chronic hypoxic respiratory failure, on supplemental oxygen by nasal cannula, obstructive sleep apnea on CPAP at nighttime, COPD/emphysema, obesity hypoventilation syndrome, tobacco dependence. Patient presents to the emergency room due to several days of shortness of breath patient has been incrementally in his usual oxygen with no improvement has had cough denies any fevers rigors or chills states that had been visiting in with his daughter who was sick he thought that he might be coming down with something. In emergency room patient had out evil wheezes required an hour long neb treatment. EXAMINATION: XR chest 2V Exam Date/Time: 12/25/2023 21:31 CDT HISTORY: sob Comparison: 03/22/2021. RESULT: Lines, tubes, and devices: None. Lungs and pleura: Emphysematous change. Bibasilar atelectasis/scarring. Lateral view limited by respiratory motion and body habitus. No definite focal consolidation, large pleural effusion or pneumothorax. Cardiomediastinal silhouette: Stable. Other: No acute osseous or upper abdominal finding. IMPRESSION: No acute cardiopulmonary process. Review of Systems Review of Systems: Shortness of breath, generalized weakness, fatigue PMFSH Past Medical History Medical History Abnormal findings-gastrointestinal tract Acute and chronic respiratory failure Chronic obstructive pulmonary disease Chronic respiratory failure with hypoxia, on home oxygen therapy Dysphagia Morbid obesity Nausea and vomiting in adult Obesity hypoventilation syndrome SILVANA (obstructive sleep apnea) Tobacco use Surgical History Surgical History History of appendectomy History of mandibular surgery Bilateral jaw surgery due to fracture. Family History Family History Other Hypertension Social History Social History Social History: Surrogate decision maker: Fernanda Yao, [id number]. Code status: Full code however he would not want to be on long-term life support. Smoking packs per day: 2 Smoking cigarettes per day: 40.0 Years smoked: 40 Smoking pack-years: 80.00 Smoking status: Current every day smoker Tobacco type: cigarettes Additional smoking assessment comments: pt is down to 4-5 cigarettes every few days Alcohol intake: never Substance use: current Substance use type: marijuana Other substance usage details: someday use of marijuana Last use: Occasional marijuana use. Do You Feel Safe in your Home?: Yes Lack of Transportation: YES Lack of Food: Never True Current Housing: I Have Housing Concerned About Future Housing: No Difficulty Paying Gas/Electric Bills: YES Difficulty Paying for Meds: No Currently Unemployed: No Education: High School Diploma/GED Difficulty w/ Childcare or Family Care: No Additional living arrangements comments: The patient lives with his son and [id number] in [place]. 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 Spiritual care concerns: No Meds Home Medications and Allergies Home Medications Medication Instructions Recorded Confirmed Type albuterol sulfate 90 mcg/actuation 2 puff inhalation QID PRN Wheezing 10/08/20 12/26/23 History aerosol inhaler budesonide-formoterol HFA 160 2 puff inhalation BID 10/08/20 12/26/23 History mcg-4.5 mcg/actuation aerosol inhaler (Symbicort) ipratropium 0.5 mg-albuterol 3 mg 3 ml inhalation Q8H 10/08/20 12/26/23 History (2.5 mg base)/3 mL nebulization soln tiotropium bromide 18 mcg capsule 1 cap inhalation DAILY 10/08/20 12/26/23 History with inhalation device (Spiriva with HandiHaler) tolnaftate 1 % topical powder 1 applic topical Q12HR 30 days 03/24/21 12/26/23 Rx fluticasone furoate 100 1 inh inhalation DAILY 12/26/23 12/26/23 History mcg-vilanterol 25 mcg/dose inhalation powder (Breo Ellipta) Allergies Allergy/AdvReac Type Severity Reaction Status Date / Time No Known Allergies Allergy Verified 12/26/23 02:11 Vital Signs Vital Signs - 24 hr 12/25/23 19:42 12/25/23 23:45 12/25/23 23:58 Temperature 98.5 F Pulse Rate 92 79 72 Respiratory Rate 24 H 18 16 Blood Pressure 142/102 H Pulse Oximetry 97 Oxygen Delivery Nasal Cannula Oxygen Flow Rate 4 12/26/23 00:15 12/26/23 00:57 12/26/23 01:16 Temperature Pulse Rate 84 94 Respiratory Rate 18 20 Blood Pressure 146/82 H Pulse Oximetry 95 99 Oxygen Delivery Nasal Cannula Oxygen Flow Rate 4 12/26/23 01:17 Temperature Pulse Rate 94 Respiratory Rate 20 Blood Pressure Pulse Oximetry Oxygen Delivery Oxygen Flow Rate Exam Narrative: patient is sitting in stretcher Const: General: comfortable, no acute distress, well developed, alert, awake and obese Nutritional Appearance: obese morbidly obese Orientation/consc iousness: patient oriented x3 Other: on supplemental oxygen by nasal cannula HENMT: Head: normal to inspection, normocephalic and atraumatic Ears: hearing grossly normal bilaterally Face/Nose/Sinus: normal facial exam Face and sinus: normal facial exam Eyes: General: appearance normal, both eyes and all related structures Pupi ls: Equal, round and reactive pupils present EOM: EOMs intact bilaterally Neck: Neck: full ROM, no lymphadenopathy and no JVD Thyroid: thyroid normal Lymphatic: no lymphadenopathy noted Resp: Effort & Inspection: normal respiratory effort and able to speak in complete sentences Auscultation: wheezes and diminished lung sounds Cardio: Jugular venous distension: no JVD Rate: regular rate Rhythm: regular rhythm Heart sounds: S1 normal heart sound present and S2 normal heart sound present GI: Inspection: Pannus present and obesity GI Palp: Yes Soft to palpation and Yes No hepatosplenomegaly present : General: Yes deferred Skin: Rashes: no rashes Wounds: no wounds Neuro: General: patient oriented x3 and CN's II-XI intact bilaterally Cranial nerves: Yes CN's II-XII intact bilaterally and Yes Equal, round and reactive pupils present Cognition (Neuro): normal cognition Speech: normal speech Gait exam (Neuro): Unable to assess gait Motor exam (neuro): 5/5 motor strength present throughout Extrem: General: normal to inspection, full ROM, no joint enlargement and no pedal edema H&P: Results Labs Labs: Short CBC 12/25/23 Range/Units 19:54 WBC 13.5 H (4.5-10.0) K/mm3 Hgb 13.2 L (14.0-18.0) g/dL Hct 42.4 (42.0-52.0) % Plt Count 241 (150-375) k/mm3 [facility] 12/25/23 19:54 Sodium 141 Potassium 3.7 Chloride 102 Carbon Dioxide 33 H BUN 14 Creatinine 0.80 Glucose 129 H Calcium 8.2 L Cardiac Enzymes 12/25/23 Range/Units 23:49 Troponin I < 0.012 (0.000-0.034) ng/mL Liver Function 12/25/23 Range/Units 19:54 Total Bilirubin 0.5 (0.2-1.3) mg/dL AST 19 (17-59) U/L ALT 14 (6-50) U/L Alkaline Phosphatase 91 (38-126) U/L Albumin 3.7 (3.5-5.1) g/dL Urine 12/26/23 Range/Units 00:47 Urine Color Yellow (Yellow) Urine Appearance Clear (Clear) Urine pH 6.0 (5.0-9.0) Ur Specific [place] 1.018 (1.001-1.035) Urine Protein Negative (Negative) mg/dL Urine Glucose (UA) Negative (Negative) mg/dL Assessment and Plan Assessment and plan (1) COPD exacerbation: Code(s): J44.1 - Chronic obstructive pulmonary disease with (acute) exacerbation Status: Acute Assessment and Plan: Admit to med tele breathing treatments systemic steroids (2) Heart failure: Code(s): I50.9 - Heart failure, unspecified Status: Acute Assessment and Plan: daily intake/output diurese as needed (3) Acute and chronic respiratory failure: Qualifiers: Respiratory failure complication: hypoxia and hypercapnia Qualified Code(s): J96.21 - Acute and chronic respiratory failure with hypoxia; J96.22 - Acute and chronic respiratory failure with hypercapnia Code(s): J96.20 - Acute and chronic respiratory failure, unspecified whether with hypoxia or hypercapnia Status: Acute Assessment and Plan: On 3 L currently by [place] (4) Chronic respiratory failure with hypoxia, on home oxygen therapy: Code(s): J96.11 - Chronic respiratory failure with hypoxia; Z99.81 - Dependence on supplemental oxygen Status: Acute Assessment and Plan: on chronic home O2 (5) Obesity hypoventilation syndrome: Code(s): E66.2 - Morbid (severe) obesity with alveolar hypoventilation Status: Acute Assessment and Plan: on home O2 (6) Morbid obesity: Code(s): E66.01 - Morbid (severe) obesity due to excess calories Status: Acute Assessment and Plan: life style and diet modifications (7) Tobacco use: Code(s): Z72.0 - Tobacco use Status: Acute Assessment and Plan: nicotine patch as needed (8) SILVANA (obstructive sleep apnea): Code(s): G47.33 - Obstructive sleep apnea (adult) (pediatric) Status: Acute Assessment and Plan: CPAP Hospitalist MIPS Advance Care Plan I have confirmed that the patient's Advanced Care Plan is present, code status is documented, or surrogate decision maker is listed in patient medical record.: Yes Medication Reconciliation I have utilized all available resources to obtain, update and review the patients current medications (includes all prescriptions, OTC, herbals, cannabis, and nutritional supplements).: Yes
--- NOTE | 2023-12-26 03:16 | ADMGEN ---
This patient, Catarino Yao Sr., was admitted to Medical Room 240-01. Patient/family oriented to hospital policies and general routines including ID bracelet, bed and alarms, visiting hours, pain management, procedures, bathroom and other care routines, personal items, smoking policy, room service/diet, and visiting hours. Information on how to activate the Rapid Response Team has been discussed. Patient/Family are encouraged to report perceived risks to care and to ask questions if they do not understand what they are told or what they should do.
[2023-12-26 06:19] LABS: NT Pro B Type Natriuretic Pept 218 pg/mL (19.9-100)
--- NOTE | 2023-12-26 06:56 | PM.IMPN ---
Progress Note: A&P Assessment and Plan (1) Acute and chronic respiratory failure: Qualifiers: Respiratory failure complication: hypoxia and hypercapnia Qualified Code(s): J96.21 - Acute and chronic respiratory failure with hypoxia; J96.22 - Acute and chronic respiratory failure with hypercapnia Code(s): J96.20 - Acute and chronic respiratory failure, unspecified whether with hypoxia or hypercapnia Status: Acute Assessment and Plan: Suspected COPD exacerbation with possible concurrent viral versus bacterial infection CTA chest shows no large central pulmonary embolus, moderate emphysema, and probable chronic atelectasis of the right middle lobe Right Ph 7.405/pCO2 50.7/pO2 80.6/HCO3 31.1 on 6 L (2) COPD exacerbation: Code(s): J44.1 - Chronic obstructive pulmonary disease with (acute) exacerbation Status: Acute Assessment and Plan: COPD history on 3 L at rest with 6 L with activity On duonebs q 6 hours, home inhalers continue Azithromycin/Rocephin Steroids added (3) Heart failure: Code(s): I50.9 - Heart failure, unspecified Status: Acute Assessment and Plan: daily intake/output daily weights BNP 187 (4) Tobacco use: Code(s): Z72.0 - Tobacco use Status: Acute Assessment and Plan: Smoking cessation education nicotine patch as needed Plan DVT prophylaxis: Lovenox Glycemic control: na Code Status: Full code Disposition: 63-year-old patient who presented with increased oxygen requirements, congestion, productive cough, and shortness of breath. Suspected to be in acute COPD exacerbation with possible concurrent pneumonia. He was started on IV Rocephin and azithromycin, Duo Nebs, and oral steroids. Patient is from home and anticipate discharge back to previous living arrangements. Medication reconciliation obtained via the following: Nurse completed on admission The file time of this note does not necessarily represent the time the patient was seen. Subjective Date/time seen: 12/26/23 06:56 Interval history: Patient is a 60 yo male with a past medical history of morbid obesity, COPD, SILVANA, chronic respiratory failure on 3 L at rest and 6 L with activity, SILVANA on CPAP, presenting to the emergency department with worsening shortness of breath. He reports increased congestion and productive cough. He is unsure what color his sputum is as he has been swallowing it. He reports that his [id number] is sick with bronchitis. He denies fever or chills. He is also complaining of wheezing. He normally wears 3 L of oxygen at rest but has been having to increase his resting oxygen to 6 L to keep sats above 90%. He also reports having some diarrhea a few days ago but that has since resolved. Exam Narrative: General: well appearing, appears stated age. HEENT: normocephalic, atraumatic. Mucous membranes moist. EOMI, PERRLA, bilateral sclera anicteric, no conjunctival injection. Neck supple without JVD, lymphadenopathy, or bruit. Respiratory: coarse with intermittent expiratory wheeze on auscultation bilaterally. No rales/rhonic. Cardiovascular: Regular rate and rhythm, normal S1-S2 upon auscultation. No murmurs, rubs, or clicks. PMI is nondisplaced, capillary refill less than 3 second. Abdomen: Soft, round, no pulsatile masses, nondistended and nontender. No rebound, no guarding. No CVA tenderness, no hepatosplenomegaly. Bowel sounds present to all four quadrants. No high pitch or tinkling sounds, resonant to percussion. Extremities: No cyanosis, clubbing, or edema present. Pulses are palpable 2/2. Active ROM to all four extremities. Neuro: Alert and orientated x 4. PERRLA. Cranial nerves 2-12 intact without focal deficit. Skin: Warm, dry, and intact, without rash, erythema, or lesion. Lines: PIV Incisions: Psych: pleasant, cooperative, normal speech, normal affect, no hallucinations, no dysarthria Objective Data Vital Signs Vital Signs: Vital Signs - 24 hr 12/25/23 19:42 12/25/23 23:45 12/25/23 23:58 Temperature 98.5 F Pulse Rate 92 79 72 Respiratory Rate 24 H 18 16 Blood Pressure 142/102 H Pulse Oximetry 97 Oxygen Delivery Nasal Cannula Oxygen Flow Rate 4 12/26/23 00:15 12/26/23 00:57 12/26/23 01:16 Temperature Pulse Rate 84 94 Respiratory Rate 18 20 Blood Pressure 146/82 H Pulse Oximetry 95 99 Oxygen Delivery Nasal Cannula Oxygen Flow Rate 4 12/26/23 01:17 12/26/23 02:37 12/26/23 03:37 Temperature Pulse Rate 94 94 Respiratory Rate 20 18 Blood Pressure 137/94 H Pulse Oximetry 97 96 Oxygen Delivery Nasal Cannula Oxygen Flow Rate 6 12/26/23 03:16 12/26/23 03:45 12/26/23 04:00 Temperature 98.0 F Pulse Rate 90 83 Respiratory Rate 18 Blood Pressure 144/74 H Pulse Oximetry 96 Oxygen Delivery Nasal Cannula Oxygen Flow Rate Meds/Results Medications: Active Medications Generic Name Dose Route Start Last Admin Trade Name Freq PRN Reason Stop Dose Admin Albuterol 5 mg 12/26/23 02:00 12/26/23 03:28 Albuterol Sulfate Neb 2.5 Mg/3 Ml Inh INHALATION Not Given Q6HRT LUIS Albuterol 2 puff 12/26/23 06:18 Albuterol Sulfate (*Sp) Aerosol 1 Puff INHALATION QIDRT PRN Wheezing Ceftriaxone Sodium 2 gm in 100 mls @ 200 mls/hr 12/26/23 07:00 Rocephin 2 Gm/Ns 100 Ml IVPB Q24H LUIS Azithromycin 500 mg in 250 mls @ 250 mls/hr 12/26/23 07:00 Zithromax IVPB Q24H LUIS Ipratropium [place] 0.5 mg 12/26/23 02:00 12/26/23 03:29 Ipratropium Br 0.02% Inh Soln 0.5 Mg/2.5 Ml Vial INHALATION Not Given Q6HRT LUIS Miscellaneous Information 0 each 12/26/23 00:01 Tolnaftate Add Site Of Use XX 01/25/24 00:00 CLARIFY LUIS Fluticasone/Salmeterol 2 puff 12/26/23 08:00 Fluticasone/Salmeterol 115-21 Mcg Inhaler 1 Puff INHALATION Q12HRT LUIS Fluticasone/Salmeterol 1 puff 12/26/23 09:00 Fluticasone/Salmeterol 115-21 Mcg Inhaler 1 Puff INHALATION 01/25/24 08:59 DAILY [facility] Tolnaftate 1 applic 12/26/23 09:00 Tolnaftate 1% Powder 45 Gm Btl TOPICAL Q12HR [facility] Umeclidinium [place] 1 puff 12/26/23 08:00 Umeclidinium [place] 62.5 Mcg Ellipta INHALATION DAILYRT [facility] Radiology Results: ITS Impressions Chest X-Ray 12/25/23 21:50 IMPRESSION: No acute cardiopulmonary process. Chest CTA 12/26/23 05:48 Impression: No large central pulmonary embolus seen. Evaluation for smaller, more peripheral pulmonary emboli is suboptimal due to timing of the contrast bolus. Moderate emphysema and probable chronic atelectasis of the right middle lobe, and minimally in the lingula. Labs Labs: Laboratory Results - last 24 hr 12/25/23 12/25/23 12/25/23 19:54 23:46 23:49 WBC 13.5 H RBC 4.32 L Hgb 13.2 L Hct 42.4 MCV 98.1 MCH 30.6 MCHC 31.1 L RDW 15.6 H Plt Count 241 MPV 9.7 Immature Gran % (Auto) 0.4 Neut % (Auto) 81.2 H Lymph % (Auto) 8.8 L [place] % (Auto) 6.6 Eos % (Auto) 2.6 Baso % (Auto) 0.4 Lymph # (Auto) 1.19 [place] # (Auto) 0.9 H Eos # (Auto) 0.4 H Baso # (Auto) 0.1 Abs Immat Gran (auto) 0.06 H Absolute Neuts (auto) 11.0 H Absolute Nucleated RBC 0.000 Nucleated RBC % 0.0 PT 13.8 INR 1.0 APTT 29.3 Puncture Site Right radial ABG pH 7.405 ABG pCO2 50.7 H ABG pO2 80.6 ABG PO2/FiO2 Ratio 1.83 ABG HCO3 31.1 H ABG O2 Saturation 95.8 ABG O2 Content 19.5 ABG Base Excess 5.1 A-a Gradient 175.3 Oxyhemoglobin 95.0 Total Hemoglobin 14.6 O2 Delivery Device Nasal cannula O2 Liters/Min 6.0 FiO2 44 Sodium 141 Potassium 3.7 Chloride 102 Carbon Dioxide 33 H Anion Gap 6 BUN 14 Creatinine 0.80 Estim Creat Clear Calc 143 Estimated GFR > 60 Glucose 129 H Lactic Acid 1.1 Calcium 8.2 L Magnesium 2.4 H Total Bilirubin 0.5 AST 19 ALT 14 Alkaline Phosphatase 91 Troponin I < 0.012 NT-Pro-B Natriuret Pep 218 H Total Protein 7.0 Albumin 3.7 Urine Color Urine Appearance Urine pH Ur Specific [place] Urine Protein Urine Glucose (UA) Urine Ketones Ur Blood (Man) Urine Nitrate Urine Bilirubin Urine Urobilinogen Leukocyte Esterase Rfl Influenza A (RT-PCR) Negative Influenza B (RT-PCR) Negative RSV (RT-PCR) Negative SARS-CoV-2 RNA (RT-PCR) Negative 12/26/23 00:47 WBC RBC Hgb Hct MCV MCH MCHC RDW Plt Count MPV Immature Gran % (Auto) Neut % (Auto) Lymph % (Auto) [place] % (Auto) Eos % (Auto) Baso % (Auto) Lymph # (Auto) [place] # (Auto) Eos # (Auto) Baso # (Auto) Abs Immat Gran (auto) Absolute Neuts (auto) Absolute Nucleated RBC Nucleated RBC % PT INR APTT Puncture Site ABG pH ABG pCO2 ABG pO2 ABG PO2/FiO2 Ratio ABG HCO3 ABG O2 Saturation ABG O2 Content ABG Base Excess A-a Gradient Oxyhemoglobin Total Hemoglobin O2 Delivery Device O2 Liters/Min FiO2 Sodium Potassium Chloride Carbon Dioxide Anion Gap BUN Creatinine Estim Creat Clear Calc Estimated GFR Glucose Lactic Acid Calcium Magnesium Total Bilirubin AST ALT Alkaline Phosphatase Troponin I NT-Pro-B Natriuret Pep Total Protein Albumin Urine Color Yellow Urine Appearance Clear Urine pH 6.0 Ur Specific [place] 1.018 Urine Protein Negative Urine Glucose (UA) Negative Urine Ketones Negative Ur Blood (Man) Negative Urine Nitrate Negative Urine Bilirubin Negative Urine Urobilinogen 1.0 Leukocyte Esterase Rfl Negative Influenza A (RT-PCR) Influenza B (RT-PCR) RSV (RT-PCR) SARS-CoV-2 RNA (RT-PCR)
[2023-12-26] MEDS: cefTRIAXone 2 GM/NS 100 ML 2 GM/100 ML BAG IVPB (07:19)
[2023-12-26] MEDS: AZITHROMYCIN 500 MG/NS 250 ML 500 MG/250 ML BAG 250 MG IVPB (07:56)
[2023-12-26] MEDS: IPRATROPIUM BR 0.02% INH SOLN 0.5 MG/2.5 ML VIAL INHALATION ×3 (07:56→19:57)
[2023-12-26] MEDS: ALBUTEROL SULFATE NEB 2.5 MG/3 ML INH 5 MG INHALATION ×3 (07:56→19:57)
[2023-12-26] MEDS: UMECLIDINIUM BROMIDE 62.5 MCG ELLIPTA 1 PUFF INHALATION (07:57)
[2023-12-26] MEDS: FLUTICASONE/SALMETEROL 115-21 MCG INHALER 1 PUFF 2 PUFF INHALATION ×2 (07:57→20:00)
[2023-12-26] MEDS: TOLNAFTATE 1% POWDER 45 GM BTL 1 APPLIC TOPICAL ×2 (08:31→21:13)
[2023-12-26 09:25] LABS: Basophils Percent Auto 0.2 % (0.2-1.2); Eosinophils Percent Auto 0.1 % (0-4.4); Hematocrit 43.7 % (42.0-52.0); Hemoglobin 13.4 g/dL (14.0-18.0); Immature Granulocyte Absolute 0.06 K/mm3 (0.00-0.031); Immature Granulocyte Percent A 0.5 % (0-0.5); Lymphocytes Absolute Auto 0.39 K/mm3 (0.9-3.2); Mean Corpuscular HGB Conc 30.7 g/dl (32-36); Mean Corpuscular Hemoglobin 30.2 pg (26-34); Mean Corpuscular Volume 98.6 fl (80-100); Mean Platelet Volume 9.6 fl (7.4-10.4); Monocytes Absolute Auto 0.1 K/mm3 (0.1-0.6); Monocytes Percent Auto 0.6 % (2.6-8.5); Neutrophils Absolute Auto 12.3 K/mm3 (1.3-6.7); Neutrophils Percent Auto 95.6 % (45.5-73.1); Platelet Count Result 258 k/mm3 (150-375); Red Blood Count 4.43 M/mm3 (4.6-6.20); Red Cell Distribution Width 15.4 % (11.5-14.5); White Blood Count 12.8 K/mm3 (4.5-10.0)
[2023-12-26 09:53] LABS: Alanine Aminotransferase 17 U/L (6-50); Alkaline Phosphatase 89 U/L (38-126); Anion Gap 7 mmol/L (4-12); Aspartate Amino Transferase 35 U/L (17-59); Bilirubin,Total 0.5 mg/dL (0.2-1.3); Blood Urea Nitrogen 17 mg/dL (9-20); Calcium 8.2 mg/dL (8.4-10.2); Carbon Dioxide 33 mmol/L (22-30); Chloride 97 mmol/L (98-107); Estimated CRCL calculation 145 ml/min; Estimated Glomerular Filt Rate > 60; Glucose 178 mg/dL (65-110); Potassium 4.3 mmol/L (3.4-5.0); Sodium 137 mmol/L (137-145)
[2023-12-26] MEDS: predniSONE 20 MG TABLET 40 MG PO (11:37)
[2023-12-26] MEDS: ACETAMINOPHEN 325 MG TABLET 650 MG PO ×2 (17:12→21:12)
[2023-12-26] MEDS: guaiFENesin 12 HR 600 MG TABCR 1200 MG PO (21:12)
[2023-12-27] VITALS (21 sets, daily range): BP systolic 139–146; BP diastolic 67–83; PULSE 69–92; RESP 16–22; TEMP 36.6–36.8; O2SAT 95–100
[2023-12-27] MEDS: ALBUTEROL SULFATE NEB 2.5 MG/3 ML INH 5 MG INHALATION ×4 (01:51→20:33)
[2023-12-27] MEDS: IPRATROPIUM BR 0.02% INH SOLN 0.5 MG/2.5 ML VIAL INHALATION ×4 (01:51→20:33)
[2023-12-27] MEDS: cefTRIAXone 2 GM/NS 100 ML 2 GM/100 ML BAG IVPB (06:06)
--- NOTE | 2023-12-27 07:58 | P.PNIM_ITS ---
Progress Note: A&P Assessment and Plan (1) Acute and chronic respiratory failure: Qualifiers: Respiratory failure complication: hypoxia and hypercapnia Qualified Code(s): J96.21 - Acute and chronic respiratory failure with hypoxia; J96.22 - Acute and chronic respiratory failure with hypercapnia Code(s): J96.20 - Acute and chronic respiratory failure, unspecified whether with hypoxia or hypercapnia Status: Acute Assessment and Plan: 12/27/23: * Likely COPD exacerbation versus bacterial pneumonia * CTA was negative for any PE * Chest x-ray was negative * ABG shown up pCO2 of 50.7 with a normal pH * History of COPD and home O2 of 3 L at rest and 6 L with activity (2) COPD exacerbation: Code(s): J44.1 - Chronic obstructive pulmonary disease with (acute) exacerbation Status: Acute Assessment and Plan: 12/27/23: * Wears home O2. He wears 3 L at rest and 6 L with activity * Currently still on 6 L nasal cannula at rest and appears to be short of breath with use of accessory muscle * Continue DuoNebs scheduled and p.r.n. * Continue azithromycin and Rocephin * Continue prednisone 40 mg daily (3) Heart failure: Code(s): I50.9 - Heart failure, unspecified Status: Acute Assessment and Plan: 12/27/23: * Continue daily weight * ProBNP 218 (4) Tobacco use: Code(s): Z72.0 - Tobacco use Status: Acute Assessment and Plan: 12/27/23: * Continue nicotine patch (5) Chronic back pain: Code(s): M54.9 - Dorsalgia, unspecified; G89.29 - Other chronic pain Status: Acute Assessment and Plan: 12/27/23: * Ibuprofen 600 mg ordered for pain 1-3 * Ultram 25 mg ordered for pain 4-6 * Ultram 50 mg ordered for pain 7- 10 (6) Constipation: Code(s): K59.00 - Constipation, unspecified Status: Acute Assessment and Plan: 12/27/23: * MiraLax ordered Time Spent With Patient Time with patient: Greater than 35 minutes Subjective Date/time seen: 12/27/23 07:58 Interval history: Interval history: This is a 63 year old male who presented to the hospital with worsening shortness of breath. Workup in the hospital included a chest x-ray which was negative. He also had a chest CTA which was negative for PE and moderate emphysema with probable chronic atelectasis of the right middle lobe. Initial labs showed a white blood cell count of 13.5, hemoglobin 13.2, ABG showing a pCO2 of 50.7 with a normal pH, lactic acid was normal at 1.1, troponin was negative, proBNP 218. UA was obtained and was negative. Respiratory panel was obtained and negative for influenza A and B, RSV, COVID. Blood cultures were obtained and pending. Patient was started on Rocephin and azithromycin. Subjective: 12/27/23: Patient denies any fever, chills, nausea, vomiting, diarrhea, abdominal pain, chest pain, headache. Patient endorses shortness of breath at rest and wheezing. Labs reviewed. Imaging reviewed Review of Systems Review of Systems: Shortness of breath, generalized weakness, fatigue All systems reviewed & are unremarkable except as noted in HPI and below Constitutional: Constitutional: Reports as per HPI and Reports no additional constitutional complaints Eyes: Eyes: Reports as per HPI and Reports no additional eye complaints ENT: Reports system reviewed and no additional complaints, except as documented and Reports as per HPI Cardiovascular: Cardiovascular: Reports as per HPI and Reports no additional cardiovascular complaints Respiratory: Respiratory: Reports as per HPI and Reports no additional respiratory complaints Gastrointestinal: Gastrointestinal: Reports as per HPI and Reports no additional gastrointestinal complaints Genitourinary: Genitourinary: Reports no additional male genitourinary complaints and Reports as per HPI Musculoskeletal: Musculoskeletal: Reports no additional musculoskeletal complaints and Reports as per HPI Integumentary/Breasts: Skin/Breast: Reports system reviewed and no additional complaints, except as docu and Reports as per HPI Neurologic: Reports system reviewed and no additional complaints, except as documented and Reports as per HPI Psychiatric: Psychiatric: Reports no additional psychiatric complaints and Reports as per HPI Exam Narrative: General: In no acute distress, well nourished Head: atraumatic, no encephalopathy Eyes: EOMI, PERRLA, sclera clear ENT: moist mucous membranes, nasal passages clear Neck: supple, no JVD, no adenopathy, trachea midline Cardiac: Normal S1 and S2. No murmur, gallops or friction rubs, peripheral pulses intact. Respiratory: Lungs clear to auscultation, no adventitious lung sounds, currently on 6 L nasal cannula, use of accessory muscles, productive cough, shortness of breath and dyspnea at rest Gastrointestinal: soft, obese, non-tender, normoactive bowel sounds. : voiding without difficulty. Extremities: moves all extremities well, no edema, good ROM, strength 5/5 Skin: clean, dry, intact. No wounds or lesions. Neuro: Alert and oriented x4, cranial nerves intact, no neuro deficits. Psych: normal mood, normal affect, interactive Objective Data Vital Signs Vital Signs: Vital Signs - 24 hr 12/26/23 08:22 12/26/23 09:21 12/26/23 08:03 Temperature Pulse Rate 78 78 Respiratory Rate 20 20 Blood Pressure Pulse Oximetry 96 Oxygen Delivery Nasal Cannula Oxygen Flow Rate 12/26/23 12:01 12/26/23 13:58 12/26/23 14:12 Temperature Pulse Rate 83 94 91 Respiratory Rate 24 H 24 H Blood Pressure Pulse Oximetry Oxygen Delivery Oxygen Flow Rate 12/26/23 14:00 12/26/23 15:03 12/26/23 16:03 Temperature 97.3 F L Pulse Rate 91 85 Respiratory Rate 20 Blood Pressure 117/89 136/67 Pulse Oximetry 98 Oxygen Delivery Oxygen Flow Rate 12/26/23 19:59 12/26/23 19:58 12/26/23 20:15 Temperature 97.9 F Pulse Rate 84 83 Respiratory Rate 20 16 Blood Pressure 148/68 H Pulse Oximetry 94 98 Oxygen Delivery Nasal Cannula Oxygen Flow Rate 12/26/23 20:13 12/26/23 21:00 12/26/23 20:00 Temperature Pulse Rate 86 85 Respiratory Rate 20 Blood Pressure Pulse Oximetry Oxygen Delivery Nasal Cannula Oxygen Flow Rate 12/27/23 00:00 12/26/23 23:15 12/27/23 01:55 Temperature Pulse Rate 81 79 80 Respiratory Rate 20 Blood Pressure Pulse Oximetry 98 Oxygen Delivery Nasal Cannula Oxygen Flow Rate 12/27/23 02:12 12/27/23 04:00 12/27/23 06:15 Temperature 98.1 F Pulse Rate 83 78 72 Respiratory Rate 20 16 Blood Pressure 143/83 H Pulse Oximetry 98 Oxygen Delivery Oxygen Flow Rate Intake/Output Intake/Output: Intake & Output 12/24/23 12/25/23 12/26/23 12/27/23 23:59 23:59 23:59 23:59 Intake Total 1860 500 Balance 1860 500 Meds/Results Medications: Active Medications Generic Name Dose Route Start Last Admin Trade Name Freq PRN Reason Stop Dose Admin Acetaminophen 650 mg 12/26/23 17:07 12/26/23 21:12 Acetaminophen 325 Mg Tablet PO 650 mg Q4H PRN Administration Mild Pain (1-3) or Fever Albuterol 5 mg 12/26/23 02:00 12/27/23 01:51 Albuterol Sulfate Neb 2.5 Mg/3 Ml Inh INHALATION 5 mg Q6HRT LUIS Administration Albuterol 2 puff 12/26/23 06:18 Albuterol Sulfate (*Sp) Aerosol 1 Puff INHALATION QIDRT PRN Wheezing Enoxaparin Sodium 40 mg 12/27/23 09:00 Enoxaparin 40 Mg/0.4 Ml Syringe SUB-Q DAILY LUIS Guaifenesin 1,200 mg 12/26/23 21:00 12/26/23 21:12 Guaifenesin 12 Hr 600 Mg Tabcr PO 1,200 mg Q12HR LUIS Administration Ceftriaxone Sodium 2 gm in 100 mls @ 200 mls/hr 12/26/23 07:00 12/27/23 06:06 Rocephin 2 Gm/Ns 100 Ml IVPB 200 mls/hr Q24H LUIS Administration Azithromycin 500 mg in 250 mls @ 250 mls/hr 12/26/23 07:00 12/26/23 08:55 Zithromax IVPB Infused Q24H LUIS Infusion Ipratropium [place] 0.5 mg 12/26/23 02:00 12/27/23 01:51 Ipratropium Br 0.02% Inh Soln 0.5 Mg/2.5 Ml Vial INHALATION 0.5 mg Q6HRT LUIS Administration Prednisone 40 mg 12/26/23 11:00 12/26/23 11:37 Prednisone 20 Mg Tablet PO 01/01/24 22:00 40 mg DAILY@0800 LUIS Administration Fluticasone/Salmeterol 2 puff 12/26/23 08:00 12/26/23 20:00 Fluticasone/Salmeterol 115-21 Mcg Inhaler 1 Puff INHALATION 2 puff Q12HRT LUIS Administration Fluticasone/Salmeterol 1 puff 12/26/23 09:00 Fluticasone/Salmeterol 115-21 Mcg Inhaler 1 Puff INHALATION 01/25/24 08:59 DAILY LUIS Tolnaftate 1 applic 12/26/23 09:00 12/26/23 21:13 Tolnaftate 1% Powder 45 Gm Btl TOPICAL 1 applic Q12HR LUIS Administration Umeclidinium [place] 1 puff 12/26/23 08:00 12/26/23 07:57 Umeclidinium [place] 62.5 Mcg Ellipta INHALATION 1 puff DAILYRT LUIS Administration Radiology Results: ITS Impressions Chest X-Ray 12/25/23 21:50 IMPRESSION: No acute cardiopulmonary process. Chest CTA 12/26/23 05:48 Impression: No large central pulmonary embolus seen. Evaluation for smaller, more peripheral pulmonary emboli is suboptimal due to timing of the contrast bolus. Moderate emphysema and probable chronic atelectasis of the right middle lobe, and minimally in the lingula. Labs Labs: Laboratory Results - last 24 hr 12/26/23 12/26/23 08:55 08:56 WBC 12.8 H RBC 4.43 L Hgb 13.4 L Hct 43.7 MCV 98.6 MCH 30.2 MCHC 30.7 L RDW 15.4 H Plt Count 258 MPV 9.6 Immature Gran % (Auto) 0.5 Neut % (Auto) 95.6 H Lymph % (Auto) 3.0 L [place] % (Auto) 0.6 L Eos % (Auto) 0.1 Baso % (Auto) 0.2 Lymph # (Auto) 0.39 L [place] # (Auto) 0.1 Eos # (Auto) 0.0 Baso # (Auto) 0.0 Abs Immat Gran (auto) 0.06 H Absolute Neuts (auto) 12.3 H Absolute Nucleated RBC 0.000 Nucleated RBC % 0.0 Sodium 137 Potassium 4.3 Chloride 97 L Carbon Dioxide 33 H Anion Gap 7 BUN 17 Creatinine 0.80 Estim Creat Clear Calc 145 Estimated GFR > 60 Glucose 178 H Calcium 8.2 L Total Bilirubin 0.5 AST 35 ALT 17 Alkaline Phosphatase 89 Total Protein 7.0 Albumin 4.0 Quality VTE Prophylaxis VTE prophylaxis: pharmacologic ordered
[2023-12-27] MEDS: UMECLIDINIUM BROMIDE 62.5 MCG ELLIPTA 1 PUFF INHALATION (08:02)
[2023-12-27] MEDS: FLUTICASONE/SALMETEROL 115-21 MCG INHALER 1 PUFF 2 PUFF INHALATION ×2 (08:04→20:33)
[2023-12-27] MEDS: predniSONE 20 MG TABLET 40 MG PO (09:07)
[2023-12-27] MEDS: ENOXAPARIN 40 MG/0.4 ML SYRINGE SUB-Q (09:09)
[2023-12-27] MEDS: guaiFENesin 12 HR 600 MG TABCR 1200 MG PO ×2 (09:10→20:26)
[2023-12-27] MEDS: TOLNAFTATE 1% POWDER 45 GM BTL 1 APPLIC TOPICAL ×2 (09:12→20:27)
[2023-12-27 09:44] LABS: Basophils Percent Auto 0.2 % (0.2-1.2); Eosinophils Percent Auto 0.1 % (0-4.4); Hematocrit 42.7 % (42.0-52.0); Immature Granulocyte Percent A 0.6 % (0-0.5); Lymphocytes Absolute Auto 1.24 K/mm3 (0.9-3.2); Lymphocytes Percent Auto 6.9 % (18.3-44.2); Mean Corpuscular HGB Conc 30.4 g/dl (32-36); Mean Corpuscular Hemoglobin 29.7 pg (26-34); Mean Corpuscular Volume 97.5 fl (80-100); Mean Platelet Volume 9.5 fl (7.4-10.4); Monocytes Percent Auto 5.4 % (2.6-8.5); Neutrophils Absolute Auto 15.5 K/mm3 (1.3-6.7); Neutrophils Percent Auto 86.8 % (45.5-73.1); Platelet Count Result 231 k/mm3 (150-375); Red Blood Count 4.38 M/mm3 (4.6-6.20); Red Cell Distribution Width 15.3 % (11.5-14.5); White Blood Count 17.9 K/mm3 (4.5-10.0)
[2023-12-27 09:55] LABS: Alanine Aminotransferase 15 U/L (6-50); Alkaline Phosphatase 82 U/L (38-126); Anion Gap 8 mmol/L (4-12); Aspartate Amino Transferase 19 U/L (17-59); Bilirubin,Total 0.5 mg/dL (0.2-1.3); Blood Urea Nitrogen 19 mg/dL (9-20); Calcium 8.5 mg/dL (8.4-10.2); Carbon Dioxide 34 mmol/L (22-30); Chloride 96 mmol/L (98-107); Estimated CRCL calculation 145 ml/min; Estimated Glomerular Filt Rate > 60; Glucose 152 mg/dL (65-110); Potassium 3.8 mmol/L (3.4-5.0); Sodium 138 mmol/L (137-145)
[2023-12-27] MEDS: AZITHROMYCIN 500 MG/NS 250 ML 500 MG/250 ML BAG 250 MG IVPB (10:01)
[2023-12-27] MEDS: traMADol HCL (*CRX) 25 MG TABLET PO (15:21)
[2023-12-27] MEDS: BENZONATATE 100 MG CAPSULE PO (18:21)
[2023-12-27] MEDS: MIRTAZAPINE 15 MG TABLET PO (20:26)
[2023-12-27] MEDS: IBUPROFEN 600 MG TABLET PO (20:26)
[2023-12-28] VITALS (21 sets, daily range): BP systolic 109–142; BP diastolic 60–70; PULSE 72–85; RESP 18–24; TEMP 36.4–36.6; O2SAT 97–100
[2023-12-28] MEDS: IPRATROPIUM BR 0.02% INH SOLN 0.5 MG/2.5 ML VIAL INHALATION ×4 (02:06→20:25)
[2023-12-28] MEDS: ALBUTEROL SULFATE NEB 2.5 MG/3 ML INH 5 MG INHALATION ×4 (02:06→20:25)
[2023-12-28] MEDS: cefTRIAXone 2 GM/NS 100 ML 2 GM/100 ML BAG IVPB (06:23)
[2023-12-28] MEDS: AZITHROMYCIN 500 MG/NS 250 ML 500 MG/250 ML BAG 250 MG IVPB (06:26)
[2023-12-28] MEDS: UMECLIDINIUM BROMIDE 62.5 MCG ELLIPTA 1 PUFF INHALATION (07:32)
[2023-12-28] MEDS: FLUTICASONE/SALMETEROL 115-21 MCG INHALER 1 PUFF 2 PUFF INHALATION (07:33)
--- NOTE | 2023-12-28 08:35 | P.PNIM_ITS ---
Progress Note: A&P Assessment and Plan (1) Acute and chronic respiratory failure: Qualifiers: Respiratory failure complication: hypoxia and hypercapnia Qualified Code(s): J96.21 - Acute and chronic respiratory failure with hypoxia; J96.22 - Acute and chronic respiratory failure with hypercapnia Code(s): J96.20 - Acute and chronic respiratory failure, unspecified whether with hypoxia or hypercapnia Status: Acute Assessment and Plan: 12/27/23: * Likely COPD exacerbation versus bacterial pneumonia * CTA was negative for any PE * Chest x-ray was negative * ABG shown up pCO2 of 50.7 with a normal pH * History of COPD and home O2 of 3 L at rest and 6 L with activity 12/28/23: * Continue with PNA treatment empirically changed to cefepime * May need follow-up walk study prior to discharge has * Uses NIV which is at bedside * added nightly antihistamine * added Pulmicort (2) COPD exacerbation: Code(s): J44.1 - Chronic obstructive pulmonary disease with (acute) exacerbation Status: Acute Assessment and Plan: 12/27/23: * Wears home O2. He wears 3 L at rest and 6 L with activity * Currently still on 6 L nasal cannula at rest and appears to be short of breath with use of accessory muscle * Continue DuoNebs scheduled and p.r.n. * Continue azithromycin and Rocephin * Continue prednisone 40 mg daily 12/28/23: * incentive spirometry while awake. * steroids initiated * Pneumonia and flu vaccination advised. * Pulmonary rehab O/P * Disease management following [facility] guidelines. * Repeat hospitalization risk evaluation per [facility] * Evaluation from home O2 if saturation less than 88% on room air. Wears at home may need increased oxygen requirements at home * Smoking cessation counseling done * Follow-up with cloud subject matter expert as an outpatient (3) Obesity hypoventilation syndrome: Code(s): E66.2 - Morbid (severe) obesity with alveolar hypoventilation Status: Acute Assessment and Plan: * Resumed home NIV * encouraged weight loss * recommended to sleep with at least 35 degree or 3 pillows (4) Tobacco use: Code(s): Z72.0 - Tobacco use Status: Acute Assessment and Plan: Smoking ? smoking cessation education ? nicotine patch daily ? remove at night (5) Chronic back pain: Code(s): M54.9 - Dorsalgia, unspecified; G89.29 - Other chronic pain Status: Acute Assessment and Plan: 12/27/23: * Ibuprofen 600 mg ordered for pain 1-3 * Ultram 25 mg ordered for pain 4-6 * Ultram 50 mg ordered for pain 7- 10 (6) Constipation: Code(s): K59.00 - Constipation, unspecified Status: Acute Assessment and Plan: 12/27/23: * MiraLax ordered Plan Code status: Full code per patient DVT prophylaxis: Lovenox Stress ulcer prophylaxis: NA PT/OT notes: Ambulatory Disposition: Patient continues admission for COPD/Obese hypoventilation syndrome exacerbation and possible PNA continues to have significant shortness breath will likely need a follow-up home oxygen evaluation to see if patient is requiring increase oxygen requirements Time Spent With Patient Time with patient: 15 - 25 minutes Subjective Date/time seen: 12/28/23 08:35 Interval history: Interval history: Admission Medical Chart This is a 63 year old male who presented to the hospital with worsening shortness of breath. Workup in the hospital included a chest x-ray which was negative. He also had a chest CTA which was negative for PE and moderate emphysema with probable chronic atelectasis of the right middle lobe. Initial labs showed a white blood cell count of 13.5, hemoglobin 13.2, ABG showing a pCO2 of 50.7 with a normal pH, lactic acid was normal at 1.1, troponin was negative, proBNP 218. UA was obtained and was negative. Respiratory panel was obtained and negative for influenza A and B, RSV, COVID. Blood cultures were obtained and pending. Patient was started on Rocephin and azithromycin. 12/27/23: Patient denies any fever, chills, nausea, vomiting, diarrhea, abdominal pain, chest pain, headache. Patient endorses shortness of breath at rest and wheezing. Labs reviewed. Imaging reviewed 12/28/23: Assumed Care Patient still not feeling well and needing 6L NC all the time. Will add Pulmicort and cover for possible pneumonia with cefepime azithromycin. Patient with pickwickian syndrome follows with a cloud subject matter expert and currently uses a NIV. Review of Systems Review of Systems: Shortness of breath, generalized weakness, fatigue All systems reviewed & are unremarkable except as noted in HPI and below Exam Narrative: General: In no acute distress, morbidly obese Head: atraumatic, no encephalopathy Eyes: EOMI, PERRLA, sclera clear ENT: moist mucous membranes, nasal passages clear Neck: supple, no JVD, no adenopathy, trachea midline Cardiac: Normal S1 and S2. No murmur, gallops or friction rubs, peripheral pulses intact. Respiratory: Lungs diminished to auscultation, mild wheezing, currently on 6 L nasal cannula, use of accessory muscles, productive cough, shortness of breath and dyspnea at rest Gastrointestinal: soft, obese, non-tender, normoactive bowel sounds. : voiding without difficulty. Extremities: moves all extremities well, no edema, good ROM, strength 5/5 Skin: clean, dry, intact. No wounds or lesions. Neuro: Alert and oriented x4, cranial nerves intact, no neuro deficits. Psych: normal mood, normal affect, interactive Objective Data Vital Signs Vital Signs: Vital Signs - 24 hr 12/27/23 09:12 12/27/23 13:36 12/27/23 14:02 Temperature Pulse Rate 90 92 Respiratory Rate 20 20 Blood Pressure Pulse Oximetry 95 Oxygen Delivery Nasal Cannula Oxygen Flow Rate 6 12/27/23 12:00 12/27/23 14:00 12/27/23 16:00 Temperature 97.9 F Pulse Rate 80 74 79 Respiratory Rate 20 Blood Pressure 146/80 H Pulse Oximetry 100 Oxygen Delivery Oxygen Flow Rate 12/27/23 19:45 12/27/23 20:34 12/27/23 20:34 Temperature 98.3 F Pulse Rate 74 74 Respiratory Rate 18 20 Blood Pressure 139/67 Pulse Oximetry 100 97 Oxygen Delivery Nasal Cannula Oxygen Flow Rate 12/27/23 20:52 12/27/23 20:30 12/27/23 22:48 Temperature Pulse Rate 69 84 Respiratory Rate 20 Blood Pressure Pulse Oximetry 97 Oxygen Delivery Nasal Cannula Nasal Cannula Oxygen Flow Rate 12/27/23 20:00 12/28/23 00:00 12/28/23 02:06 Temperature Pulse Rate 71 72 72 Respiratory Rate 20 Blood Pressure Pulse Oximetry Oxygen Delivery Oxygen Flow Rate 12/28/23 02:05 12/28/23 02:27 12/28/23 04:00 Temperature Pulse Rate 73 85 Respiratory Rate 20 Blood Pressure Pulse Oximetry 99 Oxygen Delivery Nasal Cannula Oxygen Flow Rate 12/28/23 04:31 12/28/23 07:36 12/28/23 07:36 Temperature 97.6 F Pulse Rate 73 79 Respiratory Rate 18 20 Blood Pressure 109/60 Pulse Oximetry 97 100 Oxygen Delivery Nasal Cannula Oxygen Flow Rate 5 12/28/23 07:49 12/28/23 07:50 Temperature Pulse Rate 77 80 Respiratory Rate 20 20 Blood Pressure Pulse Oximetry Oxygen Delivery Oxygen Flow Rate Intake/Output Intake/Output: Intake & Output 12/25/23 12/26/23 12/27/23 12/28/23 23:59 23:59 23:59 23:59 Intake Total 1860 3520 300 Output Total 400 500 Balance 1860 3120 -200 Meds/Results Medications: Active Medications Generic Name Dose Route Start Last Admin Trade Name Freq PRN Reason Stop Dose Admin Albuterol 5 mg 12/26/23 02:00 12/28/23 07:32 Albuterol Sulfate Neb 2.5 Mg/3 Ml Inh INHALATION 5 mg Q6HRT LUIS Administration Albuterol 2 puff 12/26/23 06:18 Albuterol Sulfate (*Sp) Aerosol 1 Puff INHALATION QIDRT PRN Wheezing Albuterol/Ipratropium 3 ml 12/27/23 14:30 Ipratropium 0.5 Mg/Albuterol Sulfate 2.5 Mg Ampul.Neb 3 Ml INHALATION Q6HRT PRN Shortness Of Breath Or Wheezing Benzonatate 100 mg 12/27/23 18:03 12/27/23 18:21 Benzonatate 100 Mg Capsule PO 100 mg TID PRN Administration Cough Enoxaparin Sodium 40 mg 12/27/23 09:00 12/27/23 09:09 Enoxaparin 40 Mg/0.4 Ml Syringe SUB-Q 40 mg DAILY LUIS Administration Guaifenesin 1,200 mg 12/26/23 21:00 12/27/23 20:26 Guaifenesin 12 Hr 600 Mg Tabcr PO 1,200 mg Q12HR LUIS Administration Ceftriaxone Sodium 2 gm in 100 mls @ 200 mls/hr 12/26/23 07:00 12/28/23 06:50 Rocephin 2 Gm/Ns 100 Ml IVPB Infused Q24H LUIS Infusion Azithromycin 500 mg in 250 mls @ 250 mls/hr 12/26/23 07:00 12/28/23 06:50 Zithromax IVPB 250 mls/hr Q24H LUIS Infusion Ibuprofen 600 mg 12/27/23 14:32 12/27/23 20:26 Ibuprofen 600 Mg Tablet PO 600 mg Q6H PRN Administration Pain Rated 1-3 Ipratropium [place] 0.5 mg 12/26/23 02:00 12/28/23 07:33 Ipratropium Br 0.02% Inh Soln 0.5 Mg/2.5 Ml Vial INHALATION 0.5 mg Q6HRT LUIS Administration Mirtazapine 15 mg 12/27/23 21:00 12/27/23 20:26 Mirtazapine 15 Mg Tablet PO 15 mg HS LUIS Administration Polyethylene Glycol 17 gm 12/27/23 14:30 Polyethylene Glycol 3350 17 Gm Powd.Pack PO QAM PRN Constipation Prednisone 40 mg 12/26/23 11:00 12/27/23 09:07 Prednisone 20 Mg Tablet PO 01/01/24 22:00 40 mg DAILY@0800 LUIS Administration Fluticasone/Salmeterol 2 puff 12/26/23 08:00 12/28/23 07:33 Fluticasone/Salmeterol 115-21 Mcg Inhaler 1 Puff INHALATION 2 puff Q12HRT LUIS Administration Tolnaftate 1 applic 12/26/23 09:00 12/27/23 20:27 Tolnaftate 1% Powder 45 Gm Btl TOPICAL 1 applic Q12HR LUIS Administration Tramadol HCl 25 mg 12/27/23 14:32 12/27/23 15:21 Tramadol Hcl (*Crx) 25 Mg Tablet PO 25 mg Q4H PRN Administration Pain Rated 4-6 Tramadol HCl 50 mg 12/27/23 14:32 Tramadol Hcl (*Crx) 50 Mg Tablet PO Q4H PRN Pain Rated 7-10 Umeclidinium [place] 1 puff 12/26/23 08:00 12/28/23 07:32 Umeclidinium [place] 62.5 Mcg Ellipta INHALATION 1 puff DAILYRT LUIS Administration Radiology Results: ITS Impressions Chest X-Ray 12/25/23 21:50 IMPRESSION: No acute cardiopulmonary process. Chest CTA 12/26/23 05:48 Impression: No large central pulmonary embolus seen. Evaluation for smaller, more peripheral pulmonary emboli is suboptimal due to timing of the contrast bolus. Moderate emphysema and probable chronic atelectasis of the right middle lobe, and minimally in the lingula. Labs Labs: Laboratory Results - last 24 hr 12/27/23 09:32 WBC 17.9 H RBC 4.38 L Hgb 13.0 L Hct 42.7 MCV 97.5 MCH 29.7 MCHC 30.4 L RDW 15.3 H Plt Count 231 MPV 9.5 Immature Gran % (Auto) 0.6 H Neut % (Auto) 86.8 H Lymph % (Auto) 6.9 L [place] % (Auto) 5.4 Eos % (Auto) 0.1 Baso % (Auto) 0.2 Lymph # (Auto) 1.24 [place] # (Auto) 1.0 H Eos # (Auto) 0.0 Baso # (Auto) 0.0 Abs Immat Gran (auto) 0.10 H Absolute Neuts (auto) 15.5 H Absolute Nucleated RBC 0.000 Nucleated RBC % 0.0 Sodium 138 Potassium 3.8 Chloride 96 L Carbon Dioxide 34 H Anion Gap 8 BUN 19 Creatinine 0.80 Estim Creat Clear Calc 145 Estimated GFR > 60 Glucose 152 H Calcium 8.5 Total Bilirubin 0.5 AST 19 ALT 15 Alkaline Phosphatase 82 Total Protein 7.0 Albumin 4.0 Quality VTE Prophylaxis VTE prophylaxis: pharmacologic ordered -Patient's previous records reviewed on admission -ER notes reviewed in detail on admission -discussed all findings and current treatment plan with patient/Family/POA -Consultations reviewed for recommendations -Patient's disposition for safe discharge discussed with case advocate Dictation performed by [employer] direct speech recognition software, therefore production control coordinating clerk variants and typographical errors may occur. Hospitalist MIPS Advance Care Plan I have confirmed that the patient's Advanced Care Plan is present, code status is documented, or surrogate decision maker is listed in patient medical record.: Yes Medication Reconciliation I have utilized all available resources to obtain, update and review the patients current medications (includes all prescriptions, OTC, herbals, cannabis, and nutritional supplements).: Yes The patient is not eligible for med reconciliation; the patient is in a emergent medical situation where delaying treatment would jeopardize the patients health.: No
[2023-12-28] MEDS: guaiFENesin 12 HR 600 MG TABCR 1200 MG PO ×2 (08:45→20:30)
[2023-12-28] MEDS: predniSONE 20 MG TABLET 40 MG PO (08:45)
[2023-12-28] MEDS: ENOXAPARIN 40 MG/0.4 ML SYRINGE SUB-Q (08:45)
[2023-12-28] MEDS: TOLNAFTATE 1% POWDER 45 GM BTL 1 APPLIC TOPICAL ×2 (08:45→20:30)
[2023-12-28] MEDS: CEFEPIME 2 GM/NS 50 ML 2 GM/50 ML BAG IVPB ×2 (11:17→18:09)
[2023-12-28 12:53] LABS: MRSA (PCR) NOT DETECTED (NOT DETECTE)
[2023-12-28] MEDS: BUDESONIDE RESPULE NEB 0.5 MG/2 ML AMP INHALATION (20:26)
[2023-12-28] MEDS: MIRTAZAPINE 15 MG TABLET PO (20:30)
[2023-12-28] MEDS: LORATADINE 10 MG TABLET PO (20:30)
[2023-12-28] MEDS: traMADol HCL (*CRX) 25 MG TABLET PO (21:35)
[2023-12-29] VITALS (18 sets, daily range): BP systolic 129–151; BP diastolic 71–77; PULSE 65–87; RESP 16–22; TEMP 36.4–36.7; O2SAT 97–100
[2023-12-29] MEDS: ALBUTEROL SULFATE NEB 2.5 MG/3 ML INH 5 MG INHALATION ×4 (01:53→20:39)
[2023-12-29] MEDS: IPRATROPIUM BR 0.02% INH SOLN 0.5 MG/2.5 ML VIAL INHALATION ×4 (01:54→20:35)
[2023-12-29] MEDS: CEFEPIME 2 GM/NS 50 ML 2 GM/50 ML BAG IVPB ×3 (03:07→18:19)
[2023-12-29 06:23] LABS: Hemoglobin 12.4 g/dL (14.0-18.0); Mean Corpuscular HGB Conc 30.2 g/dl (32-36); Mean Corpuscular Hemoglobin 29.8 pg (26-34); Mean Corpuscular Volume 98.6 fl (80-100); Mean Platelet Volume 9.5 fl (7.4-10.4); Platelet Count Result 248 k/mm3 (150-375); Red Blood Count 4.16 M/mm3 (4.6-6.20); Red Cell Distribution Width 15.2 % (11.5-14.5); White Blood Count 14.7 K/mm3 (4.5-10.0)
[2023-12-29] MEDS: AZITHROMYCIN 500 MG/NS 250 ML 500 MG/250 ML BAG 200 MG IVPB (06:34)
[2023-12-29 06:40] LABS: Alanine Aminotransferase 18 U/L (6-50); Albumin Level 3.6 g/dL (3.5-5.1); Alkaline Phosphatase 73 U/L (38-126); Anion Gap 6 mmol/L (4-12); Aspartate Amino Transferase 21 U/L (17-59); Bilirubin,Total 0.5 mg/dL (0.2-1.3); Blood Urea Nitrogen 21 mg/dL (9-20); Calcium 8.4 mg/dL (8.4-10.2); Carbon Dioxide 34 mmol/L (22-30); Chloride 99 mmol/L (98-107); Estimated CRCL calculation 145 ml/min; Estimated Glomerular Filt Rate > 60; Glucose 92 mg/dL (65-110); Potassium 3.9 mmol/L (3.4-5.0); Sodium 139 mmol/L (137-145)
[2023-12-29] MEDS: BUDESONIDE RESPULE NEB 0.5 MG/2 ML AMP INHALATION ×2 (06:55→20:39)
[2023-12-29] MEDS: UMECLIDINIUM BROMIDE 62.5 MCG ELLIPTA 1 PUFF INHALATION (06:55)
[2023-12-29] MEDS: FLUTICASONE/SALMETEROL 115-21 MCG INHALER 1 PUFF 2 PUFF INHALATION ×2 (06:56→20:42)
--- NOTE | 2023-12-29 07:34 | P.PNIM_ITS ---
Progress Note: A&P Assessment and Plan (1) Acute and chronic respiratory failure: Qualifiers: Respiratory failure complication: hypoxia and hypercapnia Qualified Code(s): J96.21 - Acute and chronic respiratory failure with hypoxia; J96.22 - Acute and chronic respiratory failure with hypercapnia Code(s): J96.20 - Acute and chronic respiratory failure, unspecified whether with hypoxia or hypercapnia Status: Acute Assessment and Plan: 12/27/23: * Likely COPD exacerbation versus bacterial pneumonia * CTA was negative for any PE * Chest x-ray was negative * ABG shown up pCO2 of 50.7 with a normal pH * History of COPD and home O2 of 3 L at rest and 6 L with activity 12/28/23: * Continue with PNA treatment empirically changed to cefepime * May need follow-up walk study prior to discharge has * Uses NIV which is at bedside * added nightly antihistamine * added Pulmicort (2) COPD exacerbation: Code(s): J44.1 - Chronic obstructive pulmonary disease with (acute) exacerbation Status: Acute Assessment and Plan: 12/27/23: * Wears home O2. He wears 3 L at rest and 6 L with activity * Currently still on 6 L nasal cannula at rest and appears to be short of breath with use of accessory muscle * Continue DuoNebs scheduled and p.r.n. * Continue azithromycin and Rocephin * Continue prednisone 40 mg daily 12/28/23: * incentive spirometry while awake. * steroids initiated * Pneumonia and flu vaccination advised. * Pulmonary rehab O/P * Disease management following GOLD guidelines. * Repeat hospitalization risk evaluation per [facility] * Evaluation from home O2 if saturation less than 88% on room air. Wears at home may need increased oxygen requirements at home * Smoking cessation counseling done * Follow-up with graduate nurse as an outpatient 12/29/23: * added sputum culture * blood cultures NGTD * WBC 14.7 some of which may be reactive to steroids for COPD (3) Obesity hypoventilation syndrome: Code(s): E66.2 - Morbid (severe) obesity with alveolar hypoventilation Status: Acute Assessment and Plan: * Resumed home NIV * encouraged weight loss * recommended to sleep with at least 35 degree or 3 pillows (4) Tobacco use: Code(s): Z72.0 - Tobacco use Status: Acute Assessment and Plan: Smoking ? smoking cessation education ? nicotine patch daily ? remove at night (5) Chronic back pain: Code(s): M54.9 - Dorsalgia, unspecified; G89.29 - Other chronic pain Status: Acute Assessment and Plan: 12/27/23: * Ibuprofen 600 mg ordered for pain 1-3 * Ultram 25 mg ordered for pain 4-6 * Ultram 50 mg ordered for pain 7- 10 (6) Constipation: Code(s): K59.00 - Constipation, unspecified Status: Acute Assessment and Plan: 12/27/23: * MiraLax ordered Plan Code status: Full code per patient DVT prophylaxis: Lovenox Stress ulcer prophylaxis: BELLA PT/OT notes: Ambulatory Disposition: Patient continues admission for COPD/Obese hypoventilation syndrome exacerbation and possible PNA continues to have significant shortness breath will likely need a follow-up home oxygen evaluation to see if patient is requiring increase oxygen requirements Time Spent With Patient Time with patient: 15 - 25 minutes Subjective Date/time seen: 12/29/23 07:34 Interval history: Interval history: Admission Medical Chart This is a 63 year old male who presented to the hospital with worsening shortness of breath. Workup in the hospital included a chest x-ray which was negative. He also had a chest CTA which was negative for PE and moderate emphysema with probable chronic atelectasis of the right middle lobe. Initial labs showed a white blood cell count of 13.5, hemoglobin 13.2, ABG showing a pCO2 of 50.7 with a normal pH, lactic acid was normal at 1.1, troponin was negative, proBNP 218. UA was obtained and was negative. Respiratory panel was obtained and negative for influenza A and B, RSV, COVID. Blood cultures were obtained and pending. Patient was started on Rocephin and azithromycin. 12/27/23: Patient denies any fever, chills, nausea, vomiting, diarrhea, abdominal pain, chest pain, headache. Patient endorses shortness of breath at rest and wheezing. Labs reviewed. Imaging reviewed 12/28/23: Assumed Care Patient still not feeling well and needing 6L NC all the time. Will add Pulmicort and cover for possible pneumonia with cefepime azithromycin. Patient with pickwickian syndrome follows with a graduate nurse and currently uses a NIV. 12/29/23: Patient states he is feeling mildly better, still SOB with productive cough and on the 6L. WBC improving but likely somewhat reactive to the steroids and afebrile. Review of Systems Review of Systems: Shortness of breath, generalized weakness, fatigue All systems reviewed & are unremarkable except as noted in HPI and below Exam Narrative: General: In no acute distress, morbidly obese Head: atraumatic, no encephalopathy Eyes: EOMI, PERRLA, sclera clear ENT: moist mucous membranes, nasal passages clear Neck: supple, no JVD, no adenopathy, trachea midline Cardiac: Normal S1 and S2. No murmur, gallops or friction rubs, peripheral pulses intact. Respiratory: Lungs diminished to auscultation, mild wheezing, currently on 6 L nasal cannula, use of accessory muscles, productive cough, shortness of breath and dyspnea at rest Gastrointestinal: soft, obese, non-tender, normoactive bowel sounds. : voiding without difficulty. Extremities: moves all extremities well, no edema, good ROM, strength 5/5 Skin: clean, dry, intact. No wounds or lesions. Neuro: Alert and oriented x4, cranial nerves intact, no neuro deficits. Psych: normal mood, normal affect, interactive Objective Data Vital Signs Vital Signs: Vital Signs - 24 hr 12/28/23 07:36 12/28/23 07:36 12/28/23 07:49 Temperature Pulse Rate 79 77 Respiratory Rate 20 20 Blood Pressure Pulse Oximetry 100 Oxygen Delivery Nasal Cannula Oxygen Flow Rate 5 12/28/23 07:50 12/28/23 08:00 12/28/23 12:00 Temperature Pulse Rate 80 75 72 Respiratory Rate 20 Blood Pressure Pulse Oximetry Oxygen Delivery Oxygen Flow Rate 12/28/23 14:07 12/28/23 14:23 12/28/23 13:50 Temperature 97.8 F Pulse Rate 81 76 79 Respiratory Rate 20 22 H 20 Blood Pressure 142/63 H Pulse Oximetry 98 Oxygen Delivery Oxygen Flow Rate 12/28/23 16:00 12/28/23 19:34 12/28/23 20:26 Temperature 97.8 F Pulse Rate 78 79 81 Respiratory Rate 18 24 H Blood Pressure 111/70 Pulse Oximetry 100 Oxygen Delivery Oxygen Flow Rate 12/28/23 20:44 12/28/23 20:49 12/28/23 20:00 Temperature Pulse Rate 79 77 Respiratory Rate 22 H Blood Pressure Pulse Oximetry 98 Oxygen Delivery Nasal Cannula Oxygen Flow Rate 5 12/28/23 20:00 12/29/23 00:00 12/29/23 01:54 Temperature Pulse Rate 78 77 Respiratory Rate 22 H Blood Pressure Pulse Oximetry 100 Oxygen Delivery Nasal Cannula Oxygen Flow Rate 5 12/29/23 02:05 12/28/23 22:40 12/29/23 02:08 Temperature Pulse Rate 74 84 Respiratory Rate 22 H Blood Pressure Pulse Oximetry 99 Oxygen Delivery Nasal Cannula Nasal Cannula Oxygen Flow Rate 12/29/23 04:00 12/29/23 04:50 Temperature 98.0 F Pulse Rate 65 69 Respiratory Rate 18 Blood Pressure 129/75 Pulse Oximetry 97 Oxygen Delivery Oxygen Flow Rate Intake/Output Intake/Output: Intake & Output 12/26/23 12/27/23 12/28/23 12/29/23 23:59 23:59 23:59 23:59 Intake Total 1860 3520 2610 300 Output Total 400 2300 900 Balance 1860 3120 310 -600 Meds/Results Medications: Active Medications Generic Name Dose Route Start Last Admin Trade Name Freq PRN Reason Stop Dose Admin Albuterol 5 mg 12/26/23 02:00 12/29/23 06:55 Albuterol Sulfate Neb 2.5 Mg/3 Ml Inh INHALATION 5 mg Q6HRT LUIS Administration Albuterol 2 puff 12/26/23 06:18 Albuterol Sulfate (*Sp) Aerosol 1 Puff INHALATION QIDRT PRN Wheezing Albuterol/Ipratropium 3 ml 12/27/23 14:30 Ipratropium 0.5 Mg/Albuterol Sulfate 2.5 Mg Ampul.Neb 3 Ml INHALATION Q6HRT PRN Shortness Of Breath Or Wheezing Benzonatate 100 mg 12/27/23 18:03 12/27/23 18:21 Benzonatate 100 Mg Capsule PO 100 mg TID PRN Administration Cough Budesonide 0.5 mg 12/28/23 20:00 12/29/23 06:55 Budesonide Respule Neb 0.5 Mg/2 Ml Amp INHALATION 0.5 mg Q12HRT LUIS Administration Enoxaparin Sodium 40 mg 12/27/23 09:00 12/28/23 08:45 Enoxaparin 40 Mg/0.4 Ml Syringe SUB-Q 40 mg DAILY LUIS Administration Guaifenesin 1,200 mg 12/26/23 21:00 12/28/23 20:30 Guaifenesin 12 Hr 600 Mg Tabcr PO 1,200 mg Q12HR LUIS Administration Azithromycin 500 mg in 250 mls @ 250 mls/hr 12/26/23 07:00 12/29/23 06:34 Zithromax IVPB 200 mls/hr Q24H LUIS Administration Cefepime HCl 2 gm in 50 mls @ 100 mls/hr 12/28/23 11:00 12/29/23 03:41 Maxipime 2 Gm/Ns 50 Ml IVPB Infused Q8H LUIS Infusion Ibuprofen 600 mg 12/27/23 14:32 12/27/23 20:26 Ibuprofen 600 Mg Tablet PO 600 mg Q6H PRN Administration Pain Rated 1-3 Ipratropium [place] 0.5 mg 12/26/23 02:00 12/29/23 06:54 Ipratropium Br 0.02% Inh Soln 0.5 Mg/2.5 Ml Vial INHALATION 0.5 mg Q6HRT LUIS Administration Loratadine 10 mg 12/28/23 21:00 12/28/23 20:30 Loratadine 10 Mg Tablet PO 10 mg QHS LUIS Administration Mirtazapine 15 mg 12/27/23 21:00 12/28/23 20:30 Mirtazapine 15 Mg Tablet PO 15 mg HS LUIS Administration Polyethylene Glycol 17 gm 12/27/23 14:30 Polyethylene Glycol 3350 17 Gm Powd.Pack PO QAM PRN Constipation Prednisone 40 mg 12/26/23 11:00 12/28/23 08:45 Prednisone 20 Mg Tablet PO 01/01/24 22:00 40 mg DAILY@0800 [facility] Administration Fluticasone/Salmeterol 2 puff 12/26/23 08:00 12/29/23 06:56 Fluticasone/Salmeterol 115-21 Mcg Inhaler 1 Puff INHALATION 2 puff Q12HRT LUIS Administration Tolnaftate 1 applic 12/26/23 09:00 12/28/23 20:30 Tolnaftate 1% Powder 45 Gm Btl TOPICAL 1 applic Q12HR LUIS Administration Tramadol HCl 25 mg 12/27/23 14:32 12/28/23 21:35 Tramadol Hcl (*Crx) 25 Mg Tablet PO 25 mg Q4H PRN Administration Pain Rated 4-6 Tramadol HCl 50 mg 12/27/23 14:32 Tramadol Hcl (*Crx) 50 Mg Tablet PO Q4H PRN Pain Rated 7-10 Umeclidinium [place] 1 puff 12/26/23 08:00 12/29/23 06:55 Umeclidinium [place] 62.5 Mcg Ellipta INHALATION 1 puff DAILYRT LUIS Administration Radiology Results: ITS Impressions Chest X-Ray 12/25/23 21:50 IMPRESSION: No acute cardiopulmonary process. Chest CTA 12/26/23 05:48 Impression: No large central pulmonary embolus seen. Evaluation for smaller, more peripheral pulmonary emboli is suboptimal due to timing of the contrast bolus. Moderate emphysema and probable chronic atelectasis of the right middle lobe, and minimally in the lingula. Labs Labs: Laboratory Results - last 24 hr 12/28/23 12/29/23 11:25 05:30 WBC 14.7 H RBC 4.16 L Hgb 12.4 L Hct 41.0 L MCV 98.6 MCH 29.8 MCHC 30.2 L RDW 15.2 H Plt Count 248 MPV 9.5 Sodium 139 Potassium 3.9 Chloride 99 Carbon Dioxide 34 H Anion Gap 6 BUN 21 H Creatinine 0.80 Estim Creat Clear Calc 145 Estimated GFR > 60 Glucose 92 Calcium 8.4 Total Bilirubin 0.5 AST 21 ALT 18 Alkaline Phosphatase 73 Total Protein 7.0 Albumin 3.6 Nasal MRSA (PCR) Not detected Quality VTE Prophylaxis VTE prophylaxis: pharmacologic ordered -Patient's previous records reviewed on admission -ER notes reviewed in detail on admission -discussed all findings and current treatment plan with patient/Family/POA -Consultations reviewed for recommendations -Patient's disposition for safe discharge discussed with protective services case worker Dictation performed by [employer] direct speech recognition software, therefore high school science teacher variants and typographical errors may occur. Hospitalist MIPS Advance Care Plan I have confirmed that the patient's Advanced Care Plan is present, code status is documented, or surrogate decision maker is listed in patient medical record.: Yes Medication Reconciliation I have utilized all available resources to obtain, update and review the patients current medications (includes all prescriptions, OTC, herbals, cannabis, and nutritional supplements).: Yes The patient is not eligible for med reconciliation; the patient is in a emergent medical situation where delaying treatment would jeopardize the patients health.: No
[2023-12-29] MEDS: predniSONE 20 MG TABLET 40 MG PO (08:09)
[2023-12-29] MEDS: guaiFENesin 12 HR 600 MG TABCR 1200 MG PO ×2 (08:09→20:29)
[2023-12-29] MEDS: TOLNAFTATE 1% POWDER 45 GM BTL 1 APPLIC TOPICAL ×2 (08:12→20:30)
[2023-12-29] MEDS: ENOXAPARIN 40 MG/0.4 ML SYRINGE SUB-Q (08:12)
[2023-12-29] MEDS: MIRTAZAPINE 15 MG TABLET PO (20:29)
[2023-12-29] MEDS: LORATADINE 10 MG TABLET PO (20:30)
[2023-12-29] MEDS: traMADol HCL (*CRX) 25 MG TABLET PO (20:32)
[2023-12-30] VITALS (19 sets, daily range): BP systolic 114–150; BP diastolic 60–80; PULSE 66–100; RESP 16–20; TEMP 36.2–37; O2SAT 96–99
[2023-12-30] MEDS: IPRATROPIUM BR 0.02% INH SOLN 0.5 MG/2.5 ML VIAL INHALATION ×4 (02:41→19:45)
[2023-12-30] MEDS: ALBUTEROL SULFATE NEB 2.5 MG/3 ML INH 5 MG INHALATION ×4 (02:41→19:44)
[2023-12-30] MEDS: CEFEPIME 2 GM/NS 50 ML 2 GM/50 ML BAG IVPB ×3 (02:52→18:06)
[2023-12-30] MEDS: IPRATROPIUM 0.5 MG/ALBUTEROL SULFATE 2.5 MG AMPUL.NEB 3 ML INHALATION (02:59)
[2023-12-30 05:31] LABS: Hematocrit 41.1 % (42.0-52.0); Hemoglobin 12.6 g/dL (14.0-18.0); Mean Corpuscular HGB Conc 30.7 g/dl (32-36); Mean Corpuscular Hemoglobin 30.1 pg (26-34); Mean Corpuscular Volume 98.3 fl (80-100); Mean Platelet Volume 9.7 fl (7.4-10.4); Platelet Count Result 230 k/mm3 (150-375); Red Blood Count 4.18 M/mm3 (4.6-6.20); White Blood Count 13.6 K/mm3 (4.5-10.0)
[2023-12-30 05:44] LABS: Alanine Aminotransferase 19 U/L (6-50); Albumin Level 3.5 g/dL (3.5-5.1); Alkaline Phosphatase 74 U/L (38-126); Anion Gap 6 mmol/L (4-12); Aspartate Amino Transferase 22 U/L (17-59); Bilirubin,Total 0.5 mg/dL (0.2-1.3); Blood Urea Nitrogen 19 mg/dL (9-20); Calcium 8.2 mg/dL (8.4-10.2); Carbon Dioxide 32 mmol/L (22-30); Chloride 100 mmol/L (98-107); Estimated CRCL calculation 145 ml/min; Estimated Glomerular Filt Rate > 60; Glucose 106 mg/dL (65-110); Potassium 3.9 mmol/L (3.4-5.0); Sodium 138 mmol/L (137-145)
[2023-12-30] MEDS: AZITHROMYCIN 500 MG/NS 250 ML 500 MG/250 ML BAG 200 MG IVPB (06:42)
[2023-12-30] MEDS: BUDESONIDE RESPULE NEB 0.5 MG/2 ML AMP INHALATION ×2 (07:37→19:45)
[2023-12-30] MEDS: FLUTICASONE/SALMETEROL 115-21 MCG INHALER 1 PUFF 2 PUFF INHALATION ×2 (07:38→19:49)
[2023-12-30] MEDS: UMECLIDINIUM BROMIDE 62.5 MCG ELLIPTA 1 PUFF INHALATION (07:38)
[2023-12-30] MEDS: predniSONE 20 MG TABLET 40 MG PO (08:15)
[2023-12-30] MEDS: guaiFENesin 12 HR 600 MG TABCR 1200 MG PO ×2 (08:15→20:28)
[2023-12-30] MEDS: ENOXAPARIN 40 MG/0.4 ML SYRINGE SUB-Q (08:16)
[2023-12-30] MEDS: TOLNAFTATE 1% POWDER 45 GM BTL 1 APPLIC TOPICAL ×2 (08:16→20:29)
--- NOTE | 2023-12-30 10:30 | P.PNIM_ITS ---
Progress Note: A&P Assessment and Plan (1) Acute and chronic respiratory failure: Qualifiers: Respiratory failure complication: hypoxia and hypercapnia Qualified Code(s): J96.21 - Acute and chronic respiratory failure with hypoxia; J96.22 - Acute and chronic respiratory failure with hypercapnia Code(s): J96.20 - Acute and chronic respiratory failure, unspecified whether with hypoxia or hypercapnia Status: Acute Assessment and Plan: 12/27/23: * Likely COPD exacerbation versus bacterial pneumonia * CTA was negative for any PE * Chest x-ray was negative * ABG shown up pCO2 of 50.7 with a normal pH * History of COPD and home O2 of 3 L at rest and 6 L with activity 12/28/23: * Continue with PNA treatment empirically changed to cefepime * May need follow-up walk study prior to discharge has * Uses NIV which is at bedside * added nightly antihistamine * added Pulmicort (2) COPD exacerbation: Code(s): J44.1 - Chronic obstructive pulmonary disease with (acute) exacerbation Status: Acute Assessment and Plan: 12/27/23: * Wears home O2. He wears 3 L at rest and 6 L with activity * Currently still on 6 L nasal cannula at rest and appears to be short of breath with use of accessory muscle * Continue DuoNebs scheduled and p.r.n. * Continue azithromycin and Rocephin * Continue prednisone 40 mg daily 12/28/23: * incentive spirometry while awake. * steroids initiated * Pneumonia and flu vaccination advised. * Pulmonary rehab O/P * Disease management following GOLD guidelines. * Repeat hospitalization risk evaluation per [facility] * Evaluation from home O2 if saturation less than 88% on room air. Wears at home may need increased oxygen requirements at home * Smoking cessation counseling done * Follow-up with radar tester as an outpatient 12/29/23: * added sputum culture * blood cultures NGTD * WBC 14.7 some of which may be reactive to steroids for COPD (3) Obesity hypoventilation syndrome: Code(s): E66.2 - Morbid (severe) obesity with alveolar hypoventilation Status: Acute Assessment and Plan: * Resumed home NIV * encouraged weight loss * recommended to sleep with at least 35 degree or 3 pillows (4) Tobacco use: Code(s): Z72.0 - Tobacco use Status: Acute Assessment and Plan: Smoking ? smoking cessation education ? nicotine patch daily ? remove at night (5) Chronic back pain: Code(s): M54.9 - Dorsalgia, unspecified; G89.29 - Other chronic pain Status: Acute Assessment and Plan: 12/27/23: * Ibuprofen 600 mg ordered for pain 1-3 * Ultram 25 mg ordered for pain 4-6 * Ultram 50 mg ordered for pain 7- 10 (6) Constipation: Code(s): K59.00 - Constipation, unspecified Status: Acute Assessment and Plan: 12/27/23: * MiraLax ordered Plan Code status: Full code per patient DVT prophylaxis: Lovenox Stress ulcer prophylaxis: BELLA PT/OT notes: Ambulatory Disposition: Patient continues admission for COPD/Obese hypoventilation syndrome exacerbation and possible PNA continues to have shortness breath and cough currently down to 5L NC will likely need a follow-up home oxygen evaluation to see if patient is requiring increase oxygen requirements Time Spent With Patient Time with patient: 15 - 25 minutes Subjective Date/time seen: 12/30/23 10:30 Interval history: Interval history: Admission Medical Chart This is a 63 year old male who presented to the hospital with worsening shortness of breath. Workup in the hospital included a chest x-ray which was negative. He also had a chest CTA which was negative for PE and moderate emphysema with probable chronic atelectasis of the right middle lobe. Initial labs showed a white blood cell count of 13.5, hemoglobin 13.2, ABG showing a pCO2 of 50.7 with a normal pH, lactic acid was normal at 1.1, troponin was negative, proBNP 218. UA was obtained and was negative. Respiratory panel was obtained and negative for influenza A and B, RSV, COVID. Blood cultures were obtained and pending. Patient was started on Rocephin and azithromycin. 12/27/23: Patient denies any fever, chills, nausea, vomiting, diarrhea, abdominal pain, chest pain, headache. Patient endorses shortness of breath at rest and wheezing. Labs reviewed. Imaging reviewed 12/28/23: Assumed Care Patient still not feeling well and needing 6L NC all the time. Will add Pulmicort and cover for possible pneumonia with cefepime azithromycin. Patient with pickwickian syndrome follows with a radar tester and currently uses a NIV. 12/29/23: Patient states he is feeling mildly better, still SOB with productive cough and on the 6L. WBC improving but likely somewhat reactive to the steroids and afebrile. 12/30/23: Patient continues to improve and stated his SOB and cough have decreased. He did have complaints of RT flank pain and urine frequency will order a UA. Review of Systems Review of Systems: All systems reviewed & are unremarkable except as noted in HPI and below Exam Narrative: General: In no acute distress, morbidly obese Head: atraumatic, no encephalopathy Eyes: EOMI, PERRLA, sclera clear ENT: moist mucous membranes, nasal passages clear Neck: supple, no JVD, no adenopathy, trachea midline Cardiac: Normal S1 and S2. No murmur, gallops or friction rubs, peripheral pulses intact. Respiratory: Lungs diminished to auscultation, mild wheezing, currently on 5 L nasal cannula, use of accessory muscles, productive cough, shortness of breath and dyspnea at rest Gastrointestinal: soft, obese, non-tender, normoactive bowel sounds. : voiding without difficulty. Extremities: moves all extremities well, no edema, good ROM, strength 5/5 Skin: clean, dry, intact. No wounds or lesions. Neuro: Alert and oriented x4, cranial nerves intact, no neuro deficits. Psych: normal mood, normal affect, interactive Objective Data Vital Signs Vital Signs: Vital Signs - 24 hr 12/29/23 13:00 12/29/23 13:10 12/29/23 12:00 Temperature Pulse Rate 76 75 73 Respiratory Rate 20 20 Blood Pressure Pulse Oximetry Oxygen Delivery Oxygen Flow Rate 12/29/23 14:34 12/29/23 16:00 12/29/23 20:43 Temperature 97.8 F Pulse Rate 87 78 74 Respiratory Rate 16 20 Blood Pressure 151/77 H Pulse Oximetry 99 Oxygen Delivery Oxygen Flow Rate 12/29/23 20:50 12/29/23 20:00 12/29/23 21:06 Temperature Pulse Rate 74 77 Respiratory Rate 20 20 20 Blood Pressure Pulse Oximetry 98 100 Oxygen Delivery Nasal Cannula Nasal Cannula Oxygen Flow Rate 5 5 12/29/23 22:00 12/29/23 20:00 12/30/23 00:00 Temperature 97.5 F L Pulse Rate 77 75 66 Respiratory Rate 16 Blood Pressure 139/71 Pulse Oximetry 100 Oxygen Delivery Oxygen Flow Rate 12/30/23 02:41 12/29/23 22:00 12/30/23 03:00 Temperature Pulse Rate 74 86 76 Respiratory Rate 20 20 Blood Pressure Pulse Oximetry 98 Oxygen Delivery Nasal Cannula Oxygen Flow Rate 12/30/23 04:00 12/30/23 04:15 12/30/23 07:42 Temperature 97.6 F Pulse Rate 76 70 79 Respiratory Rate 18 20 Blood Pressure 128/60 Pulse Oximetry 97 99 Oxygen Delivery Nasal Cannula Oxygen Flow Rate 5 12/30/23 07:42 12/30/23 08:17 12/30/23 08:21 Temperature Pulse Rate 79 78 78 Respiratory Rate 20 20 20 Blood Pressure Pulse Oximetry Oxygen Delivery Oxygen Flow Rate 12/30/23 08:00 Temperature Pulse Rate 68 Respiratory Rate Blood Pressure Pulse Oximetry Oxygen Delivery Oxygen Flow Rate Intake/Output Intake/Output: Intake & Output 12/27/23 12/28/23 12/29/23 12/30/23 23:59 23:59 23:59 23:59 Intake Total 3520 2610 1700 800 Output Total 400 2300 2300 Balance 3120 310 -600 800 Meds/Results Medications: Active Medications Generic Name Dose Route Start Last Admin Trade Name Freq PRN Reason Stop Dose Admin Albuterol 5 mg 12/26/23 02:00 12/30/23 07:37 Albuterol Sulfate Neb 2.5 Mg/3 Ml Inh INHALATION 5 mg Q6HRT LUIS Administration Albuterol 2 puff 12/26/23 06:18 Albuterol Sulfate (*Sp) Aerosol 1 Puff INHALATION QIDRT PRN Wheezing Albuterol/Ipratropium 3 ml 12/27/23 14:30 12/30/23 02:59 Ipratropium 0.5 Mg/Albuterol Sulfate 2.5 Mg Ampul.Neb 3 Ml INHALATION 3 ml Q6HRT PRN Administration Shortness Of Breath Or Wheezing Benzonatate 100 mg 12/27/23 18:03 12/27/23 18:21 Benzonatate 100 Mg Capsule PO 100 mg TID PRN Administration Cough Budesonide 0.5 mg 12/28/23 20:00 09/14/24 07:37 Budesonide Respule Neb 0.5 Mg/2 Ml Amp INHALATION 0.5 mg Q12HRT LUIS Administration Enoxaparin Sodium 40 mg 12/27/23 09:00 12/30/23 08:16 Enoxaparin 40 Mg/0.4 Ml Syringe SUB-Q 40 mg DAILY LUIS Administration Guaifenesin 1,200 mg 12/26/23 21:00 12/30/23 08:15 Guaifenesin 12 Hr 600 Mg Tabcr PO 1,200 mg Q12HR LUIS Administration Azithromycin 500 mg in 250 mls @ 250 mls/hr 12/26/23 07:00 12/30/23 07:57 Zithromax IVPB Infused Q24H LUIS Infusion Cefepime HCl 2 gm in 50 mls @ 100 mls/hr 12/28/23 11:00 12/30/23 03:25 Maxipime 2 Gm/Ns 50 Ml IVPB Infused Q8H LUIS Infusion Ibuprofen 600 mg 12/27/23 14:32 12/27/23 20:26 Ibuprofen 600 Mg Tablet PO 600 mg Q6H PRN Administration Pain Rated 1-3 Ipratropium [place] 0.5 mg 12/26/23 02:00 12/30/23 07:38 Ipratropium Br 0.02% Inh Soln 0.5 Mg/2.5 Ml Vial INHALATION 0.5 mg Q6HRT LUIS Administration Loratadine 10 mg 12/28/23 21:00 12/29/23 20:30 Loratadine 10 Mg Tablet PO 10 mg QHS LUIS Administration Mirtazapine 15 mg 12/27/23 21:00 12/29/23 20:29 Mirtazapine 15 Mg Tablet PO 15 mg HS LUIS Administration Polyethylene Glycol 17 gm 12/27/23 14:30 Polyethylene Glycol 3350 17 Gm Powd.Pack PO QAM PRN Constipation Prednisone 40 mg 12/26/23 11:00 12/30/23 08:15 Prednisone 20 Mg Tablet PO 01/01/24 22:00 40 mg DAILY@0800 LUIS Administration Fluticasone/Salmeterol 2 puff 12/26/23 08:00 12/30/23 07:38 Fluticasone/Salmeterol 115-21 Mcg Inhaler 1 Puff INHALATION 2 puff Q12HRT LUIS Administration Tolnaftate 1 applic 12/26/23 09:00 12/30/23 08:16 Tolnaftate 1% Powder 45 Gm Btl TOPICAL 1 applic Q12HR LUIS Administration Tramadol HCl 25 mg 12/27/23 14:32 12/29/23 20:32 Tramadol Hcl (*Crx) 25 Mg Tablet PO 25 mg Q4H PRN Administration Pain Rated 4-6 Tramadol HCl 50 mg 12/27/23 14:32 Tramadol Hcl (*Crx) 50 Mg Tablet PO Q4H PRN Pain Rated 7-10 Umeclidinium [place] 1 puff 12/26/23 08:00 12/30/23 07:38 Umeclidinium [place] 62.5 Mcg Ellipta INHALATION 1 puff DAILYRT LUIS Administration Radiology Results: ITS Impressions Chest X-Ray 12/25/23 21:50 IMPRESSION: No acute cardiopulmonary process. Chest CTA 12/26/23 05:48 Impression: No large central pulmonary embolus seen. Evaluation for smaller, more peripheral pulmonary emboli is suboptimal due to timing of the contrast bolus. Moderate emphysema and probable chronic atelectasis of the right middle lobe, and minimally in the lingula. Labs Labs: Laboratory Results - last 24 hr 12/30/23 04:52 WBC 13.6 H RBC 4.18 L Hgb 12.6 L Hct 41.1 L MCV 98.3 MCH 30.1 MCHC 30.7 L RDW 15.0 H Plt Count 230 MPV 9.7 Sodium 138 Potassium 3.9 Chloride 100 Carbon Dioxide 32 H Anion Gap 6 BUN 19 Creatinine 0.80 Estim Creat Clear Calc 145 Estimated GFR > 60 Glucose 106 Calcium 8.2 L Total Bilirubin 0.5 AST 22 ALT 19 Alkaline Phosphatase 74 Total Protein 7.0 Albumin 3.5 Quality VTE Prophylaxis VTE prophylaxis: pharmacologic ordered -Patient's previous records reviewed on admission -ER notes reviewed in detail on admission -discussed all findings and current treatment plan with patient/Family/POA -Consultations reviewed for recommendations -Patient's disposition for safe discharge discussed with test case developer Dictation performed by [employer] direct speech recognition software, therefore pneumatic tool repairer variants and typographical errors may occur. Hospitalist MIPS Advance Care Plan I have confirmed that the patient's Advanced Care Plan is present, code status is documented, or surrogate decision maker is listed in patient medical record.: Yes Medication Reconciliation I have utilized all available resources to obtain, update and review the patients current medications (includes all prescriptions, OTC, herbals, cannabis, and nutritional supplements).: Yes The patient is not eligible for med reconciliation; the patient is in a emergent medical situation where delaying treatment would jeopardize the patients health.: No
[2023-12-30] MEDS: polyethylene glycoL 3350 17 GM POWD.PACK PO (10:35)
[2023-12-30 11:45] LABS: Add Urine Microscopic? YES; Appearance Urine Clear (Clear); Bacteria Urine None Seen /hpf; Bilirubin Urine Negative (Negative); Blood Urine Negative (Negative); Color Urine Yellow (Yellow); Glucose Urine UA Negative (Negative); Ketones Urine Negative (Negative); Leukocyte Esterase Ur Trace LEU/UL (Negative); Nitrate Urine Negative (Negative); Non Pathogenic Casts 0-2; Protein Urine Negative (Negative); RBC Urine 0-2 /hpf (0-2); Squamous Epithelial Cell Urine None Seen /hpf (Few); Urobilinogen Urine 0.2 mg/dL (<2.0); WBC Urine 0-5 /hpf (0-3)
[2023-12-30] MEDS: MIRTAZAPINE 15 MG TABLET PO (20:28)
[2023-12-30] MEDS: LORATADINE 10 MG TABLET PO (20:28)
[2023-12-30] MEDS: traMADol HCL (*CRX) 25 MG TABLET PO (21:39)
[2023-12-31] VITALS (20 sets, daily range): BP systolic 111–154; BP diastolic 61–86; PULSE 70–86; RESP 16–20; TEMP 36.4–36.5; O2SAT 97–100
[2023-12-31] MEDS: ALBUTEROL SULFATE NEB 2.5 MG/3 ML INH 5 MG INHALATION ×4 (01:49→20:19)
[2023-12-31] MEDS: IPRATROPIUM BR 0.02% INH SOLN 0.5 MG/2.5 ML VIAL INHALATION ×4 (01:49→20:20)
[2023-12-31] MEDS: CEFEPIME 2 GM/NS 50 ML 2 GM/50 ML BAG IVPB ×3 (03:07→18:28)
[2023-12-31 05:23] LABS: Hematocrit 41.8 % (42.0-52.0); Hemoglobin 12.7 g/dL (14.0-18.0); Mean Corpuscular HGB Conc 30.4 g/dl (32-36); Mean Corpuscular Hemoglobin 29.7 pg (26-34); Mean Corpuscular Volume 97.9 fl (80-100); Mean Platelet Volume 9.7 fl (7.4-10.4); Platelet Count Result 243 k/mm3 (150-375); Red Blood Count 4.27 M/mm3 (4.6-6.20); Red Cell Distribution Width 14.9 % (11.5-14.5)
[2023-12-31 05:38] LABS: Alanine Aminotransferase 19 U/L (6-50); Albumin Level 3.4 g/dL (3.5-5.1); Alkaline Phosphatase 72 U/L (38-126); Anion Gap 2 mmol/L (4-12); Aspartate Amino Transferase 19 U/L (17-59); Bilirubin,Total 0.6 mg/dL (0.2-1.3); Blood Urea Nitrogen 17 mg/dL (9-20); Calcium 8.3 mg/dL (8.4-10.2); Carbon Dioxide 35 mmol/L (22-30); Chloride 100 mmol/L (98-107); Estimated CRCL calculation 148 ml/min; Estimated Glomerular Filt Rate > 60; Glucose 101 mg/dL (65-110); Potassium 3.9 mmol/L (3.4-5.0); Sodium 137 mmol/L (137-145)
[2023-12-31] MEDS: AZITHROMYCIN 500 MG/NS 250 ML 500 MG/250 ML BAG 200 MG IVPB (06:46)
--- NOTE | 2023-12-31 07:19 | P.PNIM_ITS ---
Progress Note: A&P Assessment and Plan (1) Pneumonia due to gram-positive bacteria: Code(s): J15.9 - Unspecified bacterial pneumonia Status: Acute Assessment and Plan: * Bronchodilators. * Chest x-ray reviewed/CTA No PE * incentive spirometry while awake. * sputum culture Gram-positive cocci * influenza/COVID/RSV negative * Cefepime and vancomycin * supplemental oxygen therapy to maintain oxygen 92%(wears 6L at night and 3L during daytime) * WBC 12/30 16.7 (2) Acute and chronic respiratory failure: Qualifiers: Respiratory failure complication: hypoxia and hypercapnia Qualified Code(s): J96.21 - Acute and chronic respiratory failure with hypoxia; J96.22 - Acute and chronic respiratory failure with hypercapnia Code(s): J96.20 - Acute and chronic respiratory failure, unspecified whether with hypoxia or hypercapnia Status: Acute Assessment and Plan: 12/27/23: * Likely COPD exacerbation versus bacterial pneumonia * CTA was negative for any PE * Chest x-ray was negative * ABG shown up pCO2 of 50.7 with a normal pH * History of COPD and home O2 of 3 L at rest and 6 L with activity 12/28/23: * Continue with PNA treatment empirically changed to cefepime * May need follow-up walk study prior to discharge has * Uses NIV which is at bedside * added nightly antihistamine * added Pulmicort 12/31/23: * Sputum gram positive cocci * started vanc * secondary to bacterial pneumonia (3) COPD exacerbation: Code(s): J44.1 - Chronic obstructive pulmonary disease with (acute) exacerbation Status: Acute Assessment and Plan: 12/27/23: * Wears home O2. He wears 3 L at rest and 6 L with activity * Currently still on 6 L nasal cannula at rest and appears to be short of breath with use of accessory muscle * Continue DuoNebs scheduled and p.r.n. * Continue azithromycin and Rocephin * Continue prednisone 40 mg daily 12/28/23: * incentive spirometry while awake. * steroids initiated * Pneumonia and flu vaccination advised. * Pulmonary rehab O/P * Disease management following [facility] guidelines. * Repeat hospitalization risk evaluation per [facility] * Evaluation from home O2 if saturation less than 88% on room air. Wears at home may need increased oxygen requirements at home * Smoking cessation counseling done * Follow-up with financial systems analyst as an outpatient 12/29/23: * added sputum culture * blood cultures NGTD * WBC 14.7 some of which may be reactive to steroids for COPD (4) Obesity hypoventilation syndrome: Code(s): E66.2 - Morbid (severe) obesity with alveolar hypoventilation Status: Acute Assessment and Plan: * Resumed home NIV * encouraged weight loss * recommended to sleep with at least 35 degree or 3 pillows (5) Tobacco use: Code(s): Z72.0 - Tobacco use Status: Acute Assessment and Plan: Smoking ? smoking cessation education ? nicotine patch daily ? remove at night (6) Chronic back pain: Code(s): M54.9 - Dorsalgia, unspecified; G89.29 - Other chronic pain Status: Acute Assessment and Plan: 12/27/23: * Ibuprofen 600 mg ordered for pain 1-3 * Ultram 25 mg ordered for pain 4-6 * Ultram 50 mg ordered for pain 7- 10 (7) Constipation: Code(s): K59.00 - Constipation, unspecified Status: Acute Assessment and Plan: 12/27/23: * MiraLax ordered Plan Code status: Full code per patient DVT prophylaxis: Lovenox Stress ulcer prophylaxis: NA PT/OT notes: Ambulatory Disposition: Patient continues admission for COPD/Obese hypoventilation syndrome exacerbation and bacterial PNA gram positive cocci with sputum added vanc for MRSA coverage pending final. Plan for discharge is home when medically stable. Time Spent With Patient Time with patient: 15 - 25 minutes Subjective Date/time seen: 12/31/23 07:19 Interval history: Interval history: Admission Medical Chart This is a 63 year old male who presented to the hospital with worsening shortn ess of breath. Workup in the hospital included a chest x-ray which was negative. He also had a chest CTA which was negative for PE and moderate emphysema with probable chronic atelectasis of the right middle lobe. Initial labs showed a white blood cell count of 13.5, hemoglobin 13.2, ABG showing a pCO2 of 50.7 with a normal pH, lactic acid was normal at 1.1, troponin was negative, proBNP 218. UA was obtained and was negative. Respiratory panel was obtained and negative for influenza A and B, RSV, COVID. Blood cultures were obtained and pending. Patient was started on Rocephin and azithromycin. 12/27/23: Patient denies any fever, chills, nausea, vomiting, diarrhea, abdominal pain, chest pain, headache. Patient endorses shortness of breath at rest and wheezing. Labs reviewed. Imaging reviewed 12/28/23: Assumed Care Patient still not feeling well and needing 6L NC all the time. Will add Pulmicort and cover for possible pneumonia with cefepime azithromycin. Patient with pickwickian syndrome follows with a financial systems analyst and currently uses a NIV. 12/29/23: Patient states he is feeling mildly better, still SOB with productive cough and on the 6L. WBC improving but likely somewhat reactive to the steroids and afebrile. 12/30/23: Patient continues to improve and stated his SOB and cough have decreased. He did have complaints of RT flank pain and urine frequency will order a UA. 12/31/2023: Worsening WBC with positive sputum showing prelim gram positive cocci will start vancomycin pending final. Patient still with SOB and generally not feeling well. Review of Systems Review of Systems: All systems reviewed & are unremarkable except as noted in HPI and below Exam Narrative: General: In no acute distress, morbidly obese Head: atraumatic, no encephalopathy Eyes: EOMI, PERRLA, sclera clear ENT: moist mucous membranes, nasal passages clear Neck: supple, no JVD, no adenopathy, trachea midline Cardiac: Normal S1 and S2. No murmur, gallops or friction rubs, peripheral pulses intact. Respiratory: Lungs diminished to auscultation, mild wheezing, currently on 5 L nasal cannula, use of accessory muscles, productive cough, shortness of breath and dyspnea at rest Gastrointestinal: soft, obese, non-tender, normoactive bowel sounds. : voiding without difficulty. Extremities: moves all extremities well, no edema, good ROM, strength 5/5 Skin: clean, dry, intact. No wounds or lesions. Neuro: Alert and oriented x4, cranial nerves intact, no neuro deficits. Psych: normal mood, normal affect, interactive Objective Data Vital Signs Vital Signs: Vital Signs - 24 hr 12/30/23 07:42 12/30/23 07:42 12/30/23 08:17 Temperature Pulse Rate 79 79 78 Respiratory Rate 20 20 20 Blood Pressure Pulse Oximetry 99 Oxygen Delivery Nasal Cannula Oxygen Flow Rate 5 Fraction of Inspired Oxygen 12/30/23 08:21 12/30/23 08:00 12/30/23 12:00 Temperature Pulse Rate 78 68 80 Respiratory Rate 20 Blood Pressure Pulse Oximetry Oxygen Delivery Oxygen Flow Rate Fraction of Inspired Oxygen 12/30/23 13:27 12/30/23 13:27 12/30/23 13:41 Temperature Pulse Rate 81 89 Respiratory Rate 20 20 Blood Pressure Pulse Oximetry 96 Oxygen Delivery Nasal Cannula Oxygen Flow Rate 5 Fraction of Inspired Oxygen 40 12/30/23 13:55 12/30/23 16:00 12/30/23 19:48 Temperature 98.6 F Pulse Rate 82 72 79 Respiratory Rate 18 20 Blood Pressure 114/74 Pulse Oximetry 98 Oxygen Delivery Oxygen Flow Rate Fraction of Inspired Oxygen 12/30/23 20:02 12/30/23 21:00 12/30/23 20:00 Temperature Pulse Rate 82 88 Respiratory Rate 20 Blood Pressure Pulse Oximetry 98 Oxygen Delivery Nasal Cannula Oxygen Flow Rate 5 Fraction of Inspired Oxygen 12/30/23 22:00 12/31/23 00:00 12/31/23 01:49 Temperature 97.1 F L Pulse Rate 100 83 80 Respiratory Rate 16 20 Blood Pressure 150/80 H Pulse Oximetry 96 Oxygen Delivery Oxygen Flow Rate Fraction of Inspired Oxygen 12/31/23 02:04 12/31/23 04:00 12/31/23 05:04 Temperature 97.7 F Pulse Rate 75 70 71 Respiratory Rate 20 18 Blood Pressure 111/61 Pulse Oximetry 97 Oxygen Delivery Oxygen Flow Rate Fraction of Inspired Oxygen Intake/Output Intake/Output: Intake & Output 12/28/23 12/29/23 12/30/23 12/31/23 23:59 23:59 23:59 23:59 Intake Total 2610 1700 2040 250 Output Total 2300 2300 1400 Balance 310 -600 640 250 Meds/Results Medications: Active Medications Generic Name Dose Route Start Last Admin Trade Name Freq PRN Reason Stop Dose Admin Albuterol 5 mg 12/26/23 02:00 12/31/23 01:49 Albuterol Sulfate Neb 2.5 Mg/3 Ml Inh INHALATION 5 mg Q6HRT LUIS Administration Albuterol 2 puff 12/26/23 06:18 Albuterol Sulfate (*Sp) Aerosol 1 Puff INHALATION QIDRT PRN Wheezing Albuterol/Ipratropium 3 ml 12/27/23 14:30 12/30/23 02:59 Ipratropium 0.5 Mg/Albuterol Sulfate 2.5 Mg Ampul.Neb 3 Ml INHALATION 3 ml Q6HRT PRN Administration Shortness Of Breath Or Wheezing Benzonatate 100 mg 12/27/23 18:03 12/27/23 18:21 Benzonatate 100 Mg Capsule PO 100 mg TID PRN Administration Cough Budesonide 0.5 mg 12/28/23 20:00 12/30/23 19:45 Budesonide Respule Neb 0.5 Mg/2 Ml Amp INHALATION 0.5 mg Q12HRT LUIS Administration Enoxaparin Sodium 40 mg 12/27/23 09:00 12/30/23 08:16 Enoxaparin 40 Mg/0.4 Ml Syringe SUB-Q 40 mg DAILY LUIS Administration Guaifenesin 1,200 mg 12/26/23 21:00 12/30/23 20:28 Guaifenesin 12 Hr 600 Mg Tabcr PO 1,200 mg Q12HR LUIS Administration Cefepime HCl 2 gm in 50 mls @ 100 mls/hr 12/28/23 11:00 12/31/23 03:07 Maxipime 2 Gm/Ns 50 Ml IVPB 10 mls/hr Q8H LUIS Administration Ibuprofen 600 mg 12/27/23 14:32 12/27/23 20:26 Ibuprofen 600 Mg Tablet PO 600 mg Q6H PRN Administration Pain Rated 1-3 Ipratropium [place] 0.5 mg 12/26/23 02:00 12/31/23 01:49 Ipratropium Br 0.02% Inh Soln 0.5 Mg/2.5 Ml Vial INHALATION 0.5 mg Q6HRT LUIS Administration Loratadine 10 mg 12/28/23 21:00 12/30/23 20:28 Loratadine 10 Mg Tablet PO 10 mg QHS LUIS Administration Mirtazapine 15 mg 12/27/23 21:00 12/30/23 20:28 Mirtazapine 15 Mg Tablet PO 15 mg HS LUIS Administration Polyethylene Glycol 17 gm 12/27/23 14:30 12/30/23 10:35 Polyethylene Glycol 3350 17 Gm Powd.Pack PO 17 gm QAM PRN Administration Constipation Prednisone 40 mg 12/26/23 11:00 12/30/23 08:15 Prednisone 20 Mg Tablet PO 01/01/24 22:00 40 mg DAILY@0800 LUIS Administration Fluticasone/Salmeterol 2 puff 12/26/23 08:00 12/30/23 19:49 Fluticasone/Salmeterol 115-21 Mcg Inhaler 1 Puff INHALATION 2 puff Q12HRT LUIS Administration Tolnaftate 1 applic 12/26/23 09:00 12/30/23 20:29 Tolnaftate 1% Powder 45 Gm Btl TOPICAL 1 applic Q12HR LUIS Administration Tramadol HCl 25 mg 12/27/23 14:32 12/30/23 21:39 Tramadol Hcl (*Crx) 25 Mg Tablet PO 25 mg Q4H PRN Administration Pain Rated 4-6 Tramadol HCl 50 mg 12/27/23 14:32 Tramadol Hcl (*Crx) 50 Mg Tablet PO Q4H PRN Pain Rated 7-10 Umeclidinium [place] 1 puff 12/26/23 08:00 12/30/23 07:38 Umeclidinium [place] 62.5 Mcg Ellipta INHALATION 1 puff DAILYRT LUIS Administration Vancomycin HCl 1 each 12/31/23 07:20 Vancomycin Pharmacist To Dose IVPB PER PROTOCOL [facility] Radiology Results: ITS Impressions Chest X-Ray 12/25/23 21:50 IMPRESSION: No acute cardiopulmonary process. Chest CTA 12/26/23 05:48 Impression: No large central pulmonary embolus seen. Evaluation for smaller, more peripheral pulmonary emboli is suboptimal due to timing of the contrast bolus. Moderate emphysema and probable chronic atelectasis of the right middle lobe, and minimally in the lingula. Labs Labs: Laboratory Results - last 24 hr 12/30/23 12/31/23 11:35 04:36 WBC 16.0 H RBC 4.27 L Hgb 12.7 L Hct 41.8 L MCV 97.9 MCH 29.7 MCHC 30.4 L RDW 14.9 H Plt Count 243 MPV 9.7 Sodium 137 Potassium 3.9 Chloride 100 Carbon Dioxide 35 H Anion Gap 2 L BUN 17 Creatinine 0.80 Estim Creat Clear Calc 148 Estimated GFR > 60 Glucose 101 Calcium 8.3 L Total Bilirubin 0.6 AST 19 ALT 19 Alkaline Phosphatase 72 Total Protein 6.0 L Albumin 3.4 L Urine Color Yellow Urine Appearance Clear Urine pH 6.0 Ur Specific [place] 1.010 Urine Protein Negative Urine Glucose (UA) Negative Urine Ketones Negative Ur Blood (Man) Negative Urine Nitrate Negative Urine Bilirubin Negative Urine Urobilinogen 0.2 Leukocyte Esterase Rfl Trace H Urine RBC 0-2 Urine WBC 0-5 Ur Squamous Epith Cells None seen Urine Bacteria None seen Urine Casts 0-2 Quality VTE Prophylaxis VTE prophylaxis: pharmacologic ordered -Patient's previous records reviewed on admission -ER notes reviewed in detail on admission -discussed all findings and current treatment plan with patient/Family/POA -Consultations reviewed for recommendations -Patient's disposition for safe discharge discussed with supervisor case loading Dictation performed by [employer] direct speech recognition software, therefore ingot caster variants and typographical errors may occur. Hospitalist MIPS Advance Care Plan I have confirmed that the patient's Advanced Care Plan is present, code status is documented, or surrogate decision maker is listed in patient medical record.: Yes Medication Reconciliation I have utilized all available resources to obtain, update and review the patients current medications (includes all prescriptions, OTC, herbals, cannabis, and nutritional supplements).: Yes The patient is not eligible for med reconciliation; the patient is in a emergent medical situation where delaying treatment would jeopardize the patients health.: No
[2023-12-31] MEDS: UMECLIDINIUM BROMIDE 62.5 MCG ELLIPTA 1 PUFF INHALATION (07:22)
[2023-12-31] MEDS: BUDESONIDE RESPULE NEB 0.5 MG/2 ML AMP INHALATION ×2 (07:23→20:20)
[2023-12-31] MEDS: FLUTICASONE/SALMETEROL 115-21 MCG INHALER 1 PUFF 2 PUFF INHALATION ×2 (07:23→20:23)
[2023-12-31] MEDS: predniSONE 20 MG TABLET 40 MG PO (08:17)
[2023-12-31] MEDS: TOLNAFTATE 1% POWDER 45 GM BTL 1 APPLIC TOPICAL ×2 (08:17→20:51)
[2023-12-31] MEDS: guaiFENesin 12 HR 600 MG TABCR 1200 MG PO ×2 (08:17→20:50)
[2023-12-31] MEDS: ENOXAPARIN 40 MG/0.4 ML SYRINGE SUB-Q (08:18)
[2023-12-31] MEDS: VANCOMYCIN 1,250 MG/NS 250 ML 1,250 MG/250 ML BAG 166.67 MG IVPB ×2 (08:34→10:06)
[2023-12-31] MEDS: traMADol HCL (*CRX) 50 MG TABLET PO (15:25)
[2023-12-31] MEDS: BENZONATATE 100 MG CAPSULE PO (15:25)
[2023-12-31] MEDS: IBUPROFEN 600 MG TABLET PO (20:51)
[2023-12-31] MEDS: MIRTAZAPINE 15 MG TABLET PO (20:51)
[2023-12-31] MEDS: LORATADINE 10 MG TABLET PO (20:51)
[2023-12-31] MEDS: VANCOMYCIN 1,500 MG/NS 500 ML 1,500 MG/500 ML BAG 250 MG IVPB (20:51)
[2024-01-01] VITALS (19 sets, daily range): BP systolic 120–126; BP diastolic 57–96; PULSE 61–84; RESP 17–24; TEMP 36.6–36.7; O2SAT 96–100
[2024-01-01] MEDS: IPRATROPIUM BR 0.02% INH SOLN 0.5 MG/2.5 ML VIAL INHALATION ×4 (02:26→19:29)
[2024-01-01] MEDS: ALBUTEROL SULFATE NEB 2.5 MG/3 ML INH 5 MG INHALATION ×4 (02:26→19:29)
[2024-01-01] MEDS: CEFEPIME 2 GM/NS 50 ML 2 GM/50 ML BAG IVPB ×3 (02:48→18:14)
[2024-01-01 06:06] LABS: Hematocrit 40.8 % (42.0-52.0); Hemoglobin 12.6 g/dL (14.0-18.0); Mean Corpuscular HGB Conc 30.9 g/dl (32-36); Mean Corpuscular Hemoglobin 30.1 pg (26-34); Mean Corpuscular Volume 97.4 fl (80-100); Mean Platelet Volume 9.6 fl (7.4-10.4); Platelet Count Result 235 k/mm3 (150-375); Red Blood Count 4.19 M/mm3 (4.6-6.20); White Blood Count 16.6 K/mm3 (4.5-10.0)
[2024-01-01 06:32] LABS: Alanine Aminotransferase 19 U/L (6-50); Albumin Level 3.3 g/dL (3.5-5.1); Alkaline Phosphatase 74 U/L (38-126); Anion Gap 3 mmol/L (4-12); Aspartate Amino Transferase 20 U/L (17-59); Bilirubin,Total 0.5 mg/dL (0.2-1.3); Blood Urea Nitrogen 18 mg/dL (9-20); Calcium 8.2 mg/dL (8.4-10.2); Carbon Dioxide 34 mmol/L (22-30); Chloride 100 mmol/L (98-107); Estimated CRCL calculation 148 ml/min; Estimated Glomerular Filt Rate > 60; Glucose 106 mg/dL (65-110); Potassium 3.9 mmol/L (3.4-5.0); Sodium 137 mmol/L (137-145)
[2024-01-01] MEDS: guaiFENesin 12 HR 600 MG TABCR 1200 MG PO ×2 (08:22→21:07)
[2024-01-01] MEDS: ENOXAPARIN 40 MG/0.4 ML SYRINGE SUB-Q (08:22)
[2024-01-01] MEDS: TOLNAFTATE 1% POWDER 45 GM BTL 1 APPLIC TOPICAL ×2 (08:22→21:07)
[2024-01-01] MEDS: BUDESONIDE RESPULE NEB 0.5 MG/2 ML AMP INHALATION ×2 (08:38→19:41)
[2024-01-01] MEDS: UMECLIDINIUM BROMIDE 62.5 MCG ELLIPTA 1 PUFF INHALATION (08:38)
[2024-01-01] MEDS: FLUTICASONE/SALMETEROL 115-21 MCG INHALER 1 PUFF 2 PUFF INHALATION ×2 (08:39→19:41)
--- NOTE | 2024-01-01 10:58 | P.PNIM_ITS ---
Progress Note: A&P Assessment and Plan (1) Pneumonia due to gram-positive bacteria: Code(s): J15.9 - Unspecified bacterial pneumonia Status: Acute Assessment and Plan: * Bronchodilators. * Chest x-ray reviewed/CTA No PE * incentive spirometry while awake. * sputum culture Gram-positive cocci * influenza/COVID/RSV negative * Cefepime and vancomycin * supplemental oxygen therapy to maintain oxygen 92%(wears 6L at night and 3L during daytime) * WBC 12/30 16.7 01/01/24 * MRSA negative * d/c vanc * will stop steroids, leukocytosis could be reactive (2) Acute and chronic respiratory failure: Qualifiers: Respiratory failure complication: hypoxia and hypercapnia Qualified Code(s): J96.21 - Acute and chronic respiratory failure with hypoxia; J96.22 - Acute and chronic respiratory failure with hypercapnia Code(s): J96.20 - Acute and chronic respiratory failure, unspecified whether with hypoxia or hypercapnia Status: Acute Assessment and Plan: 12/27/23: * Likely COPD exacerbation versus bacterial pneumonia * CTA was negative for any PE * Chest x-ray was negative * ABG shown up pCO2 of 50.7 with a normal pH * History of COPD and home O2 of 3 L at rest and 6 L with activity 12/28/23: * Continue with PNA treatment empirically changed to cefepime * May need follow-up walk study prior to discharge has * Uses NIV which is at bedside * added nightly antihistamine * added Pulmicort 12/31/23: * Sputum gram positive cocci * started vanc * secondary to bacterial pneumonia 01/01/24 * MRSA negative * d/c vanc * will stop steroids, leukocytosis could be reactive (3) COPD exacerbation: Code(s): J44.1 - Chronic obstructive pulmonary disease with (acute) exacerbation Status: Acute Assessment and Plan: 12/27/23: * Wears home O2. He wears 3 L at rest and 6 L with activity * Currently still on 6 L nasal cannula at rest and appears to be short of breath with use of accessory muscle * Continue DuoNebs scheduled and p.r.n. * Continue azithromycin and Rocephin * Continue prednisone 40 mg daily 12/28/23: * incentive spirometry while awake. * steroids initiated * Pneumonia and flu vaccination advised. * Pulmonary rehab O/P * Disease management following [facility] guidelines. * Repeat hospitalization risk evaluation per [facility] * Evaluation from home O2 if saturation less than 88% on room air. Wears at home may need increased oxygen requirements at home * Smoking cessation counseling done * Follow-up with stereotyper apprentice as an outpatient 12/29/23: * added sputum culture * blood cultures NGTD * WBC 14.7 some of which may be reactive to steroids for COPD (4) Obesity hypoventilation syndrome: Code(s): E66.2 - Morbid (severe) obesity with alveolar hypoventilation Status: Acute Assessment and Plan: * Resumed home NIV * encouraged weight loss * recommended to sleep with at least 35 degree or 3 pillows (5) Tobacco use: Code(s): Z72.0 - Tobacco use Status: Acute Assessment and Plan: Smoking ? smoking cessation education ? nicotine patch daily ? remove at night (6) Chronic back pain: Code(s): M54.9 - Dorsalgia, unspecified; G89.29 - Other chronic pain Status: Acute Assessment and Plan: 12/27/23: * Ibuprofen 600 mg ordered for pain 1-3 * Ultram 25 mg ordered for pain 4-6 * Ultram 50 mg ordered for pain 7- 10 (7) Constipation: Code(s): K59.00 - Constipation, unspecified Status: Acute Assessment and Plan: 12/27/23: * MiraLax ordered Plan Code status: Full code per patient DVT prophylaxis: Lovenox Stress ulcer prophylaxis: NA PT/OT notes: Ambulatory Disposition: Patient continues admission for COPD/Obese hypoventilation syndrome exacerbation and bacterial PNA gram positive cocci with sputum added vanc for MRSA coverage pending final. Plan for discharge is home when medically stable. Time Spent With Patient Time with patient: 15 - 25 minutes Subjective Date/time seen: 01/01/24 10:58 Interval history: Interval history: Admission Medical Chart This is a 63 year old male who presented to the hospital with worsening shortne ss of breath. Workup in the hospital included a chest x-ray which was negative. He also had a chest CTA which was negative for PE and moderate emphysema with probable chronic atelectasis of the right middle lobe. Initial labs showed a white blood cell count of 13.5, hemoglobin 13.2, ABG showing a pCO2 of 50.7 with a normal pH, lactic acid was normal at 1.1, troponin was negative, proBNP 218. UA was obtained and was negative. Respiratory panel was obtained and negative for influenza A and B, RSV, COVID. Blood cultures were obtained and pending. Patient was started on Rocephin and azithromycin. 12/27/23: Patient denies any fever, chills, nausea, vomiting, diarrhea, abdominal pain, chest pain, headache. Patient endorses shortness of breath at rest and wheezing. Labs reviewed. Imaging reviewed 12/28/23: Assumed Care Patient still not feeling well and needing 6L NC all the time. Will add Pulmicort and cover for possible pneumonia with cefepime azithromycin. Patient with pickwickian syndrome follows with a stereotyper apprentice and currently uses a NIV. 12/29/23: Patient states he is feeling mildly better, still SOB with productive cough and on the 6L. WBC improving but likely somewhat reactive to the steroids and afebrile. 12/30/23: Patient continues to improve and stated his SOB and cough have decreased. He did have complaints of RT flank pain and urine frequency will order a UA. 12/31/2023: Worsening WBC with positive sputum showing prelim gram positive cocci will start vancomycin pending final. Patient still with SOB and generally not feeling well. 01/01/24: Patient respiratory status improving, mild SOB and improving cough. WBC 16.6 with gram positive cocci sputum but MRSA negative discontinued vancomycin. Will stop steroids and repeat BMP tomorrow WBC could be reactive. Hopefully can discharge tomorrow if no events overnight. Review of Systems Review of Systems: All systems reviewed & are unremarkable except as noted in HPI and below Exam Narrative: General: In no acute distress, morbidly obese Head: atraumatic, no encephalopathy Eyes: EOMI, PERRLA, sclera clear ENT: moist mucous membranes, nasal passages clear Neck: supple, no JVD, no adenopathy, trachea midline Cardiac: Normal S1 and S2. No murmur, gallops or friction rubs, peripheral pulses intact. Respiratory: Lungs diminished to auscultation, mild wheezing, currently on 5 L nasal cannula, use of accessory muscles, productive cough, shortness of breath and dyspnea at rest improving Gastrointestinal: soft, obese, non-tender, normoactive bowel sounds. : voiding without difficulty. Extremities: moves all extremities well, no edema, good ROM, strength 5/5 Skin: clean, dry, intact. No wounds or lesions. Neuro: Alert and oriented x4, cranial nerves intact, no neuro deficits. Psych: normal mood, normal affect, interactive Objective Data Vital Signs Vital Signs: Vital Signs - 24 hr 12/31/23 12:01 12/31/23 13:48 12/31/23 14:01 Temperature Pulse Rate 76 79 85 Respiratory Rate 20 18 Blood Pressure Pulse Oximetry Oxygen Delivery Oxygen Flow Rate 12/31/23 14:00 12/31/23 16:03 12/31/23 19:54 Temperature 97.6 F 97.7 F Pulse Rate 75 80 80 Respiratory Rate 16 18 Blood Pressure 154/82 H 134/86 Pulse Oximetry 100 98 Oxygen Delivery Oxygen Flow Rate 12/31/23 20:24 12/31/23 20:25 12/31/23 20:43 Temperature Pulse Rate 82 82 84 Respiratory Rate 18 18 18 Blood Pressure Pulse Oximetry 98 Oxygen Delivery Nasal Cannula Oxygen Flow Rate 12/31/23 20:50 01/01/24 02:29 12/31/23 22:50 Temperature Pulse Rate 78 84 Respiratory Rate 18 Blood Pressure Pulse Oximetry 97 Oxygen Delivery Nasal Cannula Nasal Cannula Oxygen Flow Rate 01/01/24 02:45 01/01/24 02:52 12/31/23 20:00 Temperature Pulse Rate 80 86 Respiratory Rate 18 Blood Pressure Pulse Oximetry 97 Oxygen Delivery Nasal Cannula Oxygen Flow Rate 01/01/24 00:00 01/01/24 04:00 01/01/24 05:30 Temperature 97.9 F Pulse Rate 76 69 70 Respiratory Rate 18 Blood Pressure 120/57 L Pulse Oximetry 100 Oxygen Delivery Oxygen Flow Rate 01/01/24 08:39 01/01/24 08:39 01/01/24 09:05 Temperature Pulse Rate 78 74 Respiratory Rate 20 20 Blood Pressure Pulse Oximetry 96 Oxygen Delivery Nasal Cannula Oxygen Flow Rate 5 01/01/24 08:00 Temperature Pulse Rate 61 Respiratory Rate Blood Pressure Pulse Oximetry Oxygen Delivery Oxygen Flow Rate Intake/Output Intake/Output: Intake & Output 12/29/23 12/30/23 12/31/23 01/01/24 23:59 23:59 23:59 23:59 Intake Total 1700 2040 3580.0 980 Output Total 2300 1400 100 250 Balance -197 662 0215.0 730 Meds/Results Medications: Active Medications Generic Name Dose Route Start Last Admin Trade Name Freq PRN Reason Stop Dose Admin Albuterol 5 mg 12/26/23 02:00 01/01/24 08:38 Albuterol Sulfate Neb 2.5 Mg/3 Ml Inh INHALATION 5 mg Q6HRT LUIS Administration Albuterol 2 puff 12/26/23 06:18 Albuterol Sulfate (*Sp) Aerosol 1 Puff INHALATION QIDRT PRN Wheezing Albuterol/Ipratropium 3 ml 12/27/23 14:30 12/30/23 02:59 Ipratropium 0.5 Mg/Albuterol Sulfate 2.5 Mg Ampul.Neb 3 Ml INHALATION 3 ml Q6HRT PRN Administration Shortness Of Breath Or Wheezing Benzonatate 100 mg 12/27/23 18:03 12/31/23 15:25 Benzonatate 100 Mg Capsule PO 100 mg TID PRN Administration Cough Budesonide 0.5 mg 12/28/23 20:00 01/01/24 08:38 Budesonide Respule Neb 0.5 Mg/2 Ml Amp INHALATION 0.5 mg Q12HRT LUIS Administration Enoxaparin Sodium 40 mg 12/27/23 09:00 01/01/24 08:22 Enoxaparin 40 Mg/0.4 Ml Syringe SUB-Q 40 mg DAILY LUIS Administration Guaifenesin 1,200 mg 12/26/23 21:00 01/01/24 08:22 Guaifenesin 12 Hr 600 Mg Tabcr PO 1,200 mg Q12HR LUIS Administration Cefepime HCl 2 gm in 50 mls @ 100 mls/hr 12/28/23 11:00 01/01/24 10:42 Maxipime 2 Gm/Ns 50 Ml IVPB 100 mls/hr Q8H LUIS Administration Ibuprofen 600 mg 12/27/23 14:32 12/31/23 20:51 Ibuprofen 600 Mg Tablet PO 600 mg Q6H PRN Administration Pain Rated 1-3 Ipratropium [facility] 0.5 mg 12/26/23 02:00 01/01/24 08:38 Ipratropium Br 0.02% Inh Soln 0.5 Mg/2.5 Ml Vial INHALATION 0.5 mg Q6HRT LUIS Administration Loratadine 10 mg 12/28/23 21:00 12/31/23 20:51 Loratadine 10 Mg Tablet PO 10 mg QHS LUIS Administration Mirtazapine 15 mg 12/27/23 21:00 12/31/23 20:51 Mirtazapine 15 Mg Tablet PO 15 mg HS LUIS Administration Polyethylene Glycol 17 gm 12/27/23 14:30 12/30/23 10:35 Polyethylene Glycol 3350 17 Gm Powd.Pack PO 17 gm QAM PRN Administration Constipation Fluticasone/Salmeterol 2 puff 12/26/23 08:00 01/01/24 08:39 Fluticasone/Salmeterol 115-21 Mcg Inhaler 1 Puff INHALATION 2 puff Q12HRT LUIS Administration Tolnaftate 1 applic 12/26/23 09:00 01/01/24 08:22 Tolnaftate 1% Powder 45 Gm Btl TOPICAL 1 applic Q12HR LUIS Administration Tramadol HCl 25 mg 12/27/23 14:32 12/30/23 21:39 Tramadol Hcl (*Crx) 25 Mg Tablet PO 25 mg Q4H PRN Administration Pain Rated 4-6 Tramadol HCl 50 mg 12/27/23 14:32 12/31/23 15:25 Tramadol Hcl (*Crx) 50 Mg Tablet PO 50 mg Q4H PRN Administration Pain Rated 7-10 Umeclidinium [facility] 1 puff 12/26/23 08:00 01/01/24 08:38 Umeclidinium [facility] 62.5 Mcg Ellipta INHALATION 1 puff DAILYRT LUIS Administration Radiology Results: ITS Impressions Chest X-Ray 12/25/23 21:50 IMPRESSION: No acute cardiopulmonary process. Chest CTA 12/26/23 05:48 Impression: No large central pulmonary embolus seen. Evaluation for smaller, more peripheral pulmonary emboli is suboptimal due to timing of the contrast bolus. Moderate emphysema and probable chronic atelectasis of the right middle lobe, and minimally in the lingula. Labs Labs: Laboratory Results - last 24 hr 01/01/24 05:25 WBC 16.6 H RBC 4.19 L Hgb 12.6 L Hct 40.8 L MCV 97.4 MCH 30.1 MCHC 30.9 L RDW 15.0 H Plt Count 235 MPV 9.6 Sodium 137 Potassium 3.9 Chloride 100 Carbon Dioxide 34 H Anion Gap 3 L BUN 18 Creatinine 0.80 Estim Creat Clear Calc 148 Estimated GFR > 60 Glucose 106 Calcium 8.2 L Total Bilirubin 0.5 AST 20 ALT 19 Alkaline Phosphatase 74 Total Protein 6.0 L Albumin 3.3 L Quality VTE Prophylaxis VTE prophylaxis: pharmacologic ordered -Patient's previous records reviewed on admission -ER notes reviewed in detail on admission -discussed all findings and current treatment plan with patient/Family/POA -Consultations reviewed for recommendations -Patient's disposition for safe discharge discussed with casework manager Dictation performed by [employer] direct speech recognition software, there fore operations technician variants and typographical errors may occur. Hospitalist MIPS Advance Care Plan I have confirmed that the patient's Advanced Care Plan is present, code status is documented, or surrogate decision maker is listed in patient medical record.: Yes Medication Reconciliation I have utilized all available resources to obtain, update and review the patients current medications (includes all prescriptions, OTC, herbals, cannabis, and nutritional supplements).: Yes The patient is not eligible for med reconciliation; the patient is in a emergent medical situation where delaying treatment would jeopardize the patients health.: No
[2024-01-01] MEDS: traMADol HCL (*CRX) 50 MG TABLET PO (12:52)
[2024-01-01] MEDS: IBUPROFEN 600 MG TABLET PO ×2 (14:46→21:06)
[2024-01-01] MEDS: BENZONATATE 100 MG CAPSULE PO (14:47)
[2024-01-01] MEDS: LORATADINE 10 MG TABLET PO (21:07)
[2024-01-01] MEDS: MIRTAZAPINE 15 MG TABLET PO (21:07)
[2024-01-02] VITALS (18 sets, daily range): BP systolic 126–132; BP diastolic 68–74; PULSE 65–82; RESP 14–22; TEMP 35.9–37.1; O2SAT 95–100
[2024-01-02] MEDS: ALBUTEROL SULFATE NEB 2.5 MG/3 ML INH 5 MG INHALATION ×4 (02:12→19:33)
[2024-01-02] MEDS: IPRATROPIUM BR 0.02% INH SOLN 0.5 MG/2.5 ML VIAL INHALATION ×4 (02:12→19:33)
[2024-01-02] MEDS: CEFEPIME 2 GM/NS 50 ML 2 GM/50 ML BAG IVPB ×3 (03:29→17:59)
[2024-01-02 05:52] LABS: Hematocrit 42.5 % (42.0-52.0); Mean Corpuscular HGB Conc 30.6 g/dl (32-36); Mean Corpuscular Hemoglobin 30.2 pg (26-34); Mean Corpuscular Volume 98.6 fl (80-100); Mean Platelet Volume 9.7 fl (7.4-10.4); Platelet Count Result 226 k/mm3 (150-375); Red Blood Count 4.31 M/mm3 (4.6-6.20); Red Cell Distribution Width 14.9 % (11.5-14.5); White Blood Count 12.7 K/mm3 (4.5-10.0)
[2024-01-02 06:10] LABS: Alanine Aminotransferase 19 U/L (6-50); Albumin Level 3.4 g/dL (3.5-5.1); Alkaline Phosphatase 82 U/L (38-126); Anion Gap 5 mmol/L (4-12); Aspartate Amino Transferase 20 U/L (17-59); Bilirubin,Total 0.5 mg/dL (0.2-1.3); Blood Urea Nitrogen 20 mg/dL (9-20); Calcium 8.2 mg/dL (8.4-10.2); Carbon Dioxide 34 mmol/L (22-30); Chloride 99 mmol/L (98-107); Estimated CRCL calculation 132 ml/min; Estimated Glomerular Filt Rate > 60; Glucose 106 mg/dL (65-110); Potassium 4.3 mmol/L (3.4-5.0); Sodium 138 mmol/L (137-145)
[2024-01-02] MEDS: traMADol HCL (*CRX) 50 MG TABLET PO ×2 (06:51→20:15)
[2024-01-02] MEDS: UMECLIDINIUM BROMIDE 62.5 MCG ELLIPTA 1 PUFF INHALATION (07:32)
[2024-01-02] MEDS: FLUTICASONE/SALMETEROL 115-21 MCG INHALER 1 PUFF 2 PUFF INHALATION ×2 (07:32→19:33)
[2024-01-02] MEDS: BUDESONIDE RESPULE NEB 0.5 MG/2 ML AMP INHALATION ×2 (07:32→19:33)
[2024-01-02] MEDS: ENOXAPARIN 40 MG/0.4 ML SYRINGE SUB-Q (08:26)
[2024-01-02] MEDS: guaiFENesin 12 HR 600 MG TABCR 1200 MG PO ×2 (08:26→20:14)
[2024-01-02] MEDS: KETOROLAC 30 MG/ML VIAL (*BKC) IV PUSH (09:25)
[2024-01-02] MEDS: TOLNAFTATE 1% POWDER 45 GM BTL 1 APPLIC TOPICAL ×2 (09:26→20:16)
[2024-01-02] MEDS: methocarbamoL 750 MG TABLET PO ×3 (13:03→20:15)
[2024-01-02] MEDS: diazePAM INJ (*CRX) 10 MG/2 ML SYRINGE 5 MG IV PUSH (13:03)
--- NOTE | 2024-01-02 13:13 | PC.NURSE ---
On 01/02/24, the student, [Rossi Díaz], provided care and completed [facility] documentation on this patient. I have reviewed the student's documentation and agree with the findings.
--- NOTE | 2024-01-02 14:43 | P.PNIM_ITS ---
Progress Note: A&P Assessment and Plan (1) Pneumonia due to gram-positive bacteria: Code(s): J15.9 - Unspecified bacterial pneumonia Status: Acute Assessment and Plan: * Bronchodilators. * Chest x-ray reviewed/CTA No PE * incentive spirometry while awake. * sputum culture Gram-positive cocci * influenza/COVID/RSV negative * Cefepime and vancomycin * supplemental oxygen therapy to maintain oxygen 92%(wears 6L at night and 3L during daytime) * WBC 12/30 16.7 01/01/24 * MRSA negative * d/c vanc * will stop steroids, leukocytosis could be reactive 01/02/24 * WBC improved (2) Acute and chronic respiratory failure: Qualifiers: Respiratory failure complication: hypoxia and hypercapnia Qualified Code(s): J96.21 - Acute and chronic respiratory failure with hypoxia; J96.22 - Acute and chronic respiratory failure with hypercapnia Code(s): J96.20 - Acute and chronic respiratory failure, unspecified whether with hypoxia or hypercapnia Status: Acute Assessment and Plan: 12/27/23: * Likely COPD exacerbation versus bacterial pneumonia * CTA was negative for any PE * Chest x-ray was negative * ABG shown up pCO2 of 50.7 with a normal pH * History of COPD and home O2 of 3 L at rest and 6 L with activity 12/28/23: * Continue with PNA treatment empirically changed to cefepime * May need follow-up walk study prior to discharge has * Uses NIV which is at bedside * added nightly antihistamine * added Pulmicort 12/31/23: * Sputum gram positive cocci * started vanc * secondary to bacterial pneumonia 01/01/24 * MRSA negative * d/c vanc * will stop steroids, leukocytosis could be reactive (3) COPD exacerbation: Code(s): J44.1 - Chronic obstructive pulmonary disease with (acute) exacerbation Status: Acute Assessment and Plan: 12/27/23: * Wears home O2. He wears 3 L at rest and 6 L with activity * Currently still on 6 L nasal cannula at rest and appears to be short of breath with use of accessory muscle * Continue DuoNebs scheduled and p.r.n. * Continue azithromycin and Rocephin * Continue prednisone 40 mg daily 12/28/23: * incentive spirometry while awake. * steroids initiated * Pneumonia and flu vaccination advised. * Pulmonary rehab O/P * Disease management following [facility] guidelines. * Repeat hospitalization risk evaluation per [facility] * Evaluation from home O2 if saturation less than 88% on room air. Wears at home may need increased oxygen requirements at home * Smoking cessation counseling done * Follow-up with mechanical engineering intern as an outpatient 12/29/23: * added sputum culture * blood cultures NGTD * WBC 14.7 some of which may be reactive to steroids for COPD (4) Obesity hypoventilation syndrome: Code(s): E66.2 - Morbid (severe) obesity with alveolar hypoventilation Status: Acute Assessment and Plan: * Resumed home NIV * encouraged weight loss * recommended to sleep with at least 35 degree or 3 pillows (5) Tobacco use: Code(s): Z72.0 - Tobacco use Status: Acute Assessment and Plan: Smoking ? smoking cessation education ? nicotine patch daily ? remove at night (6) Chronic back pain: Code(s): M54.9 - Dorsalgia, unspecified; G89.29 - Other chronic pain Status: Acute Assessment and Plan: 12/27/23: * Ibuprofen 600 mg ordered for pain 1-3 * Ultram 25 mg ordered for pain 4-6 * Ultram 50 mg ordered for pain 7- 10 01/01/2024 * worsening RT CVA pain * UA clean * HX stones * CT ABD negative * likely spasm * 1 x Valium * Started on Robaxin (7) Constipation: Code(s): K59.00 - Constipation, unspecified Status: Acute Assessment and Plan: 12/27/23: * MiraLax ordered Plan Code status: Full code per patient DVT prophylaxis: Lovenox Stress ulcer prophylaxis: NA PT/OT notes: Ambulatory Disposition: Patient continues admission for COPD/Obese hypoventilation syndrome exacerbation worsening muscle spasm started treatment if improved and discharge tomorrow respiratory status back to baseline. Plan for discharge is home when medically stable. Time Spent With Patient Time with patient: 15 - 25 minutes Subjective Date/time seen: 01/02/24 14:43 Interval history: Interval history: Admission Medical Chart This is a 63 year old male who presented to the hospital with worsening shortness of breath. Workup in the hospital included a chest x-ray which was negative. He also had a chest CTA which was negative for PE and moderate emphysema with probable chronic atelectasis of the right middle lobe. Initial labs showed a white blood cell count of 13.5, hemoglobin 13.2, ABG showing a pCO2 of 50.7 with a normal pH, lactic acid was normal at 1.1, troponin was negative, proBNP 218. UA was obtained and was negative. Respiratory panel was obtained and negative for influenza A and B, RSV, COVID. Blood cultures were obtained and pending. Patient was started on Rocephin and azithromycin. 12/27/23: Patient denies any fever, chills, nausea, vomiting, diarrhea, abdominal pain, chest pain, headache. Patient endorses shortness of breath at rest and wheezing. Labs reviewed. Imaging reviewed 12/28/23: Assumed Care Patient still not feeling well and needing 6L NC all the time. Will add Pulmicort and cover for possible pneumonia with cefepime azithromycin. Patient with pickwickian syndrome follows with a mechanical engineering intern and currently uses a NIV. 12/29/23: Patient states he is feeling mildly better, still SOB with productive cough and on the 6L. WBC improving but likely somewhat reactive to the steroids and afebrile. 12/30/23: Patient continues to improve and stated his SOB and cough have decreased. He did have complaints of RT flank pain and urine frequency will order a UA. 12/31/2023: Worsening WBC with positive sputum showing prelim gram positive cocci will start vancomycin pending final. Patient still with SOB and generally not feeling well. 01/01/24: Patient respiratory status improving, mild SOB and improving cough. WBC 16.6 with gram positive cocci sputum but MRSA negative discontinued vancomycin. Will stop steroids and repeat BMP tomorrow WBC could be reactive. Hopefully can discharge tomorrow if no events overnight. 01/02/2024: Patient with severe 10/10 RT CVA pain past HX of kidney stones, UA clean CT aBS was ordered did not show in acute issues likely muscle spasm gave 1x dose Valium and added Robaxin if improved in the am should be stable for discharge respiratory back to baseline. WBC trended down after stopping steroids. Review of Systems Review of Systems: All systems reviewed & are unremarkable except as noted in HPI and below Exam Narrative: General: In no acute distress, morbidly obese Head: atraumatic, no encephalopathy Eyes: EOMI, PERRLA, sclera clear ENT: moist mucous membranes, nasal passages clear Neck: supple, no JVD, no adenopathy, trachea midline Cardiac: Normal S1 and S2. No murmur, gallops or friction rubs, peripheral pulses intact. Respiratory: Lungs diminished to auscultation, mild wheezing, currently on 5 L nasal cannula, use of accessory muscles, productive cough, shortness of breath and dyspnea at rest improving Gastrointestinal: soft, obese, non-tender, normoactive bowel sounds. : voiding without difficulty. Extremities: moves all extremities well, no edema, good ROM, strength 5/5 Skin: clean, dry, intact. No wounds or lesions. Neuro: Alert and oriented x4, cranial nerves intact, no neuro deficits. Psych: normal mood, normal affect, interactive Objective Data Vital Signs Vital Signs: Vital Signs - 24 hr 01/01/24 14:45 01/01/24 15:03 01/01/24 16:00 Temperature Pulse Rate 75 77 80 Respiratory Rate 20 20 Blood Pressure Pulse Oximetry Oxygen Delivery Oxygen Flow Rate 01/01/24 19:31 01/01/24 19:31 01/01/24 19:50 Temperature Pulse Rate 80 81 Respiratory Rate 24 H 24 H Blood Pressure Pulse Oximetry 98 Oxygen Delivery Nasal Cannula Oxygen Flow Rate 01/01/24 20:22 01/01/24 20:30 01/01/24 23:56 Temperature 98.1 F Pulse Rate 79 Respiratory Rate 17 Blood Pressure 122/96 H Pulse Oximetry 97 98 Oxygen Delivery Nasal Cannula Nasal Cannula Oxygen Flow Rate 01/02/24 02:12 01/02/24 02:19 01/02/24 04:52 Temperature 98.8 F Pulse Rate 70 80 72 Respiratory Rate 20 20 20 Blood Pressure 129/68 Pulse Oximetry 97 Oxygen Delivery Oxygen Flow Rate 01/01/24 20:00 01/02/24 00:00 01/02/24 04:00 Temperature Pulse Rate 84 79 65 Respiratory Rate Blood Pressure Pulse Oximetry Oxygen Delivery Oxygen Flow Rate 01/02/24 07:35 01/02/24 07:35 01/02/24 08:00 Temperature Pulse Rate 73 68 Respiratory Rate 20 20 Blood Pressure Pulse Oximetry 96 Oxygen Delivery Nasal Cannula Oxygen Flow Rate 5 01/02/24 08:00 01/02/24 09:45 01/02/24 12:00 Temperature Pulse Rate 68 71 Respiratory Rate Blood Pressure Pulse Oximetry 98 Oxygen Delivery Nasal Cannula Oxygen Flow Rate 5 01/02/24 13:44 01/02/24 14:00 01/02/24 14:00 Temperature 96.6 F L Pulse Rate 82 78 82 Respiratory Rate 20 20 14 Blood Pressure 126/73 Pulse Oximetry 100 Oxygen Delivery Oxygen Flow Rate Intake/Output Intake/Output: Intake & Output 12/30/23 12/31/23 01/01/24 01/02/24 23:59 23:59 23:59 23:59 Intake Total 2040 3580.0 2074 1250 Output Total 1400 100 250 900 Balance 640 3480.0 1824 350 Meds/Results Medications: Active Medications Generic Name Dose Route Start Last Admin Trade Name Freq PRN Reason Stop Dose Admin Albuterol 5 mg 12/26/23 02:00 01/02/24 13:44 Albuterol Sulfate Neb 2.5 Mg/3 Ml Inh INHALATION 5 mg Q6HRT LUIS Administration Albuterol 2 puff 12/26/23 06:18 Albuterol Sulfate (*Sp) Aerosol 1 Puff INHALATION QIDRT PRN Wheezing Albuterol/Ipratropium 3 ml 12/27/23 14:30 12/30/23 02:59 Ipratropium 0.5 Mg/Albuterol Sulfate 2.5 Mg Ampul.Neb 3 Ml INHALATION 3 ml Q6HRT PRN Administration Shortness Of Breath Or Wheezing Benzonatate 100 mg 12/27/23 18:03 01/01/24 14:47 Benzonatate 100 Mg Capsule PO 100 mg TID PRN Administration Cough Budesonide 0.5 mg 12/28/23 20:00 01/02/24 07:32 Budesonide Respule Neb 0.5 Mg/2 Ml Amp INHALATION 0.5 mg Q12HRT LUIS Administration Enoxaparin Sodium 40 mg 12/27/23 09:00 01/02/24 08:26 Enoxaparin 40 Mg/0.4 Ml Syringe SUB-Q 40 mg DAILY LUIS Administration Guaifenesin 1,200 mg 12/26/23 21:00 01/02/24 08:26 Guaifenesin 12 Hr 600 Mg Tabcr PO 1,200 mg Q12HR LUIS Administration Cefepime HCl 2 gm in 50 mls @ 100 mls/hr 12/28/23 11:00 01/02/24 11:40 Maxipime 2 Gm/Ns 50 Ml IVPB Infused Q8H LUIS Infusion Ibuprofen 600 mg 12/27/23 14:32 01/01/24 21:06 Ibuprofen 600 Mg Tablet PO 600 mg Q6H PRN Administration Pain Rated 1-3 Ipratropium [place] 0.5 mg 12/26/23 02:00 01/02/24 13:44 Ipratropium Br 0.02% Inh Soln 0.5 Mg/2.5 Ml Vial INHALATION 0.5 mg Q6HRT LUIS Administration Loratadine 10 mg 12/28/23 21:00 01/01/24 21:07 Loratadine 10 Mg Tablet PO 10 mg QHS LUIS Administration Methocarbamol 750 mg 01/02/24 13:00 01/02/24 13:03 Methocarbamol 750 Mg Tablet PO 750 mg QID LUIS Administration Mirtazapine 15 mg 12/27/23 21:00 01/01/24 21:07 Mirtazapine 15 Mg Tablet PO 15 mg HS LUIS Administration Polyethylene Glycol 17 gm 12/27/23 14:30 12/30/23 10:35 Polyethylene Glycol 3350 17 Gm Powd.Pack PO 17 gm QAM PRN Administration Constipation Fluticasone/Salmeterol 2 puff 12/26/23 08:00 01/02/24 07:32 Fluticasone/Salmeterol 115-21 Mcg Inhaler 1 Puff INHALATION 2 puff Q12HRT LUIS Administration Tolnaftate 1 applic 12/26/23 09:00 01/02/24 09:26 Tolnaftate 1% Powder 45 Gm Btl TOPICAL 1 applic Q12HR LUIS Administration Tramadol HCl 25 mg 12/27/23 14:32 12/30/23 21:39 Tramadol Hcl (*Crx) 25 Mg Tablet PO 25 mg Q4H PRN Administration Pain Rated 4-6 Tramadol HCl 50 mg 12/27/23 14:32 01/02/24 06:51 Tramadol Hcl (*Crx) 50 Mg Tablet PO 50 mg Q4H PRN Administration Pain Rated 7-10 Umeclidinium [place] 1 puff 12/26/23 08:00 01/02/24 07:32 Umeclidinium [place] 62.5 Mcg Ellipta INHALATION 1 puff DAILYRT LUIS Administration Radiology Results: ITS Impressions Chest X-Ray 12/25/23 21:50 IMPRESSION: No acute cardiopulmonary process. Chest CTA 12/26/23 05:48 Impression: No large central pulmonary embolus seen. Evaluation for smaller, more peripheral pulmonary emboli is suboptimal due to timing of the contrast bolus. Moderate emphysema and probable chronic atelectasis of the right middle lobe, and minimally in the lingula. Abdomen/Pelvis CT 01/02/24 11:02 IMPRESSION: 1. No etiology for the patient's symptoms. Labs Labs: Laboratory Results - last 24 hr 01/02/24 05:27 WBC 12.7 H RBC 4.31 L Hgb 13.0 L Hct 42.5 MCV 98.6 MCH 30.2 MCHC 30.6 L RDW 14.9 H Plt Count 226 MPV 9.7 Sodium 138 Potassium 4.3 Chloride 99 Carbon Dioxide 34 H Anion Gap 5 BUN 20 Creatinine 0.90 Estim Creat Clear Calc 132 Estimated GFR > 60 Glucose 106 Calcium 8.2 L Total Bilirubin 0.5 AST 20 ALT 19 Alkaline Phosphatase 82 Total Protein 6.0 L Albumin 3.4 L Quality VTE Prophylaxis VTE prophylaxis: pharmacologic ordered -Patient's previous records reviewed on admission -ER notes reviewed in detail on admission -discussed all findings and current treatment plan with patient/Family/POA -Consultations reviewed for recommendations -Patient's disposition for safe discharge discussed with caser shoe parts Dictation performed by [employer] Fluency direct speech recognition software, therefore local announcer variants and typographical errors may occur. Hospitalist MIPS Advance Care Plan I have confirmed that the patient's Advanced Care Plan is present, code status is documented, or surrogate decision maker is listed in patient medical record.: Yes Medication Reconciliation I have utilized all available resources to obtain, update and review the patients current medications (includes all prescriptions, OTC, herbals, cannabis, and nutritional supplements).: Yes The patient is not eligible for med reconciliation; the patient is in a emergent medical situation where delaying treatment would jeopardize the patients health.: No
[2024-01-02] MEDS: LORATADINE 10 MG TABLET PO (20:14)
[2024-01-02] MEDS: MIRTAZAPINE 15 MG TABLET PO (20:15)
[2024-01-03] VITALS (13 sets, daily range): BP systolic 128–129; BP diastolic 78–82; PULSE 71–84; RESP 20; TEMP 36.6; O2SAT 95–100
[2024-01-03] MEDS: traMADol HCL (*CRX) 50 MG TABLET PO (01:29)
[2024-01-03] MEDS: MENTHOL 10% / METHYL SALICYLATE 15% 57 GM TUBE 1 APPLIC TOPICAL (01:29)
[2024-01-03] MEDS: ALBUTEROL SULFATE NEB 2.5 MG/3 ML INH 5 MG INHALATION ×3 (02:05→13:28)
[2024-01-03] MEDS: IPRATROPIUM BR 0.02% INH SOLN 0.5 MG/2.5 ML VIAL INHALATION ×3 (02:05→13:28)
[2024-01-03] MEDS: IBUPROFEN 600 MG TABLET PO (02:18)
[2024-01-03] MEDS: CEFEPIME 2 GM/NS 50 ML 2 GM/50 ML BAG IVPB ×2 (02:18→10:05)
[2024-01-03 06:35] LABS: Hematocrit 41.4 % (42.0-52.0); Mean Corpuscular HGB Conc 31.4 g/dl (32-36); Mean Corpuscular Hemoglobin 30.7 pg (26-34); Mean Corpuscular Volume 97.9 fl (80-100); Mean Platelet Volume 9.6 fl (7.4-10.4); Platelet Count Result 225 k/mm3 (150-375); Red Blood Count 4.23 M/mm3 (4.6-6.20); Red Cell Distribution Width 14.8 % (11.5-14.5); White Blood Count 11.8 K/mm3 (4.5-10.0)
[2024-01-03 06:45] LABS: Alanine Aminotransferase 18 U/L (6-50); Albumin Level 3.5 g/dL (3.5-5.1); Alkaline Phosphatase 83 U/L (38-126); Anion Gap 4 mmol/L (4-12); Aspartate Amino Transferase 19 U/L (17-59); Bilirubin,Total 0.6 mg/dL (0.2-1.3); Blood Urea Nitrogen 18 mg/dL (9-20); Calcium 8.1 mg/dL (8.4-10.2); Carbon Dioxide 34 mmol/L (22-30); Chloride 98 mmol/L (98-107); Estimated CRCL calculation 133 ml/min; Estimated Glomerular Filt Rate > 60; Glucose 103 mg/dL (65-110); Potassium 4.2 mmol/L (3.4-5.0); Sodium 136 mmol/L (137-145)
[2024-01-03] MEDS: BUDESONIDE RESPULE NEB 0.5 MG/2 ML AMP INHALATION (07:19)
[2024-01-03] MEDS: FLUTICASONE/SALMETEROL 115-21 MCG INHALER 1 PUFF 2 PUFF INHALATION (07:20)
[2024-01-03] MEDS: UMECLIDINIUM BROMIDE 62.5 MCG ELLIPTA 1 PUFF INHALATION (07:20)
[2024-01-03] MEDS: ENOXAPARIN 40 MG/0.4 ML SYRINGE SUB-Q (07:48)
[2024-01-03] MEDS: guaiFENesin 12 HR 600 MG TABCR 1200 MG PO (07:49)
[2024-01-03] MEDS: TOLNAFTATE 1% POWDER 45 GM BTL 1 APPLIC TOPICAL (07:49)
[2024-01-03] MEDS: methocarbamoL 750 MG TABLET PO ×3 (07:49→16:11)
--- NOTE | 2024-01-03 12:16 | P.PNIM_ITS ---
Subjective Date/time seen: 01/03/24 12:16 Interval history: This is a 63 year old male who presented to the hospital with worsening shortness of breath. Workup in the hospital included a chest x-ray which was negative. He also had a chest CTA which was negative for PE and moderate emp hysema with probable chronic atelectasis of the right middle lobe. 01/02: Objective Data Vital Signs Vital Signs: Vital Signs - 24 hr 01/02/24 13:44 01/02/24 14:00 01/02/24 14:00 Temperature 96.6 F L Pulse Rate 82 78 82 Respiratory Rate 20 20 14 Blood Pressure 126/73 Pulse Oximetry 100 Oxygen Delivery Oxygen Flow Rate 01/02/24 16:00 01/02/24 19:34 01/02/24 19:38 Temperature Pulse Rate 73 76 Respiratory Rate 20 Blood Pressure Pulse Oximetry 95 Oxygen Delivery Nasal Cannula Oxygen Flow Rate 5 01/02/24 19:58 01/02/24 20:31 01/02/24 20:00 Temperature 98.0 F Pulse Rate 73 70 81 Respiratory Rate 20 22 H Blood Pressure 132/74 Pulse Oximetry 100 Oxygen Delivery Oxygen Flow Rate 01/02/24 20:00 01/03/24 00:00 01/02/24 22:30 Temperature Pulse Rate 75 Respiratory Rate Blood Pressure Pulse Oximetry 100 100 Oxygen Delivery Nasal Cannula Nasal Cannula Oxygen Flow Rate 5 01/03/24 02:06 01/03/24 02:23 01/03/24 04:00 Temperature Pulse Rate 76 75 72 Respiratory Rate 20 20 Blood Pressure Pulse Oximetry Oxygen Delivery Oxygen Flow Rate 01/03/24 06:00 01/03/24 07:31 01/03/24 07:31 Temperature 97.9 F Pulse Rate 84 72 Respiratory Rate 20 20 Blood Pressure 129/78 Pulse Oximetry 100 95 Oxygen Delivery Nasal Cannula Oxygen Flow Rate 5 01/03/24 07:48 01/03/24 08:00 Temperature Pulse Rate 72 74 Respiratory Rate 20 Blood Pressure Pulse Oximetry Oxygen Delivery Oxygen Flow Rate Intake/Output Intake/Output: Intake & Output 12/31/23 01/01/24 01/02/24 01/03/24 23:59 23:59 23:59 23:59 Intake Total 3580.0 2074 1750 1660 Output Total 100 250 900 Balance 3480.0 9146 478 5125 Meds/Results Medications: Active Medications Generic Name Dose Route Start Last Admin Trade Name Freq PRN Reason Stop Dose Admin Albuterol 5 mg 12/26/23 02:00 01/03/24 07:19 Albuterol Sulfate Neb 2.5 Mg/3 Ml Inh INHALATION 5 mg Q6HRT LUIS Administration Albuterol 2 puff 12/26/23 06:18 Albuterol Sulfate (*Sp) Aerosol 1 Puff INHALATION QIDRT PRN Wheezing Albuterol/Ipratropium 3 ml 12/27/23 14:30 12/30/23 02:59 Ipratropium 0.5 Mg/Albuterol Sulfate 2.5 Mg Ampul.Neb 3 Ml INHALATION 3 ml Q6HRT PRN Administration Shortness Of Breath Or Wheezing Benzonatate 100 mg 12/27/23 18:03 01/01/24 14:47 Benzonatate 100 Mg Capsule PO 100 mg TID PRN Administration Cough Budesonide 0.5 mg 12/28/23 20:00 01/03/24 07:19 Budesonide Respule Neb 0.5 Mg/2 Ml Amp INHALATION 0.5 mg Q12HRT LUIS Administration Enoxaparin Sodium 40 mg 12/27/23 09:00 01/03/24 07:48 Enoxaparin 40 Mg/0.4 Ml Syringe SUB-Q 40 mg DAILY LUIS Administration Guaifenesin 1,200 mg 12/26/23 21:00 01/03/24 07:49 Guaifenesin 12 Hr 600 Mg Tabcr PO 1,200 mg Q12HR LUIS Administration Cefepime HCl 2 gm in 50 mls @ 100 mls/hr 12/28/23 11:00 01/03/24 10:35 Maxipime 2 Gm/Ns 50 Ml IVPB Infused Q8H LUIS Infusion Ibuprofen 600 mg 12/27/23 14:32 01/03/24 02:18 Ibuprofen 600 Mg Tablet PO 600 mg Q6H PRN Administration Pain Rated 1-3 Ipratropium [place] 0.5 mg 12/26/23 02:00 01/03/24 07:19 Ipratropium Br 0.02% Inh Soln 0.5 Mg/2.5 Ml Vial INHALATION 0.5 mg Q6HRT LUIS Administration Loratadine 10 mg 12/28/23 21:00 01/02/24 20:14 Loratadine 10 Mg Tablet PO 10 mg QHS LUIS Administration Menthol/Methyl Salicylate 1 applic 01/02/24 22:09 01/03/24 01:29 Menthol 10% / Methyl Salicylate 15% 57 Gm Tube TOPICAL 1 applic BID PRN Administration Muscle/Joint Pain Methocarbamol 750 mg 01/02/24 13:00 01/03/24 12:00 Methocarbamol 750 Mg Tablet PO 750 mg QID LUIS Administration Mirtazapine 15 mg 12/27/23 21:00 01/02/24 20:15 Mirtazapine 15 Mg Tablet PO 15 mg HS LUIS Administration Polyethylene Glycol 17 gm 12/27/23 14:30 12/30/23 10:35 Polyethylene Glycol 3350 17 Gm Powd.Pack PO 17 gm QAM PRN Administration Constipation Fluticasone/Salmeterol 2 puff 12/26/23 08:00 01/03/24 07:20 Fluticasone/Salmeterol 115-21 Mcg Inhaler 1 Puff INHALATION 2 puff Q12HRT LUIS Administration Tolnaftate 1 applic 12/26/23 09:00 01/03/24 07:49 Tolnaftate 1% Powder 45 Gm Btl TOPICAL 1 applic Q12HR LUIS Administration Tramadol HCl 25 mg 12/27/23 14:32 12/30/23 21:39 Tramadol Hcl (*Crx) 25 Mg Tablet PO 25 mg Q4H PRN Administration Pain Rated 4-6 Tramadol HCl 50 mg 12/27/23 14:32 01/03/24 01:29 Tramadol Hcl (*Crx) 50 Mg Tablet PO 50 mg Q4H PRN Administration Pain Rated 7-10 Umeclidinium [place] 1 puff 12/26/23 08:00 01/03/24 07:20 Umeclidinium [place] 62.5 Mcg Ellipta INHALATION 1 puff DAILYRT LUIS Administration Radiology Results: ITS Impressions Chest X-Ray 12/25/23 21:50 IMPRESSION: No acute cardiopulmonary process. Chest CTA 12/26/23 05:48 Impression: No large central pulmonary embolus seen. Evaluation for smaller, more peripheral pulmonary emboli is suboptimal due to timing of the contrast bolus. Moderate emphysema and probable chronic atelectasis of the right middle lobe, and minimally in the lingula. Abdomen/Pelvis CT 01/02/24 11:02 IMPRESSION: 1. No etiology for the patient's symptoms. Labs Labs: Laboratory Results - last 24 hr 01/03/24 05:40 WBC 11.8 H RBC 4.23 L Hgb 13.0 L Hct 41.4 L MCV 97.9 MCH 30.7 MCHC 31.4 L RDW 14.8 H Plt Count 225 MPV 9.6 Sodium 136 L Potassium 4.2 Chloride 98 Carbon Dioxide 34 H Anion Gap 4 BUN 18 Creatinine 0.90 Estim Creat Clear Calc 133 Estimated GFR > 60 Glucose 103 Calcium 8.1 L Total Bilirubin 0.6 AST 19 ALT 18 Alkaline Phosphatase 83 Total Protein 6.0 L Albumin 3.5
[2024-01-03] MEDS: IBUPROFEN 400 MG TABLET 800 MG PO (13:08)
--- NOTE | 2024-01-03 17:07 | P.DS_ITS ---
DS: Admitting Diagnosis Discharge Date 01/02 Admitting Diagnosis shortness of breath DS: Discharge Diagnosis Discharge Diagnosis (1) Pneumonia due to gram-positive bacteria: Code(s): J15.9 - Unspecified bacterial pneumonia Status: Acute Assessment and Plan: * Bronchodilators. * Chest x-ray reviewed/CTA No PE * incentive spirometry while awake. * sputum culture Gram-positive cocci * influenza/COVID/RSV negative * Cefepime and vancomycin * supplemental oxygen therapy to maintain oxygen 92%(wears 6L at night and 3L during daytime) * WBC 12/30 16.7 01/01/24 * MRSA negative * d/c vanc * will stop steroids, leukocytosis could be reactive 01/02/24 * WBC improved (2) Acute and chronic respiratory failure: Qualifiers: Respiratory failure complication: hypoxia and hypercapnia Qualified Code(s): J96.21 - Acute and chronic respiratory failure with hypoxia; J96.22 - Acute and chronic respiratory failure with hypercapnia Code(s): J96.20 - Acute and chronic respiratory failure, unspecified whether with hypoxia or hypercapnia Status: Acute Assessment and Plan: 12/27/23: * Likely COPD exacerbation versus bacterial pneumonia * CTA was negative for any PE * Chest x-ray was negative * ABG shown up pCO2 of 50.7 with a normal pH * History of COPD and home O2 of 3 L at rest and 6 L with activity 12/28/23: * Continue with PNA treatment empirically changed to cefepime * May need follow-up walk study prior to discharge has * Uses NIV which is at bedside * added nightly antihistamine * added Pulmicort 12/31/23: * Sputum gram positive cocci * started vanc * secondary to bacterial pneumonia 01/01/24 * MRSA negative * d/c vanc * will stop steroids, leukocytosis could be reactive (3) COPD exacerbation: Code(s): J44.1 - Chronic obstructive pulmonary disease with (acute) exacerbation Status: Acute Assessment and Plan: 12/27/23: * Wears home O2. He wears 3 L at rest and 6 L with activity * Currently still on 6 L nasal cannula at rest and appears to be short of breath with use of accessory muscle * Continue DuoNebs scheduled and p.r.n. * Continue azithromycin and Rocephin * Continue prednisone 40 mg daily 12/28/23: * incentive spirometry while awake. * steroids initiated * Pneumonia and flu vaccination advised. * Pulmonary rehab O/P * Disease management following G[facility] guidelines. * Repeat hospitalization risk evaluation per [facility] * Evaluation from home O2 if saturation less than 88% on room air. Wears at home may need increased oxygen requirements at home * Smoking cessation counseling done * Follow-up with transport pilot as an outpatient 12/29/23: * added sputum culture * blood cultures NGTD * WBC 14.7 some of which may be reactive to steroids for COPD (4) Obesity hypoventilation syndrome: Code(s): E66.2 - Morbid (severe) obesity with alveolar hypoventilation Status: Acute Assessment and Plan: * Resumed home NIV * encouraged weight loss * recommended to sleep with at least 35 degree or 3 pillows (5) Tobacco use: Code(s): Z72.0 - Tobacco use Status: Acute Assessment and Plan: Smoking ? smoking cessation education ? nicotine patch daily ? remove at night (6) Chronic back pain: Code(s): M54.9 - Dorsalgia, unspecified; G89.29 - Other chronic pain Status: Acute Assessment and Plan: 12/27/23: * Ibuprofen 600 mg ordered for pain 1-3 * Ultram 25 mg ordered for pain 4-6 * Ultram 50 mg ordered for pain 7- 10 01/01/2024 * worsening RT CVA pain * UA clean * HX stones * CT ABD negative * likely spasm * 1 x Valium * Started on Robaxin (7) Constipation: Code(s): K59.00 - Constipation, unspecified Status: Acute Assessment and Plan: 12/27/23: * MiraLax ordered Plan Code status: Full code per patient DVT prophylaxis: Lovenox Stress ulcer prophylaxis: BELLA PT/OT notes: Ambulatory Disposition: Patient continues admission for COPD/Obese hypoventilation syndrome exacerbation worsening muscle spasm started treatment if improved and discharge tomorrow respiratory status back to baseline. Plan for discharge is home when medically stable. DS: Summary Hospital Course Hospital Course: Patient is a 60 yo male with a past medical history of morbid obesity, COPD, SILVANA, chronic respiratory failure on 3 L at rest and 6 L with activity, SILVANA on CPAP, presenting to the emergency department with worsening shortness of breath. He reports increased congestion and productive cough. He is unsure what color his sputum is as he has been swallowing it. He reports that his [id number]-[id number] is sick with bronchitis. He denies fever or chills. He is also complaining of wheezing. He normally wears 3 L of oxygen at rest but has been having to increase his resting oxygen to 6 L to keep sats above 90%. He also reports having some diarrhea a few days ago but that has since resolved. In the emergency room labs were significant for WBC 13.5, hemoglobin 13.3, hematocrit 42.4, platelets 241, sodium 136 and potassium 4.2. ABG showed pH 7.405, pCO2 50.7, PO2 80.6, bicarb 31.1 on [address] of the chest showed now pulmonary embolism with moderate emphysema and chronic atelectasis of the right middle lobe. The patient was started on antibiotics for cap treatment, scheduled DuoNebs, and steroids. During his hospitalization he experienced back spasm to his lumbar spine. There were concerns for possible kidney stones given pain to his right flank. CT abdomen and pelvis did not show any concerns to explain his symptoms. He was started on muscle relaxers with scheduled NSAID and Tylenol. He was instructed to follow up with his primary care provider as an outpatient for possible further imaging. Overall he did well was discharged in stable condition. Time Spent with Patient Time attestation: Total time spent providing and/or coordinating discharge services:85 Exam Narrative: General: well appearing, appears stated age. HEENT: normocephalic, atraumatic. Mucous membranes moist. EOMI, PERRLA, bilateral sclera anicteric, no conjunctival injection. Neck supple without JVD, lymphadenopathy, or bruit. Respiratory: clear and diminished on auscultation bilaterally. No rales/rhonic. Cardiovascular: Regular rate and rhythm, normal S1-S2 upon auscultation. No murmurs, rubs, or clicks. PMI is nondisplaced, capillary refill less than 3 second. Abdomen: Soft, round, no pulsatile masses, nondistended and nontender. No rebound, no guarding. No CVA tenderness, no hepatosplenomegaly. Bowel sounds present to all four quadrants. No high pitch or tinkling sounds, resonant to percussion. Extremities: No cyanosis, clubbing, or edema present. Pulses are palpable 2/2. Active ROM to all four extremities. Neuro: Alert and orientated x 4. PERRLA. Cranial nerves 2-12 intact without focal deficit. Skin: Warm, dry, and intact, without rash, erythema, or lesion. Lines: PIV Incisions: Psych: pleasant, cooperative, normal speech, normal affect, no hallucinations, no dysarthria DS: Data Data Completed and Pending Labs on day of discharge: Labs from last 24 hours 01/03/24 05:40 WBC 11.8 H RBC 4.23 L Hgb 13.0 L Hct 41.4 L MCV 97.9 MCH 30.7 MCHC 31.4 L RDW 14.8 H Plt Count 225 MPV 9.6 Sodium 136 L Potassium 4.2 Chloride 98 Carbon Dioxide 34 H Anion Gap 4 BUN 18 Creatinine 0.90 Estim Creat Clear Calc 133 Estimated GFR > 60 Glucose 103 Calcium 8.1 L Total Bilirubin 0.6 AST 19 ALT 18 Alkaline Phosphatase 83 Total Protein 6.0 L Albumin 3.5 Discharge Plan Discharge Attending physician on discharge: Duran Curtis Consulting providers: Madelyn Willis Discharging Clinician: Shilpa Villarreal Anticipated Discharge Date/Time: 01/03/24 12:46 Patient Disposition: Home, Self-Care Activity: august shower Diet: regular Discharge Instructions: You were treated for pneumonia and COPD exacerbation. You have completed 7 days of antibiotics and steroids. Your breathing has improved back to baseline. You have been having some back spasms and pain. CT of your abdomen did not show any concerns. Since you are not having any neurological symptoms from the pain you will be discharged with a prescription for a muscle relaxer to be used three times a day. You can also take ibuprofen 800 mg three times a day (do not take more than 3200 mg a day) and Tylenol 650 mg every 6 hours (no more than 4000 mg a day). Please follow up with your PCP as an outpatient as they may need to order further imaging (MRI) if your symptoms do not improve or worsen. If the pain worsens or you start to having numbness, tingling, loss of function to your legs, or inability to urinate please return to the emergency room for evaluation. Please call your PCP to schedule a follow up appointment in 1 weeks time. Patient Instructions: Antibiotic Form, COPD (Chronic Obstructive Pulmonary Disease) (DC), Muscle Spasm (ED), Chronic Lung Disease and Infection Prevention (DC) Stand Alone Forms: General Discharge Information Follow-up/Referrals: Myles,Vijay Rosario MD [Primary Care Provider] - Discharge Medications: New loratadine 10 mg Tablet 10 mg PO QHS Qty: 30 0RF Bengay Ultra Strength 4-30-10 % Cream 1 applic topical BID PRN (Reason: Muscle/Joint Pain) Qty: 226 0RF methocarbamol 750 mg Tablet 750 mg PO QID 10 Days Qty: 40 0RF tramadol 50 mg Tablet 50 mg PO Q4H PRN (Reason: Pain Rated 7-10) Qty: 30 0RF mirtazapine [Remeron] 15 mg Tablet 15 mg PO HS Qty: 30 0RF Continued ipratropium-albuterol 0.5 mg-3 mg(2.5 mg base)/3 mL solution for nebulization 3 ml INHALATION Q8H albuterol sulfate 90 mcg/actuation HFA aerosol inhaler 2 puff INHALATION QID PRN (Reason: Wheezing) tiotropium bromide [Spiriva with HandiHaler] 18 mcg capsule, w/inhalation device 1 cap INHALATION DAILY budesonide-formoterol [Symbicort] 160-4.5 mcg/actuation HFA aerosol inhaler 2 puff INHALATION BID tolnaftate 1 % Powder 1 applic topical Q12HR 30 Days 0RF fluticasone furoate-vilanterol [Breo Ellipta] 100-25 mcg/dose blister with device 1 inh INHALATION DAILY Date of admission: 12/28/23 13:34 Primary Care Provider: Myles,Vijay Rosario Admitting Provider: Yoly Pelaez V. Attending physician on admission: Phil,Shilpa A. Condition: Improved Quality VTE Prophylaxis VTE prophylaxis: pharmacologic ordered
== END 2024-01-03 19:10 | disposition home or self-care (01) | DRG 194 ==
LOC: ANHED 12-26 01:58 → ANHIMU 12-26 02:20 → ANH2MED 12-26 02:44
PROVIDERS: Nurse Practitioner Acute Care; Nurse Practitioner Family; Student in an Organized Health Care Education/Training Program; Admitting Provider Internal Medicine; Emergency Provider Registered Nurse; PCP Internal Medicine; Visit Provider Nurse Practitioner Acute Care
DX: J15.9 Unspecified bacterial pneumonia (principal); E66.2 Morbid (severe) obesity with alveolar hypoventilation; J44.1 Chronic obstructive pulmonary disease with (acute) exacerbation; Z68.43 Body mass index [BMI] 50.0-59.9, adult; J44.0 Chronic obstructive pulmonary disease with (acute) lower respiratory infection; J96.12 Chronic respiratory failure with hypercapnia; J96.11 Chronic respiratory failure with hypoxia; I50.9 Heart failure, unspecified; M54.50 Low back pain, unspecified; R13.10 Dysphagia, unspecified; F17.210 Nicotine dependence, cigarettes, uncomplicated; Z20.822 Contact with and (suspected) exposure to COVID-19; Z99.81 Dependence on supplemental oxygen
CPT/HCPCS: 36415; 36600; 71046; 71275; 74176; 80053; 81001; 81003; 82805; 83605; 83735; 83880; 84484; 85025; 85027; 85610; 85730; 87040; 87070; 87205; 87637; 87641; 93005; 94640; 96365; 96366; 96367; 96372; 96374; 96375; 99285; A9270; G0378; J0456; J0692; J0696; J1650; J1885; J1940; J2919; J3360; J3370; J7512; Q9967

== ENCOUNTER 2024-04-19 20:24 | Emergency (ER) | payer MEDICARE, MEDICAID, SELFPAY ==
--- NOTE | ~2024-04-19 | XR_ITS ---
CHEST RADIOGRAPH CLINICAL HISTORY: sob . COMPARISON: 12/25/2023 TECHNIQUE: Single portable view of the chest. FINDINGS The cardiomediastinal silhouette is unremarkable. Irregular contour to the left mid to lower chest, unchanged from previous examinations. Coarse interstitial lung markings detected bilaterally. Increased interstitial markings are identified bilaterally, findings suggesting mild pulmonary vascul ar congestion. The lungs are otherwise clear. IMPRESSION: Mild pulmonary vascular congestion with coarse interstitial lung markings detected bilaterally. No focal infiltrate or effusion. Reviewed, dictated and finalized at location A. SPECIALIST IMPRESSION: Mild pulmonary vascular congestion with coarse interstitial lung markings detec vikki bilaterally. No focal infiltrate or effusion.
[2024-04-19 20:30] VITALS: BP 128/67; PULSE 88; RESP 15; TEMP 37; O2SAT 93
--- NOTE | 2024-04-19 20:30 | ECG_ITS ---
Test Date: 2024-04-19 20:34:13 Measurements Intervals [place] Rate: 89 P: 44 NE: 172 QRS: 79 QRSD: 94 T: 40 QT: 355 QTc: 433 Interpretive Statements SINUS RHYTHM LOW QRS VOLTAGE IN PRECORDIAL LEADS [QRS DEFLECTION < 1.0 mV IN CHEST LEADS] INCOMPLETE RIGHT BUNDLE BRANCH BLOCK Compared to ECG 12/25/2023 19:54:33 NO SIGNIFICANT CHANGES Electronically Signed On 04-23-2024 17:50:51 [employer] by Yisel Palafox M.D.
[2024-04-19 20:37] VITALS: O2SAT 96
--- NOTE | 2024-04-19 20:52 | PC.NURSE ---
labs sent to laboratory at this time.
[2024-04-19 20:59] LABS: Basophils Absolute Auto 0.1 K/mm3 (0.0-0.1); Basophils Percent Auto 0.3 % (0.2-1.2); Eosinophils Absolute Auto 0.2 K/mm3 (0-0.3); Eosinophils Percent Auto 1.2 % (0-4.4); Hematocrit 38.4 % (42.0-52.0); Hemoglobin 12.3 g/dL (14.0-18.0); Immature Granulocyte Absolute 0.06 K/mm3 (0.00-0.031); Immature Granulocyte Percent A 0.4 % (0-0.5); Lymphocytes Absolute Auto 0.99 K/mm3 (0.9-3.2); Lymphocytes Percent Auto 6.4 % (18.3-44.2); Mean Corpuscular Hemoglobin 30.3 pg (26-34); Mean Corpuscular Volume 94.6 fl (80-100); Mean Platelet Volume 9.5 fl (7.4-10.4); Monocytes Percent Auto 6.2 % (2.6-8.5); Neutrophils Absolute Auto 13.3 K/mm3 (1.3-6.7); Neutrophils Percent Auto 85.5 % (45.5-73.1); Platelet Count Result 207 k/mm3 (150-375); Red Blood Count 4.06 M/mm3 (4.6-6.20); Red Cell Distribution Width 14.8 % (11.5-14.5); White Blood Count 15.6 K/mm3 (4.5-10.0)
[2024-04-19 21:08] LABS: Alanine Aminotransferase 15 U/L (6-50); Albumin Level 3.8 g/dL (3.5-5.1); Alkaline Phosphatase 96 U/L (38-126); Anion Gap -1 mmol/L (4-12); Aspartate Amino Transferase 22 U/L (17-59); Bilirubin,Total 1.1 mg/dL (0.2-1.3); Blood Urea Nitrogen 16 mg/dL (9-20); Calcium 8.7 mg/dL (8.4-10.2); Carbon Dioxide 35 mmol/L (22-30); Chloride 103 mmol/L (98-107); Estimated CRCL calculation 134 ml/min; Estimated Glomerular Filt Rate > 60; Glucose 136 mg/dL (65-110); Potassium 3.5 mmol/L (3.4-5.0); Sodium 137 mmol/L (137-145)
[2024-04-19 22:04] LABS: Partial Thromboplastin Time 30.2 Seconds (22.3-36.8)
[2024-04-19] MEDS: methylPREDNISolone SOD SUCC 125 MG VIAL IV PUSH (22:09)
[2024-04-19 22:11] LABS: NT Pro B Type Natriuretic Pept 205 pg/mL (19.9-100); Troponin I < 0.012 ng/mL (0.000-0.034)
[2024-04-19] MEDS: IPRATROPIUM 0.5 MG/ALBUTEROL SULFATE 2.5 MG AMPUL.NEB 3 ML INHALATION (22:18)
[2024-04-19 22:21] VITALS: PULSE 81
[2024-04-19 22:28] LABS: Influenza A QL RT-PCR Negative (Negative); Influenza B QL RT-PCR Negative (Negative); RSV RNA, RT-PCR Negative (Negative); SARS-CoV-2 RNA PCR Negative (Negative)
--- NOTE | 2024-04-19 23:01 | ED_ITS ---
HPI - General Adult General Chief complaint: Shortness of Breath/Dyspnea Stated complaint: SOB, HOME O2, ?PNE Time Seen by Provider: 04/19/24 21:03 History of Present Illness HPI narrative: Patient is 63-year-old gentleman who presents emergency department with chief complaint of cough and shortness of breath. Patient reports that he has history of COPD reports that he has been having increasing shortness of breath over the last several days patient reports that he has also had some discomfort in his right flank area patient reports that he has also noticed that his feet have been a little bit more red than normal patient reports that he has steroid boost hyperglycemia patient reports that he is concerned that he may have pneumonia Related Data Home Medications ?Medication ?Instructions ?Recorded ?Confirmed ?Last Taken ?Type albuterol sulfate 90 mcg/actuation 2 puff inhalation QID PRN Wheezing 10/08/20 12/26/23 Unknown History aerosol inhaler budesonide-formoterol HFA 160 2 puff inhalation BID 10/08/20 12/26/23 Unknown History mcg-4.5 mcg/actuation aerosol inhaler (Symbicort) ipratropium 0.5 mg-albuterol 3 mg 3 ml inhalation Q8H 10/08/20 12/26/23 Unknown History (2.5 mg base)/3 mL nebulization soln tiotropium bromide 18 mcg capsule 1 cap inhalation DAILY 10/08/20 12/26/23 Unknown History with inhalation device (Spiriva with HandiHaler) fluticasone furoate 100 1 inh inhalation DAILY 12/26/23 12/26/23 Unknown History mcg-vilanterol 25 mcg/dose inhalation powder (Breo Ellipta) Allergies Allergy/AdvReac Type Severity Reaction Status Date / Time No Known Allergies Allergy Verified 12/26/23 02:11 Review of Systems 2 Review of Systems: A 10 system review of systems was completed on the patient and is negative except for what is stated in the HPI. Nursing and ancillary documentation was reviewed. [facility] Past Medical History Medical History Dysphagia Abnormal findings-gastrointestinal tract Acute and chronic respiratory failure Nausea and vomiting in adult SILVANA (obstructive sleep apnea) Chronic respiratory failure with hypoxia, on home oxygen therapy Tobacco use Chronic obstructive pulmonary disease Obesity hypoventilation syndrome Morbid obesity Surgical History Surgical History History of appendectomy History of mandibular surgery Bilateral jaw surgery due to fracture. Family History Family History Other Hypertension Social History Social History Social History: Surrogate decision maker: Fernanda Yao, [id number]. Code status: Full code however he would not want to be on long-term life support. Smoking packs per day: 2 Smoking cigarettes per day: 40.0 Years smoked: 40 Smoking pack-years: 80.00 Smoking status: Current every day smoker Tobacco type: cigarettes Additional smoking assessment comments: pt is down to 4-5 cigarettes every few days Alcohol intake: never Substance use: current Substance use type: marijuana Other substance usage details: someday use of marijuana Last use: Occasional marijuana use. Do You Feel Safe in your Home?: Yes Lack of Transportation: YES Lack of Food: Never True Current Housing: I Have Housing Concerned About Future Housing: No Difficulty Paying Gas/Electric Bills: YES Difficulty Paying for Meds: No Currently Unemployed: No Education: High School Diploma/GED Difficulty w/ Childcare or Family Care: No Additional living arrangements comments: The patient lives with his son and [id number] in [place]. 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 Spiritual care concerns: No Exam 2 Narrative: GENERAL: Ill-appearing, well-nourished, unkept, and in no acute distress. HEAD: Normocephalic, atraumatic. EYES: PERRLA and EOMI. ENT: Nares clear, no rhinorrhea or epistaxis. Mucous membranes moist. NECK: Supple. CHEST: Scattered wheezes to auscultation. No respiratory distress. HEART: Regular rate and rhythm. No murmur heard. Normal peripheral pulses. ABDOMEN: Soft, nontender, nondistended, normal active bowel sounds. EXTREMITIES: Normal range of motion. No edema. SKIN: Warm, dry, no rash. NEURO: No focal deficits. Alert and oriented x3. PSYCH: Normal mood and affect. Course Vital Signs Vital signs: Vital Signs Temperature 37.0 C 04/19/24 20:30 Pulse Rate 88 04/19/24 20:30 Respiratory Rate 15 04/19/24 20:30 Blood Pressure 128/67 04/19/24 20:30 Pulse Oximetry 93 04/19/24 20:30 Oxygen Delivery High Flow Nasal Cannula 04/19/24 20:30 Oxygen Flow Rate 8 04/19/24 20:30 Temperature 37.0 C 04/19/24 20:30 Pulse Rate 81 04/19/24 22:21 Respiratory Rate 15 04/19/24 20:30 Blood Pressure 128/67 04/19/24 20:30 Pulse Oximetry 96 04/19/24 20:37 Oxygen Delivery High Flow Nasal Cannula 04/19/24 20:37 Oxygen Flow Rate 8 04/19/24 20:37 Medical Decision Making MDM Narrative Medical decision making narrative: Differential diagnosis includes pneumonia, COPD exacerbation, Laboratory studies were obtained on the patient which showed a white count of 15.6 chest x-ray showed no evidence of pneumonia troponin was negative BNP was 205 urinalysis showed no evidence UTI. COVID flu and RSV were negative A blood gas was obtained on the patient which showed a pH is 7.4 with a pCO2 of 47. The patient is back to his normal oxygen levels that he uses at home Patient was offered admission versus discharge patient is opted for outpatient management Patient was started on prednisone and also given a prescription for doxycycline Vital Signs Vital Signs: Vital Signs Temperature 37.0 C 04/19/24 20:30 Pulse Rate 88 04/19/24 20:30 Respiratory Rate 15 04/19/24 20:30 Blood Pressure 128/67 04/19/24 20:30 Pulse Oximetry 93 04/19/24 20:30 Oxygen Delivery High Flow Nasal Cannula 04/19/24 20:30 Oxygen Flow Rate 8 04/19/24 20:30 Temperature 37.0 C 04/19/24 20:30 Pulse Rate 81 04/19/24 22:21 Respiratory Rate 15 04/19/24 20:30 Blood Pressure 128/67 04/19/24 20:30 Pulse Oximetry 96 04/19/24 20:37 Oxygen Delivery High Flow Nasal Cannula 04/19/24 20:37 Oxygen Flow Rate 8 04/19/24 20:37 Lab Data 04/19/24 20:51 04/19/24 20:51 Labs: Lab Results 04/19/24 04/19/24 04/20/24 Range/Units 20:51 21:43 01:30 WBC 15.6 H (4.5-10.0) K/mm3 RBC 4.06 L (4.6-6.20) M/mm3 Hgb 12.3 L (14.0-18.0) g/dL Hct 38.4 L (42.0-52.0) % MCV 94.6 (80-100) fl MCH 30.3 (26-34) pg MCHC 32.0 (32-36) g/dl RDW 14.8 H (11.5-14.5) % Plt Count 207 (150-375) k/mm3 MPV 9.5 (7.4-10.4) fl Immature Gran % (Auto) 0.4 (0-0.5) % Neut % (Auto) 85.5 H (45.5-73.1) % Lymph % (Auto) 6.4 L (18.3-44.2) % [place] % (Auto) 6.2 (2.6-8.5) % Eos % (Auto) 1.2 (0-4.4) % Baso % (Auto) 0.3 (0.2-1.2) % Lymph # (Auto) 0.99 (0.9-3.2) K/mm3 [place] # (Auto) 1.0 H (0.1-0.6) K/mm3 Eos # (Auto) 0.2 (0-0.3) K/mm3 Baso # (Auto) 0.1 (0.0-0.1) K/mm3 Abs Immat Gran (auto) 0.06 H (0.00-0.031) K/mm3 Absolute Neuts (auto) 13.3 H (1.3-6.7) K/mm3 Absolute Nucleated RBC 0.000 (0.0-0.012) K/mm3 Nucleated RBC % 0.0 (0.0-0.2) % PT 14.0 (11.1-14.7) Seconds INR 1.0 APTT 30.2 (22.3-36.8) Seconds Sodium 137 (137-145) mmol/L Potassium 3.5 (3.4-5.0) mmol/L Chloride 103 (98-107) mmol/L Carbon Dioxide 35 H (22-30) mmol/L Anion Gap -1 L (4-12) mmol/L BUN 16 (9-20) mg/dL Creatinine 0.90 (0.7-1.3) mg/dL Estim Creat Clear Calc 134 ml/min Estimated GFR > 60 (59 - ) Glucose 136 H (65-110) mg/dL Lactic Acid 1.0 (0.7-2.0) mmol/L Calcium 8.7 (8.4-10.2) mg/dL Magnesium 2.0 (1.6-2.3) mg/dL Total Bilirubin 1.1 (0.2-1.3) mg/dL AST 22 (17-59) U/L ALT 15 (6-50) U/L Alkaline Phosphatase 96 (38-126) U/L Troponin I < 0.012 Pending (0.000-0.034) ng/mL NT-Pro-B Natriuret Pep 205 H (19.9-100) pg/mL Total Protein 7.0 (6.3-8.2) g/dL Albumin 3.8 (3.5-5.1) g/dL Procalcitonin 0.1 ng/mL Urine Color Dark yellow (Yellow) Urine Appearance Clear (Clear) Urine pH 6.5 (5.0-9.0) Ur Specific [place] 1.028 (1.001-1.035) Urine Protein Trace (Negative) mg/dL Urine Glucose (UA) Negative (Negative) mg/dL Urine Ketones Trace H (Negative) mg/dL Ur Blood (Man) Negative (Negative) Urine Nitrate Negative (Negative) Urine Bilirubin 1+ H (Negative) Urine Urobilinogen 4.0 H (<2.0) mg/dL Leukocyte Esterase Rfl Negative (Negative) MUMTAZ/UL Urine RBC 0-2 (0-2) /hpf Urine WBC 0-5 (0-3) /hpf Ur Squamous Epith Cells None seen (Few) /hpf Urine Bacteria None seen /hpf Urine Casts 0-2 Influenza A (RT-PCR) Negative (Negative) Influenza B (RT-PCR) Negative (Negative) RSV (RT-PCR) Negative (Negative) SARS-CoV-2 RNA (RT-PCR) Negative (Negative) ABG Data ABG results: 04/20/24 01:27 Puncture Site Left radial ABG pH 7.405 ABG pCO2 47.0 H ABG pO2 66.1 L ABG PO2/FiO2 Ratio 2.20 ABG HCO3 28.8 H ABG O2 Saturation 93.0 L ABG O2 Content 18.5 ABG Base Excess 3.3 A-a Gradient 92.6 Oxyhemoglobin 92.1 Total Hemoglobin 14.3 O2 Delivery Device Nasal cannula O2 Liters/Min 2.5 FiO2 30 Discharge Plan Discharge Clinical Impression: Acute exacerbation of chronic obstructive pulmonary disease Patient Disposition: Home, Self-Care Condition: Stable Instructions: Antibiotic Form, COPD (Chronic Obstructive Pulmonary Disease) (ED) Patient Language: Russian Prescriptions: New doxycycline hyclate 100 mg tablet 100 mg PO BID Qty: 14 0RF prednisone 20 mg tablet 40 mg PO DAILY 5 Days Qty: 10 0RF No Action ipratropium-albuterol 0.5 mg-3 mg(2.5 mg base)/3 mL solution for nebulization 3 ml INHALATION Q8H albuterol sulfate 90 mcg/actuation HFA aerosol inhaler 2 puff INHALATION QID PRN (Reason: Wheezing) tiotropium bromide [Spiriva with HandiHaler] 18 mcg capsule, w/inhalation device 1 cap INHALATION DAILY budesonide-formoterol [Symbicort] 160-4.5 mcg/actuation HFA aerosol inhaler 2 puff INHALATION BID tolnaftate 1 % Powder 1 applic topical Q12HR 30 Days 0RF fluticasone furoate-vilanterol [Breo Ellipta] 100-25 mcg/dose blister with device 1 inh INHALATION DAILY loratadine 10 mg Tablet 10 mg PO QHS Qty: 30 0RF Bengay Ultra Strength 4-30-10 % Cream 1 applic topical BID PRN (Reason: Muscle/Joint Pain) Qty: 226 0RF methocarbamol 750 mg Tablet 750 mg PO QID 10 Days Qty: 40 0RF tramadol 50 mg Tablet 50 mg PO Q4H PRN (Reason: Pain Rated 7-10) Qty: 30 0RF mirtazapine [Remeron] 15 mg Tablet 15 mg PO HS Qty: 30 0RF Follow-up/Referrals: Myles,Vijay Rosario MD [Primary Care Provider] - Time of Disposition: 02:17
[2024-04-19 23:39] LABS: Procalcitonin 0.1 ng/mL
[2024-04-20 01:56] LABS: Add Urine Microscopic? YES; Appearance Urine Clear (Clear); Bacteria Urine None Seen /hpf; Bilirubin Urine 1+ (Negative); Blood Urine Negative (Negative); Color Urine Dark Yellow (Yellow); Glucose Urine UA Negative (Negative); Ketones Urine Trace mg/dL (Negative); Leukocyte Esterase Ur Negative LEU/UL (Negative); Nitrate Urine Negative (Negative); Non Pathogenic Casts 0-2; Protein Urine Trace mg/dL (Negative); RBC Urine 0-2 /hpf (0-2); Specific Grav Ur 1.028 (1.001-1.035); Squamous Epithelial Cell Urine None Seen /hpf (Few); WBC Urine 0-5 /hpf (0-3); pH Urine 6.5 (5.0-9.0)
[2024-04-20 01:56] LABS: Alveolar/Arterial O2 Gradient 92.6 mmHg; Base Excess ABG 3.3 mEq/l (+/-2.0); Fractional Inspired Oxygen 30 %; HCO3 ABG 28.8 mEq/l (22.0-26.0); Oxygen Content ABG 18.5 %vol (16.0-22.0); Oxyhemoglobin 92.1 % THb (90.0-100.0); PO2 ABG 66.1 mmHg (80.0-100.0); Total Hemoglobin 14.3 g/dL (12.0-18.0); pH ABG 7.405 (7.350-7.450)
[2024-04-20 01:57] LABS: Device NASAL CANNULA; Liters per Minute 2.5 LPM; Modified Allen's Test Pass; Site Drawn LEFT RADIAL
[2024-04-20 02:11] LABS: Troponin I < 0.012 ng/mL (0.000-0.034)
[2024-04-20] MEDS: predniSONE 20 MG TABLET 60 MG PO (02:23)
[2024-04-20] MEDS: DOXYCYCLINE HYCLATE 100 MG TABLET PO (02:23)
--- NOTE | 2024-04-20 02:40 | PC.NURSE ---
awaiting for EMT.
--- NOTE | 2024-04-20 03:07 | PC.NURSE ---
630 arrival for EMS.
[2024-04-20] MEDS: HYDROcodone/acetaminophen (*CRX) 5-325 MG TABLET 1 TAB PO (03:31)
--- NOTE | 2024-04-20 03:38 | PC.NURSE ---
patient given pain medication for pain control.
[2024-04-20 08:08] VITALS: BP 129/74; PULSE 88; RESP 20; O2SAT 91
== END 2024-04-20 08:13 | disposition home or self-care (01) ==
PROVIDERS: Emergency Provider Emergency Medicine; PCP Internal Medicine
DX: J44.1 Chronic obstructive pulmonary disease with (acute) exacerbation (principal); Z20.822 Contact with and (suspected) exposure to COVID-19; F17.210 Nicotine dependence, cigarettes, uncomplicated; G47.30 Sleep apnea, unspecified
CPT/HCPCS: 36415; 36600; 71045; 80053; 81001; 82805; 83605; 83735; 83880; 84145; 84484; 85018; 85025; 85610; 85730; 87637; 93005; 94640; 96374; 99284; A9270; J2919; J7512

== ENCOUNTER 2024-07-13 21:15 | Emergency (ER) | payer MEDICARE, MEDICAID, SELFPAY ==
--- OUTSIDE RECORDS SUMMARY | 2024-07-13 21:17 | XMS_ITS | Continuity of Care Document ---
Author Organization [facility] Address [address] [place] [address] Phone Care Team Providers Care Director Heart Name Role Phone Aldair Montilla Unavailable Unavailable Procedures Procedure Date Special Reports Or Forms Office/outpatient Visit, Est Refraction Office/outpatient Visit, Est Eye Exam, New Patient Advance Directives Directive Yes / No Effective Date File Name No Information Encounters Encounter Description Practice Location Reason(s) For Visit Diagnoses Date Provider Providers Copied on [facility]counter [facility], [address] [place] [address] [address], [place], [place], [id number], [place] tel:[phone] [facility] No Information 8 Krishnasamy Aldair. [address], [facility], [place]. tel:[phone] Office/outpat ient Visit, [facility], [address] [place] [address] [address], [place], [place], [id number], [place] tel:[phone] [facility] No Information 1- 8 Krishnasamy Aldair. [address] [facility] [address], [place], [address], [place]. tel:[phone] Office/outpat ient Visit, [facility], [address] [place] [address] [address], [place], [place], [id number], [place] tel:[phone] [facility] No Information 8 Krishnasamy Aldair. [address] [facility] [address], [place], [facility], . tel:[phone] [facility], [address], [place], [place], [id number], [place] tel:[phone] [facility] No Information 8 Krishnasamy Aldair. [address] [facility] [address], [place], [facility], [place]. tel:[phone] Referring Provider: Vijay Bueno, [address] [place] [address], [facility]. tel:[phone] Family History Family Member Type Diagnosis Age At Onset No Information Payers Payer name Insurance type Covered democrat ID Authoriza tion(s) No Information Social History Type Description Quantity Date Captured Comments Sex Male Smoking Status No Information Chief Complaint And Reason For Visit No Information Reason For Referral Reason For Referral No Information History Of Present Illness Encounter Date Complaint History Of Prese nt Illness No Information Functional Status Date Functional Assessmen t No Information Instructions Date Instruction Additional Infor mation No Information Assessments Type Assessment Date No Information Patient Care Teams Name Effective Dates (start - stop) Status Members No Information
--- OUTSIDE RECORDS SUMMARY | 2024-07-13 21:18 | XMS_ITS | Clinical Summary ---
Author Organization [facility] Address [address] [place] [address] Phone Care Team Providers Care Food Critic Name Role Phone Vijay Bueno MD Primary Care Provider [phone] Social History Tobacco Use Types Packs/Day Years Used Date Smoking Tobacco: Never Assessed Sex and Gender Information Value Date Recorded Sex Assigned at Not on file Legal Sex Male 2:44 PM [employer] Gender Identity Not on file Sexual Orientation Not on file Plan of Treatment Health Maintenance Due Date Last Done Comments DTAP/TDAP/TD VACCINES (1 - Tdap) 1977 COLORECTAL SCREENING 06/27/2003 Colorectal Cancer Screening 06/27/2003 FIT-DNA Q 3 years 06/27/2003 FIT/FOBT Q 1 year 06/27/2003 Flex Sig/CT Colonography Q 5 years 06/27/2003 PNEUMOCOCCAL VACCINE 50+ YEARS (1 of 1 - PCV) 06/27/19 09 ZOSTER VACCINE (1 of 2) 2008 INFLUENZA VACCINE (#1) 2023 RSV VACCINE (60+ or ) (1 - 1-dose 75+ series) 2033 Insurance [facility] MED[address]ID Care Teams Food Critic Relationship Specialty Start Date End Date Vijay Bueno MD [address] [facility] [address] [place] [address] PCP - General Internal Medicine 06/24/15
--- OUTSIDE RECORDS SUMMARY | 2024-07-13 21:18 | XMS_ITS | CONTINUITY OF CARE DOCUMENT ---
Author Name anderson barron Address Unknown Organization [facility] Address [address] [place] [address] Phone [phone] Care Team Providers Care Diet Supervisor Name Role Phone Moris LEDEZMA, Merry Unavailable [phone] Merry Subramanian MD Unavailable MICHELLE OLIVER MD Unavailable INSURANCE PROVIDERS Payer name Policy type / Coverage type [place] red [employer] party ID AARP MEDICARE ADVANTAGE HMO-POS HMO [id number] HEALTHCARE AND FAMILY SERVICES Medicaid 1 [id number]
--- OUTSIDE RECORDS SUMMARY | 2024-07-13 21:18 | XMS_ITS | Data Portability ---
Author Organization [facility], Main Office Address [address] [place] [address] Assessment Encounter Date Assessment Date Assessment LastModified by Organization Details LastModified Time 02/07/2024 02/07/2024 Assessment: Multiple environmental allergies High IgE Nicotine smoke: 2 ppd 1971-present = 104 pack years Very severe COPD Atelectasis Plan: The following were reviewed and explained to the patient: nocturnal pulse oximetry 11/04/20 O2 sat < 89% 5:53 minutes PFT 06/12/20 FEV1 1.34 L (30%) Lab data 11/19/20 multiple environmental allergies, high IgE Chest CT 08/03/[address] 09/23/20 RUL/RML/Lingular atelectasis, emphysema, left rib fractures, obesity, fatty liver, thoracic DDD Chest CT 10/18/20 small effusions, no P. E. Chest CT 03/10/21 no P. E. Chest CT 12/25/23 no P. E., chronic RML and lingular atelectasis Nicotine cessation counseling provided for 4 minutes. [place] for quitting nicotine include getting ready, getting support and encouragement, learning new skills and behaviors and being prepared to handle slips. Tips for dealing with cravings provided. Prevention of subsequent illnesses from nicotine addiction discussed. Comorbidities include but are not limited to hypertension, cerebrovascular disease, coronary heart disease, congestive heart failure, hyperlipidemia, COPD/asthma, peptic ulcer disease, esophagitis/gastri tis, and osteoporosis. Therapy options offered include: Quitting by total abstinence Receiving nicotine replacement therapy Undergoing hypnosis Filling a bupropion or varenicline prescription Enrolling in Quit For Life program Registering at [email or web address] Making a call to 2-246-LVHJ-NOW ( ). A strong, clear, personalized message was given to the patient to quit smoking. The patient was urged to set a quit date. We discussed patient's barriers to quitting and I will be of assistance when patient is ready to quit. I encouraged patient to inform friends and family of plans to quit with a request for support. I encouraged the patient to remove all cigarettes from the environment. We reviewed any previous quit attempts and lessons learned from them. I encouraged total abstinence from smoking and advised the patient that drinking alcohol and/or associating with other smokers are associated with failure or relapse. Patient can enroll in [facility]'s smoking cessation class through Zayra Tate RN at . Enrollment is free and classes are held every monday of the month from 1:30 pm to 2:30 pm at the conference room next to the cafeteria on the ground floor. Incentive spirometer x 5 minutes every 2 hours while awake to reverse and prevent further atelectasis. Complete PFTs CELSO. Minimize albuterol nebs. Continue albuterol HFA as needed. Continue Symbicort HFA 160/4.5 mcg 2 puffs BID. Gargle after use. Continue Spiriva Handihaler 18 mcg pnce daily. The patient does not know how to accurately administer the inhalers. Today, the patient was shown how to take these medications. The proper technique for delivering these medications was instructed. The patient expressed a clear understanding and demonstrated back how to use these medications. Without the proper technique, the patient will not reap the benefits of these medications as the contents will not reach the lower airways as intended to be. Pulmonary rehabilitation may be included in the management of patients with chronic obstructive pulmonary disease (COPD). For respiratory diseases different from COPD, there have been no formal statements regarding patient selection. The patient's FEV1 is 30%. The patient will be enrolled in pulmonary rehabilitation pending insurance coverage. General concepts of pulmonary rehabilitation were explained. Pulmonary rehabilitation consists of assessment, exercise, education, and emotional support. It covers the goals of rehabilitation, the techniques of breathing, the necessity of nicotine cessation, the strategies to deal with panic attacks, the rationale of pulmonary medications, and the importance of nutrition. As the patient learns to live with his pulmonary condition through exercise and education, the patient will regain confidence with his abilities and feel improvement in his overall quality of life. Contraindications to pulmonary rehabilitation are infrequent, but include conditions that would place the patient at increased risk during exercise (e.g., uncontrolled cardiac disease, such as chronic heart failure). Adherence to therapy is advocated. Nonadherence may lead to treatment failure, further progression of the condition, and other complications. Hospitals admissions are often the result of individuals not taking prescription medications accurately. Alternatively, greater adherence to medication regimens have shown to lower rates of hospitalization and decrease total medical costs in patients with chronic medical conditions. Advocated influenza vaccination annually and pneumonia vaccination CELSO. Advocated weight loss through diet and exercise. Patient's ideal body weight according to height and gender is up to 195 lbs. Encouraged patient to adjust caloric intake to maintain/achieve ideal body weight, emphasizing on fruits, vegetables, whole grains, and fat-free or low-fat products. These include lean meats, poultry, fish, beans, eggs, and nuts and foods that are low in saturated fats, trans-fats, cholesterol, salt (sodium), and glycemic index. Stressed the importance of regular exercise up to the patient's capacity limits. In this case, we recommend regular (4 x a week or more) walking or other light activity. Patient to monitor BP daily and bring records to PCP for further management. Follow up: 1 week after PFT [email or web address] Not available 02/07/2024 17:33:15 Plan of Treatment Reminders Order Date Submit Date Provider Last Modified By Organization Details Last Modified Time Details Appointments None recorded. Lab lipid panel, serum 2022 023 [facility], [address] [place], [address], 3 19:22:45 CMP, serum or plasma 2022 023 [facility], [address] [place], [address], 3 19:22:56 CBC w/ auto diff 2022 023 [facility], [address] [place], [address], 3 17:50:45 TSH, serum or plasma 2022 023 [facility], [address] [place], [address], 3 19:25:33 T4, free, serum 2022 023 [facility], [address] [place], [address], 3 19:23:56 PSA, serum or plasma 2022 023 [email or web address] [facility], [address] [place], [address], 4 09:46:26 Referral pulmonary rehab referral - Please call patient to schedule. [email or web address] [place] [address] Pulmonary Rehab, [address], [address], 4 08:42:25 Procedures None recorded. Surgeries None recorded. Imaging None recorded. Medication Orders albuterol sulfate HFA 90 mcg/actuati on aerosol inhaler 2023 [id number], [address], [place], [place], [id number], 4 17:20:37 Spiriva with HandiHaler 18 mcg and inhalation capsules 2023 [facility] #[id number], [address], [place], [place], [id number], 4 17:20:37 Symbicort 160 mcg-4.5 mcg/actuati on HFA aerosol inhaler 2023 [id number], [address], [place], [place], [id number], 17:20:35 Patient TargetsNo targets recorded. Patient Instructions Encounter Date Encounter Id Patient Instructions Last Modified By Organization Details Last Modified Time 03/27/2023 [id number] Chronic obstruct jaime lung disease, benign prostatic hypertrophy with outflow obstruction, GERD all clinically stable. Will check blood work in the form of CBC, CMP, lipid, thyroid and PSA. Does need a Cologuard test as well. Will continue on current Rx follow-up in four months.Chronic obstructive lung disease, benign prostatic hypertrophy with outflow obstruction, GERD all clinically stable. Will check blood work in the form of CBC, CMP, lipid, thyroid and PSA. Does need a Cologuard test as well. Will continue on current Rx follow-up in four months. Portions of the record may have been created with voice recognition software. Occasional wrong-word or s ound-a-like substitutions may have occurred due to the inherent limitations of voice recognition software. Read the chart carefully and recognize, using context, where substitutions have occurred. [email or web address] Not available 03/27/2023 16:09:18 08/22/2023 [id number] Follow-up for severe chronic obstructive lung disease, benign prostatic hypertrophy and morbid obesity all clinically stable. Had blood work performed back in May which looked adequate. Missed a pulmonary appointment recently. Needs to be followed up by Pulmonary. Is clinically stable. Will continue on current Rx follow-up in four months Next Appointment: 4 Months Approximate Date: 12/20/2023 Portions of the record may have been created with voice recognition software. Occasional wrong-word or s ound-a-like substitutions may have occurred due to the inherent limitations of voice recognition software. Read the chart carefully and recognize, using context, where substitutions have occurred. Not available 08/22/2023 15:56:24 12/25/2023 [id number] Chronic obstruct jaime lung disease severe, GERD stable, morbid obesity. Is having great deal problem with breathing at this time. Will give some samples AirSupra and see if there is any improvement. Will give two puffs every 4-6 hours. Check back in four weeks. Next Appointment: 4 Weeks Approximate Date: 01/22/2024 Portions of the record may have been created with voice recognition software. Occasional wrong-word or s ound-a-like substitutions may have occurred due to the inherent limitations of voice recognition software. Read the chart carefully and recognize, using context, where substitutions have occurred. Not available 12/25/2023 16:14:13 02/07/2024 [id number] complete PFT w/ post bronchodilator spirometry* - Please call patient to schedule. HOLDEN [id number] per [facility] provider portal, ref #[id number]. Not available 03/25/2024 16:29:17 02/07/2024 [id number] Follow-up for recent pneumonia and severe chronic obstructive lung disease GERD and sleep apnea. All clinically stable otherwise. Will need a Prevnar 20 at a future date but since he just out of the hospital several weeks ago would hold off on this. Is clinically stable otherwise at this time. Needs to be set up with pulmonology. Not only for COPD but for sleep apnea. Otherwise seems be doing reasonably well. Will continue on current Rx. Follow-up in eight weeks. Additional Orders - Directives - Recommendations 1. Needs be set up with pulmonology for follow-up for COPD and sleep apnea. Follow Up: 8 Weeks Approximate Date: 04/03/2024 Portions of the record may have been created with voice recognition software. Occasional wrong-word or s ound-a-like substitutions may have occurred due to the inherent limitations of voice recognition software. Read the chart carefully and recognize, using context, where substitutions have occurred. [email or web address] Not available 02/07/2024 16:00:37 Reason for Referral Pulmonary Rehab Referral for Severe chronic obstructive pulmonary disease Please call patient to schedule. Referring Physician: Rob Rico, Pulmonary Disease, Encounter Date: 02/07/2024 Results Created Date Observation Date Name Description Value Unit Range Abnormal Flag Note LastModifiedBy Organization Detail LastModifiedTime 03/27/2003/27/2023 CBC/C OMPLE TE BLD COUNT W/DIF F white blood cells 14.7 x10'3 /uL 4.2-10 .8 high Not Available [facility] (Lab) [address] [place], [address], 03/27/2023 17:50:44 03/27/2003/27/2023 CBC/C OMPLE TE BLD COUNT W/DIF F red blood cells 4.60 x10'6 /uL 4.10-5 .80 Not Available [facility] (Lab) [address] [place], [address], 03/27/2023 17:50:44 03/27/20 23 03/27/2023 CBC/C OMPLE TE BLD COUNT W/DIF F hemoglobin 13.8 g/dL 13.2-1 7.0 Not Available [facility] (Lab) [address] [place], [address], 03/27/2023 17:50:44 03/27/20 23 03/27/2023 CBC/C OMPLE TE BLD COUNT W/DIF F hematocrit 45.7 % 39.3-5 0.0 Not Available [facility] (Lab) [address] [place], [address], 03/27/2023 17:50:44 03/27/20 23 03/27/2023 CBC/C OMPLE TE BLD COUNT W/DIF F mean red cell volume 99.3 fL 80.0-9 7.0 high Not Available [facility] (Lab) [address] [place], [address], 03/27/2023 17:50:44 03/27/20 23 03/27/2023 CBC/C OMPLE TE BLD COUNT W/DIF F mean red cell hemoglobin 30.0 pg 27.0-3 3.0 Not Available [facility] (Lab) [address] [place], [address], 03/27/2023 17:50:44 03/27/20 23 03/27/2023 CBC/C OMPLE TE BLD COUNT W/DIF F mean RBC HGB concentratio n 30.2 g/dL 31.0-3 6.0 low Not Available [facility] (Lab) [address] [place], [address], 03/27/2023 17:50:44 03/27/20 23 03/27/2023 CBC/C OMPLE TE BLD COUNT W/DIF F red cell distribution width 15.1 % 11.8-1 5.5 Not Available [facility] (Lab) [address] [place], [address], 03/27/2023 17:50:44 03/27/20 23 03/27/2023 CBC/C OMPLE TE BLD COUNT W/DIF F platelets 285 x10'3 /uL 150-40 0 Not Available [facility] (Lab) [address] [place], [address], 03/27/2023 17:50:44 03/27/20 23 03/27/2023 CBC/C OMPLE TE BLD COUNT W/DIF F mean platelet volume 10.0 fL 9.0-12 .4 Not Available [facility] (Lab) [address] [place], [address], 03/27/2023 17:50:44 03/27/20 23 03/27/2023 CBC/C OMPLE TE BLD COUNT W/DIF F neutrophils 80.3 % 39.0-7 2.0 high Not Available [facility] (Lab) [address] [place], [address], 03/27/2023 17:50:44 03/27/20 23 03/27/2023 CBC/C OMPLE TE BLD COUNT W/DIF F lymphocytes 9.4 % 16.0-4 7.0 low Not Available [facility] (Lab) [address] [place], [address], 03/27/2023 17:50:44 03/27/20 23 03/27/2023 CBC/C OMPLE TE BLD COUNT W/DIF F monocytes 7.3 % 5.0-12 .0 Not Available [facility] (Lab) [address] [place], [address], 03/27/2023 17:50:44 03/27/20 23 03/27/2023 CBC/C OMPLE TE BLD COUNT W/DIF F eosinophils 2.3 % 1.0-7. 0 Not Available [facility] (Lab) [address] [place], [address], 03/27/2023 17:50:44 03/27/20 23 03/27/2023 CBC/C OMPLE TE BLD COUNT W/DIF F basophils 0.3 % 0.0-2. 0 Not Available [facility] (Lab) [address] [place], [address], 03/27/2023 17:50:44 03/27/20 23 03/27/2023 CBC/C OMPLE TE BLD COUNT W/DIF F immature granulocytes 0.4 % 0.00-0 .50 Not Available [facility] (Lab) [address] [place], [address], 03/27/2023 17:50:44 03/27/20 23 03/27/2023 CBC/C OMPLE TE BLD COUNT W/DIF F neutrophils, absolute count 11.79 x10'3 /uL 1.5-8. 0 high Not Available [facility] (Lab) [address] [place], [address], 03/27/2023 17:50:44 03/27/20 23 03/27/2023 CBC/C OMPLE TE BLD COUNT W/DIF F lymphocytes, absolute count 1.38 x10'3 /uL 1.07-3 .43 Not Available [facility] (Lab) [address] [place], [address], 03/27/2023 17:50:44 03/27/20 23 03/27/2023 CBC/C OMPLE TE BLD COUNT W/DIF F monocytes, absolute count 1.08 x10'3 /uL 0.29-0 .99 high Not Available [facility] (Lab) [address] [place], [address], 03/27/2023 17:50:44 03/27/20 23 03/27/2023 CBC/C OMPLE TE BLD COUNT W/DIF F eosinophils, absolute count 0.34 x10'3 /uL 0.02-0 .53 Not Available [facility] (Lab) [address] [place], [address], 03/27/2023 17:50:44 03/27/20 23 03/27/2023 CBC/C OMPLE TE BLD COUNT W/DIF F basophils, absolute count 0.05 x10'3 /uL 0.01-0 .08 Not Available [facility] (Lab) [address] [place], [address], 03/27/2023 17:50:44 03/27/20 23 03/27/2023 CBC/C OMPLE TE BLD COUNT W/DIF F immature granulocytes ,absolute 0.06 x10'3 /uL 0.00-0 .05 high Not Available [facility] (Lab) [address] [place], [address], 03/27/2023 17:50:44 03/27/20 23 03/27/2023 CBC/C OMPLE TE BLD COUNT W/DIF F nucleated red blood cells 0.0 % -0 Not Available [facility] (Lab) [address] [place], [address], 03/27/2023 17:50:44 03/27/20 23 03/27/2023 CBC/C OMPLE TE BLD COUNT W/DIF F NRBC# 0.00 x10'3 /uL Not Available [facility] (Lab) [address] [place], [address], 03/27/2023 17:50:44 03/27/20 23 03/27/2023 LIPID PANEL cholesterol 178 mg/dL 140-19 9 [facility] ROCKY NSUS RECOM MENDA TION FOR ELLIS STERO L: ADULT CHILD LOW RISK: <200 <170 BORDE RLINE : <200- 239 ----- HIGH RISK: >240 >200 Not Available [facility] (Lab) [address] [place], [address], 03/27/2023 19:22:45 03/27/20 23 03/27/2023 LIPID PANEL triglyceride s 75 mg/dL 0-150 NIH R[facility]Y NSUS REPOR T RECOM MENDA TION FOR TRIGL YCERI FREDRICK: ADULT CHILD LOW RISK: <150 ----- BODER LINE: 150-1 99 ----- HIGH RISK: >200 ----- Not Available [facility] (Lab) [address] [place], [address], 03/27/2023 19:22:45 03/27/20 23 03/27/2023 LIPID PANEL HDL cholesterol 52 mg/dL 40- Not Available [facility] (Lab) [address] [place], [address], 03/27/2023 19:22:45 03/27/20 23 03/27/2023 LIPID PANEL LDL cholesterol, calculated 111 mg/dL 0-130 NIH ROCKY NSUS REPOR T RECOM MENDA TIONS FOR LDL: ADULT CHILD LOW RISK <130 <110 (OPTI MAL LDL) <100 ----- BORDE RLINE : 130-1 59 ----- HIGH RISK: >160 >130 A TRIGL YCERI DE RESUL T >400 INVAL IDATE S THE CALCU LATIO N FOR LDL FRACT IONAT ION - THE LDL RESUL T WILL NOT BE REPOR IAN. Not Available [facility] (Lab) [address] [place], [address], 03/27/2023 19:22:45 03/27/20 23 03/27/2023 COMPR EHENS JAIME METAB OLIC PANEL sodium 139 mmol/ L 137-14 5 Not Available [facility] (Lab) [address] [place], [address], 03/27/2023 19:22:55 03/27/20 23 03/27/2023 COMPR EHENS JAIME METAB OLIC PANEL potassium 3.4 mmol/ L 3.5-5. 1 low Not Available [facility] (Lab) [address] [place], [address], 03/27/2023 19:22:55 03/27/20 23 03/27/2023 COMPR EHENS JAIME METAB OLIC PANEL chloride 97 mmol/ L 98-107 low Not Available [facility] (Lab) [address] [place], [address], 03/27/2023 19:22:55 03/27/20 23 03/27/2023 COMPR EHENS JAIME METAB OLIC PANEL carbon dioxide 33 mmol/ L 22-30 high Not Available [facility] (Lab) [address] [place], [address], 03/27/2023 19:22:55 03/27/20 23 03/27/2023 COMPR EHENS JAIME METAB OLIC PANEL anion gap 12.4 mmol/ L 14-22 low Not Available [facility] (Lab) [address] [place], [address], 03/27/2023 19:22:55 03/27/20 23 03/27/2023 COMPR EHENS JAIME METAB OLIC PANEL glucose 91 mg/dL 70-99 Not Available [facility] (Lab) [address] [place], [address], 03/27/2023 19:22:55 03/27/20 23 03/27/2023 COMPR EHENS JAIME METAB OLIC PANEL BUN 10 mg/dL 8-19 Not Available [facility] (Lab) [address] [place], [address], 03/27/2023 19:22:55 03/27/20 23 03/27/2023 COMPR EHENS JAIME METAB OLIC PANEL creatinine 0.80 mg/dL 0.66-1 .25 Not Available [facility] (Lab) [address] [place], [address], 03/27/2023 19:22:55 03/27/20 23 03/27/2023 COMPR EHENS JAIME METAB OLIC PANEL GFR >60 Refer ence Range : [place] ge GFR Healt hy Adult : >60 mL/mi n/1.7 3 m2 Chron ic Kidne y Disea se: 15-60 mL/mi n/1.7 3 m2 Kidne y Failu re: <15/m L/min /1.73 m2 www.n iddk. nih.g ov The MDRD study equat ion has not been valid ated in child valery <18 years of age; pregn ant women ; the elder ly >85 years of age; or in some racia l or ethni c subgr oups, such as Hispa nics. Outsi de the valid ated kimberly eters , estim ated GFR is less accur ate, requi ring clini carlos judgm ent on a case- by-ca se basis . Clini carlos inter preta tion for other races and ages must be made by the clini marques. The MDRD study equat ion has not been valid ated for the evalu ation of serum creat inine relat ed to nutri jose l statu s or medic ation usage . For perso ns <18 years of age, a pedia tric GFR calcu lator is avail able on the [facility] websi te: https ://libia pierson.yousif kiran/zuleima mckee s/kdo qi/gf r_cal culat or Not Available [facility] (Lab) [address] [place], [address], 03/27/2023 19:22:55 03/27/20 23 03/27/2023 COMPR EHENS JAIME METAB OLIC PANEL alkaline phosphatase 87 U/L 38-126 Not Available [facility] (Lab) [address] [place], [address], 03/27/2023 19:22:55 03/27/20 23 03/27/2023 COMPR EHENS JAIME METAB OLIC PANEL alanine aminotransfe rase 16 U/L 0-50 Not Available [facility] (Lab) [address] [place], [address], 03/27/2023 19:22:55 03/27/20 23 03/27/2023 COMPR EHENS JAIME METAB OLIC PANEL aspartate aminotransfe rase 21 U/L 15-46 Not Available [facility] (Lab) [address] [place], [address], 03/27/2023 19:22:55 03/27/20 23 03/27/2023 COMPR EHENS JAIME METAB OLIC PANEL bilirubin, total 0.60 mg/dL 0.20-1 .30 Not Available [facility] (Lab) [address] [place], [address], 03/27/2023 19:22:55 03/27/20 23 03/27/2023 COMPR EHENS JAIME METAB OLIC PANEL calcium 8.9 mg/dL 8.4-10 .2 Not Available [facility] (Lab) [address] [place], [address], 03/27/2023 19:22:55 03/27/20 23 03/27/2023 COMPR EHENS JAIME METAB OLIC PANEL total protein 7.7 g/dL 6.3-8. 2 Not Available [facility] (Lab) [address] [place], [address], 03/27/2023 19:22:55 03/27/20 23 03/27/2023 COMPR EHENS JAIME METAB OLIC PANEL albumin 3.8 g/dL 3.0-4. 4 Not Available [facility] (Lab) [address] [place], [address], 03/27/2023 19:22:55 03/27/20 23 03/27/2023 COMPR EHENS JAIME METAB OLIC PANEL globulin 3.9 g/dL 2.6-4. 2 Not Available [facility] (Lab) [address] [place], [address], 03/27/2023 19:22:55 03/27/20 23 03/27/2023 COMPR EHENS JAIME METAB OLIC PANEL A/G ratio 1.0 ratio 1.0-2. 0 Not Available [facility] (Lab) [address] [place], [address], 03/27/2023 19:22:55 03/27/20 23 03/27/2023 T4 FREE free T4 1.10 NG/dL 0.78-2 .19 Not Available [facility] (Lab) [address] [place], [address], 03/27/2023 19:23:56 03/27/20 23 03/27/2023 TSH thyroid-stim ulating hormone 2.980 uIU/m L 0.465- 4.680 Not Available [facility] (Lab) [address] [place], [address], 03/27/2023 19:25:33 03/27/20 23 03/27/2023 PSA, TOTAL PSA, total 0.34 NG/mL 0.00-4 .00 Not Available [facility] (Lab) [address] [place], [address], 03/27/2023 19:25:35 12/22/19 24 12/22/2023 imagi ng/di agnos tic resul t No observ ation record ed. [address] [facility] [address], [address], 12/22/2023 16:11:01 12/25/19 24 12/25/2023 XR, chest , 2 view No observ ation record ed. [address], [address], 12/26/2023 07:45:48 12/26/19 24 12/25/2023 CT, chest , w/ contr ast No observ ation record ed. [address], [address], 12/26/2023 07:46:58 12/28/19 24 08/03/2016 CT, angio gram, chest , w/ contr ast No observ ation record ed. [facility] Not Available 2023 12:45:43 12/28/19 24 10/18/2020 CT, angio gram, chest , w/ contr ast No observ ation record ed. [facility] Not Available 2023 12:48:49 12/28/1903/10/2021 CT, angio gram, chest , w/ contr ast No observ ation record ed. [facility] Not Available 2023 15:22:17 01/02/20 24 01/02/2024 CT, abdom en + pelvi s, w/o contr ast No observ ation record ed. [address] [address], [place], [address], 01/02/2024 12:47:05 04/19/1904/19/2024 XR, chest , 1 view No observ ation record ed. [address] [address], [place], [address], 04/20/2024 10:08:53 04/25/1904/25/2024 XR, chest No observ ation record ed. [address], [place], [address], 04/26/2024 09:15:15 04/25/1904/25/2024 CT, angio gram, chest , w/ contr ast No observ ation record ed. [address], [place], [address], 04/26/2024 09:16:30 04/26/1904/25/2024 CT, chest , w/o contr ast No observ ation record ed. [id number] [address], [place], [address], 05/03/2024 09:50:55 04/26/1904/25/2024 US, doppl er, venou s No observ ation record ed. [address] [facility] [address], [place], [address], 04/26/2024 09:17:22 04/29/19 25 04/27/2024 CT, angio gram, abdom inal aorta , w/ runof f, w/ contr ast No observ ation record ed. [address], [place], [address], 04/29/2024 07:01:49 Result Notes None recorded. Problems Name Problem SNOMED Code Status Onset Date Resolution Date Notes Provider Name and Address Organization Details Recorded Time Asthma 414888645 Completed Not Available [facility] 3 09:24:23 Non-alcoho lic fatty liver 102908894 Active Not Available [facility] 3 09:24:23 Gastroesop hageal reflux disease 711843889 Active 2020 Not Available [facility] 3 09:24:23 Open fracture of mandible 88710464 Active Not Available [facility] 3 09:24:24 Morbid obesity 044432777 Active 2021 Not Available [facility] 3 09:24:24 Benign prostatic hyperplasi a 059240874 Active 2021 Not Available [facility] 3 09:24:24 Severe chronic obstructiv e pulmonary disease 259499227 Completed 202009/22/2020 Rob Rico MD [address], [place], [address] , [employer] 4 17:16:49 Sleep apnea 64649623 Active Not Available [facility] 3 09:24:25 Gout 18733542 Active 2018 Not Available [facility] 3 09:24:25 Severe chronic obstructiv e pulmonary disease 946746285 Active 2023 Rob Rico MD [address], [place], [address] , [employer] 17:16:49 Smoker 94914757 Active 2023 Rob Rico MD [address] [facility], [address], [place], [address] , [facility] [employer] 17:20:45 Notes:Medical History: Rhini tis to mutiple environmental allergens Eosinophils 280/uL IgE 7363 Iu/mL Alpha-1 antitrypsin PiMM 191 mg% Nicotine dependence Very severe COPD on ResMed Astral 100 & O2 c/[facility] 10/26/20, not in pulm rehab RUL/RML/Lingula atelectasis Left rib fractures Obesity with OSAHS CAD Fatty liver Gout Thoracic DDD Procedure History: Occupational History: Problem Notes None recorded. Procedures Surgical History None recorded. Imaging Results Imaging Date Name Status LastModified by Organiz ation Details LastModified Time 12/22/2023 imaging/diagno stic result completed [address] [facility] [address] [facility] [address], [address], 12/22/2023 16:11:01 12/25/2023 XR, chest, [address], [address], 12/26/2023 07:45:48 12/25/2023 CT, chest, w/ contrast completed [address], [address], 12/26/2023 07:46:58 08/03/2016 CT, angiogram, chest, w/ contrast completed [facility] Information not available 12/28/2023 12:45:43 10/18/2020 CT, angiogram, chest, w/ contrast completed [employer] Information not available 12/28/2023 12:48:49 03/10/2021 CT, angiogram, chest, w/ contrast completed [employer] Information not available 12/28/2023 15:22:17 01/02/2024 CT, abdomen + pelvis, w/o contrast completed [address], [address], 01/02/2024 12:47:05 04/19/2024 XR, chest, 1 view completed [address], [address], 04/20/2024 10:08:53 04/25/2024 XR, chest completed [address], [address], 04/26/2024 09:15:15 04/25/2024 CT, angiogram, chest, w/ contrast completed [address] [address], [place], [address], 04/26/2024 09:16:30 04/25/2024 CT, chest, w/o contrast completed [address] [address], [place], [address], 05/03/2024 09:50:55 04/25/2024 US, doppler, venous completed [address], [address], 04/26/2024 09:17:22 04/27/2024 CT, angiogram, abdominal aorta, w/ runoff, w/ contrast completed [address], [address], 04/29/2024 07:01:49 Procedure Notes None recorded. Medical Equipment None Reported. Medications Name Sig Start Date Stop Date Status Note LastModified by Organization Details LastModified Time cyclobenzap rine 10 mg tablet 12/24 completed Not Available Not Available Not Available amoxicillin 500 mg capsule Take 1 capsule 3 times a day by oral route for 10 days. active Not Available Not Available No t Available albuterol sulfate 0.63 mg/3 mL solution for nebulizatio n Inhale by inhalatio n route. 11/19 completed Not Available Not Available Not Available prednisone 10 mg tablet Take by oral route. 03/27 completed Not Available Not Available Not Available ipratropium 0.5 mg-albutero l 3 mg (2.5 mg base)/3 mL nebulizatio n soln USE 1 VIAL VIA NEBULIZER EVERY 8 HOURS NEEDED FOR SHORTNESS OF BREATH 07/13 completed Not Available Not Available Not Available Ceftin 500 mg tablet Take 1 tablet every 12 hours by oral route for 14 days. active Not Available Not Available No t Available clindamycin HCl 300 mg capsule Take 1 capsule every 6 hours by oral route. active Not Available Not Available No t Available albuterol sulfate 2.5 mg/3 mL (0.083 %) solution for nebulizatio n USE 1 VIAL VIA NEBULIZER THREE TIMES DAILYMU ST SCHEDULE AN APPOINTME NT FOR FURTHER REFILLS 2024 active Not Available Not Available Not Avai lable azithromyci n 250 mg tablet FOLLOW PACKAGE DIRECTION S 12/24 completed Not Available Not Available Not Available acetazolami de 125 mg tablet TAKE 1 TABLET BY MOUTH EVERY MORNING 12/24 completed Not Available Not Available Not Available hydrocodone 5 mg-acetamin ophen 325 mg tablet TAKE 1 TABLET BY MOUTH EVERY 6 HOURS NEEDED FOR PAIN 03/27 completed Not Available Not Available Not Available Lasix 40 mg tablet Take 1 tablet every day by oral route. active Not Available Not Available No t Available prednisone 20 mg tablet TAKE 2 TABLETS BY MOUTH TWICE DAILY FOR 3 DAYS THEN TAKE 2 TABLETS ONCE DAILY FOR 2 DAYS 12/24 completed Not Available Not Available Not Available metronidazo le 500 mg tablet TAKE 1 TABLET BY MOUTH EVERY 12 HOURS FOR 7 DAYS 09/22 completed Not Available Not Available Not Available tramadol 50 mg tablet TAKE 1 TABLET BY MOUTH EVERY 4 HOURS NEEDED FOR PAIN RATED 7-10. active Not Available Not Available No t Available guaifenesin 100 mg/5 mL oral liquid 09/22 completed Not Available Not Available Not Available triamcinolo ne acetonide 0.1 % topical cream APPLY A THIN LAYER TO THE AFFECTED AREA(S) BY TOPICAL ROUTE 2 TIMES PER DAY 09/22 completed Not Available Not Available Not Available guaifenesin 200 mg tablet TK 2 TS PO QID 09/22 completed Not Available Not Available Not Available amoxicillin 875 mg tablet 09/22 completed Not Available Not Available Not Available methocarbam ol 750 mg tablet TAKE 1 TABLET BY MOUTH FOUR TIMES DAILY FOR 10 DAYS active Not Available Not Available No t Available tamsulosin 0.4 mg capsule TAKE 1 CAPSULE BY MOUTH EVERY EVENING 12/24 completed Not Available Not Available Not Available furosemide 80 mg tablet TAKE 1 TABLET BY MOUTH TWICE DAILY 12/24 completed Not Available Not Available Not Available benzonatate 100 mg capsule TAKE 1 CAPSULE BY MOUTH EVERY 8 HOURS NEEDED FOR COUGH AND CONGESTIO N 2024 active Not Available Not Available Not Avai lable doxycycline monohydrate 100 mg capsule TAKE 1 CAPSULE BY MOUTH TWICE DAILY 07/20 completed Not Available Not Available Not Available pantoprazol e 40 mg tablet,ross yed release TAKE 1 TABLET BY MOUTH EVERY DAY 12/24 completed Not Available Not Available Not Available Cipro 500 mg tablet Take 1 tablet every 12 hours by oral route. 03/26 completed Not Available Not Available Not Available nystatin 100,000 unit/gram topical cream APPLY TO ABDOMEN/G ROIN FOLDS THREE TIMES DAILY 07/20 completed Not Available Not Available Not Available budesonide 0.5 mg/2 mL suspension for nebulizatio n Inhale 2 mL twice a day by nebulizat ion route. 12/08 completed Not Available Not Available Not Available mirtazapine 15 mg tablet TAKE 1 TABLET BY MOUTH AT BEDTIME active Not Available Not Available No t Available levofloxaci n 500 mg tablet 03/25 completed Not Available Not Available Not Available levofloxaci n 750 mg tablet TAKE 1 TABLET BY MOUTH EVERY DAY 07/20 completed Not Available Not Available Not Available methylpredn isolone 4 mg tablets in a dose pack FOLLOW PACKAGE DIRECTION S 07/20 completed Not Available Not Available Not Available albuterol sulfate HFA 90 mcg/actuati on aerosol inhaler INHALE 1 PUFF BY MOUTH EVERY 4 HOURS NEEDEDM UST SCHEDULE AN APPOINTME NT FOR FURTHER REFILLS 2024 active Not Available Not Available Not Avai lable cefdinir 300 mg capsule Take 1 capsule every 12 hours by oral route. 05/20 completed Not Available Not Available Not Available metformin ER 500 mg tablet,exte nded release 24 hr 03/03 completed Not Available Not Available Not Available doxycycline hyclate 100 mg tablet TAKE 1 TABLET BY MOUTH TWICE DAILY FOR 10 DAYS 09/22 completed Not Available Not Available Not Available spironolact one 50 mg tablet TAKE 1 TABLET BY MOUTH EVERY MORNING 12/24 completed Not Available Not Available Not Available amoxicillin 875 mg-potassiu m clavulanate 125 mg tablet 03/25 completed Not Available Not Available Not Available amoxicillin 500 mg-potassiu m clavulanate 125 mg tablet TAKE 1 TABLET BY MOUTH EVERY 8 HOURS 11/19 completed Not Available Not Available Not Available Bactrim DS 800 mg-160 mg tablet Take 1 tablet every 12 hours by oral route for 10 days. 09/15 completed Not Available Not Available Not Available Spiriva with HandiHaler 18 mcg and inhalation capsules Inhale 1 capsule every day by inhalatio n route. 2023 active Not Available Not Available Not Avai lable Symbicort 160 mcg-4.5 mcg/actuati on HFA aerosol inhaler INHALE 2 PUFFS BY MOUTH TWICE DAILY active Not Available Not Available No t Available Symbicort 80 mcg-4.5 mcg/actuati on HFA aerosol inhaler Inhale 2 puffs twice a day by inhalatio n route. 04/27 completed Not Available Not Available Not Available Breo Ellipta 100 mcg-25 mcg/dose powder for inhalation INHALE 1 PUFF BY MOUTH EVERY DAY 02/06 completed Not Available Not Available Not Available potassium chloride ER 20 mEq tablet,exte nded release Take 1 tablet every day by oral route. active Not Available Not Available No t Available Spiriva Respimat 2.5 mcg/actuati on solution for inhalation Inhale 1 puff twice a day by inhalatio n route. 09/22 completed Not Available Not Available Not Available Vitals Date Recorded Heart rate Body temperature Oxygen saturation Oxygen saturation in Arterial blood by Pulse oximetry Inhaled oxygen flow rate Provider Name and Address Organization Details Last Updated DateTime 3 93 /min 97 [degF] 92 % 92 % 3 L/min Keiry [facility] [place] [employer] 3 15:51:32 Date Recorded Heart rate Body temperature Oxygen saturation Oxygen saturation in Arterial blood by Pulse oximetry Inhaled oxygen flow rate Systolic blood pressure Diastolic blood pressure Provider Name and Address Organization Details Last Updated DateTime 4 81 /min 97.6 [degF] 92 % 92 % 3 L/min 124 mm[Hg] 72 mm[Hg] EMILEE Wang [place] [employer] [facility] [employer] [facility] 4 15:33:22 Date Recorded Body height Body mass index (BMI) Body weight Heart rate Body temperature Oxygen saturation Oxygen saturation in Arterial blood by Pulse oximetry Inhaled oxygen flow rate Systolic blood pressure Diastolic blood pressure Provider Name and Address Organization Details Last Updated DateTime 4 191.77 cm 54.3 kg/m2 447315. 64 g 83 /min 98.4 [degF] 98 % 98 % 6 L/min 128 mm[Hg] 72 mm[Hg] EMILEE Wang [facility] [employer] 4 15:55:47 Date Recorded Body height Body mass index (BMI) Body weight Heart rate Body temperature Oxygen saturation Oxygen saturation in Arterial blood by Pulse oximetry Systolic blood pressure Diastolic blood pressure Provider Name and Address Organization Details Last Updated DateTime 4 191.77 cm 55.1 kg/m2 627925. 79 g 78 /min 97 [degF] 98 % 98 % 126 mm[Hg] 72 mm[Hg] EMILEE Wang [facility] [employer] [facility] 4 15:48:47 Date Recorded Body height Body mass index (BMI) Body weight Heart rate Body temperature Systolic blood pressure Diastolic blood pressure Provider Name and Address Organization Details Last Updated DateTime 4 191.77 cm 55.1 kg/m2 153884. 79 g 70 /min 97.3 [degF] 118 mm[Hg] 70 mm[Hg] Mitra Reese CMA [facility] [employer] [facility] 4 16:34:42 Date Recorded Oxygen saturation Oxygen saturation in Arterial blood by Pulse oximetry Heart rate Respiratory rate Provider Name and Address Organization Details Last Updated DateTime 02/07/2024 94 % 94 % 70 /min 15 /min Rob Rico MD [address] [facility], [address], [place], [address], [facility] [employer] [facility] 4 16:55:30 Social History Question Answer Notes LastModified by Organizat ion Details LastModified Time Tobacco Smoking Status Current Some Day Smoker Not Available [facility] 06/15/2022 09:20:35 In The 14 Days Before Symptom Onset, Have You Had Close Contact With A Laboratory-confir med COVID-19 While That Case Was Ill? No [id number] Information not available 06/15/2022 In The 14 Days Before Symptom Onset, Have You Had Close Contact With A Person Who Is Under Investigation For COVID-19 While That Person Was Ill? No [id number] Information not available 06/15/2022 Do You Or Have You Ever Used E-cigarettes Or Vape? Never Used Electronic Cigarettes [id number] Information not available 06/15/2022 Do You Or Have You Ever Used Smokeless Tobacco? Never Used Smokeless Tobacco [id number] Information not available 06/15/2022 How Many Years Have You Smoked Tobacco? 45 [id number] Information not available 06/15/2022 Sex: Unknown Functional Status None recorded. Mental Status None recorded. Family History Nothing Reported Notes:Mother 80+ wit h Aortic Stenosis and CVA Father at 33 from gangrene and ASHD One brother living and in good health Two sisters one living and in good health the other of complications of COPD stroke - mother Medical History Condition Response NERVE DISEASE N BLINDNESS N RHEUMATIC FEVER N KIDNEY STONES N BLADDER PROBLEMS N MRSA N OTHER # 1 N POLIO N LUNG DISEASE/DISORDER N HISTORY OF DRUG ABUSE N RADIATION / CHEMOTHERAPY N COPD Y Other # 2 N BLOOD DISEASES N EAR OR HEARING PROBLEMS N MUMPS N SHINGLES N DEPRESSION (INCLUDING POST ) N BOWEL PROBLEMS N STROKE/TIA N ULCERS N BENIGN PROSTATIC HYPERPLASIA N MEASLES N HYPOTENSION N MYOCARDIAL INFARCTION N OBESITY N GERD/NAUSEA N ANEURYSM N URINARY/BLADDER/KIDNEY PROBLEMS N CORONARY ARTERY DISEASE (CAD) N ADDICTION CONCERNS N Impotence N ENDOMETRIOSIS N USE OF BLOOD THINNERS N SKIN PROBLEMS N GASTROINTESTINAL DISORDER N PERIPHERAL VASCULAR DISEASE N MUSCLE,JOINT OR BONE PROBLEMS N GASTROINTESTINAL BLEEDING N BLOOD CLOTS N ASTHMA N CATARACTS N ERECTILE DYSFUNCTION N VARICOSITIES N GI PROBLEMS N Low Testosterone N INFERTILITY N AIDS/HIV N CHEMOTHERAPY / RADIATION N LIVER DISEASE N MALE HYPOGONADISM N HYPERTENSION N Deficiency N TOURETTE'S N ANXIETY DISORDER N BLOOD TRANSFUSION N ANEMIA/BLOOD DISORDER N CHRONIC EAR INFECTIONS N BRONCHITIS N TUBERCULOSIS N GLAUCOMA N FOOT PROBLEM N DIVERTICULITIS N SLEEP APNEA N CHICKENPOX N INFECTIOUS DISEASE N PROSTATE N HEART ARRHYTHMIA N INSOMNIA N HIGH CHOLESTEROL / HYPERLIPIDEMIA N EYE PROBLEMS N HYPERTHYROIDISM N EDEMA N CHRONIC PAIN SYNDROME N HYPOTHYROIDISM N CAROTID BLOCKAGE N CONSTIPATION N BACK / NECK PROBLEMS N HAVE YOU BEEN HOSPITALIZED OR SEEN IN [facility] IN THE PAST YEAR ? N ATHEROSCLEROSIS N BREAST PROBLEMS N DIALYSIS N ECZEMA N OSTEOPOROSIS N ARTHRITIS N NO SIGNIFICANT PAST MEDICAL HISTORY N APPENDICITIS N DIABETES, TYPE N BAD TEETH N ENT N HEARTBURN / REFLUX N AUTISM SPECTRUM DISORDER (ASD) N HEPATITIS / LIVER DISEASE N GOUT N SLEEP DISORDER N ALZHEIMER'S DISEASE N Brain Problems N DEMENTIA N HERPES N SEIZURES/EPILEPSY N HEADACHES/MIGRAINES N VASCULAR DISEASE N PACEMAKER N Blood Disorder N DIZZINESS N HEART DISEASE/HEART PROBLEMS N KIDNEY DISEASE N MULTIPLE SCLEROSIS N CANCER: SPECIFY N CARDIAC ARRHYTHMIA N ATRIAL FIBRILLATION N Gall Stones N PULMONARY EMBOLISM N AUTOIMMUNE DISEASE N Immunizations Vaccine Type Date Status Note Provider Nam e and Address Organization Details Recorded Time Influenza, split virus, quadrivalent, PF 3 completed Vijay Bueno MD [address] [place] [address], [address], [place], [address], [facility] [employer] 03/27/2023 16:09:54 Influenza, split virus, trivalent, preservative 4 completed Not Available [facility] 05/29/2023 16:57:18 COVID-19 vaccine, vector-nr, [id number], PF, 0.5 mL 1 completed Not Available [facility] 05/29/2023 16:57:18 Influenza, split virus, quadrivalent, preservative 7 completed Not Available [facility] 05/29/2023 16:57:18 Influenza, split virus, quadrivalent, PF 8 completed Not Available [facility] 05/29/2023 16:57:18 Influenza, split virus, quadrivalent, PF 2 completed Not Available [facility] 05/29/2023 16:57:18 Influenza, split virus, quadrivalent, PF 1 completed Not Available [facility] 05/29/2023 16:57:18 Influenza, split virus, quadrivalent, PF 6 completed Not Available [facility] 05/29/2023 16:57:18 Influenza, split virus, trivalent, preservative 4 completed Not Available [facility] 05/29/2023 16:57:18 Influenza, split virus, quadrivalent, preservative 7 completed Not Available [facility] 05/29/2023 16:57:18 Past Encounters Encounter ID Performer Location Encounter Start Date Encounter Closed Date Diagnosis/Indication Diagnosis SNOMED-CT Code Diagnosis ICD10 Code Diagnosis Note [id number] [facility] [address] [place] [address] 0 08/28/2020 00:00:00 08/28/2020 16:05:18 [id number] [facility] [address] [place] [id number] 11/19/2020 00:00:00 11/19/2020 15:18:30 [id number] [facility] Internal Med [facility] [address] [place] [id number] 02/10/2021 00:00:00 02/10/2021 12:46:14 [id number] _ATHENA_M IGRATION_ DEFAULT_1 _1 , 02/12/2021 00:00:00 02/15/2021 10:01:06 [id number] [facility] Internal Med [facility] [address] [id number] 05/31/2021 00:00:00 05/31/2021 15:22:07 [id number] [facility] Internal Med [facility] [address] [address] 10/13/2021 00:00:00 10/13/2021 16:43:38 [id number] [facility] Internal Med [facility] [address] [address] 03/03/2022 00:00:00 03/03/2022 11:37:33 [id number] Vijay Bueno MD [facility] Internal Med [facility] [address] [place] [address] [address] 03/27/2023 15:31:52 03/27/2023 16:13:08 Chronic obstructive pulmonary disease 40814807 J44.9 Benign pro static hyperplasia 228057057 N40.1 Gastroesop hageal reflux disease 320825653 K21.9 Administra tion of influenza vaccine 60459547 Z23 Screening for cardiovascular system disease 491893649 Z13.6 Disorder of prostate 302 [address] N42.9 [id number] Vijay Bueno MD [facility] Internal Med [facility] [address] [place] [id number] 08/22/2023 15:23:08 08/22/2023 16:04:12 Chronic obstructive pulmonary disease 88112086 J44.9 Benign pro static hyperplasia 987564977 N40.1 Morbid obesity 769936659 E66.01 [id number] Vijay Bueno MD [facility] Med [place] [address] [address] 12/25/2023 15:42:13 12/25/2023 16:19:54 Chronic obstructive pulmonary disease 95634960 J44.9 Gastroesop hageal reflux disease 940553651 K21.9 Morbid obesity 934511134 E66.01 [id number] Vijay Bueno MD [facility] Internal [facility] [address] [address] 02/07/2024 15:29:00 02/07/2024 16:07:29 Chronic obstructive pulmonary disease 99795284 J44.9 Gastroesop hageal reflux disease 100130159 K21.9 Sleep apnea 34246267 G47 .30 [id number] Rob Rico MD [facility] [place] [address] [address] 0 02/07/2024 16:12:04 02/08/2024 12:45:02 Severe chronic obstructive pulmonary disease 007688905 J44.9 Smoker 61302071 F17.218 F17.219 Z87.891 Health Concerns Section Related Observation LastModified by Organization Detai ls LastModified Time None Recorded Concern Status LastModified by Organization Details LastModified Time None Recorded Advance Directives Directive None Recorded Payers Encounter Date Sequence Insurance Name Policy Number Policy Reeder Covered Member ID Reeder Member ID Guarantor Name 03/27/2023 1 [facility] (MEDICAID HMO) [id number] Catarino Yao [id number] Catarino Yao Sr 08/22/2023 1 [facility] (MEDICARE REPLACEMENT/A DVANTAGE - HMO) [id number] Catarino Yao [id number] Catarino Yao Sr 12/25/2023 1 [facility] (MEDICARE REPLACEMENT/A DVANTAGE - HMO) [id number] Catarino Yao [id number] Catarino Yao Sr 02/07/2024 1 [facility] (MEDICARE REPLACEMENT/A DVANTAGE - HMO) [id number] Catarino Yao [id number] Catarino Yao Sr 02/07/2024 1 [facility] (MEDICARE REPLACEMENT/A DVANTAGE - HMO) [id number] Catarino Yao [id number] Catarino Yao Notes Date Note Type Note Provider Name and Address Organization Details Recorded Time 3 text/html Patient Name: Catarino YaoDate Of Service: Monday ( 03.27.2023 ): 1960 Age: 62 Vital Signs:Blood Pressure: Sitting Rt. Arm 138/84Pulse: Sitting 93 /min and RegularRespiratory Rate: 18 Chief Complaint: Addressed in HPI Problems or conditions discussed in the HPI were the only ones reviewed during the encounter.Only social and family history addressed in the HPI were reviewed during this encounter. Attendant(s): NoneConstitutional and Systemic Symptoms:none Medication Reconciliation: from medication list. History of Present Illness #1. COPD: Hx of Emphysema currently stable. There has been no interval change in exercise tolerance an shortness of breath. No change in sputum production, color or consistency. No fever, chills, weight loss or other constitutional symptoms. Gold Scale: Severe. MRC Scale: SOB with changing cloths. Smoking: not currently smoking Current medications: Albuterol Premix 0.083%, Proventil-hfa, Spiriva and Symbicort Using nebulizer Treatments: No. Uses supplemental oxygen #2. Hx of BPH currently stable. No change in strength or initiation of urinary stream. No post voiding problems. No hx of any fever or chills. Currently taking Flomax. #3. Hx of esophageal reflux currently stable. Hx of Complications: none The severity, duration and intensity of symptoms have improved. Frequency: infrequent Treatment consists medications taken on no regular basis. Current therapy includes no medication. There has been no nausea, eructation, vomiting, hematemesis, dysphagia, velopharyngeal insufficiency and odynophagia. No change in he frequency or intensity of symptoms. Has had no melena. Has had no hematemesis. Discuss the possibility of trying to reduce the frequency of the use of any PPI inhibitors or H2 antagonist to see if symptoms can be controlled with last intensive therapyMedication List Reviewed and Reconciled 03/27/2023Furosemide 80 MG (TABLET - ORAL) One BidAcetazolamide 125 MG (TABLET - ORAL) One DailyProventil-hfa 0.09 MG /INH (AEROSOL, METERED - INHALATION) Two Puffs Qid For WheezingAlbuterol Premix 0.083% 0.0625 MG /INH- 0.025 MG /INH (POWDER - INHALATION) QidFlomax 0.4 MG (CAPSULE - ORAL) Take One Tablet DailySpiriva 2.5MCG (SPRAY - INHALATION) Once DailySymbicort 0.08 MG/INH-0.0045 MG/INH (AEROSOL, METERED - INHALATION) Two Puffs BidVaccination and [id number] [id number] PneumovaxSurgical HistoryLasik Left Eye, Appendectomy, Mandible ReconstructioinPreventati ve Testing Confirmed by Our Uomybbi3210/15/2022 ALBUMIN 3.6 G/DL N010/15/2022 HAIC 5.4 % N010/21/2020 UPPER OJQWDRQRH38/21/2014 PSA )Social History Happily Smokes up to three packs of cigarettes daily for over 20 years currently smoking less.Drinks 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 Arm 124/72Pulse: Sitting 81 /min and RegularRespiratory Rate: 18Pulse Oximetry: 92 % at rest on no oxygen Chief Complaint: Addressed in HPI Problems or conditions discussed in the HPI were the only ones reviewed during the encounter.Only social and family history addressed in the HPI were reviewed during this encounter. Attendant(s): Jpajlhov-ha-mhaHnxxolhzik onal and Systemic Symptoms:none Medication Reconciliation: from medication list. History of Present Illness #1. COPD: Hx of Emphysema currently stable. There has been no interval change in exercise tolerance an shortness of breath. No change in sputum production, color or consistency. No fever, chills, weight loss or other constitutional symptoms. Gold Scale: Severe. MRC Scale: normal walking. Smoking: not currently smoking Current medications: Breo Ellipta and Proventil-hfa Using nebulizer Treatments: Yes with bronchodilators QID with improvement in symptomatology. Uses supplemental oxygen #2. Hx of BPH currently stable. No change in strength or initiation of urinary stream. No post voiding problems. No hx of any fever or chills. Currently taking Flomax. #3. Hx of obesity. Currently Class 3 Obesity RI > 40. Has tried numerous dietary support and supplements with no benefit. Instructed on the health consequences of the obese status particularly cancer - diabetes and heart disease. Discussed new modalities of weight loss including GLP-1 medications that are used to treat diabetes. Potential candidate for bariatric surgery: No. Wishes to be evaluated by Dietary: No and was offered to be evaluated and instructed by cardio tech on weight loss diet. Active Medication ListBreo Ellipta 200; 25 UG; UG POWDER One Puff DailyFurosemide 80 MG (TABLET - ORAL) One BidAcetazolamide 125 MG (TABLET - ORAL) One DailyProventil-hfa 0.09 MG /INH (AEROSOL, METERED - INHALATION) Two Puffs Qid For WheezingAlbuterol Premix 0.083% 0.0625 MG /INH- 0.025 MG /INH (POWDER - INHALATION) QidFlomax 0.4 MG (CAPSULE - ORAL) Take One Tablet Daily Vaccination and Pseprnessfcr1946-85 Eappuzzaq7335-21 Pneumovax Surgical Zincnmo4792-70 Lasik Left Euq2604-53 Ihvkjkumasrx2889-12 Mandible Reconstructioin Preventative Tgqnkdg6805/29/2023 ALBUMIN 3.6 G/DL04/23/2023 HAIC 5.5 %03/27/2023 PSA 0.34 NG/ML10/21/2020 UPPER ENDOSCOPY Social History Happily Smokes up to three packs of cigarettes daily for over 20 years currently smoking less.Drinks sociallyUnemployed Truck DriverFamily HistoryMother 80+ with Aortic Stenosis and CVAFather at 33 from gangrene and ASHDOne brother living and in good healthTwo sisters one living and in good health the other of complications of COPD Vijay Bueno MD [address] [place] [address], [address], [place], [address], [facility] [employer] 08/22/2023 15:56:42 4 text/html Patient Name: Catarino YaoYayate Of Service: Monday ( 02.07.2024 ): 1960 Age: 63 There has been approximately a 7 lb weight gain since 12/25/2023. This represents approximately a 1.6% change in weight. Weight change attributable to lifestyle changes. Vital Signs:Blood Pressure: Sitting Rt. Arm 126/72Pulse: Sitting 78 /min and RegularRespiratory Rate: 20Height 63.5 in or 1.6 mWeight 447 lb or 202.8 kgBMI 77.9Temperature: 97 F or 36.1 CPulse Oximetry: 98 % at rest on oxygen Chief Complaint: Addressed in HPI Problems or conditions discussed in the HPI were the only ones reviewed during the encounter.Only social and family history addressed in the HPI were reviewed during this encounter. Attendant(s): Lifelong friendConstitutional and Systemic Symptoms:none Medication Reconciliation: from medication list. [id number]: CT pulmonary angiogram no central pulmonary embolus noted. Smaller by could not be identified suboptimal due to timing of contrast bolus. Moderate emphysema with probable chronic atelectasis of the right middle lobe. History of Present Illness #1. COPD: Hx of Emphysema currently stable. There has been some decrease and recent episode of pneumonia in exercise tolerance an shortness of breath. No change in sputum production, color or consistency. No fever, chills, weight loss or other constitutional symptoms. Gold Scale: Very Severe. MRC Scale: SOB with changing cloths. Smoking: not currently smoking Current medications: Albuterol Premix 0.083% and Proventil-hfa Using nebulizer Treatments: No. Uses supplemental oxygen #2. Sleep Apnea: Type: SILVANA Current doing well. No significant daytime somnolence or problems performing daily chores. intermittently using the CPAP . Overall has shown considerable improvement.[place] Sleepiness ScaleSitting and ReadinWatching TV: 2Sitting Inactive in a Public Place: 2Passenger in a Car: 2Lying Down in Afternoon: 2Sitting and Talking to someone: 1Sitting quietly after lunch: 2In a car while stopped or drivinScore Interpretation: 10-15 Abnormally sleepy #3. Hx of esophageal reflux currently stable. Hx of Complications: none The severity, duration and intensity of symptoms have improved. Frequency: infrequent Treatment consists medications taken on intermittent basis. Current therapy includes no medication. There has been no nausea, eructation, vomiting, hematemesis, dysphagia, velopharyngeal insufficiency and odynophagia. No change in he frequency or intensity of symptoms. Has had no melena. Has had no . Discussed use of H2 antagonists NA. #4. Hx of obesity. Currently Class 3 Obesity RI > 40. Has tried numerous dietary support and supplements with no benefit. Instructed on the health consequences of the obese status particularly cancer - diabetes and heart disease. Discussed other modalities of weight loss no . Potential candidate for bariatric surgery: No. Wishes to be evaluated by Dietary: Yes. Active Medication ListBreo Ellipta 200; 25 UG; UG POWDER One Puff DailyProventil-hfa 0.09 MG /INH (AEROSOL, METERED - INHALATION) Two Puffs Qid For WheezingAlbuterol Premix 0.083% 0.0625 MG /INH- 0.025 MG /INH (POWDER - INHALATION) Qid Vaccination and Immunization(X) 2009-02 PNEUMOVAX PREVNAR 20 Needed( ) 2023-03 INFLUENZA Surgical Sxzlayy3397-42 Lasik Left Tun9728-56 Xostaqigzgvc9283-62 Mandible Reconstructioin Preventative Testing( ) 10/09/2023 Albumin 4.2 G/DL( ) 04/23/2023 HAIC 5.5 %( ) 03/27/2023 PSA 0.34 NG/ML 03/27/2025( ) 10/21/2020 Upper Endoscopy Social History Happily Smokes up to three packs of cigarettes daily for over 20 years currently smoking less.Drinks 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 He did not go for his pulmonary function testing, enroll in pulm rehabilitation or quit smoking. He cancelled his appointments 4 times.CC: I have bad COPD and uses ResMed Astral 100 ventilator at night with a ResMed large Mirage Quattro full face mask. Patient is here to go over shortness of breath evaluation/management.Ini tial development of shortness of breath: 2011Duration of shortness of breath: 10 yearsCondition of shortness of breath: worseningTiming of shortness of breath: noneFrequency: up to 5 times a dayLimits activities: yesAggravating factors: walking, emotional upsetAlleviating factors: restModified Medical Research [place] (mMRC) Dyspnea Scale - Grade 3Grade 0 I only get breathless with strenuous exercise .Grade 1 I get short of breath when hurrying on the level or walking up a slight hill .Grade 2 I walk slower than people of the same age on the level because of breathlessness or have to stop for breath when walking at my own pace on the level .Grade 3 I stop for breath after walking about 100 yards or after a few minutes on the level .Grade 4 I am too breathless to leave the house or I am breathless when dressing .Treatment history: Duonebs as needed 2015-lbuterol nebs as needed since 2015albuterol HFA as needed since 2012 Symbicort HFA 80/4.5 mcg 2 puffs BID 2019 onlySymbicort HFA 160/4.5 mcg 2 puffs BID since reo Ellipta 100/25 mcg 1 puff daily 07/2023-10/2023 Spiriva Respimat 2.5 mcg 2 puffs daily 2019 onlySpiriva Handihaler 18 mcg since 2019Other symptoms:Productive cough: clear phlegmWheezing: yesChest tightness: yesOrthopnea: noFrequent throat clearing or swallowing: noPalpitations: noHeartburn: noDysphagia: noEdema: yesEnvironmental exposures:Nicotine smoke: 2 ppd 1972-present = 104 pack yearsPaint: noDye: noDust mites: yesMold: noDamp basement: noWood burning stove: noAnimal dander: dog, catsCockroaches: noPollen: yesArsenic: noAsbestos: noBeryllium: noCadmium: noChromium: noCoal smoke: noDiesel fumes: yes 1981-2001Nickel: noSilica: noSoot: noEPWORTH SLEEPINESS SCALE (ESS)CHANCE OF DOZING SCORE0 = would never doze1 = slight chance of dozing2 = moderate chance of dozing3 = high chance of dozingSITUATION AND CHANCE OF DOZINGSitting and reading - 0Watching television - 0Sitting inactive in a public place (e.g. a theater or meeting) - 0As a passenger in a car for an hour without a break - 0Lying down to rest in the afternoon when circumstances permit - 2Sitting and talking to someone - 0Sitting quietly after lunch without alcohol - 0In a car, while stopped for a few minutes in the traffic - 0TOTAL SCORE 2Subjectively, patient has a slight chance of dozing. Rob Rico MD [address] [place] [address], [address], [place], [address], [place] [facility] 02/07/2024 17:35:40
[2024-07-13 21:31] VITALS: BP 140/107; PULSE 80; RESP 16; TEMP 36.3; O2SAT 93
[2024-07-13 21:51] LABS: Basophils Percent Auto 0.3 % (0.2-1.2); Eosinophils Absolute Auto 0.3 K/mm3 (0-0.3); Eosinophils Percent Auto 2.5 % (0-4.4); Hematocrit 46.6 % (42.0-52.0); Hemoglobin 14.6 g/dL (14.0-18.0); Immature Granulocyte Absolute 0.05 K/mm3 (0.00-0.031); Immature Granulocyte Percent A 0.5 % (0-0.5); Lymphocytes Absolute Auto 1.39 K/mm3 (0.9-3.2); Lymphocytes Percent Auto 12.8 % (18.3-44.2); Mean Corpuscular HGB Conc 31.3 g/dl (32-36); Mean Corpuscular Hemoglobin 30.5 pg (26-34); Mean Corpuscular Volume 97.5 fl (80-100); Mean Platelet Volume 10.1 fl (7.4-10.4); Monocytes Absolute Auto 0.9 K/mm3 (0.1-0.6); Monocytes Percent Auto 8.6 % (2.6-8.5); Neutrophils Absolute Auto 8.2 K/mm3 (1.3-6.7); Neutrophils Percent Auto 75.3 % (45.5-73.1); Platelet Count Result 183 k/mm3 (150-375); Red Blood Count 4.78 M/mm3 (4.6-6.20); Red Cell Distribution Width 15.1 % (11.5-14.5); White Blood Count 10.9 K/mm3 (4.5-10.0)
[2024-07-13 22:04] LABS: Alanine Aminotransferase 29 U/L (6-50); Albumin Level 4.1 g/dL (3.5-5.1); Alkaline Phosphatase 82 U/L (38-126); Anion Gap 6 mmol/L (4-12); Aspartate Amino Transferase 23 U/L (17-59); Bilirubin,Total 1.3 mg/dL (0.2-1.3); Blood Urea Nitrogen 18 mg/dL (9-20); Calcium 9.2 mg/dL (8.4-10.2); Carbon Dioxide 35 mmol/L (22-30); Chloride 99 mmol/L (98-107); Estimated CRCL calculation 110 ml/min; Estimated Glomerular Filt Rate > 60; Glucose 131 mg/dL (65-110); Potassium 4.4 mmol/L (3.4-5.0); Sodium 140 mmol/L (137-145)
--- OUTSIDE RECORDS SUMMARY | 2024-07-14 02:41 | XMS_ITS | Continuity of Care Document ---
Author Organization [facility] Address [address] [place] [address] Phone Care Team Providers Care Chucking And Boring Machine Operator Name Role Phone Aldair Montilla Unavailable Unavailable Procedures Procedure Date Special Reports Or Forms Office/outpatient Visit, Est Refraction Office/outpatient Visit, Est Eye Exam, New Patient Advance Directives Directive Yes / No Effective Date File Name No Information Encounters Encounter Description Practice Location Reason(s) For Visit Diagnoses Date Provider Providers Copied on Encounter [facility], [address] [place] [address] [address], [place], [place], [id number], [place] tel:[phone] SEC [facility] No Information 8 Krishnasamy Aldair. [address], [facility], [place]. tel:[phone] Office/outpat ient Visit, [facility], [id number] [place] [address] [address], [place], [place], [id number], [place] tel:[phone] [facility] No Information 1- 8 Krishnasamy Aldair. [address] [facility] [address], [place], [address], [place]. tel:[phone] Office/outpat ient Visit, [facility], [address] [place] [address] [address], [place], [place], [id number], [place] tel:[phone] SEC [facility] No Information 8 Krishnasamy Aldair. [address] [facility] [address] [place], [place], [facility], . tel:[phone] [facility], [address], [place], [place], [address], [place] tel:[phone] [facility] No Information 8 Krishnasamy Aldair. [address] [facility] [address] [place], [place], [facility], [place]. tel:[phone] Referring Provider: Vijay Bueno, [address] [place] [address], [facility]. tel:[phone] Family History Family Member Type Diagnosis Age At Onset No Information Payers Payer name Insurance type Covered alliance party ID Authoriza tion(s) No Information Social History [...]
--- OUTSIDE RECORDS SUMMARY | 2024-07-14 02:41 | XMS_ITS | CONTINUITY OF CARE DOCUMENT ---
Author Name anderson barron Address Unknown Organization [facility] Address [address] [facility] [address] [place] [address] Phone [phone] Care Team Providers Care Sustainable Design Consultant Name Role Phone Moris LEDEZMA, Merry Unavailable [phone] Merry Subramanian MD Unavailable MICHELLE OLIVER MD Unavailable INSURANCE PROVIDERS Payer name Policy type / Coverage type [place] red green party ID AARP MEDICARE ADVANTAGE HMO-POS HMO [id number] HEALTHCARE AND FAMILY SERVICES Medicaid 1 [id number]
--- OUTSIDE RECORDS SUMMARY | 2024-07-14 02:41 | XMS_ITS | Clinical Summary ---
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 [address] [place] [address] PCP - General Internal Medicine 06/24/15
--- NOTE | 2024-07-14 03:36 | ED_ITS ---
HPI - General Adult General Chief complaint: Back Pain/Injury Stated complaint: Lower right side back pain Time Seen by Provider: 07/14/24 02:17 History of Present Illness HPI narrative: This is a 64-year-old male presenting with right lower back pain. Pain started 3 days ago. It is a cramping pain in his right lower back that radiates the left side of his back. Pain comes and goes. It is worse with movement and standing. It is positional in nature. Patient says that he recently got a new bed that is much softer than his old bed and that corresponds to when his pain started. He is not having any urinary symptoms, bowel incontinence or saddle anesthesia. No weakness to his legs. He has been able ambulate. He took 800 mg of Motrin before coming to the ED. Related Data Home Medications ?Medication ?Instructions ?Recorded ?Confirmed ?Last Taken ?Type albuterol sulfate 90 mcg/actuation 2 puff inhalation QID PRN Wheezing 10/08/20 04/26/24 04/25/24 History aerosol inhaler budesonide-formoterol HFA 160 2 puff inhalation BID 10/08/20 04/26/24 04/25/24 History mcg-4.5 mcg/actuation aerosol inhaler (Symbicort) tiotropium bromide 18 mcg capsule 1 cap inhalation DAILY 10/08/20 04/26/24 04/25/24 History with inhalation device (Spiriva with HandiHaler) albuterol sulfate 2.5 mg/3 mL 2.5 mg continuous nebulization 04/26/24 04/26/24 04/25/24 History (0.083 %) solution for nebulization Q4-6H PRN shortness of breath or wheezing Allergies Allergy/AdvReac Type Severity Reaction Status Date / Time No Known Allergies Allergy Verified 04/25/24 18:11 [facility] Past Medical History Medical History Dysphagia Abnormal findings-gastrointestinal tract Acute and chronic respiratory failure Nausea and vomiting in adult SILVANA (obstructive sleep apnea) Chronic respiratory failure with hypoxia, on home oxygen therapy Tobacco use Chronic obstructive pulmonary disease Obesity hypoventilation syndrome Morbid obesity Surgical History Surgical History History of appendectomy History of mandibular surgery Bilateral jaw surgery due to fracture. Family History Family History Other Hypertension Social History Social History Social History: Surrogate decision maker: Fernanda Yao, oetvicsz-fw-vxz. Code status: Full code however he would not want to be on long-term life support. Smoking packs per day: 0.5 Smoking cigarettes per day: 10.0 Years smoked: 40 Smoking pack-years: 20.00 Smoking status: Current every day smoker Tobacco type: cigarettes Additional smoking assessment comments: pt is down to 4-5 cigarettes every few days Alcohol intake: never Substance use: current Substance use type: marijuana Other substance usage details: smokes about a few days a month Last use: Occasional marijuana use. Do You Feel Safe in your Home?: Yes Lack of Transportation: No Lack of Food: Never True Current Housing: I Have Housing Concerned About Future Housing: No Difficulty Paying Gas/Electric Bills: No Difficulty Paying for Meds: No Currently Unemployed: No Education: Don't Know Difficulty w/ Childcare or Family Care: No Additional living arrangements comments: The patient lives with his son and hveutwzk-yl-euy in [place]. 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 Spiritual care concerns: Yes (Orthodox) Exam 2 Narrative: APPEARANCE: No apparent distress. Morbidly obese Head: atraumatic. EYES: EOMI, NOSE: Atraumatic NECK: Trachea midline RESPIRATORY: No increased rate of breathing CARDIOVASCULAR: RRR, ABDOMINAL: Non-distended MUSCULOSKELETAl: No midline spinal tenderness, no tenderness to palpation paralumbar muscles, no overlying skin changes NEURO: Alert. Cranial nerves 2-12 grossly intact. Sensation light touch, motor function cerebellar function intact for 4 extremities. Gait exam was normal. SKIN:: Warm, dry. Normal color PSYCHIATRIC: Normal affect Course Vital Signs Vital signs: Vital Signs Temperature 97.4 F L 07/13/24 21:31 Pulse Rate 80 07/13/24 21:31 Respiratory Rate 16 07/13/24 21:31 Blood Pressure 140/107 H 07/13/24 21:31 Pulse Oximetry 93 07/13/24 21:31 Oxygen Delivery Nasal Cannula 07/13/24 21:31 Oxygen Flow Rate 3 07/13/24 21:31 Temperature 97.4 F L 07/13/24 21:31 Pulse Rate 80 07/13/24 21:31 Respiratory Rate 16 07/13/24 21:31 Blood Pressure 140/107 H 07/13/24 21:31 Pulse Oximetry 93 07/13/24 21:31 Oxygen Delivery Nasal Cannula 07/13/24 21:31 Oxygen Flow Rate 3 07/13/24 21:31 Medical Decision Making [facility] Narrative Medical decision making narrative: -Course: 64-year-old morbidly obese male presenting with lower back pain after getting a new bed. Physical exam is unremarkable. He has no concerning neurologic findings. Pain is musculoskeletal in nature. Patient will be treated with muscle relaxers NSAIDs and lidocaine patch. Be given appropriate medications instructed follow-up with primary care physician for further management. Given return precautions. -DDX includes but is not limited to: Muscle spasms, muscle strain, kidney stone, AAA, herniated disc -Co-morbidities complicating care: Morbid obesity Vital Signs Vital Signs: Vital Signs Temperature 97.4 F L 07/13/24 21:31 Pulse Rate 80 07/13/24 21:31 Respiratory Rate 16 07/13/24 21:31 Blood Pressure 140/107 H 07/13/24 21:31 Pulse Oximetry 93 07/13/24 21:31 Oxygen Delivery Nasal Cannula 07/13/24 21:31 Oxygen Flow Rate 3 07/13/24 21:31 Temperature 97.4 F L 07/13/24 21:31 Pulse Rate 80 07/13/24 21:31 Respiratory Rate 16 07/13/24 21:31 Blood Pressure 140/107 H 07/13/24 21:31 Pulse Oximetry 93 07/13/24 21:31 Oxygen Delivery Nasal Cannula 07/13/24 21:31 Oxygen Flow Rate 3 07/13/24 21:31 Lab Data 07/13/24 21:44 07/13/24 21:44 Labs: Lab Results 07/13/24 Range/Units 21:44 WBC 10.9 H (4.5-10.0) K/mm3 RBC 4.78 (4.6-6.20) M/mm3 Hgb 14.6 (14.0-18.0) g/dL Hct 46.6 (42.0-52.0) % MCV 97.5 (80-100) fl MCH 30.5 (26-34) pg MCHC 31.3 L (32-36) g/dl RDW 15.1 H (11.5-14.5) % Plt Count 183 (150-375) k/mm3 MPV 10.1 (7.4-10.4) fl Immature Gran % (Auto) 0.5 (0-0.5) % Neut % (Auto) 75.3 H (45.5-73.1) % Lymph % (Auto) 12.8 L (18.3-44.2) % [place] % (Auto) 8.6 H (2.6-8.5) % Eos % (Auto) 2.5 (0-4.4) % Baso % (Auto) 0.3 (0.2-1.2) % Lymph # (Auto) 1.39 (0.9-3.2) K/mm3 [place] # (Auto) 0.9 H (0.1-0.6) K/mm3 Eos # (Auto) 0.3 (0-0.3) K/mm3 Baso # (Auto) 0.0 (0.0-0.1) K/mm3 Abs Immat Gran (auto) 0.05 H (0.00-0.031) K/mm3 Absolute Neuts (auto) 8.2 H (1.3-6.7) K/mm3 Absolute Nucleated RBC 0.000 (0.0-0.012) K/mm3 Nucleated RBC % 0.0 (0.0-0.2) % Sodium 140 (137-145) mmol/L Potassium 4.4 (3.4-5.0) mmol/L Chloride 99 (98-107) mmol/L Carbon Dioxide 35 H (22-30) mmol/L Anion Gap 6 (4-12) mmol/L BUN 18 (9-20) mg/dL Creatinine 1.09 (0.7-1.3) mg/dL Estim Creat Clear Calc 110 ml/min Estimated GFR > 60 (59 - ) Glucose 131 H (65-110) mg/dL Calcium 9.2 (8.4-10.2) mg/dL Total Bilirubin 1.3 (0.2-1.3) mg/dL AST 23 (17-59) U/L ALT 29 (6-50) U/L Alkaline Phosphatase 82 (38-126) U/L Total Protein 7.0 (6.3-8.2) g/dL Albumin 4.1 (3.5-5.1) g/dL Discharge Plan Discharge Clinical Impression: Lower back pain Patient Disposition: Home, Self-Care Condition: Stable Instructions: Antibiotic Form, Acute Low Back Pain (ED) Additional Instructions: You were seen in the emergency department for back pain. Please use Tylenol, Robaxin lidocaine patches for your pain. Please follow-up with your primary care physician. If you develop weakness to legs, inability to urinate, or bowel incontinence return to ED for re-evaluation. Patient Language: Serbian Prescriptions: New acetaminophen 500 mg tablet 1,000 mg PO TID PRN (Reason: janett) 7 Days Qty: 42 0RF ibuprofen 800 mg tablet 800 mg PO TID PRN (Reason: pain) 7 Days Qty: 21 0RF methocarbamol 750 mg tablet 1,500 mg PO TID Qty: 35 0RF lidocaine 5 % adhesive patch,medicated 1 patch topical DAILY Qty: 15 0RF Rx Instructions: leave on most painful area for up to 12 hrs No Action albuterol sulfate 90 mcg/actuation HFA aerosol inhaler 2 puff INHALATION QID PRN (Reason: Wheezing) tiotropium bromide [Spiriva with HandiHaler] 18 mcg capsule, w/inhalation device 1 cap INHALATION DAILY budesonide-formoterol [Symbicort] 160-4.5 mcg/actuation HFA aerosol inhaler 2 puff INHALATION BID albuterol sulfate 2.5 mg /3 mL (0.083 %) solution for nebulization 2.5 mg continuous nebulization Q4-6H PRN (Reason: shortness of breath or wheezing) lisinopril 5 mg Tablet 5 mg PO QAM Qty: 30 0RF colchicine [Colcrys] 0.6 mg Tablet 0.6 mg PO QAM Qty: 30 0RF levofloxacin 750 mg tablet 750 mg PO DAILY Qty: 4 0RF Rx Instructions: Take 1 tablet a day. Complete the course on 05/02/2024. tolnaftate 1 % Powder 1 applic topical Q12HR 30 Days 0RF Bengay Ultra Strength 4-30-10 % Cream 1 applic topical BID PRN (Reason: Muscle/Joint Pain) Qty: 226 0RF Follow-up/Referrals: Myles,Vijay Rosario MD [Primary Care Provider] - 1 Week (Back pain )
[2024-07-14 04:20] VITALS: BP 138/94; PULSE 84; RESP 15; O2SAT 96
[2024-07-14] MEDS: HYDROcodone/acetaminophen (*CRX) 5-325 MG TABLET 2 TAB PO (04:23)
[2024-07-14] MEDS: methocarbamoL 750 MG TABLET 1500 MG PO (04:24)
[2024-07-14] MEDS: KETOROLAC 30 MG/ML VIAL (*BKC) IM (04:25)
[2024-07-14] MEDS: LIDOCAINE 5% PATCH 1 PATCH TRANSDERM (04:25)
[2024-07-14 06:20] VITALS: BP 142/95; PULSE 89; RESP 19; O2SAT 95
--- NOTE | 2024-07-14 10:41 | PC.NURSE ---
Meal tray ordered for pt
== END 2024-07-14 12:06 | disposition home or self-care (01) ==
PROVIDERS: Emergency Provider Emergency Medicine; PCP Internal Medicine
DX: M54.50 Low back pain, unspecified (principal); J44.9 Chronic obstructive pulmonary disease, unspecified; J96.21 Acute and chronic respiratory failure with hypoxia; Z99.81 Dependence on supplemental oxygen; E66.2 Morbid (severe) obesity with alveolar hypoventilation; Z68.43 Body mass index [BMI] 50.0-59.9, adult; G47.33 Obstructive sleep apnea (adult) (pediatric); F17.210 Nicotine dependence, cigarettes, uncomplicated; Z79.899 Other long term (current) drug therapy
CPT/HCPCS: 36415; 80053; 85025; 96372; 99283; A9270; J1885